=== PATIENT | female | born 1950 | race Caucasian/White ===

== ENCOUNTER → 2017-03-07 | Outpatient (CLI) | payer OTHER ==
[~2017-03-07] MED LIST: AMOX875T PO; B 12 INJECTION IM; CAND1TAB19 PO; CHOL1TAB5 OR; CHOL2000 PO; CHOL400C6 PO; CYNI1000 IM; ERGO1CAP35 PO; FLUO20CA35 PO; FLUO40CA8 PO; HYDR-3419 PO; LEVA45AE INH; LEVA45AE PO; LEVO50TA6 PO; LEVO50TA60 PO; META1TAB22 PO; MOME100A INH; MONT1TAB5 PO; ONDA4TAB46 PO; PLMIN90 PO; RANI150T3 PO; SIME1CAP11 PO; SIME1CHW17 PO; SKELAXIN PO; ZNT150 PO; [UNRECOGNIZED DRUG - CODE] PO; [UNRECOGNIZED DRUG - OTHER] PO
--- NOTE | 2017-03-07 12:47 | MAMMOGRAPHY REPORT ---
ULTRASOUND OF LEFT BREAST: 03/07/2017 CLINICAL HISTORY: History of left mastectomy and silicone implant placement. The patient believes h er implant was placed in 2009. She notes no changes to her implant, she reports that her physician periodically likes to evaluate for possible implant rupture. COMPARISON: Comparison is made to exams dated: 03/04/2015 mammogram, 03/04/2015 ultrasound - [facility], 08/21/2007, 08/21/2007, and 08/09/2007. TECHNIQUE: Real-time targeted ultrasound of the left breast was performed. FINDINGS: Real-time, high resolution targeted ultrasound was performed of the left mastectomy bed to evaluate for implant rupture. The implant appears intact without any evidence of intracapsular or extracapsu lar rupture. IMPRESSION: ACR BI-RADS CATEGORY 2: BENIGN No evidence of left implant rupture on ultrasound. Recommend clinical follow-up. The patient is du e for screening right breast mammograms September 2017. The patient was verbally notified of the res ults. Valeria Thao M.D. ah/:03/07/2017 11:24:24 Attending Technologist: Ebony Kc RT(R)(M), [facility] Flue Cleaner: Valeria Thao MD, [facility] letter sent: Normal 1/2 BI-RADS Code: ACR BI-RADS Category 2: Benign
== END | disposition home or self-care (01) ==
LOC: C.MAMM 10:59
PROVIDERS: ATTEND Plastic Surgery
DX: Z42.1 Encounter for breast reconstruction following mastectomy (principal); N64.4 Mastodynia; C50.919 Malignant neoplasm of unspecified site of unspecified female breast; Z98.82 Breast implant status

== ENCOUNTER → 2017-03-23 | Outpatient (CLI) | payer OTHER ==
[2017-03-23 11:52] LABS: BASO % 0.3 %; BASO ABS # 0.02 K/uL (0-0.2); COMPLETE YES; EOS % 3.6 %; HEMATOCRIT 38.7 % (37-47); LYMPH % 39.7 %; LYMPH ABS # 2.41 K/uL (1.2-3.4); MEAN CELL VOLUME 93.5 fL (80-100); MEAN CORPUSCULAR HEMOGLOBIN 30.7 pg (25-34); MEAN CORPUSCULAR HGB CONC 32.8 g/dl (32-36); MEAN PLATELET VOLUME 11.6 fL (7.4-10.4); MONO % 10.2 %; NEUT % 46.2 %; PLATELET COUNT 220 K/uL (130-400); RED BLOOD COUNT 4.14 M/uL (4.2-5.4); WHITE BLOOD COUNT 6.07 K/uL (4.8-10.8)
[2017-03-23 12:14] LABS: ESTIMATED AVERAGE GLUCOSE 117 mg/dl; HA1C FLAG Normal (Normal)
[2017-03-23 12:38] LABS: ALT/SGPT 23 U/L (12-78); AST/SGOT 15 U/L (15-37); BLOOD UREA NITROGEN 26 mg/dl (7-18); BUN/CREATININE RATIO 26.1 (10-20); CALCIUM 9.1 mg/dl (8.5-10.1); CARBON DIOXIDE 25 mmol/L (21-32); CHLORIDE 108 mmol/L (98-107); GLUCOSE 91 mg/dl (70-99); POTASSIUM 4.3 mmol/L (3.5-5.1); SODIUM 141 mmol/L (136-145)
[2017-03-23 12:49] LABS: ALKALINE PHOSPHATASE 88 U/L (45-117)
--- NOTE | 2017-03-28 14:06 | CODING QUERY MEDICAL NECESSITY ---
CQSUPPORTING DIAGNOSIS NEEDED A supporting diagnosis is required for the test/procedure performed on this patient in order for us to be reimbursed by the patient's insurance. Please provide a supporting diagnosis for the following test/procedure listed below next to the test name along with your signature. *If there is no additional diagnosis for this patient that would support the following test/procedure please document that below next to the test/procedure. Test(s)/Procedure(s) that require a supporting diagnosis: DOS 03/23/17 GLYCATED HEMOGLOBIN TEST Provider Signature: Date: Thank you Brigitte Duff Health Information Management Once completed, please kindly fax back to [phone] For questions please call [phone]
== END | disposition home or self-care (01) ==
LOC: C.LABBFT 08:09
PROVIDERS: ATTEND Internal Medicine
DX: R73.03 Prediabetes (principal); E55.9 Vitamin D deficiency, unspecified; E03.9 Hypothyroidism, unspecified; E53.8 Deficiency of other specified B group vitamins

== ENCOUNTER → 2017-03-26 | Outpatient (CLI) | payer OTHER ==
[2017-03-26 13:39] LABS: URINE APPEARANCE CLEAR (CLEAR); URINE BILIRUBIN NEG (NEG); URINE COLOR YELLOW; URINE NITRITE NEG (NEG); URINE PH 5.5 (4.5-7.5); URINE SPECIFIC GRAVITY 1.009 (1.000-1.030); UROBILINOGEN NEG (NEG); ZZUR CULT IF INDIC CLEAN CATCH NO
[2017-03-26 13:43] LABS: MANUAL MICROSCOPIC REQUIRED? NO; REVIEW REQ? NO
== END | disposition home or self-care (01) ==
LOC: C.LABSPEC 12:18
PROVIDERS: ATTEND Internal Medicine
DX: R73.03 Prediabetes (principal)

== ENCOUNTER 2017-05-28 22:19 | Emergency (ER) | payer OTHER ==
[~2017-05-28] VITALS: Ht 154.9 cm; Wt 101.2 kg
[~2017-05-28 22:19] MED LIST changes: -AMOX875T PO; -CAND1TAB19 PO; -CHOL2000 PO; -CHOL400C6 PO; -CYNI1000 IM; -FLUO40CA8 PO; -LEVA45AE INH; -LEVA45AE PO; -LEVO50TA6 PO; -META1TAB22 PO; -MONT1TAB5 PO; -ONDA4TAB46 PO; -PLMIN90 PO; -RANI150T3 PO; -SIME1CAP11 PO
[2017-05-28 22:25] VITALS: Ht 154.9 cm; Wt 101.2 kg
[2017-05-28] MEDS ORDERED: CAND1TAB19 PO (22:54)
[2017-05-28] MEDS ORDERED: CYNI1000 IM (22:55)
[2017-05-28] MEDS ORDERED: LEVO50TA6 PO (22:55)
[2017-05-28] MEDS ORDERED: FLUO40CA8 PO (22:55)
[2017-05-28] MEDS ORDERED: MONT1TAB5 PO (22:57)
[2017-05-28] MEDS ORDERED: META1TAB22 PO (22:57)
[2017-05-28] MEDS ORDERED: LEVA45AE PO (22:58)
[2017-05-28] MEDS ORDERED: CHOL2000 PO (22:58)
[2017-05-28] MEDS ORDERED: RANI150T3 PO (22:58)
[2017-05-28] MEDS ORDERED: PLMIN90 PO (22:59)
[2017-05-28] MEDS ORDERED: AMPICILLIN/SULBACTAM SOD INJ 3,000 MG in SODIUM CHLORIDE 0.9% 100ML 100 ML IV STA (23:05)
--- NOTE | 2017-05-28 23:07 | EMERGENCY ROOM VISIT NOTE ---
ED Visit Note First contact with patient: 22:46 I have personally seen and evaluated the patient with the physician assistant librarian. I agree with the diagnostic/management decisions and have personally been involved in these decisions and agree with the diagnosis.
[2017-05-28 23:21] LABS: BASO % 0.4 %; BASO ABS # 0.04 K/uL (0-0.2); COMPLETE YES; HEMATOCRIT 36.3 % (37-47); IG% 0.1 %; LYMPH % 23.1 %; LYMPH ABS # 2.21 K/uL (1.2-3.4); MEAN CELL VOLUME 92.8 fL (80-100); MEAN CORPUSCULAR HEMOGLOBIN 30.7 pg (25-34); MEAN CORPUSCULAR HGB CONC 33.1 g/dl (32-36); MONO % 7.3 %; NEUT % 67.1 %; PLATELET COUNT 189 K/uL (130-400); RED BLOOD COUNT 3.91 M/uL (4.2-5.4); WHITE BLOOD COUNT 9.55 K/uL (4.8-10.8)
[2017-05-28 23:42] LABS: BUN/CREATININE RATIO 23.4 (10-20); CALCIUM 8.9 mg/dl (8.5-10.1); CREATININE 0.86 mg/dl (0.60-1.20); POTASSIUM 3.6 mmol/L (3.5-5.1)
[2017-05-28 23:43] LABS: C-REACTIVE PROTEIN 1.63 mg/dl (0-0.29)
[2017-05-29] MEDS ORDERED: AMOX875T PO (00:04)
--- NOTE | 2017-05-29 00:12 | EMERGENCY ROOM VISIT NOTE ---
History First contact with patient: 22:46 Chief Complaint: BITE Stated Complaint: INSECT BITE ON LT FOOT/ANKLE, SWOLLEN, PAINFUL History of Present Illness The patient is a 66 year old female who presents to the Emergency Room with complaints of bilateral ankle swelling, pain, redness and bruising. The patient reports that she was camping over the weekend, and is pretty certain that she was bitten by bugs. She reports that her daughter did pull something black off of the back of her left ankle, and thought that it may have been a tick. The tick had only been attached for a short period of time. The patient reports that in addition to the swelling and pain, she has also had chills and a headache today. Tetanus immunization is up-to-date. The patient rates her discomfort a 7 out of 10. Review of Systems 10 system review was performed and was negative except for pertinent positives and negatives as indicated in history of present illness Past Medical/Surgical History Medical Problems: (1) Asthma (2) Breast cancer (3) Breast implant status (4) Endocarditis (5) HTN (hypertension) (6) Hypoxia Surgical Problems: (1) H/O gastric bypass (2) H/O left mastectomy (3) History of cholecystectomy (4) S/P appendectomy (5) S/P partial hysterectomy Family History FH: HTN (hypertension) FH: cancer FH: diabetes mellitus FH: heart disease Social History Smoking Status: Never Smoker Alcohol Use: none Drug Use: none Marital Status: Housing Status: lives with significant other Occupation Status: employed Current/Historical Medications Scheduled Amoxicillin & Pot Clavulanate (Augmentin 875-125 mg), 1 TAB PO BID Budesonide (Pulmicort Flexhaler), 1 PUFF PO BID Candesartan Cilexetil (Candesartan Cilexetil), 16 MG PO DAILY Cholecalciferol (Vitamin D3), 1 CAP PO DAILY Cyanocobalamin (Cyanocobalamin), 1,000 MCG IM MONTHLY Fluoxetine (Prozac), 80 MG PO DAILY Levothyroxine Sodium (Levothyroxine Sodium), 1 TAB PO DAILY Metaxalone (Skelaxin), 800 MG PO Q8 Montelukast Sodium (Montelukast Sodium), 1 TAB PO DAILY Ranitidine Hcl (Zantac), 150 MG PO BID Scheduled PRN Levalbuterol Tartrate (Levalbuterol Tartrate Hfa), 1-2 PUFFS PO Q4 PRN for SOB/ Wheezing Allergies Coded Allergies: Docetaxel (Verified Allergy, Severe, CHEST PAIN, CAN'T BREATHE, 05/28/17) Acetaminophen (Verified Adverse Reaction, Mild, MAKES HER JUMPY, 05/28/17) Ibuprofen (Verified Adverse Reaction, Unknown, bleeding, 05/28/17) Physical Exam Vital Signs Date Time Temp Pulse Resp B/P (MAP) Pulse Ox O2 Delivery O2 Flow Rate FiO2 05/28/17 22:25 36.5 79 20 181/98 96 Room Air Physical Exam CONSTITUTIONAL: Healthy and well nourished. Alert and oriented X 3 with positive affect. Patient does not appear acutely or toxic. HEENT: Normocephalic, atraumatic. Pupils equal, round and reactive. NECK: Full active range of motion without discomfort. RESPIRATORY: Clear to auscultation bilaterally with no wheezing, crackles, rhonchi or stridor. CARDIOVASCULAR: Regular rate and rhythm with no murmurs, rubs or gallops. MUSCULOSKELETAL: Examination shows bilateral ankle edema and erythema. She has a lesion on the left inner ankle that is more petechial in nature, and warm to palpation. She has 1+ pedal edema bilaterally. No proximal lymphangitic streaking noted. She has no significant worsening pain with flexion of the ankle. Pedal pulses are intact. INTEGUMENTARY: No rash or other significant dermatologic conditions noted. NEUROLOGIC: Bilateral feet are sensory intact. Medical Decision & Procedures Laboratory Results 05/28/17 23:10 Red Blood Count 3.91, Mean Corpuscular Volume 92.8, Mean Corpuscular Hemoglobin 30.7, Mean Corpuscular Hemoglobin Concent 33.1, Mean Platelet Volume 11.0, Neutrophils (%) (Auto) 67.1, Lymphocytes (%) (Auto) 23.1, Monocytes (%) (Auto) 7.3, Eosinophils (%) (Auto) 2.0, Basophils (%) (Auto) 0.4, Neutrophils # (Auto) 6.40, Lymphocytes # (Auto) 2.21, Monocytes # (Auto) 0.70, Eosinophils # (Auto) 0.19, Basophils # (Auto) 0.04 05/28/17 23:10 Test 05/28/17 23:10 White Blood Count 9.55 K/uL (4.8-10.8) Red Blood Count 3.91 M/uL (4.2-5.4) Hemoglobin 12.0 g/dL (12.0-16.0) Hematocrit 36.3 % (37-47) Mean Corpuscular Volume 92.8 fL (80-100) Mean Corpuscular Hemoglobin 30.7 pg (25-34) Mean Corpuscular Hemoglobin Concent 33.1 g/dl (32-36) Platelet Count 189 K/uL (130-400) Mean Platelet Volume 11.0 fL (7.4-10.4) Neutrophils (%) (Auto) 67.1 % Lymphocytes (%) (Auto) 23.1 % Monocytes (%) (Auto) 7.3 % Eosinophils (%) (Auto) 2.0 % Basophils (%) (Auto) 0.4 % Neutrophils # (Auto) 6.40 K/uL (1.4-6.5) Lymphocytes # (Auto) 2.21 K/uL (1.2-3.4) Monocytes # (Auto) 0.70 K/uL (0.11-0.59) Eosinophils # (Auto) 0.19 K/uL (0-0.5) Basophils # (Auto) 0.04 K/uL (0-0.2) RDW Standard Deviation 49.0 fL (36.4-46.3) RDW Coefficient of Variation 14.6 % (11.5-14.5) Immature Granulocyte % (Auto) 0.1 % Immature Granulocyte # (Auto) 0.01 K/uL (0.00-0.02) Erythrocyte Sedimentation Rate 16 mm/hr (0-21) Anion Gap 9.0 mmol/L (3-11) Est Creatinine Clear Calc Drug Dose 68.3 ml/min Estimated GFR () 80.5 Estimated GFR (Non- 69.4 BUN/Creatinine Ratio 23.4 (10-20) Calcium Level 8.9 mg/dl (8.5-10.1) C-Reactive Protein 1.63 mg/dl (0-0.29) The above labs were reviewed. CRP is elevated, otherwise remaining labs were reviewed and grossly normal. Medications Administered Medications (Trade) Dose Ordered Sig/Vinny Route Start Time Stop Time Status Last Admin Dose Admin Ampicillin Sodium/ Sulbactam Sodium 3000 mg/Sodium Chloride 108 ml @ 200 mls/hr NOW STAT IV 05/28/17 23:05 05/28/17 23:37 DC 05/28/17 23:30 200 MLS/HR ED Course Patient history and physical exam were performed. Nurse's notes were reviewed. Vital signs were reviewed, showing an elevated blood pressure 181/98. She is afebrile and not tachycardic. Because of her symptoms and clinical exam findings, I did suggest administering parenteral antibiotics. IV access was established, and labs were drawn. The patient was administered Unasyn 3 g IV infusion. Review of labs shows a mildly elevated CRP with no sedimentation rate elevation. Remaining labs were grossly normal. The patient was provided a prescription for Augmentin. She was instructed to elevate the ankles for swelling and pain. The patient refused any prescription analgesics. She was instructed to follow-up with her family doctor in the next 2 or 3 days for recheck. She was instructed to return to the emergency department for any progressively worsening redness, swelling, pain or fever. The patient was happy with plan of care, voiced understanding of all discharge instructions, and rated her discomfort a 3 out of 10 at the time of discharge. The patient was also seen and examined by Dr. Connor, ED attending physician, who agrees with workup and plan of care. Medical Decision Impression Primary Impression: Bilateral ankle cellulitis Departure Information Prescriptions Amoxicillin & Pot Clavulanate (Augmentin 875-125 mg) 1 Tab Tab 1 TAB PO BID, #20 TAB Prov: Pardeep Spangler PA 05/29/17 Referrals Enoch Aguilar M.D. (PCP) Patient Instructions [facility]
[2017-05-29 00:13] VITALS: BP 181/98; PULSE 79; TEMP 36.5; O2SAT 96
[2017-08-22] MEDS ORDERED: CHOL400C6 PO (14:03)
[2017-08-22] MEDS ORDERED: LEVA45AE INH (14:03)
[2017-08-22] MEDS ORDERED: SIME1CAP11 PO (14:03)
[2017-08-22] MEDS ORDERED: ONDA4TAB46 PO (14:03)
== END 2017-05-29 00:15 | disposition home or self-care (01) ==
LOC: C.EDB 22:21 → C.EDC 05-29 00:15
DX: L03.115 Cellulitis of right lower limb (principal); L03.116 Cellulitis of left lower limb; J45.909 Unspecified asthma, uncomplicated; Z85.3 Personal history of malignant neoplasm of breast; Z98.82 Breast implant status; I10 Essential (primary) hypertension; Z98.84 Bariatric surgery status; Z90.12 Acquired absence of left breast and nipple; Z82.49 Family history of ischemic heart disease and other diseases of the circulatory system; Z80.9 Family history of malignant neoplasm, unspecified; Z83.3 Family history of diabetes mellitus; Z79.899 Other long term (current) drug therapy

== ENCOUNTER → 2017-08-01 | Outpatient (CLI) | payer OTHER ==
[~2017-08-01] MED LIST changes: -B 12 INJECTION IM; +CAND1TAB19 PO; -CHOL1TAB5 OR; +CHOL2000 PO; +CHOL400C6 PO; +CYNI1000 IM; -ERGO1CAP35 PO; -FLUO20CA35 PO; +FLUO40CA8 PO; -HYDR-3419 PO; +LEVA45AE INH; +LEVA45AE PO; +LEVO50TA6 PO; -LEVO50TA60 PO; +META1TAB22 PO; -MOME100A INH; +MONT1TAB5 PO; +ONDA4TAB46 PO; +PLMIN90 PO; +RANI150T3 PO; +SIME1CAP11 PO; -SIME1CHW17 PO; -SKELAXIN PO; -ZNT150 PO; -[UNRECOGNIZED DRUG - CODE] PO; -[UNRECOGNIZED DRUG - OTHER] PO
[2017-08-01 12:35] LABS: BASO % 0.4 %; BASO ABS # 0.03 K/uL (0-0.2); COMPLETE YES; EOS % 1.9 %; HEMATOCRIT 36.9 % (37-47); IG% 0.1 %; LYMPH % 37.7 %; LYMPH ABS # 2.61 K/uL (1.2-3.4); MEAN CORPUSCULAR HEMOGLOBIN 29.9 pg (25-34); MEAN CORPUSCULAR HGB CONC 32.5 g/dl (32-36); MEAN PLATELET VOLUME 11.4 fL (7.4-10.4); MONO % 8.8 %; NEUT % 51.1 %; PLATELET COUNT 208 K/uL (130-400); RED BLOOD COUNT 4.01 M/uL (4.2-5.4); WHITE BLOOD COUNT 6.92 K/uL (4.8-10.8)
[2017-08-01 12:57] LABS: ESTIMATED AVERAGE GLUCOSE 111 mg/dl; HA1C FLAG Normal (Normal)
[2017-08-01 13:13] LABS: ALT/SGPT 16 U/L (12-78); AMYLASE 22 U/L (25-115); BLOOD UREA NITROGEN 18 mg/dl (7-18); BUN/CREATININE RATIO 18.4 (10-20); CALCIUM 8.9 mg/dl (8.5-10.1); CARBON DIOXIDE 26 mmol/L (21-32); CHLORIDE 105 mmol/L (98-107); CREATININE 0.95 mg/dl (0.60-1.20); GLUCOSE 85 mg/dl (70-99); POTASSIUM 4.3 mmol/L (3.5-5.1); SODIUM 137 mmol/L (136-145)
[2017-08-01 13:23] LABS: ALB/GLOB RATIO 1.1 (0.9-2); ALKALINE PHOSPHATASE 94 U/L (45-117); AST/SGOT 15 U/L (15-37)
== END | disposition home or self-care (01) ==
LOC: C.LABBFT 10:39
PROVIDERS: ATTEND Internal Medicine
DX: E03.9 Hypothyroidism, unspecified (principal); R14.0 Abdominal distension (gaseous); E55.9 Vitamin D deficiency, unspecified; R73.03 Prediabetes

== ENCOUNTER → 2017-08-29 | Outpatient (CLI) | payer OTHER ==
[~2017-08-29] MED LIST changes: -CHOL2000 PO; -LEVA45AE PO
--- NOTE | 2017-08-29 10:02 | DIAGNOSTIC IMAGING REPORT ---
RIGHT HAND 3 VIEWS HISTORY: Arthritis. Hand pain. E61.8 Mineral deficiency Right [id number] COMPARISON: None. FINDINGS: There is no fracture or dislocation. Prior resection of the trapezium bone. Mild osteopenia. Severe osteoarthritis at the PIP joints of the third and fourth fingers with mild soft tissue swelling. Subchondral cystic change at the third PIP joint due to the degenerative change. There is mild to moderate osteoarthritis throughout the remaining DIP, PIP, and first MCP joints. There is also mild osteoarthritis at the radiocarpal joint and moderate osteoarthritis at the residual STT joint. IMPRESSION: Osteoarthritis within the right hand as described above most pronounced at the PIP joints of the third and fourth digits. Electronically signed by: Clayton Mora M.D. 08/29/2017 10:01 AM Dictated Date/Time: 08/29/2017 9:58 AM
--- NOTE | 2017-08-29 10:04 | DIAGNOSTIC IMAGING REPORT ---
THORACIC SPINE 3 VIEWS HISTORY: Back pain. E61.8 Mineral deficiency [id number] COMPARISON: None. FINDINGS: There is no fracture. No subluxation. Right subclavian Port-A-Cath terminates at the proximal SVC. Mild superior mediastinal widening which could be positional. Epigastric surgical clips are noted. Minimal dextroscoliosis of the thoracic spine. Paraspinal soft tissues are unremarkable. Mild kyphosis with moderate degenerative disc disease throughout the mid to lower thoracic spine. There multiple endplate osteophytes at these levels. There is mild degenerative disc disease within the upper thoracic spine. IMPRESSION: 1. Mild to moderate degenerative disc disease within the thoracic spine resulting in a mild kyphosis. 2. Question mediastinal widening may be positional. Nonemergent PA and lateral views of the chest can be used for confirmation. Electronically signed by: Clayton Mora M.D. 08/29/2017 10:03 AM Dictated Date/Time: 08/29/2017 10:01 AM
== END ==
LOC: C.RAD 09:24
PROVIDERS: ATTEND Internal Medicine Rheumatology
DX: E61.8 Deficiency of other specified nutrient elements (principal)

== ENCOUNTER → 2017-08-29 | Day surgery (SDC) | payer OTHER ==
[2017-08-22 14:05] VITALS: Ht 156.2 cm; Wt 96.4 kg
[~2017-08-29] VITALS: Ht 156.2 cm; Wt 96.4 kg
[~2017-08-29] MED LIST changes: +KETAMINE HCL INJ 50 MG/ML 10 ML VIAL ONE; +LABETALOL HCL IV 5 MG/ML 20ML IV ONE; +LIDOCAINE HCL 2% 2 ML VIAL (20MG/ML) ONE; +MIDAZOLAM HCL 1 MG/ML 2ML VIAL ONE; +PROPOFOL IV EMULSION 10 MG/ML 20 ML VIAL IV ONE
--- NOTE | 2017-08-29 14:37 | Endo History and Physical ---
History & Physical Date of Service: Aug 29, 2017. Chief Complaint: GERD Referring Physician: Enoch Aguliar History of Present Illness For EGD Past Surgical History Hx Cardiac Surgery: No Hx Internal Defibrillator: No Hx Pacemaker: No Hx Abdominal Surgery: Yes (STOMACH STAPELING, GASTRIC BYPASS, APPY, PARTIAL HYSTER, MARY) Hx of Implantable Prosthesis: No Hx Post-Op Nausea and Vomiting: No Hx Cancer Surgery: Yes (LT BREAST MASTECTOMY WITH IMPLANT RECON; RT BREAST MASTOPEXY FOR SYMMETRY) Hx Thoracic Surgery: No Hx Orthopedic: Yes (RT THUMB JOINT SURGERY) Hx Urinary Tract Surgery: No Family History None Social History Smoking Status: Former Smoker Hx Substance Use: No Hx Alcohol Use: Yes (RARELY) Allergies Coded Allergies: Docetaxel (Verified Allergy, Severe, CHEST PAIN, CAN'T BREATHE, 08/22/17) Adhesives (Verified Allergy, Unknown, SKIN BLISTERS, 08/22/17) Alendronate (Verified Allergy, Unknown, PT DOESN'T REMEMBER REACTION, 08/22) Ibandronic Acid (Verified Allergy, Unknown, PT DOESN'T REMEMBER REACTION, 08/22/17) Losartan (Verified Allergy, Unknown, LETHARGY OR LEG SWELLING, 08/22/17) Silver Sulfadiazine (Verified Allergy, Unknown, "MADE BURN WORSE", 08/22/17 ) Acetaminophen (Verified Adverse Reaction, Mild, MAKES HER JUMPY, 08/22/17) Ibuprofen (Verified Adverse Reaction, Unknown, TO BE AVOIDED PER ONCOLOGIST, 08/22/17) Current Medications Reported Home Medications Medications Dose Route/Sig Max Daily Dose Days Date Category Simethicone 180 Mg Cap 1 Cap PO UD PRN 08/22/17 Reported Levalbuterol Tartrate Hfa (Levalbuterol Tartrate) 45 Mcg/Act Aer 1-2 Puffs INH Q4H PRN 08/22/17 Reported Zofran (Ondansetron HCl) 4 Mg Tab 4 Mg PO Q6H PRN 08/22/17 Reported D 400 (Cholecalciferol) 400 Unit Chw 2 Tabs PO QAM 08/22/17 Reported Pulmicort Flexhaler (Budesonide) 60 Puffs/5400 Mcg Aero 1 Puff PO BID PRN 05/28/17 Reported Zantac (Ranitidine HCl) 150 Mg Tab 150 Mg PO BID 05/28/17 Reported Montelukast Sodium 10 Mg Tab 1 Tab PO QAM 05/28/17 Reported Levothyroxine Sodium 50 Mcg Tab 1 Tab PO QAM 05/28/17 Reported Prozac (Fluoxetine HCl) 40 Mg Cap 2 Cap PO QAM 05/28/17 Reported Cyanocobalamin 1,000 Mcg/Ml Inj 1,000 Mcg IM MONTHLY 05/28/17 Reported Candesartan Cilexetil 16 Mg Tab 16 Mg PO QAM 05/28/17 Reported Vital Signs Weight (Kilograms): 96.36 Height (Feet): 5 Height (Inches): 1.5 Physical Exam General Appearance: WD/WN Respiratory/Chest: Respiratory effort: no dyspnea Cardiovascular: Heart Auscultation: RRR Abdomen: Bowel Sounds: pertinent finding (S/P gastric bypass) Assessment and Plan GERD for EGD
--- NOTE | 2017-08-29 14:59 | Discharge Instructions ---
Endoscopy Patient Instructions Date / Procedure(s) Performed Aug 29, 2017. EGD Allergy Information Coded Allergies: Docetaxel (Verified Allergy, Severe, CHEST PAIN, CAN'T BREATHE, 08/22/17) Adhesives (Verified Allergy, Unknown, SKIN BLISTERS, 08/22/17) Alendronate (Verified Allergy, Unknown, PT DOESN'T REMEMBER REACTION, 08/22) Ibandronic Acid (Verified Allergy, Unknown, PT DOESN'T REMEMBER REACTION, 08/22/17) Losartan (Verified Allergy, Unknown, LETHARGY OR LEG SWELLING, 08/22/17) Silver Sulfadiazine (Verified Allergy, Unknown, "MADE BURN WORSE", 08/22/17 ) Acetaminophen (Verified Adverse Reaction, Mild, MAKES HER JUMPY, 08/22/17) Ibuprofen (Verified Adverse Reaction, Unknown, TO BE AVOIDED PER ONCOLOGIST, 08/22/17) Discharge Date / Findings Aug 29, 2017. Normal post op exam Medication Instructions Restart Stopped Medication(s): resume meds Reported Home Medications Medications Dose Route/Sig Max Daily Dose Days Date Category Simethicone 180 Mg Cap 1 Cap PO UD PRN 08/22/17 Reported Levalbuterol Tartrate Hfa (Levalbuterol Tartrate) 45 Mcg/Act Aer 1-2 Puffs INH Q4H PRN 08/22/17 Reported Zofran (Ondansetron HCl) 4 Mg Tab 4 Mg PO Q6H PRN 08/22/17 Reported D 400 (Cholecalciferol) 400 Unit Chw 2 Tabs PO QAM 08/22/17 Reported Pulmicort Flexhaler (Budesonide) 60 Puffs/5400 Mcg Aero 1 Puff PO BID PRN 05/28/17 Reported Zantac (Ranitidine HCl) 150 Mg Tab 150 Mg PO BID 05/28/17 Reported Montelukast Sodium 10 Mg Tab 1 Tab PO QAM 05/28/17 Reported Levothyroxine Sodium 50 Mcg Tab 1 Tab PO QAM 05/28/17 Reported Prozac (Fluoxetine HCl) 40 Mg Cap 2 Cap PO QAM 05/28/17 Reported Cyanocobalamin 1,000 Mcg/Ml Inj 1,000 Mcg IM MONTHLY 05/28/17 Reported Candesartan Cilexetil 16 Mg Tab 16 Mg PO QAM 05/28/17 Reported Provider Instructions Activity Restrictions - No exercising or heavy lifting for 24 hours. - Do not drink alcohol the day of the procedure. - Do not drive a car or operate machinery until the day after the procedure. - Do not make any important decisions or sign important papers in 24 hours after the procedure. Following Day: - Return to full activity which may include returning to work/school. Diet Start your diet with liquids and light foods (jello, soup, juice, toast). Then eat your usual diet if not nauseated. Treatment For Common After Affects For mild abdominal pain, bloating, or excessive gas: - Rest - Eat lightly - Lie on right side Follow-Up Information Follow-up with Enoch Aguilar as scheduled Anesthesia Information What You Should Know You have had a procedure that required some medicine to reduce anxiety and discomfort. This treatment is called moderate sedation. After receiving the treatment, you may be sleepy, but you will be able to breathe on your own. The effects of the treatment may last for several hours. Follow these instructions along with Activity/Diet recommendations noted above: * Do NOT do anything where dizziness or clumsiness would be dangerous. * Rest quietly at home today, then you can be up and about tomorrow. * Have a responsible person stay with you the rest of today. * You may have had an I.V. today. If so, you may take the dressing off later today. Recommendations Call your doctor if: * Trouble breathing * Continuous vomiting for more than 24 hours * Temperature above 101 degrees * Severe abdominal pain or bloating * Pain not relieved by pain medicine ordered * There is increased drainage or redness from any incision * A large amount of rectal bleeding greater than 2-3 tablespoons. (If you had a polyp/s removed or have hemorrhoids, a small amount of blood - from the rectum is to be expected.) * You have any unanswered questions or concerns. IN THE EVENT OF A SERIOUS EMERGENCY, GO TO THE NEAREST EMERGENCY ROOM Your discharge instructions were prepared by provider Gonzalez Altman. Patient Instructions Signature Page Jazmyn Rosado Patient (or Guardian) Signature/Date: I have read and understand the instructions given to me by my caregivers. Caregiver/RN/Doctor Signature/Date: The above-named patient and/or guardian has received patient instructions on this date. + Original Patient Signature Page (only) stays with chart. Please make copy for patient.
--- NOTE | 2017-08-29 15:04 | GI REPORT ---
Procedure Date: 08/29/2017 2:53 PM Procedure: Upper GI endoscopy Indications: Dyspepsia Medicines: Midazolam 2 mg IV, Propofol total dose 100 mg IV, Ketamine 10 mg IV Complications: No immediate complications. Estimated Blood Loss: Estimated blood loss: none. Procedure: Pre-Anesthesia Assessment: - Prior to the procedure, a History and Physical was performed, and patient medications, allergies and sensitivities were reviewed. The patient's tolerance of previous anesthesia was reviewed. - The risks and benefits of the procedure and the sedation options and risks were discussed with the patient. All questions were answered and informed consent was obtained. After obtaining informed consent, the endoscope was passed under direct vision. Throughout the procedure, the patient's blood pressure, pulse, and oxygen saturations were monitored continuously. The scope was introduced through the mouth, and advanced to the jejunum. The upper GI endoscopy was accomplished without difficulty. The patient tolerated the procedure well. Findings: The examined esophagus was normal. The Z-line was regular and was found 39 cm from the incisors. 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 The gastrojejunal anastomosis was characterized by healthy appearing mucosa. This was traversed. The [id number] limb was characterized by healthy appearing mucosa. The examined duodenum was normal. Impression: - Normal esophagus. - Z-line regular, 39 cm from the incisors. - Soni-en-Y gastrojejunostomy with gastrojejunal anastomosis characterized by healthy appearing mucosa. - Normal examined duodenum. - No specimens collected. Recommendation: - Discharge patient to home (ambulatory). - Continue present medications. - Return to primary care physician PRN. Gonzalez Altman M.D. Gonzalez Altman MD 08/29/2017 3:04:22 PM This report has been signed electronically. Note Initiated On: 08/29/2017 2:53 PM I attest to the content of the Intraoperative Record and orders documented therein, exceptions below
--- NOTE | 2017-08-29 15:29 | Anesthesiology Progress Note ---
Anesthesia Post Op Note Date & Time Aug 29, 2017 at 15:28 Vital Signs Pain Intensity: 0 Vital Signs Past 12 Hours Date Time Temp Pulse Resp B/P (MAP) Pulse Ox O2 Delivery O2 Flow Rate FiO2 08/29/17 15:11 60 18 110/63 (79) 97 Mask 2 08/29/17 14:31 36.7 55 18 153/78 (103) 97 Room Air Notes Mental Status: alert / awake / arousable, participated in evaluation Pt Amnestic to Procedure: Yes Nausea / Vomiting: adequately controlled Pain: adequately controlled Airway Patency, RR, SpO2: stable & adequate BP & HR: stable & adequate Hydration State: stable & adequate Anesthetic Complications: no major complications apparent
[2017-08-29 15:41] VITALS: BP 129/68; PULSE 63; O2SAT 99
== END | disposition home or self-care (01) ==
LOC: C.GI 13:51
PROVIDERS: ATTEND Internal Medicine Gastroenterology
DX: K21.9 Gastro-esophageal reflux disease without esophagitis (principal); I10 Essential (primary) hypertension; J45.909 Unspecified asthma, uncomplicated; Z85.3 Personal history of malignant neoplasm of breast; Z98.84 Bariatric surgery status; Z90.49 Acquired absence of other specified parts of digestive tract; Z90.710 Acquired absence of both cervix and uterus

== ENCOUNTER → 2017-09-11 | Outpatient (CLI) | payer OTHER ==
[~2017-09-11] MED LIST changes: -KETAMINE HCL INJ 50 MG/ML 10 ML VIAL ONE; -LABETALOL HCL IV 5 MG/ML 20ML IV ONE; -LIDOCAINE HCL 2% 2 ML VIAL (20MG/ML) ONE; -MIDAZOLAM HCL 1 MG/ML 2ML VIAL ONE; -PROPOFOL IV EMULSION 10 MG/ML 20 ML VIAL IV ONE
[2017-09-11 13:39] LABS: CALCIUM URINE 5.9 mg/dl
[2017-09-11 14:44] LABS: CALCIUM 9.2 mg/dl (8.5-10.1); CREATININE 1.15 mg/dl (0.60-1.20); URIC ACID 5.5 mg/dl (2.6-7.2)
[2017-09-11 14:45] LABS: RHEUMATOID FACTOR < 10.0 U/mL (0-15)
== END | disposition home or self-care (01) ==
LOC: C.LAB1850 11:42
PROVIDERS: ATTEND Internal Medicine Rheumatology
DX: E61.8 Deficiency of other specified nutrient elements (principal); M79.641 Pain in right hand

== ENCOUNTER → 2017-10-10 | Outpatient (CLI) | payer OTHER ==
--- NOTE | 2017-10-10 15:19 | MAMMOGRAPHY REPORT ---
UNILATERAL RIGHT DIGITAL SCREENING MAMMOGRAM TOMOSYNTHESIS WITH CAD: 10/10/2017 CLINICAL HISTORY: Asymptomatic. Personal history of breast cancer. TECHNIQUE: Right breast tomosynthesis in addition to standard 2D mammography was performed. Current derrell santos was also evaluated with a Computer Aided Detection (CAD) system. COMPARISON: Comparison is made to exams dated: 03/07/2017 ultrasound, 10/06/2016 mammogram, 10/04/2015 mammogram, 03/04/2015 mammogram, 03/04/2015 ultrasound, and 09/30/2014 mammogram - [facility]. BREAST COMPOSITION: The tissue of the right breast is almost entirely fatty. FINDINGS: No suspicious mass, architectural distortion or cluster of microcalcifications is seen. IMPRESSION: ACR BI-RADS CATEGORY 1: NEGATIVE There is no mammographic evidence of malignancy. A 1 year screening mammogram is recommended. The pa tient will receive written notification of the results. Approximately 10% of breast cancers are not detected with mammography. A negative mammographic report should not delay biopsy if a clinically suggestive mass is present. Danitza Santiago M.D. ay/:10/10/2017 10:11:12 Corporate Auditor: Sofya Rodriguez RT(R)(M), [facility] letter sent: Normal 1/2 BI-RADS Code: ACR BI-RADS Category 1: Negative
== END | disposition home or self-care (01) ==
LOC: C.MAMM 08:16
PROVIDERS: ATTEND Internal Medicine
DX: Z12.31 Encounter for screening mammogram for malignant neoplasm of breast (principal)

== ENCOUNTER → 2018-02-14 | Outpatient (CLI) | payer OTHER ==
[~2018-02-14] VITALS: Ht 156.2 cm; Wt 100.0 kg
[2018-02-14 10:31] VITALS: BP 128/81; PULSE 67; Ht 156.2 cm; Wt 100.0 kg
== END | disposition home or self-care (01) ==
LOC: C.NEUR 09:20
PROVIDERS: ATTEND Internal Medicine Pulmonary Disease
DX: G47.33 Obstructive sleep apnea (adult) (pediatric) (principal)

== ENCOUNTER → 2018-02-28 | Outpatient (CLI) | payer OTHER ==
--- NOTE | 2018-03-01 06:32 | PAP/PSG TECHNICIAN REPORT ---
[facility] Order [facility] Polysomnogram Report Study name: None Report date: 03/01/2018 Study date: 02/28/2018 Referring Physician: Dr. Tyler Bower DO Name: ABELARDO ANGELES Interpreting Physician: Tyler Bower D.O. Date of : 1950 Mail Order Biller: BRIAN Jackson. Sex: Female Age: 67 StudyType: PSG PAP Weight: 220.5 lbs Height: 67 years, Height 5' 1.5" BMI: 40.98 Medications: Benadryl, Cyanocobalamin 1000mcg/ml, Montelukast Sodium 10mg, Metaxalone 800mg, Simethicone, Fluoxetine HCl 40mg, Zantac 150mg, Candesartan Cilexetil 16mg, Levothyroxine 50mcg, Ondansetron HCl 4mg, D3 1000unit Patient History Study started on room air with 4cwp cpap in room #6. 67 yr old female here tonight for a new titration study. She had a HST that had an JAVIER of 30.8.Her ESS=13/24. Parameters Monitored NPSG: E1-M2, E2-M1, Fp1-M2, Fp2-M1, F3-M2, F4-M2, F4-M1, C3-M2, C4-M2, C4-M1, O1-M2, O2-M2, O2-M1, T3-M2, T4-M1, P3-M2, P4-M1, CHIN1, CHIN2, HR, EKG, Legs, PFLOW, SNOR, FLOW, CFLOW, Tidal Volume, THOR, ABDO, SpO2, PLTH, CPRESS, ETCO2 Wave, ETCO2, pH Sleep Architecture Sleep Stages Time at Lights Off 10:22:05 PM STAGES Time (min.) TST (%) Time at Lights On 5:25:05 AM Wake 78.0 -- Total Recording Time (TRT) 423.00 min. N1 14.0 4 Total Sleep Period (TSP) 363.5 min. N2 143.0 41 Total Sleep Time (TST) 345.0min. N3 105.5 31 Awake Time 78.0 min. REM 82.5 24 Wake after Sleep Onset 18.5 min. Sleep Efficiency (SE) 82 % Sleep Onset Latency (SHENA) 59.5 min. Number of Stage 1 Shifts None Awakenings 20 Stage Changes 87 Number of REM periods 11 REM 82.5 24 REM Latency 113.5 min. NREM 262.5 76 Body Position Analysis Supine Right Left Side Prone Vertical Total Sleep Time (min.) 6.4 169.0 176.0 345.00 0.0 0.0 Total Sleep Time (%) 0% 49% 51% 100 0% N/A% Total Sleep Time REM (min.) 0.0 11.5 71.0 None 0.0 0.0 Total Sleep Time NREM (min.) 0.0 157.5 105.0 None 0.0 0.0 Intermittent Wake (min.) 6.4 46.8 24.8 None 0.0 0.0 Total Sleep Period (%) 0% None None None None None Arousals Myoclonus (PLM) * Events Count Index Events Count Index Spontaneous 11 2 Events Awake (PLMW) 160 123.1 Respiratory 3 0.7 Events Asleep w/ Arousal (PLMA) 45 7.8 PLM 43 8 Events Asleep w/o Arousal (PLMS) 365 63.5 Snoring 1 0 Total Asleep 410 71.3 Total 58 10 Total 570 81 Respiratory Analysis * CA OA MA CH H RERA Total Count 0 1 0 0 17 0 18 Index 0.0 0.2 0.0 0 3.0 0 3.1 Mean Duration 0.0 22.2 0.0 0.00 21.0 0.0 21.1 Longest Duration 0.0 22.2 0.0 0.00 0.0 0.0 26.5 Respiratory Event Summary Total Supine ~Supine Right Left Prone REM NREM Apneas Count 1 N/A 1 0 1 N/A 0 1 Index 0.2 N/A 0 0.0 0.3 N/A 0 0 Hypopneas (4% Desat) Count 17 N/A 17 2 15 N/A 0 17 Index 3.0 N/A 3 0.7 5.1 N/A 0.0 3.9 Apneas & All Hypopneas Count 18 N/A 18 2 16 N/A 0 18 Index 3.1 N/A 3 1 5 N/A 0.0 4.1 Respiratory Events (Physically Impaired Teacher+All Hyp+RERA) Count 18 N/A 18 2 16 N/A 0 18 Index 3.1 N/A 3 0.7 5.5 N/A 0.0 4.1 Respiratory Related Arousal Count 3 N/A 4 1 3 N/A 0 4 Index 0.7 N/A 1 0 1 N/A 0 1 Snoring Analysis Supine Right Left Prone REM NREM Total Snore duration 2.3 min Snores count N/A 28 25 N/A 7 46 53 Snore mean duration 2.6 Sec Snores index N/A 10 9 N/A 5.1 10.5 9.2 TST with snoring (%) 0.7% Desaturation Event Summary: Minimum %SpO2 Event Count Mean/Min/Max Duration(sec.) Desaturation Index % Time In Bed > 90 30 28.3 / 10.0 / 59.0 6.2 68.4 86 - 90 3 15.9 / 15.8 / 16.0 1.3 31.6 81 - 85 0 N/A 0.0 0.0 76 - 80 0 N/A 0.0 0.0 71 - 75 0 N/A 0.0 0.0 66 - 70 0 N/A 0.0 0.0 61 - 65 0 N/A 0.0 0.0 56 - 60 0 N/A 0.0 0.0 51 - 55 0 N/A 0.0 0.0 < 50 0 N/A 0.0 0.0 Total REM NREM Awake <50% 0.0 min. 0.0 min. 0.0 min. 0.0 min. 51 - 60% 0.0 min. 0.0 min. 0.0 min. 0.0 min. 61 - 70% 0.0 min. 0.0 min. 0.0 min. 0.0 min. 71 - 80% 0.0 min. 0.0 min. 0.0 min. 0.0 min. 81 - 90% 133.6 min. 8.9 min. 117.9 min. 6.8 min. 91 - 100% 289.0 min. 73.6 min. 144.4 min. 70.9 min. Average 91 92 91 92 Minimum SpO2 87 89 87 88 Desaturation Event Index 4.3 1.5 5.0 5.4 # Desat. Events below 89% 6 N/A 5 1 Time(%) with Saturation below 89% 1.5 0.0 1.5 0.0 Time(min.) with Saturation below 89% 6.3 0.0 6.3 0.0 Time (mins) REM (mins) NREM (mins) % of TST SpO2 Below 90% 13 1 N12 10.8 SpO2 Below 88% 1 0 0 0 Heart Rate Analysis Min (bpm) Max (bpm) Average (bpm) Awake 56 82 64 NREM 54 82 63 REM 56 73 61 Overall 54 82 62 Supplemental O2 Values Minimum O2 level: None Value Start Time End Time Mail Order Biller Comments Mrs. Angeles slept in the right, left and supine positions. No cardiac arrhythmia noted. PLM's were noted. No bruxism noted. CPAP was initiated at +4 CMH2O and up-titrated to a level of +6 CMH2O. A standard Mirage FX nasal mask by [employer] was used during titration. She did not use the restroom during the night. She stated that she slept better than when at home. The final report will be interpreted and signed by a sleep physician. The completed physician report will then be placed in the patient medical record. Therapy Event: Therapy (cm H20) 4 5 6 Total Time at Pressure (min.) 255.8 27.8 139.4 TST at Pressure (min.) 188.3 27.3 129.4 # Periods 1 1 1 Sleep Onset (min.) 59.5 0.0 0.0 REM Onset (min.) 173.0 N/A 3.9 Sleep Efficiency % 73 98 92 Wakefulness (%) 26.4 1.8 7.2 Wakefulness (min.) 67.5 0.5 10.0 NREM 1 (%) 2.3 3.6 5.0 NREM 1 (min.) 6.0 1.0 7.0 NREM 2 (%) 32.0 94.6 25.0 NREM 2 (min.) 81.8 26.3 34.9 NREM 3 (%) 34.8 0.0 11.8 NREM 3 (min.) 89.0 0.0 16.5 REM (%) 4.5 0.0 50.9 REM (min.) 11.5 0.0 71.0 # Arousals 33 11 14 Arousal Index 10.5 24.2 6.5 # Snore 33 8 12 Snore Index 10.5 17.6 5.6 AHI 2.9 19.8 0.0 AHI Supine N/A N/A N/A AHI Non-Supine 2.9 19.8 0.0 NREM AHI 3.1 19.8 0.0 REM AHI 0.0 N/A 0.0 RDI 2.9 19.8 0.0 # Obstructive 1 0 0 # Central Ap 0 0 0 # Mixed 0 0 0 # Hypopneas 8 9 0 RERAS 0 0 0 Total Respiratory Events 9 9 0 Time Below SpO2 89.00% (min.) 6.0 0.0 0.3 Mean NREM SpO2 (%) 91 92 91 Mean REM SpO2 (%) 91 N/A 92 Mean Sleep SpO2 (%) 91 92 91 Min NREM SpO2 (%) 87 89 88 Min REM SpO2 (%) 90 N/A 89 Position Supine (min.) 0.0 0.0 0.0 Position Non-supine (min.) 188.3 27.3 129.4 LM Index Sleep 79.7 147.4 43.1 LM Index NREM 82.5 147.4 52.4 LM Index REM 36.5 N/A 35.5 Mean Heart Rate (bpm) 65 58 60 Min Heart Rate (bpm) 56 54 54
--- NOTE | 2018-03-05 23:58 | POLYSOMNOGRAPH REPORT ---
CLINICAL DATA: The patient is a 67-year-old female with a history of snoring, observed apneas, just disturbed nocturnal sleep, and excessive daytime somnolence. She has an Knightsen sleepiness scale score of 13 out of a possible 24. Her BMI is elevated at 40.98. This was an in-lab CPAP titration. She had a home study done on 10/14/2017 that showed moderate sleep apnea with an apnea-hypopnea index of 30.8 events per hour. SLEEP ARCHITECTURE: The total sleep period was 363.5 minutes. The total sleep time was 345 minutes. The sleep efficiency was mildly reduced to 82%. The sleep latency was prolonged to 59.5 minutes. Wake after sleep onset was 18.5 minutes. The REM latency was top normal at 113.5 minutes. Sleep consisted of stage N1 4%, stage N2 41%, stage N3 31%, stage REM 24%. AROUSAL DATA: The patient had a total of 58 arousals including 11 spontaneous arousals, 3 respiratory arousals, 43 PLM arousals, and 1 snoring arousal. The arousal index was 10. PLM DATA: The patient had 410 periodic limb movements of sleep for an index elevated at 71.3. There were 45 arousals, associated with limb movements for a PLM arousal index of 7.8. EKG: The minimum heart rate was 54 beats per minute. The maximum heart rate was 82 beats per minute. The average heart rate was 62 beats per minute. No cardiac arrhythmia noted. RESPIRATORY DATA: The patient's respiratory events were treated with nasal CPAP, which was titrated to a final pressure of 6 cm. She had a total of 18 respiratory events including 1 obstructive apnea and 17 hypopneas. Hypopneas were scored according to the 4% desaturation rule. The longest apnea was 22.2 seconds. The mean duration of the hypopneas was 21 seconds. The apnea-hypopnea index was 3.1 events per hour. At the final pressure of 6 cm, the apnea-hypopnea index was 0. OXIMETRY DATA: The average saturation was 91%. The minimum saturation was 87%. There was a total of 6.3 minutes with saturations less than 89%. STRATEGY ASSOCIATE COMMENTS: The patient slept in the right, left, and supine positions. No cardiac arrhythmia noted. PLMs were noted. No bruxism noted. CPAP was initiated at 4 cm and up titrated to a level of 6 cm. A standard Mirage FX nasal mask by [employer] was used during titration. She did not use the restroom during the night. She stated that she slept better than when at home. IMPRESSION: Moderate obstructive sleep apnea -- resolved with nasal continuous positive airway pressure at 6 cm. COMMENTS: The patient did extremely well. She had difficulty initiating sleep. This was in part related to restless legs. She was found to have elevated periodic limb movements. She did very well with CPAP. Her sleep was well consolidated. There were no significant desaturations. Following the study, she stated that she slept very well and felt great. RECOMMENDATIONS: 1. It is advised that the patient be started on nasal CPAP at 6 cm. 2. The patient will use the Mirage FX nasal mask at home that she utilized during her sleep study. 3. Weight loss is advised in light of the elevation of body mass index of 40.98. 4. The patient should have followup between day 31 and day 90 after starting nasal CPAP therapy.
== END | disposition home or self-care (01) ==
LOC: C.NEUR 21:00
PROVIDERS: ATTEND Internal Medicine Pulmonary Disease
DX: G47.30 Sleep apnea, unspecified (principal)

== ENCOUNTER → 2018-04-05 | Outpatient (CLI) | payer OTHER ==
--- NOTE | 2018-04-05 11:49 | DIAGNOSTIC IMAGING REPORT ---
CT LUNG SCREENING, LOW DOSE WITH COMPUTER-AIDED DETECTION (CAD) CLINICAL HISTORY: 67 years-old Female presenting with LOW DOSE. CT DOSE (mGy.cm): The estimated cumulative dose is 81.89 mGy.cm. TECHNIQUE: Multidetector CT imaging of the chest was performed without the use of intravenous contrast. IV contrast: None. A dose lowering technique was used consistent with the principles of ALARA (as low as reasonably achievable). Additional postprocessing was performed on a separate [employer] workstation by the radiologist for computer-aided detection and 3-D volumetric segmentation of pulmonary nodules. COMPARISON: None. FINDINGS: Head Sugar Reprocess Operator topogram: Right subclavian Mediport. On soft tissue windows, right subclavian Mediport terminates in the upper SVC. Left subpectoral breast implant noted with postsurgical changes of left mastectomy suspected.. No axillary, supraclavicular, or mediastinal lymphadenopathy. Evaluation of the raza limited without intravenous contrast. Atherosclerosis of the aorta. Top normal cardiac size. Mild coronary artery artery, aortic valve, and mitral annular calcification. No pericardial or pleural effusion. Postsurgical changes of retrocolic Soni-en-Y gastric bypass. Cholecystectomy. Normal liver density. On lung windows, minimal dependent changes likely atelectasis. Solid polygonal 5 mm fissural nodule in the left lower lobe (series 4 image 132). No other focal nodule or infiltrate. Trace emphysematous changes. Mild bronchial wall thickening. Airways patent. On bone windows, degenerative changes of the spine. CAD FINDINGS: Nodule 1 Category: 2 Nodule 1 Status: Baseline Nodule 1 Description: Solid Nodule 1 Lesion ID: 1 Nodule 1 Slice Number: 43 Nodule 1 Volume (mm3): 33 Nodule 1 Major [place] mm: 5.0 Nodule 1 Minor [place] mm: 2.4 Overall Lung RADS Category: 2 Lung RADS Management Recommendation: Continue annual lung cancer screening. Lung RADS Follow Up Date: 2019-04-05 Lung RADS Nodule ID: 1 IMPRESSION: 1. 5 mm solid fissural nodule in the left lower lobe, which is indeterminate but has a benign morphology. No additional nodule. Continue annual lung cancer screening. 2. Trace emphysema and bronchial wall thickening. 3. Mild coronary artery calcification. Electronically signed by: Diogenes Malcolm M.D. 04/05/2018 11:47 AM Dictated Date/Time: 04/05/2018 11:31 AM
== END | disposition home or self-care (01) ==
LOC: C.CTS 11:17
PROVIDERS: ATTEND Physician Assistant
DX: Z87.891 Personal history of nicotine dependence (principal)

== ENCOUNTER → 2018-06-25 | Outpatient (CLI) | payer OTHER ==
[2018-06-25 12:32] LABS: BASO % 0.6 %; BASO ABS # 0.04 K/uL (0-0.2); EOS % 2.3 %; EOS ABS # 0.14 K/uL (0-0.5); HEMATOCRIT 40.8 % (37-47); HEMOGLOBIN 13.2 g/dL (12.0-16.0); IG# 0.01 K/uL (0.00-0.02); LYMPH ABS # 2.22 K/uL (1.2-3.4); MEAN CELL VOLUME 92.3 fL (80-100); MEAN CORPUSCULAR HEMOGLOBIN 29.9 pg (25-34); MEAN CORPUSCULAR HGB CONC 32.4 g/dl (32-36); MEAN PLATELET VOLUME 11.9 fL (7.4-10.4); MONO % 9.6 %; MONO ABS # 0.59 K/uL (0.11-0.59); NEUT % 51.3 %; NEUT ABS # 3.16 K/uL (1.4-6.5); PLATELET COUNT 219 K/uL (130-400); RED CELL DISTRIBUTION WIDTH SD 54.3 fL (36.4-46.3); WHITE BLOOD COUNT 6.16 K/uL (4.8-10.8)
[2018-06-25 13:03] LABS: ALBUMIN 3.7 gm/dl (3.4-5.0); ALKALINE PHOSPHATASE 96 U/L (45-117); ALT/SGPT 22 U/L (12-78); AST/SGOT 18 U/L (15-37); BLOOD UREA NITROGEN 28 mg/dl (7-18); CALCIUM 8.8 mg/dl (8.5-10.1); CARBON DIOXIDE 25 mmol/L (21-32); CREATININE 1.19 mg/dl (0.60-1.20); GLUCOSE 94 mg/dl (70-99); POTASSIUM 4.3 mmol/L (3.5-5.1); SODIUM 139 mmol/L (136-145); TOTAL PROTEIN 7.6 gm/dl (6.4-8.2)
[2018-06-25 13:22] LABS: HEMOGLOBIN A1C 5.8 % (4.5-5.6)
== END | disposition home or self-care (01) ==
LOC: C.LABBFT 10:51
PROVIDERS: ATTEND Internal Medicine
DX: E03.9 Hypothyroidism, unspecified (principal); E55.9 Vitamin D deficiency, unspecified; R73.03 Prediabetes

== ENCOUNTER → 2018-06-27 | Outpatient (CLI) | payer OTHER | END | disposition home or self-care (01) | LOC: C.LABBFT 13:02 | PROVIDERS: ATTEND Internal Medicine | DX: R73.03 Prediabetes (principal) ==

== ENCOUNTER 2020-12-08 06:30 | Observation (INO) ==
--- NOTE | 2020-11-24 14:22 | Communication Note ---
Date of Service: November 24, 2020 Per patient's surgeon, delaying this procedure could put patient at risk for further cancer spread therefore this is deemed an essential procedure. Ok for proceed.
--- NOTE | 2020-12-02 13:43 | Anesthesiology Consultation ---
Date of Service December 02, 2020 Assessment & Plan (1) Encounter for pre-operative examination: - Per assessment on 11/24: Travel screen negative. No known COVID-19 positive contacts or current COVID-19 related symptoms. Surgeon arranged preop COVID ag ting (done 12/02; [place])- results pending. - Medical necessity: Per surgeon's note (Dr. Mayo; 11/15)- "Despite the Covid pandemic I believe it is imperative that we proceed with Jazmyn breast surgery as soon as possible. Delaying her surgery could certainly increase her risk for spread of her cancer and even unnecessary morbidity/mortality if surgery is delayed. If we proceed with her surgery there would be no reason not to also continue our plan regarding her reconstructive treatments by Dr. Casillas since they will be performed at the same time." Case reviewed by Dr. Mccord (11/24/20)- "Per patient's surgeon, delaying this procedure could put patient at risk for further cancer spread therefore this is deemed an essential procedure. Ok for proceed." Chart Review Chart Review: Acceptable Risk for Surgery and Patient NOT seen in Pre Admission Testing History Surgery Operation Date: 12/08/20 07:00 Proposed Procedures p Right Breast Mastectomy with Right [place] Lymph Node Biopsy, - Frantz Mayo, DO dove Possible Mediport Removal - Frantz Mayo, DO dove First Stage Immediate Right Breast Reconstruction with Right Tissue Senior Firewall Engineer and Right Acellular Dermal Matrix - Sri Casillas MD Height/Weight Height: 5 ft 1 in Weight: 99.79 kg Allergies Allergy/AdvReac Type Severity Reaction Status Date / Time docetaxel Allergy Severe chest Verified 12/02/20 13:27 pain, dyspnea adhesive Allergy Intermediate skin Verified 12/02/20 13:27 blisters atorvastatin Allergy Intermediate foot/leg Verified 11/29/20 14:30 swelling, nausea fluoxetine Allergy Intermediate gastrointestinal Verified 12/02/20 13:27 upset losartan Allergy Intermediate unsure Verified 12/02/20 13:27 (lethargy or leg swelling) silver sulfadiazine Allergy Intermediate worsening Verified 12/02/20 13:27 burning alendronate sodium Allergy Unknown unknown Verified 12/02/20 13:27 reaction albuterol AdvReac Intermediate nightmare Verified 12/02/20 13:27 cetirizine [From Zyrtec] AdvReac Mild drowsiness Verified 12/02/20 13:27 ibandronate sodium AdvReac Unknown unknown Verified 12/02/20 13:27 [From Boniva] reaction ibuprofen AdvReac Unknown advised to Verified 12/02/20 13:27 avoid (caused slight kidney damage) fluticasone [From Flonase] AdvReac nosebleed Verified 12/02/20 13:27 Ibandronic Acid Allergy Unknown unknown Uncoded 12/02/20 13:27 reaction Medications Home Medications Medication Instructions Recorded Confirmed Last Taken metaxalone 800 mg tablet 800 mg PO Q8 PRN #100 tab 05/05/19 11/29/20 Unknown simethicone 80 mg chewable tablet 80 mg PO DAILY PRN #30 tab 05/05/19 11/29/20 Unknown cholecalciferol (vitamin D3) 125 5,000 units PO QAM 06/03/19 11/29/20 Unknown mcg (5,000 unit) capsule diphenhydramine HCl 25 mg capsule 25 mg PO DIRECTED PRN cap 06/03/19 11/29/20 Unknown acetaminophen 500 mg capsule 500 mg PO Q6H PRN 08/29/19 11/29/20 Unknown cyanocobalamin (vitamin B-12) 1,000 mcg SQ MONTHLY ml 09/20/19 11/29/20 Unknown 1,000 mcg/mL injection solution venlafaxine 75 mg capsule,extended 150 mg PO QAM cap 05/18/20 11/29/20 Unknown release 24 hr candesartan 16 mg tablet 16 mg PO QAM #90 tab 07/14/20 11/29/20 Unknown ondansetron HCl 4 mg tablet 4 mg PO Q6 PRN #100 tab 07/22/20 11/29/20 Unknown melatonin 3 mg capsule 3 mg PO HS PRN 11/15/20 11/29/20 Unknown levothyroxine 75 mcg PO QAM 11/24/20 11/29/20 Unknown Past Medical History Medical History Acquired lymphedema LUE Allergic rhinitis Anxiety and depression Aortic aneurysm under surveillance, unchanged dilatation of the aortic root and ascending thoracic aorta with maximum diameter remains 4 cm/unchanged per 01/2020 CTA Asthma stable Breast cancer dx 2006 (left) s/p chemo Degenerative disc disease Emphysema of lung Endocarditis hx 15+ years ago GERD (gastroesophageal reflux disease) Herniated disc thoracic HTN (hypertension) Hx of iron deficiency Hx of migraines Hyperlipidemia Hypothyroid Kidney stones no surgical intervention needed Morbid obesity Osteoporosis Post traumatic stress disorder Pre-diabetes diet controlled Restless leg syndrome Sleep apnea did not tolerate CPAP (caused cough) Past Family History Family History Mother Myocardial infarction Breast cancer Diabetes Aunt Breast cancer Unknown Skin cancer Father Myocardial infarction Daughter Diabetes Other No significant family history Denies family history of Ovarian cancer Prostate cancer Colorectal cancer Past Surgical History Surgical History H/O abdominal surgery naval removal (d/t infection) H/O left mastectomy History of appendectomy History of breast reconstruction Left (03/2010), implant exchange (01/2011), right mastopexy History of cholecystectomy History of colonoscopy History of esophagogastroduodenoscopy (EGD) History of mastectomy left (2006) History of surgery on arm Brachioplasty with liposuction History of tooth extraction History of transesophageal echocardiography (JOSE) History of tubal ligation History of vascular access device right upper chest (flushed q 2 months) Hx of hand surgery right thumb tendon repair S/P appendectomy S/P gastric bypass 1991, 1993 S/P partial hysterectomy Social History Smoking Status: Former smoker tobacco type: cigarettes Do You Dip or Chew Tobacco: No Smoking End Date: QUIT 2009 Hx Alcohol Use: Yes Alcohol type: wine alcohol intake frequency: holidays/special occasions only Alcohol Intake Frequency Comment: RARELY Hx Substance Use: No substance use type: does not use Testing Laboratory Results 12/02/20 WBC 5.85 H/H 13.6/42.7 PLATELETS 213 SODIUM 142 POTASSIUM 3.7 CHLORIDE 111 CO2 26 BUN 19 CREATININE 0.92 GLUCOSE 89 PT 11.4 PTT 31.9 INR 1.1 01/08/20 HGBA1C 5.8% Electrocardiogram Date: 12/02/20 NSR at 63bpm. unconfirmed report. Echocardiogram Date: 07/23/20 EF 60 to 65%. Grade 1 diastolic dysfunction. Mild concentric LVH. No regional wall motion abnormalities. Moderate aortic regurgitation. Mild to moderate tricuspid regurgitation. Other Testing Chest CTA: 05/19/20: Unchanged dilatation of the aortic root and ascending thoracic aorta. Maximum diameter remains 4 cm and is unchanged. Study is otherwise unremarkable and unchanged. Lungs are considered clear. Prior cholecystectomy. Prior gastroplasty.
[~2020-12-08 06:30] MED LIST changes: -CAND1TAB19 PO; -CHOL400C6 PO; -CYNI1000 IM; -FLUO40CA8 PO; -LEVA45AE INH; -LEVO50TA6 PO; +LR 15ML/HR IV SCH; -META1TAB22 PO; -MONT1TAB5 PO; -ONDA4TAB46 PO; -PLMIN90 PO; -RANI150T3 PO; -SIME1CAP11 PO; +ceFAZolin 2000MG 2,000 MG/15 ML SYR IV SCH
[2020-12-08] MEDS ORDERED: DEXAMETHASONE SOD INJ 4 MG/ML VIAL ONE (08:02)
[2020-12-08] MEDS ORDERED: LIDOCAINE HCL 2% 2 ML VIAL/AMP(20MG/ML) INFIL ONE (08:02)
[2020-12-08] MEDS ORDERED: PROPOFOL IV EMULSION 10 MG/ML 20 ML VIAL IV ONE (08:02)
[2020-12-08] MEDS ORDERED: GLYCOPYRROLATE 0.2 MG/ML VIAL ONE (08:02)
[2020-12-08] MEDS ORDERED: NEOSTIGMINE METHYLSULFATE 5 MG/5 ML SYR ONE (08:02)
[2020-12-08] MEDS ORDERED: ONDANSETRON INJ 2 MG/ML 2 ML VIAL ONE (08:02)
[2020-12-08] MEDS ORDERED: fentaNYL citrate 100 MCG/2 ML VIAL ONE ×2 (08:02→10:03)
[2020-12-08] MEDS ORDERED: MIDAZOLAM HCL 1 MG/ML 2ML VIAL ONE (08:02)
[2020-12-08] MEDS ORDERED: ACETAMINOPHEN 1000 MG/100 ML IV IV ONE (08:13)
--- NOTE | 2020-12-08 08:44 | Nuclear Medicine Report ---
LYMPHOSCINTIGRAPHY CLINICAL HISTORY: Right breast cancer. PROCEDURE: Using standard sterile technique, 4 intradermal and one deep injection of 0.5 mCi of Lymph oseek was placed in the right breast. The patient tolerated the procedure well. There were no immedia te complications. The patient was subsequently transported to the surgical suite. No imaging was obta ined at the referring physician's request. IMPRESSION: Injection of 0.5 mCi of Lymphoseek in the right breast. ACT 112: Negative or not required by law. Electronically signed by: Clayton Mora M.D. 12/08/2020 8:43 AM
--- NOTE | 2020-12-08 08:57 | History & Physical Bridge Note ---
Date of Service December 08, 2020 History & Physical Bridge Note I have examined the patient, reviewed the History & Physical and in the interval since the performance of the History & Physical I have noted the following changes of clinical significance: no changes noted
[2020-12-08] MEDS ORDERED: GENTAMICIN SULFATE 40 MG/ML 2 ML VIAL ONE ×2 (09:01→11:15)
[2020-12-08] MEDS ORDERED: BUPIVACAINE 0.25% 30 ML VIAL ONE (09:02)
[2020-12-08] MEDS ORDERED: BACITRACIN INJ 50,000 UNIT VIAL ONE ×2 (09:02→11:16)
[2020-12-08] MEDS ORDERED: LIDOCAINE HCL 1% 20 ML VIAL ONE (09:02)
[2020-12-08] MEDS ORDERED: ePHEDrine sulfate 50 MG/ML AMP IV PRN (09:12)
[2020-12-08] MEDS ORDERED: ONDANSETRON INJ 2 MG/ML 2 ML VIAL IV PRN ×2 (09:12→14:46)
[2020-12-08] MEDS ORDERED: PROMETHAZINE HCL 12.5 MG in SODIUM CHLORIDE 0.9% 50 ML IV PRN ×2 (09:12→14:46)
[2020-12-08] MEDS ORDERED: ATROPINE SULFATE 0.1 MG/ML 10ML SYR IV PRN (09:12)
[2020-12-08] MEDS ORDERED: ISOSULFAN BLUE 10 MG/ML VIAL 5 ML ONE (09:52)
[2020-12-08] MEDS ORDERED: ePHEDrine sulfate 50 MG/ML SYR ONE (10:51)
[2020-12-08] MEDS ORDERED: PHENYLEPHRINE 100MCG/ML 5ML SYR ONE ×2 (10:51→13:52)
--- NOTE | 2020-12-08 11:12 | Operative Report ---
PG Post Operative Report Pre & Post Diagnosis Operation Date: 12/08/20 09:30 Pre-Op Diagnosis: Invasive Ductal Carcinoma of Right Breast Post-Op Diagnosis: Invasive Ductal Carcinoma of Right Breast I identified the patient and participated in the time-out.: Yes Procedure Operation Date: 12/08/20 09:30 Actual Procedures p Right Breast Mastectomy with Right [place] Lymph Node Biopsy,(Right) - DO derrell Alexis Mediport Removal - DO derrell Alexis First Stage Immediate Right Breast Reconstruction with Right Tissue Secy and Right Acellular Dermal Matrix(Right) - Sri Casillas MD Surgeon Frantz Mayo DO Care Coordinator marguerite Holbrook Estimated Blood Loss 50 Findings Consistent with Post-Op Diagnosis Specimens right breast; right axillary sentinel lymph node (s) Description of Procedure Prior to coming to the operating room the patient had been to radiology where she had been injected into the right breast with radionucleotide. The patient was then brought to the operating room and placed in supine position. After successful placement of a laryngeal mask airway the entire upper chest lower abdomen right axilla and right arm were sterilely prepped and draped in usual fashion. I was unable to identify a "hot spot" with the neoprobe device prior to making incision. Because of this I injected approximately 4 cc's of isosulfan blue dye in to the central portion of the breast and massaged it for several minutes. Following this I made an elliptical incision previously marked by Dr. Casillas. I began on the inferior portion of the breast and went from medial to lateral. The superior portion of the incision was just above the nipple areolar complex. I began by making a flap superiorly in this region. I continue to use traction countertraction and small amounts of cautery to create a skin flap the entire way up to the clavicle on the right side. Similarly I made a flap inferiorly laterally and medially. Once I had this fully mobilized we then began on the medial portion of the breast and carried the incision down to the pectoralis fascia. We left the fascia intact. We continued using traction and cautery to remove the breast posteriorly from the pectoralis fascia. Bleeding points were controlled using cautery as we went. Eventually I was able to continue laterally until we had the entire breast including the axillary tail excised. It was marked such that one long stitch was lateral 2 short stitches were superior and 2 long stitches were posterior. We then t horoughly irrigated the wound and made sure we had adequate hemostasis. Initially I attempted to remove the right subclavian Mediport through this superior flap. I was able to take down the capsule of the port using cautery and excise Prolene sutures using suture scissors. However the catheter was adhesed into place. I did take down these adhesions using blunt dissection small amounts of scissor lysis up to the clavicle itself. I was still unable to remove the catheter with traction alone. At this point we called Dr. Taylor who stated he would come in to evaluate the situation. At this time our attention then turned to the sentinel lymph node biopsy. We still had no hotspots identified with the neoprobe. However we were able to identify some blue lymphatics from the previously placed blue dye. We followed these laterally to what appeared to be a small clump of lymph nodes. There was at least one blue node. We were able to use traction blunt dissection and again small amounts of cautery to identify at least one sentinel lymph node. There may have been several. We remove the entire small clump of nodes again using cautery. The blue lymph node was identified and did have a small amount of radionucleotide activity outside of the body. There was minimal background noise in the axilla after removing it. We also did not see any other blue lymphatics or nodes. There was adequate hemostasis. We thoroughly irrigated the wound and packed it with moist sponges. At this point I scrubbed out of the case. Please see Dr. Casillas's dictation for her portion of the procedure as well as Dr. Rice's. I attest to the content of the Intraoperative Record and any orders documented therein. Any exceptions are noted below.
[2020-12-08] MEDS ORDERED: ROCURONIUM BROMIDE 10 MG/ML 5 ML VIAL IV ONE ×2 (11:53→12:57)
--- NOTE | 2020-12-08 12:15 | Operative Report ---
Post Operative Report Pre & Post Diagnosis Operation Date: 12/08/20 09:30 Pre-Op Diagnosis: Invasive Ductal Carcinoma of Right Breast Post-Op Diagnosis: Invasive Ductal Carcinoma of Right Breast I identified the patient and participated in the time-out.: Yes Procedure Operation Date: 12/08/20 09:30 Actual Procedures p Right Breast Mastectomy with Right [place] Lymph Node Biopsy,(Right) - DO derrell Alexis Infusaport Removal - DO derrell Alexis First Stage Immediate Right Breast Reconstruction with Right Tissue Roll Bucker and Right Acellular Dermal Matrix(Right) - Sri Casillas MD Surgeon Malcolm Rice MD Bus Driver Supervisor none Estimated Blood Loss 0 Findings Consistent with Post-Op Diagnosis Specimens none Anesthesia Type General Complications none Disposition Accompanied Patient To Recovery: No Disposition: Recovery Room Indications This patient is a 70-year-old female who had a [id number] placed years ago prior to this. 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 The port could not be removed. Intraoperative consultation was obtained for removal of the port catheter. Description of Procedure The patient was in the supine position and intubated. They had been identified prior to this. The breast incision was already made in the breast was removed. The port was freed up. The catheter could be seen going beneath the collarbone with a fibrin sheath around it. Attempts at removal were unsuccessful prior to this. We freed up slightly around the catheter base underneath the clavicle. The fibrin sheath was then grasped. Continuous moderate pulling was done to the catheter. With the continuous pulling the catheter slid out from the fibrin sheath. It did not appear that any catheter remained. Chest x-ray will be done postop to confirm this. Adequate hemostasis was noted. The rest of the planned surgical procedure was then undertaken. I attest to the content of the Intraoperative Record and any orders documented therein. Any exceptions are noted below.
--- NOTE | 2020-12-08 14:29 | Post Operative Brief Note ---
PG Immediate Post Op with CF Date of Surgery December 08, 2020 Pre & Post Diagnosis Operation Date: 12/08/20 09:30 Pre-Op Diagnosis: Invasive Ductal Carcinoma of Right Breast Post-Op Diagnosis: Invasive Ductal Carcinoma of Right Breast I identified the patient and participated in the time-out.: Yes Procedure Operation Date: 12/08/20 09:30 Actual Procedures p Right Breast Mastectomy with Right [place] Lymph Node Biopsy,(Right) - DO derrell Alexis Mediport Removal - DO derrell Alexis First Stage Immediate Right Breast Reconstruction with Right Tissue Professor Of Economics and Right Acellular Dermal Matrix(Right) - Sri Casillas MD Surgeon Sri Casillas MD Program Aide Kimberlyn Stephen PA-C Estimated Blood Loss 70 Findings Consistent with Post-Op Diagnosis Specimens Specimen Description: a. Right breast mastectomy, one long stitch lateral, two stitch short superior-out of body 1042 b. right sentinel lymph node to lab 1102 Drains Long Catheter (16 irish placed at start of procedure, anesthesia to monitor urine output during surgery) and Zhou-Hartley Drain (x2 15 irish reliavac drains) Anesthesia Type General Complications none Disposition Disposition: Recovery Room
--- NOTE | 2020-12-08 14:45 | Operative Report ---
PG Post Operative Report Pre & Post Diagnosis Operation Date: 12/08/20 09:30 Pre-Op Diagnosis: Invasive Ductal Carcinoma of Right Breast Post-Op Diagnosis: Invasive Ductal Carcinoma of Right Breast I identified the patient and participated in the time-out.: Yes Procedure Operation Date: 12/08/20 09:30 Actual Procedures p Right Breast Mastectomy with Right [place] Lymph Node Biopsy,(Right) - DO derrell Alexis Mediport Removal - DO derrell Alexis First Stage Immediate Right Breast Reconstruction with Right Tissue Auto Job Estimator and Right Acellular Dermal Matrix(Right) - Sri Casillas MD Surgeon Sri Casillas MD Pharmacy Informatics Specialist Kimberlyn Stephen PA-C Estimated Blood Loss 70 Findings Consistent with Post-Op Diagnosis Specimens none Drains PATITO x2. Lateral drain is axillary, medial drain is in breast Anesthesia Type General Complications none Disposition Accompanied Patient To Recovery: No Disposition: Recovery Room Indications 70 year old female, s/p left breast CA with reconstruction and right mastopexy, diagnosed with new right breast CA requiring mastectomy and desiring reconstruction. Description of Procedure After Dr. Mayo and Dr. Rice completed their portion of the procedure, a new time out was performed, site was prepped again with betadine and new drapes were placed. Hemostasis was achieved with electrocautery. Pectoralis major muscle was then identified and elevated. Inferior attachments of pectoralis major muscle were divided along the ribs medially to the sternum. None of the sternal attachments were dissected. The retropectoral plane was then developed using electrocautery. Hemostasis was achieved using cautery. Once adequate dissection had been performed, I then chose a piece of medium contour thick AlloDerm which was then used to create a sling for the lower pole. This was first sutured to the inframammary fold using 2-0 Vicryl U stitches. Pocket was then measured and base diameter was 15 cm. Therefore, I selected a [place] style 133S MVT tissue type inspector with base diameter of 15 cm, fill volume 600 cc. The type inspector was prepared and air was aspirated out. The type inspector was soaked in antibiotic irrigation and antibiotic irrigation was used to irrigate the pocket. All instruments were wiped down and gloves were changed. Auto Job Estimator was placed along the inframammary fold as medially as possible. Suture tabs were sutured down to underlying periosteum using a 2-0 Vicryl suture. The remainder of the type inspector was then enclosed using 2-0 Vicryl running suture to reapproximate the AlloDerm which had been trimmed to size and this was approximated to the pectoralis major muscle. Laterally, this was closed down using 2-0 Vicryl interrupted sutures as well. 2 15-Swedish Luisito drain were placed in the wound and brought out through separate stab incisions, lateral drain in axilla, medial in breast. Prior to reapproximating the wound the fill port was identified using the magna-finder and accessed using a Fourte needle. A total of 200 mL were placed prior to closure. Wound was reapproximated using 2-0 Vicryl deep dermal suture, 3-0 PDS superficial dermal suture and 3-0 Monocryl running subcuticular suture. Drain was sutured in place using 3-0 silk. Dermabond was applied. The drain site was dressed using Acticoat dry dressing and Tegaderm. Dry dressings were placed over the incision followed by an hui bandage. Procedure was tolerated well. Kimberlyn Stephen PA-C was present and scrubbed throughout the entire procedure and was instrumental in providing exposure during elevation of pectoralis muscle and suturing of the AlloDerm as well as filling type inspector and assisting in wound closure. I attest to the content of the Intraoperative Record and any orders documented therein. Any exceptions are noted below.
[2020-12-08] MEDS ORDERED: LORazepam 0.5 MG TAB PO PRN (14:46)
[2020-12-08] MEDS ORDERED: diphenhydrAMINE 50 MG/ML VIAL IV PRN (14:46)
[2020-12-08] MEDS ORDERED: MoRPHine SULFATE 2 MG/ML CARP IV PRN (14:46)
[2020-12-08] MEDS ORDERED: MoRPHine SULFATE 4 MG/ML 1 ML CARP\\VIAL IV PRN (14:46)
[2020-12-08] MEDS ORDERED: oxyCODONE/ACETAMINOPHEN 5mg/325mg TAB PO PRN ×2 (14:46)
[2020-12-08] MEDS ORDERED: diphenhydrAMINE Capsule 25 MG CAP PO PRN (14:46)
[2020-12-08] MEDS ORDERED: ONDANSETRON INJ 2 MG/ML 2 ML VIAL IV ONE (14:50)
[2020-12-08] MEDS ORDERED: MELATONIN 3 MG TAB PO PRN (15:00)
[2020-12-08] MEDS ORDERED: METAXALONE 800 MG TABLET PO PRN (15:00)
[2020-12-08] MEDS ORDERED: SIMETHICONE 80 MG CHEW PO PRN (15:00)
[2020-12-08] MEDS: fentaNYL citrate 100 MCG/2 ML VIAL IV PRN ×2 (15:04→15:10)
--- NOTE | 2020-12-08 15:43 | Anesthesiology Progress Note ---
Date of Service December 08, 2020 Anesthesia Post Procedure Vital Signs Vital Signs: Temp Pulse Pulse Resp BP BP Pulse Ox 12/08/20 15:30 36.5 C 72 14 122/61 96 12/08/20 15:20 80 16 118/56 L 99 12/08/20 15:10 75 14 126/53 L 98 12/08/20 15:00 78 23 126/53 L 99 12/08/20 14:51 36.3 C L 80 18 107/54 L 96 12/08/20 07:22 36.9 C 73 18 133/83 94 Pain Intensity Bilateral Breast: Pain Intensity: 2 Transfer of Care Handoff Completed per policy Notes Mental Status: alert / awake / arousable Patient Amnestic to Procedure: Yes Nausea / Vomiting: adequately controlled Pain: adequately controlled Airway Patency, RR, SpO2: stable & adequate BP & HR: stable & adequate Hydration State: stable & adequate Anesthetic Complications: no major complications apparent and Pt Satisfied with anesthetic care
--- NOTE | 2020-12-08 16:12 | XRay Report ---
XR chest 1V portable CLINICAL HISTORY: Postop A-Port removal. COMPARISON STUDY: 09/15/2019 FINDINGS: The heart remains enlarged. There are linear opacities at both lung bases consistent with a telectatic change. The right-sided A-Port catheter has been removed. No pneumothorax is visualized. T here is a catheter projected over the soft tissues of the right chest wall and projected over the rig ht lower lung zone.[ IMPRESSION: 1. Basilar atelectasis 2. No evidence of pneumothorax status post right-sided A-Port catheter removal ACT 112: Negative or not required by law. Electronically signed by: Sal Trejo M.D. 12/08/2020 4:10 PM
[2020-12-08] MEDS: ceFAZolin 2000MG 2,000 MG/15 ML SYR IV SCH (16:56)
[2020-12-08] MEDS: D5W AND 1/2NSS + 20MEQ KCL 20 MEQ/1,000 ML BAG IV SCH (16:56)
--- NOTE | 2020-12-08 17:18 | Surgery Progress Note ---
Date of Service December 08, 2020 Assessment & Plan (1) Invasive ductal carcinoma of right breast: Vital signs stable. Patient admitted for observation to Med/Surg. X-ray taken in PACU following port removal- no evidence of pneumothorax. Long catheter in place and will remain until tomorrow morning. PATITO drains in place. Plan is to discharge patient to home tomorrow. Admission and Anticipated Discharge Date Admission Date: December 08, 2020 Angela Eldridge was seen at bedside in PACU along with Stacy Herring PA-C. She is 2 hours s/p Right Breast Mastectomy with Right [place] Lymph Node Biopsy with Dr. Mayo, Mediport Removal with Dr. Rice and First Stage Immediate Right Breast Reconstruction with Right Tissue Manager Digital and Right Acellular Dermal Matrix with Dr. Casillas. She states that she is feeling well with some discomfort in her shoulders. She denies any nausea. Physical Exam Physical Exam: On physical exam- CARMEN wrap and surgical dressings pulled back to reveal intact and dry right breast incision. No ecchymosis. No signs of bleeding. [address] with approximately 5-10cc/drain of serosang drainage. Results & Data ([facility]) Vital Signs (Past 12 Hours) Vital Signs Temp Pulse Pulse Resp BP BP Pulse Ox 12/08/20 16:50 36.5 C 87 16 128/66 98 12/08/20 16:00 36.5 C 88 15 127/64 96 12/08/20 15:50 36.5 C 77 19 125/59 L 95 12/08/20 15:40 36.5 C 79 19 116/62 98 12/08/20 15:30 36.5 C 72 14 122/61 96 12/08/20 15:20 80 16 118/56 L 99 12/08/20 15:10 75 14 126/53 L 98 12/08/20 15:00 78 23 126/53 L 99 12/08/20 14:51 36.3 C L 80 18 107/54 L 96 12/08/20 07:22 36.9 C 73 18 133/83 94 PG Care Time/CCT Total # of Minutes Spent Total Time Spent with Patient: Total time spent is greater than 50% in coordination of care (as documented) at patient's floor/unit and/or counseling patient: Coding Level of Care Code None Diagnoses Invasive ductal carcinoma of right breast C50.91
[2020-12-09] MEDS ORDERED: CANDESARTAN: ORDER AWAITING ACTION SCH
[2020-12-09] MEDS: ceFAZolin 2000MG 2,000 MG/15 ML SYR IV SCH (01:52)
[2020-12-09] MEDS: D5W AND 1/2NSS + 20MEQ KCL 20 MEQ/1,000 ML BAG IV SCH (06:01)
[2020-12-09] MEDS ORDERED: LEVOTHYROXINE SODIUM 75 MCG TABLET PO SCH (06:30)
--- NOTE | 2020-12-09 08:53 | Surgery Progress Note ---
Date of Service December 09, 2020 Assessment & Plan (1) Invasive ductal carcinoma of right breast: Jazmyn is doing as expected this morning. She has pain and discomfort in her right axilla, which is expected from SLN removal. Right incision is clean, dry, intact, and well-approximated. No signs of hematoma or seroma formation. She is overall feeling well. She is ok for discharge to home today. Discharge instructions reviewed with patient. She is aware that she will be starting post-op antibiotic today. She is aware that she is not allowed to shower and will be wearing her CARMEN wrap at all times. She will be returning to our office tomorrow for her 2 day post-op follow-up appointment. She was encouraged to call with any questions or concerns. Admission and Anticipated Discharge Date Admission Date: December 08, 2020 Subjective Jazmyn is resting in bed today. She is s/p Right Breast Mastectomy with Right [place] Lymph Node Biopsy with Dr. Mayo, Mediport Removal with Dr. Rice and First Stage Immediate Right Breast Reconstruction with Right Tissue Core Shaper and Right Acellular Dermal Matrix with Dr. Casillas. She reports that she did not get much sleep last night, which she expected. She reports that she does have some discomfort and that it is mostly in her right axilla. She is tolerating a regular diet without issue. She is eager for discharge. Physical Exam Physical Exam: On physical exam- CARMEN wrap removed today to view right mastectomy incision. Surgical dressings easily peeled back to view incision. Incision is clean, dry, intact, and well-approximated. Surgical glue and tape in place. No signs of bleeding- no evidence of hematoma. No evidence of seroma formation. PATITO drains x [address] with serosang drainage. PATITO #1 with 50 cc overnight and PATITO #2 with 25 cc overnight. CARMEN wrap was reapplied. Jazmyn is aware that she is not to shower and that she is to keep CARMEN wrap on at all times. Results & Data ([facility]) Vital Signs (Past 12 Hours) Vital Signs Temp Pulse Pulse Resp BP Pulse Ox 12/09/20 08:25 97 12/09/20 07:41 37.7 C H 85 16 162/66 H 95 12/09/20 04:00 36.9 C 77 17 119/65 98 12/08/20 23:24 36.9 C 84 16 106/51 L 97 PG Care Time/CCT Total # of Minutes Spent Total Time Spent with Patient: Total time spent is greater than 50% in coordination of care (as documented) at patient's floor/unit and/or counseling patient: Coding Level of Care Code None Diagnoses Invasive ductal carcinoma of right breast C50.911
[2020-12-09] MEDS ORDERED: VENLAFAXINE HCL XR 150 MG CAPXR PO SCH (09:00)
[2020-12-09] MEDS ORDERED: MULTIVITAMIN TAB PO SCH (09:00)
--- NOTE | 2020-12-09 09:19 | Surgery Progress Note ---
Date of Service December 09, 2020 Assessment & Plan (1) Invasive ductal carcinoma of right breast: POD#1 Right breast mastectomy, R sentinel lymph node biopsy, mediport removal, and R breast reconstruction with tissue expanders Patient is overall doing well, has some expected incisional soreness that is manageable with pain medication PATITO drain x2 to remain in place Incisions evaluated by plastic surgery this AM and appeared c/d/i without signs of infection Okay for discharge from our standpoint, Dr. Mayo to see in clinic within 1-2 weeks Admission and Anticipated Discharge Date Admission Date: December 08, 2020 Subjective Patient states she is doing well. Has some soreness particularly under her R underarm area, but is being managed with pain medication. Tolerating a diet well. Offers no other complaints. Physical Exam Physical Exam: awake/alert Respiratory: normal respiratory effort Chest (Breasts): Additional Comments: surgical dressings c/d/i, PATITO#1 (66cc), PATITO#2 (101cc) documented both serosanguineous Results & Data ([facility]) Vital Signs (Past 12 Hours) Vital Signs Temp Pulse Pulse Resp BP Pulse Ox 12/09/20 08:25 97 12/09/20 07:41 37.7 C H 85 16 162/66 H 95 12/09/20 04:00 36.9 C 77 17 119/65 98 12/08/20 23:24 36.9 C 84 16 106/51 L 97 PG Care Time/CCT Total # of Minutes Spent Total Time Spent with Patient: Total time spent is greater than 50% in coordination of care (as documented) at patient's floor/unit and/or counseling patient: Coding Level of Care Code None Diagnoses Invasive ductal carcinoma of right breast C50.911
--- NOTE | 2020-12-09 14:32 | Discharge Summary ---
Date of Service December 09, 2020 Admission HPI Per Admitting Provider Please see admission H & P. Admission Exam Per Admitting Provider Please see admission H & P. Principal Diagnosis Invasive Ductal Carcinoma of Right Breast Discharge Data Allergies Allergy/AdvReac Type Severity Reaction Status Date / Time docetaxel Allergy Severe chest Verified 12/08/20 07:11 pain, dyspnea adhesive Allergy Intermediate skin Verified 12/08/20 07:11 blisters atorvastatin Allergy Intermediate foot/leg Verified 12/08/20 07:11 swelling, nausea fluoxetine Allergy Intermediate gastrointestinal Verified 12/08/20 07:11 upset losartan Allergy Intermediate unsure Verified 12/08/20 07:11 (lethargy or leg swelling) silver sulfadiazine Allergy Intermediate worsening Verified 12/08/20 07:11 burning alendronate sodium Allergy Unknown unknown Verified 12/08/20 07:11 reaction albuterol AdvReac Intermediate nightmare Verified 12/08/20 07:11 cetirizine [From Zyrtec] AdvReac Mild drowsiness Verified 12/08/20 07:11 ibandronate sodium AdvReac Unknown unknown Verified 12/08/20 07:11 [From Boniva] reaction ibuprofen AdvReac Unknown advised to Verified 12/08/20 07:11 avoid (caused slight kidney damage) fluticasone [From Flonase] AdvReac nosebleed Verified 12/08/20 07:11 Ibandronic Acid Allergy Unknown unknown Uncoded 12/08/20 07:11 reaction Procedures Performed Operation Date: 12/08/20 09:30 Actual Procedures p Right Breast Mastectomy with Right [place] Lymph Node Biopsy,(Right) - DO derrell Alexis Mediport Removal - DO derrell Alexis First Stage Immediate Right Breast Reconstruction with Right Tissue Manager Land and Right Acellular Dermal Matrix(Right) - Sri Casillas MD Ordered Studies 12/08/20 05:00 US - OR guided needle placemen Routine Hospital Course (1) Invasive ductal carcinoma of right breast: Jazmyn is a 70-year-old female with Invasive Ductal Carcinoma of right breast. She was taken to the OR and underwent Right Breast Mastectomy with Right [place] Lymph Node Biopsy with Dr. Mayo, Mediport Removal with Dr. Rice and First Stage Immediate Right Breast Reconstruction with Right Tissue Manager Land and Right Acellular Dermal Matrix with Dr. Casillas. Long catheter was placed intraoperatively. 2 PATITO drains were placed on right side. There were no intraoperative complications. She was taken to recovery and then transferred to Med/Surg for observation. On POD #1, she was feeling some discomfort in her right axilla, but overall was doing well. Long catheter was removed at 0600 on POD #1. She was tolerating a regular diet and was able to void without issue. On exam, her vitals were stable. CARMEN wrap was removed to examine right mastectomy incision. Surgical dressings easily peeled back to view incision. Incision is clean, dry, intact, and well-approximated. Surgical glue and tape in place. No signs of bleeding- no evidence of hematoma. No evidence of seroma formation. PATITO drains x [address] with serosang drainage. PATITO #1 with 50 cc overnight and PATITO #2 with 25 cc overnight. CARMEN wrap was reapplied. We reviewed drain care instructions. She is aware that she is to keep CARMEN wrap in place and keep surgical dressings dry. She is unable to shower. Prescription for both post-op pain medication and post-op antibiotic was sent to patient's pharmacy. She was discharged to home with instructions to follow-up in our office in 1 day. She was encouraged to call with any questions or concerns. Total Time Total Time Spent Total Time Spent (In Minutes): 10 Discharge Plan Discharge Items Patient Disposition: Home - Self-Care Reason For Visit: Invasive Ductal Carcinoma of Right Breast Discharge Diagnosis: Invasive Ductal Carcinoma of Right Breast Activity: As commented below Non-emergency contact: Surgeon Call non-emergency contact if: you have any medication questions, your pain is not controlled, your temperature is above 101.5, your wound has increased redness and your wound has increased drainage Follow-up/Referrals: Lemuel Aguilar MD [Primary Care Provider] - Frantz Mayo DO [Surgeon] - 12/21/20 11:00 am (please call to schedule follow up in clinic within 1-2 weeks) Diet: Regular Addtl Attending Provider Instructions: ACTIVITY RECOMMENDATIONS: __Normal activities _X_No bending, lifting or straining __No driving _X_Driving allowed when you are off pain medications _X_Walking permitted __You should have help at home for ___ days DRESSINGS: __No dressings required _X_Keep CARMEN wrap and surgical dressings dry/in place until first office visit __Remove dressings ___ and leave dressings off __Apply ice ___ days __Remove dressings and reapply garment __Apply antibiotic ointment (Bacitracin, Neosporin, etc) to wounds 3-4 times/day for 10 days BATHING: _X_Keep dressings dry _X_Sponge bathing permitted, but please keep surgical dressings dry. __Showering permitted _X_No swimming, hot tubs or soaking in a tub MEDICATIONS: Resume previous medications unless instructed otherwise by your surgeon. _X_Do not use aspirin, Motrin, Advil or Ibuprofen as these may promote bleeding. Please use Tylenol. Please do NOT exceed 3,000 mg of Acetaminophen in a 24 hr period. _X_Prescription(s) provided: Prescription for post-op pain medication and post- op antibiotic (to begin today, December 09, 2020) sent to [facility] [place]. OTHER INSTRUCTIONS: _X_Record drain output 2-3 times per day SPECIAL CARE INSTRUCTIONS: * It is normal to have a mild fever after surgery. If your temperature is higher than 101.5 degrees F, please call the office at [phone]. * Constipation is a typical side effect of pain medication. An dmuk-[id number]-xzbjral stool softener will help relieve this. * Leaking around surgical drains may occur and should not cause concern. Sometimes these drains become clogged. If this happens, remove the bulb and milk the clot out of the tube, then replace the bulb. * Drainage from wounds after liposuction is normal and should be expected. Ga rments will become soiled. You should protect furniture and bedding. This drainage should mostly subside within 2-3 days. Leave garments in place unless instructed to remove them. * If you have unusual drainage from a wound or are concerned you have an infection or have any questions or concerns, please call the office at [phone]. FOLLOW UP VISIT: If not already scheduled, please call the office, , when you return home after surgery to schedule an appointment to be seen in _1__ day. Pending Studies at Discharge: Yes Studies:: Pathology report. Stand-Alone Forms: My [facility], Opioid Pain Management, Smoking Cessation Medications and DC Order Prescriptions: New cephalexin [Keflex] 500 mg capsule 500 mg PO TID 30 Days Qty: 90 RF: 0 oxycodone-acetaminophen [Percocet] 5-325 mg tablet 1 tab PO Q4H PRN (Reason: pain) 3 Days Qty: 18 RF: 0 Continued acetaminophen 500 mg capsule 500 mg PO Q6H PRN (Reason: Pain) RF: 0 cyanocobalamin (vitamin B-12) 1,000 mcg/mL solution 1,000 mcg SQ MONTHLY RF: 0 ondansetron HCl 4 mg tablet 4 mg PO Q6 PRN (Reason: Nausea) Qty: 100 RF: 1 venlafaxine [Effexor XR] 75 mg capsule,extended release 24hr 150 mg PO QAM RF: 0 melatonin 3 mg capsule 3 mg PO HS PRN (Reason: Sleep) RF: 0 diphenhydramine HCl [Benadryl] 25 mg capsule 25 mg PO DIRECTED PRN (Reason: Allergy Symptoms) RF: 0 cholecalciferol (vitamin D3) 5,000 unit capsule 5,000 units PO QAM RF: 0 levothyroxine 75 mcg tablet 75 mcg PO QAM RF: 0 candesartan [Atacand] 16 mg tablet 16 mg PO QAM RF: 0 simethicone [Gas Relief (simethicone)] 80 mg tablet,chewable 80 mg PO DAILY PRN (Reason: abdominal distention) RF: 0 metaxalone [Metaxall] 800 mg tablet 800 mg PO Q8 PRN (Reason: Muscle Spasm) RF: 0 Discharge Orders: Discharge Order (Routine); Ordered 12/09/20 Ordered By: Kimberlyn Samuel/Other Patient Handouts: Discharge Instructions Caring for ... Admission Data Admit Date/Time: 12/08/20 16:28 Attending Provider: Frantz Mayo Admit Provider: Sri Casillas Primary Care Provider: Lemuel Aguilar Other Interventions: Discharge Summary Assessment (RN) Last Done: 12/09/20 11:10 Coding Level of Care Code 83716 OBS Care - Discharge Diagnoses Invasive ductal carcinoma of right breast C50.911
== END 2020-12-09 12:10 | disposition home or self-care (01) ==
LOC: 3W 06:30 → ASU 06:30

== ENCOUNTER 2022-07-09 08:12 | Observation (INO) ==
[2022-07-09] MEDS ORDERED: ONDANSETRON INJ 2 MG/ML 2 ML VIAL IV STA (08:44)
--- NOTE | 2022-07-09 08:50 | Emergency Department Note ---
Impression & Plan Right-sided chest pain, Leukocytosis, Elevated erythrocyte sedimentation rate, CRP elevated ED Provider Note INFORMANT: Patient ED PROVIDER(S): Farhan Lacy MD CHIEF COMPLAINT: Chest pain PLAN: Disposition: Admitted Condition: Good Outpatient prescription management: none Referral: MEDICAL DECISION MAKING: Patient presented because of acute right-sided chest pain. ECG did not reveal any obvious ischemia. The patient was exquisitely tender in the right chest wall. There is no external signs of any abnormality. She was treated with Zofran and Dilaudid. CT imaging was ordered. Blood work obtained. Patient had unremarkable chemistry panel and LFTs. Her CBC showed a mild leukocytosis. Patient's troponin was negative. ECG did not show any ischemia. CT imaging did not reveal any acute findings. Patient required several doses of IV Dilaudid for symptom control. On reassessment she was still very uncomfortable. Repeat troponin during observation was negative. Patient was reassessed. She still very uncomfortable when she tries to move the right shoulder area and right chest wall. I do not find any evidence of cellulitis or zoster on reexamination. Patient does not feel comfortable going home and she is by herself. I did discuss possible conservative options but she does not feel well enough. Patient does have an elevated CRP and ESR. She will need further management in the hospital. [facility] Patient was evaluated in the ER for further management. Triage Nursing notes reviewed and agree them. Vital Signs: reviewed and remarkable for no significant abnormalities Differential diagnosis: Cardiac ischemia, aortic dissection, pulmonary embolism, pneumothorax, pneumonia, pericarditis, myocarditis, esophageal rupture, GERD, cholecystitis, pancreatitis, musculoskeletal, as well as other pathologies. Diagnostics interpreted by me: ECG: Twelve-lead ECG reveals a sinus rhythm with PACs at [address] elevation or depression. No PVCs. Normal axis. Cardiac Monitoring: Cardiac monitoring ordered by me: The patient was placed on continuous cardiac monitoring and observed. It revealed a normal sinus rhythm at 70 beats per minute without ectopy or evidence of dysrhythmia. Imaging studies: CT angiography of the chest is negative for acute pathology. HPI: The patient is a 71year old female who presents to the Emergency Room with complaints of right-sided chest pain. This started last night and is persisting. Patient states is worse with movement or deep breathing. The patient also notes the following associated symptoms, some pain that radiates towards the right back. The patient has found no relieving factors. Current pain is rated as 10 /10. patient as she recently had bladder surgery and was under general anesthesia 3 days ago. Pt denies LOC, headache, fevers, chills, diaphoresis, visual changes, neck pain, breathing difficulties, nausea, vomiting, abdominal pain, back pain, melena, hematochezia, urinary symptoms, numbness, weakness, lymphadenopathy, rash, or other complaints. ROS: See above HPI for pertinent positives & negatives. A total of 10 systems reviewed and were otherwise negative. PAST MEDICAL HISTORY:See Below , aortic insufficiency, endocarditis PAST SURGICAL HISTORY:See Below, FAMILY HISTORY:See Below SOCIAL HISTORY:See Below, quit smoking HOME MEDICATIONS:See Below ALLERGIES:See Below VITALS:See Below PHYSICAL EXAMINATION: GENERAL: Awake, alert, uncomfortable-appearing, in no distress HENT: Normocephalic, atraumatic. Oropharynx unremarkable. EYES: Normal conjunctiva. Sclera non-icteric. NECK: Inspection normal. Non-tender. Supple. No nuchal rigidity. FROM. No masses. RESPIRATORY: Clear to auscultation. No wheezes. No rales. Normal respiratory effort. CARDIAC: Normal rate. Normal rhythm. No murmurs. No rubs. Extremities warm and well perfused. Pulses equal. No JVD. GI: Soft, non-distended. No tenderness to palpation. No rebound or guarding. No masses. RECTAL: Deferred. MUSCULOSKELETAL: Atraumatic. Chest examination reveals significant right upper chest wall tenderness to palpation without signs of trauma or crepitus. The back is symmetrical on inspection without obvious abnormality. There is no CVA tenderness to palpation. No joint edema. LOWER EXTREMITIES: Calves are equal size bilaterally and non-tender. No edema. No discoloration. NEURO: Normal sensorium. No sensory or motor deficits noted. SKIN: No rash or jaundice noted. No zoster. OBSERVATION NOTE: Indication: Right-sided chest pain Patient, with right-sided chest pain and cancer of the breast family History, was first seen at 0 830 hrs and the observation time began at 1030 hrs and was necessary in order to determine etiology of chest pain and avoid unnecessary admission . Upon re-evaluation, 5 hours of observation revealed that the patient should be admitted. Disposition date and time 07/09/2022 at 1530 hrs. Farhan Lacy MD Past Med/Surg History Medical History (Updated 07/09/22 @ 16:43 by Farhan Lacy MD) Acquired lymphedema LUE Anxiety and depression Aortic aneurysm 4 cm on chest CTA 05/19/20 Asthma stable> no inhalers Breast cancer dx 2006 (left) and 2020 (right) s/p chemo and bilat mastectomies Degenerative disc disease Emphysema of lung Endocarditis hx 15+ years ago (in setting of pyelonephritis and sepsis) Facial basal cell cancer lip s/p Mohs GERD (gastroesophageal reflux disease) controlled, stable per pt Herniated disc thoracic History of COVID-19 08/2021; cough, fatigue, poor appetite; denies hospitalization; resolved. HTN (hypertension) controlled, stable per pt Hx of iron deficiency last iron infusion 2018 Hx of migraines Hyperlipidemia Hypothyroid Kidney stones no surgical intervention needed Limb alert care status left upper extremity LVH (left ventricular hypertrophy) moderate concentric on 05/18/21 echo Morbid obesity Osteoporosis Post traumatic stress disorder Pre-diabetes diet controlled Restless leg syndrome Rupture of implant of left breast Sleep apnea did not tolerate CPAP (caused cough) Surgical History H/O abdominal surgery naval removal (d/t infection) H/O left mastectomy H/O right mastectomy (12/08/19) Right Breast Mastectomy with Right [place] Lymph Node Biopsy,(Right) - Frantz Mayo DO 12/08/2019 s Mediport Removal - Frantz Mayo, DO s First Stage Immediate Right Breast Reconstruction with Right Tissue Patient Resource Coordinator and Right Acellular Dermal Matrix(Right) - Sri Casillas MD: Grade 1 view, MAC 3, ETT 7.5. Removal 05/24/21: Grade 1 view, Stephen 2, ETT 7 atraumatic x 1. History of appendectomy History of breast reconstruction Left (03/2010), implant exchange (01/2011), right mastopexy History of cholecystectomy History of colonoscopy History of esophagogastroduodenoscopy (EGD) History of surgery on arm bialt, Brachioplasty with liposuction History of tooth extraction History of transesophageal echocardiography (JOSE) History of tubal ligation History of vascular access device since removed Hx of hand surgery right thumb tendon repair S/P gastric bypass 1991, 1993 S/P partial hysterectomy S/P sclerotherapy of varicose veins Family History Mother Myocardial infarction Breast cancer Diabetes Aunt Breast cancer Unknown Skin cancer Father Myocardial infarction Daughter , age 31. T1DM Diabetes Daughter , brain tumor, then pain med addiction age 36 No problems noted. Other No significant family history Denies family history of Ovarian cancer Prostate cancer Colorectal cancer Social History (Updated 03/15/22 @ 15:13 by Kassandra Burden LPN) Smoking Status: Former smoker Tobacco Type: Cigarettes Second Hand Exposure: Yes; Hx Alcohol Use: Yes Alcohol type: wine Hx Substance Use: No Preferred Language: Finnish Communication Ability: Effective Visual Impairment: No Limitations Hearing Ability: Normal Endoscopy Support Specialist Required: No Beliefs That Will Affect Care: None marital status: / Current Living Situation: Alone current occupational status: employed 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 [employer] Feels Safe at Home: Yes Childhood Exposure to Second-Hand Smoke: Yes caffeine: Yes Dental Care, Regularly: No Physical Activity Frequency: Does not Exercise Seatbelt Use: always Sunscreen Use: Yes Assistive Devices: Denture - Upper, Denture - Lower and Glasses Allergies Allergies Allergy/AdvReac Type Severity Reaction Status Date / Time docetaxel Allergy Severe chest Verified 07/06/22 09:36 pain, dyspnea adhesive Allergy Intermediate skin Verified 07/06/22 09:36 blisters atorvastatin Allergy Intermediate foot/leg Verified 07/06/22 09:36 swelling, nausea fluoxetine Allergy Intermediate gastrointestinal Verified 07/06/22 09:36 upset losartan Allergy Intermediate unsure Verified 07/06/22 09:36 (lethargy or leg swelling) silver sulfadiazine Allergy Intermediate worsening Verified 07/06/22 09:36 burning alendronate sodium Allergy Unknown unknown Verified 07/06/22 09:36 reaction albuterol AdvReac Intermediate nightmare Verified 07/06/22 09:36 cetirizine [From Zyrtec] AdvReac Mild drowsiness Verified 07/06/22 09:36 ibandronate sodium AdvReac Unknown unknown Verified 07/06/22 09:36 [From Boniva] reaction ibuprofen AdvReac Unknown advised to Verified 07/06/22 09:36 avoid (caused slight kidney damage) fluticasone [From Flonase] AdvReac nosebleed Verified 07/06/22 09:36 Home Meds Home Medications Medication Instructions Recorded Confirmed diphenhydramine HCl 25 mg capsule 25 mg PO DIRECTED PRN Allergy 06/03/19 07/06/22 (Benadryl) Symptoms acetaminophen 500 mg capsule 500 mg PO Q6H PRN Pain 08/29/19 07/06/22 cholecalciferol (vitamin D3) 125 125 mcg PO QAM 05/18/21 07/06/22 mcg (5,000 unit) tablet (Vitamin D3) venlafaxine 150 mg 150 mg PO QAM 08/08/21 07/06/22 capsule,extended release 24 hr (Effexor XR) cyanocobalamin (vitamin B-12) 1,000 mcg IM MONTHLY 02/07/22 07/06/22 1,000 mcg/mL injection kit simethicone 180 mg capsule 180 mg PO BID PRN gas relief 06/26/22 07/06/22 Previous Rx's Medication Instructions Recorded lorazepam 0.5 mg tablet 0.5 mg PO BID PRN anxiety #30 tabs 03/21/21 levothyroxine 75 mcg tablet 75 mcg PO QAM #90 tabs 06/15/21 ondansetron HCl 4 mg tablet 4 mg PO Q6 PRN Nausea #100 tabs 08/03/21 candesartan 16 mg tablet (Atacand) 16 mg PO QAM 90 days #90 tabs 08/08/21 Prosthetic Mastectomy Bra #2 ea 01/25/22 Results & Data (ED) Vital Signs Vital Signs - 24 hr 07/09/22 08:21 07/09/22 08:24 07/09/22 08:33 Temperature 36.7 C Temperature Source Oral Pulse Rate 76 68 Pulse Rate [Left] Pulse Rhythm [Left] Pulse Strength [Left] Respiratory Rate 20 Respiratory Effort / Characteristics Non-Labored Respiratory Depth Normal Respiratory Pattern Blood Pressure 145/80 H Blood Pressure [Right Arm] Blood Pressure Mean 101 Blood Pressure Mean [Right Arm] Blood Pressure Position [Right Arm] Pulse Oximetry 98 98 98 Oxygen Delivery Method Room Air Room Air Room Air Oxygen Flow Rate Sepsis Recent Fever Within 48 Hours No Sepsis New/Unexplained Change in Mental Status N/A Sepsis Action Taken by Nursing No Action Required 07/09/22 10:42 07/09/22 11:06 07/09/22 11:07 Temperature Temperature Source Pulse Rate 67 Pulse Rate [Left] 76 65 Pulse Rhythm [Left] Regular Regular Pulse Strength [Left] Normal Normal Respiratory Rate 18 20 16 Respiratory Effort / Characteristics Non-Labored Spontaneous Non-Labored Spontaneous Respiratory Depth Normal Normal Respiratory Pattern Regular Regular Blood Pressure Blood Pressure [Right Arm] 114/74 105/63 Blood Pressure Mean Blood Pressure Mean [Right Arm] 87 77 Blood Pressure Position [Right Arm] Lying Pulse Oximetry 94 100 100 Oxygen Delivery Method Nasal Cannula Room Air Nasal Cannula Oxygen Flow Rate 2 3 Sepsis Recent Fever Within 48 Hours Sepsis New/Unexplained Change in Mental Status Sepsis Action Taken by Nursing 07/09/22 13:00 07/09/22 15:00 07/09/22 17:00 Temperature Temperature Source Pulse Rate Pulse Rate [Left] 68 63 64 Pulse Rhythm [Left] Pulse Strength [Left] Respiratory Rate 16 20 20 Respiratory Effort / Characteristics Non-Labored Spontaneous Non-Labored Spontaneous Respiratory Depth Normal Normal Respiratory Pattern Regular Regular Blood Pressure Blood Pressure [Right Arm] 109/70 100/65 110/75 Blood Pressure Mean Blood Pressure Mean [Right Arm] 83 76 86 Blood Pressure Position [Right Arm] Sitting Sitting Pulse Oximetry 95 97 95 Oxygen Delivery Method Room Air Room Air Oxygen Flow Rate Sepsis Recent Fever Within 48 Hours Sepsis New/Unexplained Change in Mental Status Sepsis Action Taken by Nursing Laboratory Data Result diagrams: 07/09/22 08:30 07/09/22 08:30 Lab Results 07/09/22 07/09/22 07/09/22 Range/Units 08:30 08:30 08:30 WBC 11.15 H (4.8-10.8) K/ul RBC 4.45 (3.93-5.22) M/uL Hgb 13.3 (12.0-16.0) g/dl Hct 41.5 (34.1-44.9) % MCV 93.3 (80.0-100.0) fL MCH 29.9 (25.0-34.0) pg MCHC 32.0 (32.0-36.0) g/dL RDW Std Deviation 44.7 (36.4-46.3) fL RDW Coeff of Jerry 13.1 (11.5-14.5) % Plt Count 250 (130-400) K/uL MPV 10.5 (9.4-12.3) fL Immature Gran % (Auto) 0.4 % Neut % (Auto) 62.8 % Lymph % (Auto) 24.2 % Brooke % (Auto) 7.1 % Eos % (Auto) 5.0 % Baso % (Auto) 0.5 % Neut # (Auto) 7.00 H (1.4-6.5) K/uL Lymph # (Auto) 2.70 (1.2-3.4) K/uL Brooke # (Auto) 0.79 (0.24-0.82) K/uL Eos # (Auto) 0.56 H (0-0.50) K/uL Baso # (Auto) 0.06 (0-0.2) K/uL Immature Gran # (Auto) 0.04 H (0.00-0.02) K/uL ESR (0-30) mm/hr PT 11.2 (9.0-12.0) Seconds INR 1.1 (0.9-1.1) APTT 27.9 (21.0-31.0) Seconds PTT Ratio 1.0 Sodium 140 (136-145) mmol/L Potassium 3.9 (3.5-5.1) mmol/L Chloride 104 (98-107) mmol/L Carbon Dioxide 28 (21-32) mmol/L Anion Gap 8 (3-11) BUN 21 (6-23) mg/dl Creatinine 0.92 (0.6-1.2) mg/dl Est Cr Clr Drug Dosing 56.1 ml/min Est GFR ( Amer) 71.6 ml/min Est GFR (Non-Af Amer) 61.8 ml/min BUN/Creatinine Ratio 22.8 H (10-20) Glucose 105 H (70-99(Fasting)) mg/dl Calcium 9.1 (8.5-10.1) mg/dl Total Bilirubin 0.4 (0.2-1.0) mg/dl AST 15 (13-39) U/L ALT 11 (7-52) U/L Alkaline Phosphatase 83 (34-104) U/L Troponin I High Sens 6.9 (0-14) pg/ml C-Reactive Protein (0-0.5) mg/dl Total Protein 7.3 (6.0-8.3) gm/dl Albumin 3.9 (3.4-5.0) gm/dl Globulin 3.4 (2.5-4.0) gm/dl Albumin/Globulin Ratio 1.1 (0.9-2) Procalcitonin (0-0.5) ng/ml SARS-CoV-2, RNA, NAAT (NEGATIVE) 07/09/22 07/09/22 07/09/22 Range/Units 08:30 08:30 13:09 WBC (4.8-10.8) K/ul RBC (3.93-5.22) M/uL Hgb (12.0-16.0) g/dl Hct (34.1-44.9) % MCV (80.0-100.0) fL MCH (25.0-34.0) pg MCHC (32.0-36.0) g/dL RDW Std Deviation (36.4-46.3) fL RDW Coeff of Jerry (11.5-14.5) % Plt Count (130-400) K/uL MPV (9.4-12.3) fL Immature Gran % (Auto) % Neut % (Auto) % Lymph % (Auto) % Brooke % (Auto) % Eos % (Auto) % Baso % (Auto) % Neut # (Auto) (1.4-6.5) K/uL Lymph # (Auto) (1.2-3.4) K/uL Brooke # (Auto) (0.24-0.82) K/uL Eos # (Auto) (0-0.50) K/uL Baso # (Auto) (0-0.2) K/uL Immature Gran # (Auto) (0.00-0.02) K/uL ESR 57 H (0-30) mm/hr PT (9.0-12.0) Seconds INR (0.9-1.1) APTT (21.0-31.0) Seconds PTT Ratio Sodium (136-145) mmol/L Potassium (3.5-5.1) mmol/L Chloride (98-107) mmol/L Carbon Dioxide (21-32) mmol/L Anion Gap (3-11) BUN (6-23) mg/dl Creatinine (0.6-1.2) mg/dl Est Cr Clr Drug Dosing ml/min Est GFR ( Amer) ml/min Est GFR (Non-Af Amer) ml/min BUN/Creatinine Ratio (10-20) Glucose (70-99(Fasting)) mg/dl Calcium (8.5-10.1) mg/dl Total Bilirubin (0.2-1.0) mg/dl AST (13-39) U/L ALT (7-52) U/L Alkaline Phosphatase (34-104) U/L Troponin I High Sens 5.6 (0-14) pg/ml C-Reactive Protein (0-0.5) mg/dl Total Protein (6.0-8.3) gm/dl Albumin (3.4-5.0) gm/dl Globulin (2.5-4.0) gm/dl Albumin/Globulin Ratio (0.9-2) Procalcitonin < 0.05 (0-0.5) ng/ml SARS-CoV-2, RNA, NAAT (NEGATIVE) 07/09/22 07/09/22 Range/Units 13:09 15:30 WBC (4.8-10.8) K/ul RBC (3.93-5.22) M/uL Hgb (12.0-16.0) g/dl Hct (34.1-44.9) % MCV (80.0-100.0) fL MCH (25.0-34.0) pg MCHC (32.0-36.0) g/dL RDW Std Deviation (36.4-46.3) fL RDW Coeff of Jerry (11.5-14.5) % Plt Count (130-400) K/uL MPV (9.4-12.3) fL Immature Gran % (Auto) % Neut % (Auto) % Lymph % (Auto) % Brooke % (Auto) % Eos % (Auto) % Baso % (Auto) % Neut # (Auto) (1.4-6.5) K/uL Lymph # (Auto) (1.2-3.4) K/uL Brooke # (Auto) (0.24-0.82) K/uL Eos # (Auto) (0-0.50) K/uL Baso # (Auto) (0-0.2) K/uL Immature Gran # (Auto) (0.00-0.02) K/uL ESR (0-30) mm/hr PT (9.0-12.0) Seconds INR (0.9-1.1) APTT (21.0-31.0) Seconds PTT Ratio Sodium (136-145) mmol/L Potassium (3.5-5.1) mmol/L Chloride (98-107) mmol/L Carbon Dioxide (21-32) mmol/L Anion Gap (3-11) BUN (6-23) mg/dl Creatinine (0.6-1.2) mg/dl Est Cr Clr Drug Dosing ml/min Est GFR ( Amer) ml/min Est GFR (Non-Af Amer) ml/min BUN/Creatinine Ratio (10-20) Glucose (70-99(Fasting)) mg/dl Calcium (8.5-10.1) mg/dl Total Bilirubin (0.2-1.0) mg/dl AST (13-39) U/L ALT (7-52) U/L Alkaline Phosphatase (34-104) U/L Troponin I High Sens (0-14) pg/ml C-Reactive Protein 2.26 H (0-0.5) mg/dl Total Protein (6.0-8.3) gm/dl Albumin (3.4-5.0) gm/dl Globulin (2.5-4.0) gm/dl Albumin/Globulin Ratio (0.9-2) Procalcitonin (0-0.5) ng/ml SARS-CoV-2, RNA, NAAT NEGATIVE (NEGATIVE) Administered Medications Hydromorphone HCl (Hydromorphone Inj 0.5 Mg/0.5 Ml Syr) 0.5 mg IV Q15M PRN PRN Reason: Pain Stop: 07/23/22 08:43 Last Admin: 07/09/22 13:45 Dose: 0.5 mg Documented By: Admin: 07/09/22 10:41 Dose: 0.5 mg Documented By: Admin: 07/09/22 08:57 Dose: 0.5 mg Documented By: DEBRA Discontinued Medications Ioversol (Optiray 300 500ml) 118 ml IV ONCE ONE Stop: 07/09/22 10:53 Last Admin: 07/09/22 10:58 Dose: 118 ml Documented By: HECTOR Ondansetron HCl (Ondansetron Inj 2 Mg/Ml 2 Ml Vial) 4 mg IV NOW STA Stop: 07/09/22 08:45 Last Admin: 07/09/22 08:57 Dose: 4 mg Documented By: DEBRA Imaging Data Radiologist's Impression: Chest CTA 07/09/22 08:37 CT angio chest PE protocol CLINICAL HISTORY: right chest pain, post surgery COMPARISON STUDY: Portable chest from 09/12/2021 CT DOSE: 671.74 mGy.cm TECHNIQUE: CT Angio of the chest was performed.followed by image post processing with coronal, and sagittal MIP reformats. Contrast Volume: Optiray 320, 118 ml FINDINGS: Vasculature: There is homogeneous perfusion of the pulmonary vasculature bilaterally. No intraluminal filling defects or evidence for pulmonary embolus is seen. Airway: The airway is clear. No endobronchial lesion is identified. Lungs: There is minimal dependent atelectasis at both lung bases. The lungs are clear of acute alveolar opacities, air bronchograms or pulmonary nodules. Pleura: There is no evidence for pleural effusion. There is no evidence for pneumothorax. Mediastinum: There is no evidence for pathologic adenopathy. The heart size is mildly enlarged. There is mild coronary artery calcification and mitral annular calcification. The thoracic aorta is within normal limits. There is no evidence for pericardial effusion. Upper abdomen: The adrenal glands are normal bilaterally. The patient is status post previous gastric bypass surgery. Osseous structures: There is no acute osseous pathology. Impression: 1. No CTA evidence for pulmonary embolus. 2. Minimal dependent atelectasis with otherwise no acute chest disease. ACT 112: Negative or not required by law. Electronically signed by: Jean-Paul Manning M.D. 07/09/2022 11:12 AM Discharge Plan Visit Data Chief Complaint: Chest Pain Stated Complaint: RT SIDED CHEST PAIN, BACK PAIN, POST SURGERY ED Provider: Farhan Lacy Discharge Problem: Right-sided chest pain, Leukocytosis, Elevated erythrocyte sedimentation rate, CRP elevated Forms Stand Alone Forms: My [employer] Prescriptions Prescriptions: No Action acetaminophen 500 mg capsule 500 mg PO Q6H PRN (Reason: Pain) lorazepam 0.5 mg tablet 0.5 mg PO BID PRN (Reason: anxiety) Qty: 30 0RF levothyroxine 75 mcg tablet 75 mcg PO QAM Qty: 90 3RF ondansetron HCl 4 mg tablet 4 mg PO Q6 PRN (Reason: Nausea) Qty: 100 1RF candesartan [Atacand] 16 mg tablet 16 mg PO QAM 90 Days Qty: 90 3RF (DME) Prosthetic Mastectomy Bra Misc See Rx Instructions .Route Qty: 2 0RF Rx Instructions: As directed venlafaxine [Effexor XR] 150 mg capsule,extended release 24hr 150 mg PO QAM diphenhydramine HCl [Benadryl] 25 mg capsule 25 mg PO DIRECTED PRN (Reason: Allergy Symptoms) cyanocobalamin (vitamin B-12) 1,000 mcg/mL Kit 1,000 mcg IM MONTHLY simethicone 180 mg Capsule 180 mg PO BID PRN (Reason: gas relief) cholecalciferol (vitamin D3) [Vitamin D3] 125 mcg (5,000 unit) Tablet 125 mcg PO QAM Referrals Referrals: Enoch Aguilar MD [Primary Care Provider] -
[2022-07-09 08:56] LABS: Basophils # (auto) 0.06 K/uL (0-0.2); Basophils % (auto) 0.5 %; Eosinophils # (auto) 0.56 K/uL (0-0.50); Hematocrit (blood only) 41.5 % (34.1-44.9); Hemoglobin 13.3 g/dl (12.0-16.0); Immature Granulocytes # (auto) 0.04 K/uL (0.00-0.02); Immature Granulocytes % (auto) 0.4 %; Lymphocytes % (auto) 24.2 %; Mean Corpuscular Hemoglobin 29.9 pg (25.0-34.0); Mean Corpuscular Volume 93.3 fL (80.0-100.0); Mean Platelet Volume 10.5 fL (9.4-12.3); Monocytes # (auto) 0.79 K/uL (0.24-0.82); Monocytes % (auto) 7.1 %; Neutrophils % (auto) 62.8 %; Platelet Count 250 K/uL (130-400); RDW Coefficient of Variation 13.1 % (11.5-14.5); RDW Standard Deviation 44.7 fL (36.4-46.3); Red Blood Count 4.45 M/uL (3.93-5.22); White Blood Count 11.15 K/ul (4.8-10.8)
[2022-07-09] MEDS: HYDROmorphone INJ 0.5 MG/0.5 ML SYR IV PRN ×3 (08:57→13:45)
[2022-07-09 09:11] LABS: INR 1.1 (0.9-1.1); Partial Thromboplastin Time 27.9 Seconds (21.0-31.0); Prothrombin Time 11.2 Seconds (9.0-12.0)
[2022-07-09 09:19] LABS: Albumin Globulin Ratio 1.1 (0.9-2); Albumin Level 3.9 gm/dl (3.4-5.0); BUN Creatinine Ratio 22.8 (10-20); Bilirubin,Total 0.4 mg/dl (0.2-1.0); Calcium 9.1 mg/dl (8.5-10.1); Creatinine Clr Calc Pharmacy 56.1 ml/min; Est GFR (African American) 71.6 ml/min; Est GFR (Non-African American) 61.8 ml/min; Globulin 3.4 gm/dl (2.5-4.0); Potassium 3.9 mmol/L (3.5-5.1); Total Protein 7.3 gm/dl (6.0-8.3)
[2022-07-09 09:23] LABS: Troponin I High Sensitivity 6.9 pg/ml (0-14)
[2022-07-09] MEDS ORDERED: OPTIRAY 300 500mL IV ONE (10:52)
--- NOTE | 2022-07-09 11:15 | CT Scan Report ---
CT angio chest PE protocol CLINICAL HISTORY: right chest pain, post surgery COMPARISON STUDY: Portable chest from 09/12/2021 CT DOSE: 671.74 mGy.cm TECHNIQUE: CT Angio of the chest was performed.followed by image post processing with coronal, and s agittal MIP reformats. Contrast Volume: Optiray 320, 118 ml FINDINGS: Vasculature: There is homogeneous perfusion of the pulmonary vasculature bilaterally. No intraluminal filling defects or evidence for pulmonary embolus is seen. Airway: The airway is clear. No endobronchial lesion is identified. Lungs: There is minimal dependent atelectasis at both lung bases. The lungs are clear of acute alveol ar opacities, air bronchograms or pulmonary nodules. Pleura: There is no evidence for pleural effusion. There is no evidence for pneumothorax. Mediastinum: There is no evidence for pathologic adenopathy. The heart size is mildly enlarged. There is mild coronary artery calcification and mitral annular calcification. The thoracic aorta is within normal limits. There is no evidence for pericardial effusion. Upper abdomen: The adrenal glands are normal bilaterally. The patient is status post previous gastric bypass surgery. Osseous structures: There is no acute osseous pathology. Impression: 1. No CTA evidence for pulmonary embolus. 2. Minimal dependent atelectasis with otherwise no acute chest disease. ACT 112: Negative or not required by law. Electronically signed by: Jean-Paul Manning M.D. 07/09/2022 11:12 AM
--- NOTE | 2022-07-09 13:43 | Electrocardiogram Report ---
Test Reason : Blood Pressure : / mmHG Vent. Rate : 077 BPM Atrial Rate : 077 BPM P-R Int : 150 ms QRS Dur : 082 ms QT Int : 406 ms P-R-T Axes : 022 001 031 degrees QTc Int : 459 ms Poor data quality, interpretation may be adversely affected Sinus rhythm with Premature atrial complexes Otherwise normal ECG When compared with ECG of 12-SEP-2021 11:56, Premature atrial complexes are now Present Confirmed by Arpan Kauffman ([id number]) on 07/09/2022 1:43:02 PM Referred By: REFERRED SELF Confirmed By:Arpan Kauffman
--- NOTE | 2022-07-09 16:36 | History & Physical Report ---
Date of Service July 09, 2022 Assessment & Plan (1) Neck pain on right side: Plan: The patient presents with severe pain over the right upper back, right shoulder/arm, right neck and base of right neck, as well as the right upper chest - although the latter symptom was resolved by the time of presentation. These symptoms started about 24 hours ago. She had no preceding injury, heavy lifting, fall, etc. She did undergo general anesthesia for her cystoscopy/TURBT on 07/06/22. All of her symptoms are worsened by movement/activity, rotating the head/neck, moving the right arm, etc -- all suggestive of a musculoskeletal etiology. CTA chest was negative for PE or other acute findings. Troponins are negative. Has h/o mild ascending aortic aneurysm (4cm on previous imaging) but her presentation in not c/w dissection. Does she have an acute herniated cervical disc causing her right-sided symptoms? Vascular abnormality (ie dissection) of the vertebral artery on right? other etiology? Plan - * MRI cervical spine urgently * MRA neck urgently (CTA head/neck cannot be obtained tonight due to the contrast given for her CTA chest) * right shoulder x-rays - r/o bony abnormality contributing to her symptoms * check 1 more HS troponin but suspect it will be normal * IV dilaudid prn * tylenol 1gm TID * lidocaine patches * voltaren gel qid * consider muscle relaxer, consider heat If work-up above is negative/does not shed light on the etiology of her symptoms - consider additional infectious work-up in light of elevated sed rate, leukocytosis, etc. She goes camping and consider lyme test, anaplasmosis, etc - but her presenting symptoms would be atypical for an infectious cause. (2) Right-sided chest pain: Plan: CTA chest negative for PE. NOT reproducible on my exam. Troponins negative. See #1 above. Could be referred pain from the neck, shoulder, etc. (3) Right arm pain: Plan: see #1 above. (4) Leukocytosis: Plan: may be reactive to #1/#2/#3 - but can't rule out infectious etiology (UTI, etc) check blood cultures in light of prior endocarditis in 2003 check u/a and urine culture consider tick borne labs as well (patient camps, etc) (5) Bladder tumor: Plan: s/p TURBT by [facility] 07/06/22 in light of fatigue, leukocytosis, etc will check u/a and urine culture send blood cultures if u/a is suggestive of UTI will treat for "complicated" / catheter-associated UTI with IV ertapenem 1gm daily while awaiting culture (6) Thoracic ascending aortic aneurysm: Plan: 4cm based on prior imaging presenting symptoms not c/w dissection, however, and upper right chest pain is already resolved CTA chest was geared towards ruling out PE; no mention of the aortic root if her pain returns and no other etiology is found for her presentation consider CTA dissection protocol (7) Hypothyroid: Plan: TSH 05/2022 wnl. Cont synthroid. (8) GERD (gastroesophageal reflux disease): Plan: is not on meds at home (9) Former tobacco use: Plan: noted has baseline COPD (10) COPD with emphysema: Plan: no exacerbation at this time (11) HTN (hypertension): Plan: BPs are normal or low-normal at this time will hold ARB and trend he BP NS hydration overnight then repeat BMP am (12) Pre-diabetes: Plan: hemoglobin a1c 6% in May place on DM diet loose novolog SSI BSGs ac/hs (13) History of breast cancer: Plan: noted s/p b/l mastectomies in the past no evidence of metastatic disease on CTA chest (14) History of endocarditis: Plan: 2004 - AV endocarditis in setting of pyelonephritis/UTI/sepsis treated medically with prolonged IV antibiotic therapy never needed valve surgery will obtain blood cultures in light of leukocytosis and elevated ESR I do not hear an obvious murmur on exam Plan DVT proph - hold off on chemical DVT proph until neck imaging has returned; if chemical means are employed use cautiously in light of recent TURBT pt's daughter extensively updated by phone this evening place on observation status History of Present Illness Chief Complaint: right neck, right shoulder, right upper chest wall pain Primary Care Provider: Enoch Aguilar MD Very pleasant 71yo female with recent h/o hematuria and concern for bladder ca ncer, s/p cystoscopy performed under general anesthesia on 07/06/[address] Umaña with subsequent TURBT, along with prior gastric bypass surgery, preDM, HTN, endocarditis treated medically, hypothyroidism, and ascending aortic aneurysm (4cm on last study) -- presents with severe right-sided neck pain, right upper back pain, right arm/shoulder pain, and right upper chest wall pain. The patient states that following her procedure on 07/06 she initially felt well. She was discharged to home with cano in place and had some mild bladder pain but otherwise was feeling ok. Yesterday she took a car ride from [place] to [place] (her family camps in [place]) and while in the car she noted that any time she tried to turn her head/neck it was uncomfortable to do so. It was particularly bothersome to look to the left side. When she got to [place] she took a 5+ hour nap (she was exhausted from the surgery). Upon awakening she didn't feel well and her upper body symptoms were worse. She noticed now that minimal movements of the neck region or the right arm/shoulder/upper back would cause severe pain. She managed to drive back to her home in [place] yesterday evening and the trip was uncomfortable once again. Last night it was difficult to sleep. Rolling over in bed, moving too quickly, etc all made her symptoms worse. She reports having had some mild diarrhea overnight. She did not have any central or left-sided chest pain or dyspnea overnight or today. She did note some mild right upper chest wall pain near the right shoulder today. Denied any paresthesias of either arm. Denied any motor weakness of either arm. Denied frontal headache. No fevers or chills. Appetite has been ok since her surgery on 07/06. She finally came to the ER today because the pain was excruciating over the above mentioned regions and any simple movements made the pain worse. Denied any rash over the upper body, chest or neck. She did gain relief of her pain in the ER with IV dilaudid. Allergies Allergy/AdvReac Type Severity Reaction Status Date / Time docetaxel Allergy Severe chest Verified 07/06/22 09:36 pain, dyspnea adhesive Allergy Intermediate skin Verified 07/06/22 09:36 blisters atorvastatin Allergy Intermediate foot/leg Verified 07/06/22 09:36 swelling, nausea fluoxetine Allergy Intermediate gastrointestinal Verified 07/06/22 09:36 upset losartan Allergy Intermediate unsure Verified 07/06/22 09:36 (lethargy or leg swelling) silver sulfadiazine Allergy Intermediate worsening Verified 07/06/22 09:36 burning alendronate sodium Allergy Unknown unknown Verified 07/06/22 09:36 reaction albuterol AdvReac Intermediate nightmare Verified 07/06/22 09:36 cetirizine [From Zyrtec] AdvReac Mild drowsiness Verified 07/06/22 09:36 ibandronate sodium AdvReac Unknown unknown Verified 07/06/22 09:36 [From Boniva] reaction ibuprofen AdvReac Unknown advised to Verified 07/06/22 09:36 avoid (caused slight kidney damage) fluticasone [From Flonase] AdvReac nosebleed Verified 07/06/22 09:36 Home Medications Medication Instructions Recorded Confirmed Type diphenhydramine HCl 25 mg capsule 25 mg PO DIRECTED PRN Allergy 06/03/19 07/06/22 History (Benadryl) Symptoms acetaminophen 500 mg capsule 500 mg PO Q6H PRN Pain 08/29/19 07/06/22 History lorazepam 0.5 mg tablet 0.5 mg PO BID PRN anxiety #30 tabs 03/21/21 07/06/22 Rx cholecalciferol (vitamin D3) 125 125 mcg PO QAM 05/18/21 07/06/22 History mcg (5,000 unit) tablet (Vitamin D3) levothyroxine 75 mcg tablet 75 mcg PO QAM #90 tabs 06/15/21 07/06/22 Rx ondansetron HCl 4 mg tablet 4 mg PO Q6 PRN Nausea #100 tabs 08/03/21 07/06/22 Rx candesartan 16 mg tablet (Atacand) 16 mg PO QAM 90 days #90 tabs 08/08/21 07/06/22 Rx venlafaxine 150 mg 150 mg PO QAM 08/08/21 07/06/22 History capsule,extended release 24 hr (Effexor XR) Prosthetic Mastectomy Bra #2 ea 01/25/22 06/21/22 Rx cyanocobalamin (vitamin B-12) 1,000 mcg IM MONTHLY 02/07/22 07/06/22 History 1,000 mcg/mL injection kit simethicone 180 mg capsule 180 mg PO BID PRN gas relief 06/26/22 07/06/22 History Past Med/Surg History Medical History Acquired lymphedema LUE Anxiety and depression Aortic aneurysm 4 cm on chest CTA 05/19/20 Asthma stable> no inhalers Breast cancer dx 2006 (left) and 2020 (right) s/p chemo and bilat mastectomies Degenerative disc disease Emphysema of lung Endocarditis hx 15+ years ago (in setting of pyelonephritis and sepsis) Facial basal cell cancer lip s/p Mohs GERD (gastroesophageal reflux disease) controlled, stable per pt Herniated disc thoracic History of COVID-19 08/2021; cough, fatigue, poor appetite; denies hospitalization; resolved. HTN (hypertension) controlled, stable per pt Hx of iron deficiency last iron infusion 2018 Hx of migraines Hyperlipidemia Hypothyroid Kidney stones no surgical intervention needed Limb alert care status left upper extremity LVH (left ventricular hypertrophy) moderate concentric on 05/18/21 echo Morbid obesity Osteoporosis Post traumatic stress disorder Pre-diabetes diet controlled Restless leg syndrome Rupture of implant of left breast Sleep apnea did not tolerate CPAP (caused cough) Surgical History H/O abdominal surgery naval removal (d/t infection) H/O left mastectomy H/O right mastectomy (12/08/19) Right Breast Mastectomy with Right [place] Lymph Node Biopsy,(Right) - Frantz Mayo DO 12/08/2019 s Mediport Removal - Frantz Mayo, DO s First Stage Immediate Right Breast Reconstruction with Right Tissue Deputy Head and Right Acellular Dermal Matrix(Right) - Sri Casillas MD: Grade 1 view, MAC 3, ETT 7.5. Removal 05/24/21: Grade 1 view, Stephen 2, ETT 7 atraumatic x 1. History of appendectomy History of breast reconstruction Left (03/2010), implant exchange (01/2011), right mastopexy History of cholecystectomy History of colonoscopy History of esophagogastroduodenoscopy (EGD) History of surgery on arm bialt, Brachioplasty with liposuction History of tooth extraction History of transesophageal echocardiography (JOSE) History of tubal ligation History of vascular access device since removed Hx of hand surgery right thumb tendon repair S/P gastric bypass 1991, 1993 S/P partial hysterectomy S/P sclerotherapy of varicose veins Family History Mother Myocardial infarction Breast cancer Diabetes ESRD (end stage renal disease) on dialysis Aunt Breast cancer Unknown Skin cancer Father Myocardial infarction Coronary heart disease Daughter , age 31. T1DM Diabetes Daughter , brain tumor, then pain med addiction age 36 No problems noted. Other No significant family history Denies family history of Ovarian cancer Prostate cancer Colorectal cancer Social History (Updated 07/09/22 @ 23:50 by Landon Sahni) Smoking Status: Former smoker Tobacco Type: Cigarettes Cigarettes Per Day: up to 2-3ppd at times; started in her teenage years; Smoking End Date: 2009; Second Hand Exposure: No; Do You Dip or Chew Tobacco: No; Tobacco Cessation Education Requested by Patient: No Hx Alcohol Use: Yes Alcohol type: wine Alcohol Intake Frequency: Monthly or Less Hx Substance Use: No Preferred Language: Malagasy Communication Ability: Effective Visual Impairment: No Limitations Hearing Ability: Normal Brief Writer Required: No Beliefs That Will Affect Care: None marital status: / Current Living Situation: Alone current occupational status: employed current occupation: [employer] How many Children do You have: 4 How many Children do You have Comment: 2 children ; 1 living daughter, 1 living son Other Information That Helps Us Care for You: No Feels Safe at Home: Yes Safety Concerns: Feels Safe At This Time Childhood Exposure to Second-Hand Smoke: Yes caffeine: Yes Dental Care, Regularly: No Physical Activity Frequency: Does not Exercise Seatbelt Use: always Sunscreen Use: Yes Assistive Devices: Denture - Upper, Denture - Lower and Oxygen - at Night Review of Systems Review of Systems: gen - no fevers or chills; appetite has been normal since her surgery on 07/06/22; fatigue x 24 hours eyes - no change in vision HENT - vertigo with sudden head movements; has had in the past, and then had an episode or two in the last 24 hours; no sore throat; no nasal symptoms neck - pain right posterior neck, restricted rotation chest - right upper chest wall pain near the right shoulder; denies injury or trauma pulm - no cough, no dyspnea, no true pleuritic pain (fleeting pleuritic pain right upper chest earlier yesterday but now gone) GI - mild diarrhea overnight, none today; no vomiting; no abd pain; no BRBPR - cano in place, no hematuria; mild bladder pain upon return home on 8/11 -- pain now resolved musculo - pain with movement of right arm, right shoulder, neck endo - h/o pre-DM only skin - no obvious rash psych - good spirits generally lymph - no masses or lymph nodes neuro - no frontal headache; no focal weakness; brief episodes of vertigo (seconds) with sudden head movements Physical Exam Physical Exam: gen - with lying still she is comfortable; with trying to move she has severe pain in the right scapular region, right arm/shoulder region, right neck eyes - PERRL, EOMI, no nystagmus HENT - MMM, no lesions; nose clear; TMs clear b/l neck - severely restricted passive ROM (rotation, flexion, extension) - each movement causes pain; no masses; no bruits; no JVD heart - RRR, s1 s2, no murmur lungs - CTA b/l, faint scattered rales bases chest - no reproducible chest wall pain to palpation in any locaiton abd - soft NT ND BS+; no HSM - cano in place, clear yellow urine ext - no edema, pulses 2+ b/l neuro - strength handgrip 5/5 b/l; biceps/triceps seem about 5/5 b/l; shoulder shrug 5/5 b/l; DTRs 2+ b/l upper and lower ext; speech fluent & clear; no facial droop musculo - with passive ROM of shoulder (adduction, external rotation, etc) she has severe pain (she largely points to the back of the right shoulder and right scapular region) skin - no rash over the neck, right upper back, right arm, or right chest psych - a/o x 3 lymph - no cervical lymph nodes b/l Results & Data Results & Data ([facility]) Vital Signs (Past 12 Hours) Vital Signs Temp Pulse Pulse Resp BP BP Pulse Ox 07/09/22 15:00 63 20 100/65 97 07/09/22 13:00 68 16 109/70 95 07/09/22 11:07 65 16 105/63 100 07/09/22 11:06 67 20 100 07/09/22 10:42 76 18 114/74 94 07/09/22 08:33 98 07/09/22 08:24 68 98 07/09/22 08:21 36.7 C 76 20 145/80 H 98 O2 Del Method O2 Flow Rate 07/09/22 15:00 Room Air 07/09/22 13:00 07/09/22 11:07 Nasal Cannula 3 07/09/22 11:06 Room Air 07/09/22 10:42 Nasal Cannula 2 07/09/22 08:33 Room Air 07/09/22 08:24 Room Air 07/09/22 08:21 Room Air Laboratory Results Laboratory Results - last 24 hr 07/09/22 07/09/22 07/09/22 08:30 08:30 08:30 WBC 11.15 H RBC 4.45 Hgb 13.3 Hct 41.5 MCV 93.3 MCH 29.9 MCHC 32.0 RDW Std Deviation 44.7 RDW Coeff of Jerry 13.1 Plt Count 250 MPV 10.5 Immature Gran % (Auto) 0.4 Neut % (Auto) 62.8 Lymph % (Auto) 24.2 [place] % (Auto) 7.1 Eos % (Auto) 5.0 Baso % (Auto) 0.5 Neut # (Auto) 7.00 H Lymph # (Auto) 2.70 [place] # (Auto) 0.79 Eos # (Auto) 0.56 H Baso # (Auto) 0.06 Immature Gran # (Auto) 0.04 H ESR PT 11.2 INR 1.1 APTT 27.9 PTT Ratio 1.0 Sodium 140 Potassium 3.9 Chloride 104 Carbon Dioxide 28 Anion Gap 8 BUN 21 Creatinine 0.92 Est Cr Clr Drug Dosing 56.1 Est GFR ( Amer) 71.6 Est GFR (Non-Af Amer) 61.8 BUN/Creatinine Ratio 22.8 H Glucose 105 H Calcium 9.1 Total Bilirubin 0.4 AST 15 ALT 11 Alkaline Phosphatase 83 Troponin I High Sens 6.9 C-Reactive Protein Total Protein 7.3 Albumin 3.9 Globulin 3.4 Albumin/Globulin Ratio 1.1 Procalcitonin SARS-CoV-2, RNA, NAAT 07/09/22 07/09/22 07/09/22 08:30 08:30 13:09 WBC RBC Hgb Hct MCV MCH MCHC RDW Std Deviation RDW Coeff of Jerry Plt Count MPV Immature Gran % (Auto) Neut % (Auto) Lymph % (Auto) [place] % (Auto) Eos % (Auto) Baso % (Auto) Neut # (Auto) Lymph # (Auto) [place] # (Auto) Eos # (Auto) Baso # (Auto) Immature Gran # (Auto) ESR 57 H PT INR APTT PTT Ratio Sodium Potassium Chloride Carbon Dioxide Anion Gap BUN Creatinine Est Cr Clr Drug Dosing Est GFR ( Amer) Est GFR (Non-Af Amer) BUN/Creatinine Ratio Glucose Calcium Total Bilirubin AST ALT Alkaline Phosphatase Troponin I High Sens 5.6 C-Reactive Protein Total Protein Albumin Globulin Albumin/Globulin Ratio Procalcitonin < 0.05 SARS-CoV-2, RNA, NAAT 07/09/22 07/09/22 13:09 15:30 WBC RBC Hgb Hct MCV MCH MCHC RDW Std Deviation RDW Coeff of Jerry Plt Count MPV Immature Gran % (Auto) Neut % (Auto) Lymph % (Auto) [place] % (Auto) Eos % (Auto) Baso % (Auto) Neut # (Auto) Lymph # (Auto) [place] # (Auto) Eos # (Auto) Baso # (Auto) Immature Gran # (Auto) ESR PT INR APTT PTT Ratio Sodium Potassium Chloride Carbon Dioxide Anion Gap BUN Creatinine Est Cr Clr Drug Dosing Est GFR ( Amer) Est GFR (Non-Af Amer) BUN/Creatinine Ratio Glucose Calcium Total Bilirubin AST ALT Alkaline Phosphatase Troponin I High Sens C-Reactive Protein 2.26 H Total Protein Albumin Globulin Albumin/Globulin Ratio Procalcitonin SARS-CoV-2, RNA, NAAT NEGATIVE Diagnostic Findings Chest CTA 07/09/22 08:37 CT angio chest PE protocol CLINICAL HISTORY: right chest pain, post surgery COMPARISON STUDY: Portable chest from 09/12/2021 CT DOSE: 671.74 mGy.cm TECHNIQUE: CT Angio of the chest was performed.followed by image post processing with coronal, and sagittal MIP reformats. Contrast Volume: Optiray 320, 118 ml FINDINGS: Vasculature: There is homogeneous perfusion of the pulmonary vasculature bilaterally. No intraluminal filling defects or evidence for pulmonary embolus is seen. Airway: The airway is clear. No endobronchial lesion is identified. Lungs: There is minimal dependent atelectasis at both lung bases. The lungs are clear of acute alveolar opacities, air bronchograms or pulmonary nodules. Pleura: There is no evidence for pleural effusion. There is no evidence for pneumothorax. Mediastinum: There is no evidence for pathologic adenopathy. The heart size is mildly enlarged. There is mild coronary artery calcification and mitral annular calcification. The thoracic aorta is within normal limits. There is no evidence for pericardial effusion. Upper abdomen: The adrenal glands are normal bilaterally. The patient is status post previous gastric bypass surgery. Osseous structures: There is no acute osseous pathology. Impression: 1. No CTA evidence for pulmonary embolus. 2. Minimal dependent atelectasis with otherwise no acute chest disease. ACT 112: Negative or not required by law. Electronically signed by: Jean-Paul Manning M.D. 07/09/2022 11:12 AM Shoulder X-Ray 07/09/22 17:27 XR shoulder RT min 2V routine CLINICAL HISTORY: right neck, right shoulder pain. COMPARISON STUDY: No previous studies for comparison. TECHNIQUE: 3 right shoulder views FINDINGS: Bones: There is no evidence for an acute fracture or dislocation. There is no lytic or blastic lesion. Joints: Degenerative changes are present involving the glenohumeral joint and the acromioclavicular joint. The bones are in anatomic alignment. Soft tissues: There is no focal soft tissue abnormality. There is no radiopaque foreign body. IMPRESSION: 1. No acute osseous pathology. 2. Osteoarthritis ACT 112: Negative or not required by law. Electronically signed by: Jean-Paul Manning M.D. 07/09/2022 5:56 PM EKG - my reading - NSR, PACs, no ST changes Code Status & VTE Plan Code Status full code PG Care Time/CCT Total # of Minutes Spent Total Time Spent with Patient: Total time spent is greater than 50% in coordination of care (as documented) at patient's floor/unit and/or counseling patient: Coding Level of Care Code INT OBSERVATION CARE 70M LVL 3 Diagnoses Neck pain on right side M54.2 Right-sided chest pain R07.9 Right arm pain M79.601 Leukocytosis D72.829 Bladder tumor D49.4 Thoracic ascending aortic aneurysm I71.2 Hypothyroid E03.9 Hypothyroidism type: unspecified GERD (gastroesophageal reflux disease) K21.9 Esophagitis presence: esophagitis presence not specified Former tobacco use Z87.891 COPD with emphysema J43.9 HTN (hypertension) I10 Hypertension type: essential hypertension Pre-diabetes R73.03 History of breast cancer Z85.3 History of endocarditis Z86.79 (1) Hypothyroid Hypothyroidism type: unspecified Qualified Code(s): E03.9 - Hypothyroidism, unspecified (2) GERD (gastroesophageal reflux disease) Esophagitis presence: esophagitis presence not specified Qualified Code(s): K21.9 - Gastro-esophageal reflux disease without esophagitis (3) HTN (hypertension) Hypertension type: essential hypertension Qualified Code(s): I10 - Essential (primary) hypertension
--- NOTE | 2022-07-09 17:58 | XRay Report ---
XR shoulder RT min 2V routine CLINICAL HISTORY: right neck, right shoulder pain. COMPARISON STUDY: No previous studies for comparison. TECHNIQUE: 3 right shoulder views FINDINGS: Bones: There is no evidence for an acute fracture or dislocation. There is no lytic or blastic lesion . Joints: Degenerative changes are present involving the glenohumeral joint and the acromioclavicular j oint. The bones are in anatomic alignment. Soft tissues: There is no focal soft tissue abnormality. There is no radiopaque foreign body. IMPRESSION: 1. No acute osseous pathology. 2. Osteoarthritis ACT 112: Negative or not required by law. Electronically signed by: Jean-Paul Manning M.D. 07/09/2022 5:56 PM
[2022-07-09] MEDS ORDERED: SODIUM CHLORIDE 0.9% 1000ML 1,000 ML IV SCH (20:26)
[2022-07-09] MEDS ORDERED: LORazepam 0.5 MG TAB PO PRN (20:26)
[2022-07-09] MEDS ORDERED: ONDANSETRON INJ 2 MG/ML 2 ML VIAL IV PRN (20:26)
[2022-07-09] MEDS ORDERED: HYDROmorphone INJ 0.5 MG/0.5 ML SYR IV PRN (20:26)
[2022-07-09] MEDS: ACETAMINOPHEN 500 MG TAB PO SCH (21:01)
[2022-07-09] MEDS: DICLOFENAC SOD 1% GEL 100 GM TUBE EXT SCH (21:02)
[2022-07-09] MEDS: LIDOCAINE 5% 1 PATCH TD SCH (21:02)
[2022-07-10] MEDS ORDERED: GLUCAGON FOR INJ 1 MG VIAL IM PRN (00:15)
[2022-07-10] MEDS ORDERED: DEXTROSE 50% 50 ML SYRINGE IV PRN (00:15)
[2022-07-10] MEDS ORDERED: CARBOHYDRATES FOR HYPOGLYCEMIA PO PRN (00:15)
[2022-07-10] MEDS ORDERED: GLUCOSE 10 TAB/TUBE PO PRN (00:15)
[2022-07-10] MEDS ORDERED: GLUCOSE 40% GEL 15 GM TUBE PO PRN (00:15)
[2022-07-10 00:54] LABS: Appearance Urine Cloudy (Clear); Bacteria Urine Automated 4+ (Negative); Bilirubin Urine Negative (Negative); Blood Urine 3+ (Negative); Color Urine Yellow; Glucose Urine UA Negative (Negative); Ketones Urine Negative (Negative); Leukocyte Esterase Urine 2+ (Negative); Nitrite Urine Negative (Negative); Protein Urine 2+ (Negative); RBC Urine Automated >30 /hpf (0-4); Specific Gravity Urine 1.016 (1.000-1.030); Urobilinogen Urine Negative (Negative); WBC Urine Automated >30 /hpf (0-5); pH Urine 5.5 (4.5-7.5)
[2022-07-10] MEDS ORDERED: ERTAPENEM SODIUM 10 ML IV STA (06:05)
[2022-07-10] MEDS: LEVOTHYROXINE SODIUM 75 MCG TABLET PO SCH (06:13)
[2022-07-10 06:23] LABS: Basophils # (auto) 0.05 K/uL (0-0.2); Basophils % (auto) 0.6 %; Eosinophils # (auto) 0.54 K/uL (0-0.50); Hematocrit (blood only) 39.3 % (34.1-44.9); Hemoglobin 12.5 g/dl (12.0-16.0); Immature Granulocytes # (auto) 0.03 K/uL (0.00-0.02); Immature Granulocytes % (auto) 0.4 %; Lymphocytes % (auto) 36.3 %; Mean Corpuscular Hemoglobin 30.2 pg (25.0-34.0); Mean Corpuscular Hgb Conc 31.8 g/dL (32.0-36.0); Mean Corpuscular Volume 94.9 fL (80.0-100.0); Mean Platelet Volume 10.6 fL (9.4-12.3); Monocytes # (auto) 0.89 K/uL (0.24-0.82); Monocytes % (auto) 11.5 %; Neutrophils # (auto) 3.41 K/uL (1.4-6.5); Neutrophils % (auto) 44.2 %; Platelet Count 204 K/uL (130-400); RDW Coefficient of Variation 13.2 % (11.5-14.5); RDW Standard Deviation 45.8 fL (36.4-46.3); Red Blood Count 4.14 M/uL (3.93-5.22); White Blood Count 7.72 K/ul (4.8-10.8)
[2022-07-10 07:02] LABS: BUN Creatinine Ratio 21.9 (10-20); Calcium 8.7 mg/dl (8.5-10.1); Creatinine Clr Calc Pharmacy 70.6 ml/min; Est GFR (African American) 94.7 ml/min; Est GFR (Non-African American) 81.7 ml/min; Potassium 3.9 mmol/L (3.5-5.1)
--- NOTE | 2022-07-10 08:48 | Magnetic Resonance Report ---
MR angio neck wo con HISTORY: 71 years-old Female R sided neck pain; eval dissection etc acute chest and right-sided neck pain in a patient with history of breast cancer COMPARISON: MRI cervical spine of same day TECHNIQUE: MRA of the neck was obtained without the use of IV contrast utilizing 3-D [id number] s equencing with MIP reformats. All measurements were obtained according to NASCET criteria. FINDINGS: Director Of Institutional Research localizer images demonstrate cardiomegaly. The study is motion degraded. The common and interna l carotid arteries appear patent. The left vertebral artery appears dominant. The visualized vertebra l arteries appear patent. No aneurysm, dissection, high-grade stenosis or arterial occlusion identifi ed. IMPRESSION: Motion degraded exam with unremarkable MRA of the neck. ACT 112: Negative or not required by law. The above report was generated using voice recognition software. It may contain grammatical, syntax o r spelling errors. Electronically signed by: Ben Chisholm M.D. 07/10/2022 8:47 AM
--- NOTE | 2022-07-10 09:23 | Magnetic Resonance Report ---
MRI OF THE CERVICAL SPINE WITHOUT IV CONTRAST CLINICAL HISTORY: Right-sided neck and shoulder pain. COMPARISON STUDY: No priors. TECHNIQUE: MRI of the cervical spine is performed utilizing various T1 and T2-weighted sequences in t he axial and sagittal planes. IV contrast was not administered for this examination. Examination is d egraded by motion artifact. FINDINGS: Cervical spine: Vertebral body height and alignment are maintained throughout the cervical spine. The atlantodental articulation is maintained. The spinous processes appear intact. Tiny anterior osteoph ytes are seen throughout. No destructive bony lesion is seen. Chronic degenerative endplate change is noted at C5-C6. Intervertebral discs: Degenerative disc desiccation and mild loss of height is seen throughout the ce rvical spine. Spinal cord: The cervical cord is normal in morphology and signal intensity. C2-C3: Uncovertebral and facet arthropathy contribute to moderate left neural foraminal stenosis. The central canal and right neural foramina are clear. C3-C4: A posterior disc osteophyte complex abuts the ventral cord. Predominantly facet arthropathy co ntributes to mild to moderate left neural foraminal stenosis. There is only minimal neural foraminal narrowing on the right. C4-C5: A posterior disc osteophyte complex abuts the ventral cord. There is left lateral disc bulge. In conjunction with facet arthropathy there is severe left neural foraminal stenosis. This may imping e on the exiting left C5 nerve root. Facet arthropathy contribute to [id number] right neural fo raminal stenosis. C5-C6: A posterior disc osteophyte complex abuts the ventral cord. There is lateral disc bulge on the right. In conjunction with uncovertebral and facet arthropathy there is severe bilateral neural fora jacqueline stenosis. This may impinge on the exiting bilateral C6 nerve roots. C6-C7: A posterior disc osteophyte complex effaces the ventral subarachnoid space. Large lateral disc bulges are seen bilaterally. In conjunction with facet arthropathy there is severe bilateral neural foraminal stenosis. This may impinge on the exiting bilateral C7 nerve roots. C7-T1: Unremarkable. Soft tissues: The prevertebral and paraspinous soft tissues are normal as visualized. Brain parenchyma: The imaged brain parenchyma at the skull base is within normal limits. IMPRESSION: 1. Multilevel cervical spondylosis as above. See discussion for detailed level by level analysis. 2. The cervical cord is normal in morphology and signal intensity. 3. No destructive bony process is seen. Dictated: 07/10/2022 8:25 AM Transcribed: 07/10/2022 8:39 AM Fabiana [id number] EDSON_Jennifer Electronically signed by: Cliff Kapoor M.D. 07/10/2022 9:21 AM
[2022-07-10] MEDS: VENLAFAXINE HCL XR 150 MG CAPXR PO SCH (09:26)
[2022-07-10] MEDS: ACETAMINOPHEN 500 MG TAB PO SCH ×3 (09:27→20:27)
[2022-07-10] MEDS: CHOLECALCIFEROL 5,000 UNITS 125 MCG TAB PO SCH (09:27)
[2022-07-10] MEDS: INSULIN ASPART PER UNIT SC SCH ×4 (09:34→21:22)
[2022-07-10] MEDS: DICLOFENAC SOD 1% GEL 100 GM TUBE EXT SCH ×4 (09:35→20:28)
[2022-07-10] MEDS ORDERED: METHOCARBAMOL 500 MG TABLET PO PRN (10:44)
[2022-07-10] MEDS ORDERED: HYDROmorphone INJ 0.5 MG/0.5 ML SYR IV PRN (10:45)
[2022-07-10] MEDS: CANDESARTAN CILEXETIL PO SCH (13:39)
--- NOTE | 2022-07-10 18:37 | Hospitalist Progress Note ---
Date of Service July 10, 2022 Assessment & Plan (1) Neck pain on right side: Plan: The patient presents with severe pain over the right upper back, right shoulder/arm, right neck and base of right neck, as well as the right upper chest These symptoms started about 24 hours prior to admission. She had no preceding injury, heavy lifting, fall, etc. She did undergo general anesthesia for her cystoscopy/TURBT on 07/06/22. All of her symptoms are worsened by movement/activity, rotating the head/neck, moving the right arm, etc -- all suggestive of a musculoskeletal etiology. CTA chest was negative for PE or other acute findings. Troponins are negative. Has h/o mild ascending aortic aneurysm (4cm on previous imaging) but her presentation in not c/w dissection. MRI cervical spine showed multilevel cervical spondylosis but no cervical cord lesions-unlikely causing her issues Vascular abnormality (ie dissection) of the vertebral artery on right ruled out with normal MRA ESR and CRP are somewhat elevated, but not at levels consistent with osteomyelitis Much improved today and remains exquisitely tender to palpation over the right rhomboids and trapezius, suggestive of muscle spasm -Add on heating pad -Added methocarbamol as a muscle relaxer but she reports being advised not to take muscle relaxers for unknown reason -Continue Tylenol as needed for mild to moderate pain, diclofenac gel 4 times a day, IV Dilaudid as needed, lidocaine patch (2) Right-sided chest pain: Plan: CTA chest negative for PE. ECG without ischemia Troponins negative. 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 Umaña, that she was in the hospital-no formal consultation needed -Dr. Umaña plans on coming to see the patient on the morning of 07/11 to discuss her pathology results and next steps for her bladder cancer -Patient is aware that she does have bladder cancer, but I advised her that Dr. Umaña would be discussing everything in more detail (6) Thoracic ascending aortic aneurysm: Plan: 4cm based on prior imaging presenting symptoms not c/w dissection, however, and upper right chest pain is already resolved CTA chest was geared towards ruling out PE; no mention of the aortic root if her pain returns and no other etiology is found for her presentation consider CTA dissection protocol (7) Hypothyroid: Plan: TSH 05/2022 wnl. Cont synthroid. (8) GERD (gastroesophageal reflux disease): Plan: is not on meds at home (9) Former tobacco use: Plan: noted has baseline COPD (10) COPD with emphysema: Plan: no exacerbation at this time (11) HTN (hypertension): Plan: BPs on admission were low normal and her [place]and was held IV fluids were provided Blood pressures are normal today-okay to restart [place] (12) Pre-diabetes: Plan: hemoglobin a1c 6% in May Patient upset about having Accu-Cheks Cancel Accu-Cheks (13) History of breast cancer: Plan: noted s/p b/l mastectomies in the past no evidence of metastatic disease on CTA chest (14) History of endocarditis: Plan: 2003 - AV endocarditis in setting of pyelonephritis/UTI/sepsis treated medically with prolonged IV antibiotic therapy never needed valve surgery obtained blood cultures in light of leukocytosis and elevated UTC-qqczulb-sw growth to date I do not hear an obvious murmur on exam (15) Catheter-associated urinary tract infection: Plan: With catheter in place status post TURBT Urinalysis appears infected Await culture results Continue IV ertapenem started empirically on admission Plan DVT proph - hold off on chemical DVT proph in light of recent TURBT, SCDs only Disposition-continued stay, awaiting urine culture results and continued improvement of neck pain PT/OT consults placed Admission and Anticipated Discharge Date Admission Date: July 09, 2022 Subjective Patient feeling much improved, still has some pain in the right medial scapula area. She did earlier have some pain radiating all the way down to her right lower back which is now completely resolved. She still has some pain when she tries to raise her right arm above her head, but overall feeling better. She reports being told not to take muscle relaxers in the past but does not remember the reason why. Otherwise is very anxious to speak with Dr. Umaña from urology about her bladder pathology results and the plan for her bladder cancer. Review of Systems Review of Systems: All systems reviewed & are unremarkable except as noted in HPI & below Physical Exam Constitutional: WD/WN, vitals as above Eyes: + anicteric sclerae Neck: trachea midline, no thyromegaly Positive exquisite TTP over right trapezius and rhomboids on the right, no masses, no hematomas or ecchymosis noted, no erythema 5/5 strength throughout upper extremities bilaterally, sensation intact to light touch throughout upper extremities, DTRs 2+ and symmetric in upper extremities Respiratory: normal respiratory effort, lungs clear to auscultation Cardiovascular: RRR, no murmur, no edema Chest (Breasts): Chest: normal inspection of chest Gastrointestinal (Abdomen): normal bowel sounds, soft, nontender, no hepatosplenomegaly Musculoskeletal: Extremities: extremities normal to inspection; no cyanosis and no clubbing Skin: no rashes, warm and dry Neurologic: moves all extremities and awake; no focal motor deficits Psychiatric: A+Ox3, euthymic affect Genitourinary: + abnormal external appearance (Long catheter in place draining clear yellow urine) Lymphatic: no lymphedema Results & Data Results & [facility] ([facility]) Vital Signs (Past 12 Hours) Vital Signs Temp Pulse Pulse Resp BP BP Pulse Ox 07/10/22 16:09 70 07/10/22 15:57 07/10/22 15:36 36.4 C L 71 18 131/82 98 07/10/22 14:59 72 19 139/102 H 98 07/10/22 13:14 66 18 95 07/10/22 10:07 07/10/22 09:31 66 16 143/71 H 96 O2 Del Method 07/10/22 16:09 07/10/22 15:57 Room Air 07/10/22 15:36 Room Air 07/10/22 14:59 Room Air 07/10/22 13:14 Room Air 07/10/22 10:07 Room Air 07/10/22 09:31 Laboratory Results 07/10/22 07/10/22 07/10/22 Range/Units 08:45 06:03 06:03 WBC 7.72 (4.8-10.8) K/ul RBC 4.14 (3.93-5.22) M/uL Hgb 12.5 (12.0-16.0) g/dl Hct 39.3 (34.1-44.9) % MCV 94.9 (80.0-100.0) fL MCH 30.2 (25.0-34.0) pg MCHC 31.8 L (32.0-36.0) g/dL RDW Std Deviation 45.8 (36.4-46.3) fL RDW Coeff of Jerry 13.2 (11.5-14.5) % Plt Count 204 (130-400) K/uL MPV 10.6 (9.4-12.3) fL Immature Gran % (Auto) 0.4 % Neut % (Auto) 44.2 % Lymph % (Auto) 36.3 % [place] % (Auto) 11.5 % Eos % (Auto) 7.0 % Baso % (Auto) 0.6 % Neut # (Auto) 3.41 (1.4-6.5) K/uL Lymph # (Auto) 2.80 (1.2-3.4) K/uL [place] # (Auto) 0.89 H (0.24-0.82) K/uL Eos # (Auto) 0.54 H (0-0.50) K/uL Baso # (Auto) 0.05 (0-0.2) K/uL Immature Gran # (Auto) 0.03 H (0.00-0.02) K/uL Sodium 140 (136-145) mmol/L Potassium 3.9 (3.5-5.1) mmol/L Chloride 107 (98-107) mmol/L Carbon Dioxide 26 (21-32) mmol/L Anion Gap 7 (3-11) BUN 16 (6-23) mg/dl Creatinine 0.73 (0.6-1.2) mg/dl Est Cr Clr Drug Dosing 70.6 ml/min Est GFR ( Amer) 94.7 ml/min Est GFR (Non-Af Amer) 81.7 ml/min BUN/Creatinine Ratio 21.9 H (10-20) Glucose 89 (70-99(Fasting)) mg/dl POC Glucose 86 (70-99) mg/dl Calcium 8.7 (8.5-10.1) mg/dl Troponin I High Sens (0-14) pg/ml Urine Color Urine Appearance (Clear) Urine pH (4.5-7.5) Ur Specific [place] (1.000-1.030) Urine Protein (Negative) Urine Glucose (UA) (Negative) Urine Ketones (Negative) Urine Blood (Negative) Urine Nitrite (Negative) Urine Bilirubin (Negative) Urine Urobilinogen (Negative) Ur Leukocyte Esterase (Negative) Urine WBC (Auto) (0-5) /hpf Urine RBC (Auto) (0-4) /hpf U Hyaline Cast (Auto) (0-5) /lpf U Epithel Cells (Auto) (0-5) /lpf Urine Bacteria (Auto) (Negative) 07/10/22 07/10/22 Range/Units 00:40 00:20 WBC (4.8-10.8) K/ul RBC (3.93-5.22) M/uL Hgb (12.0-16.0) g/dl Hct (34.1-44.9) % MCV (80.0-100.0) fL MCH (25.0-34.0) pg MCHC (32.0-36.0) g/dL RDW Std Deviation (36.4-46.3) fL RDW Coeff of Jerry (11.5-14.5) % Plt Count (130-400) K/uL MPV (9.4-12.3) fL Immature Gran % (Auto) % Neut % (Auto) % Lymph % (Auto) % [place] % (Auto) % Eos % (Auto) % Baso % (Auto) % Neut # (Auto) (1.4-6.5) K/uL Lymph # (Auto) (1.2-3.4) K/uL [place] # (Auto) (0.24-0.82) K/uL Eos # (Auto) (0-0.50) K/uL Baso # (Auto) (0-0.2) K/uL Immature Gran # (Auto) (0.00-0.02) K/uL Sodium (136-145) mmol/L Potassium (3.5-5.1) mmol/L Chloride (98-107) mmol/L Carbon Dioxide (21-32) mmol/L Anion Gap (3-11) BUN (6-23) mg/dl Creatinine (0.6-1.2) mg/dl Est Cr Clr Drug Dosing ml/min Est GFR ( Amer) ml/min Est GFR (Non-Af Amer) ml/min BUN/Creatinine Ratio (10-20) Glucose (70-99(Fasting)) mg/dl POC Glucose (70-99) mg/dl Calcium (8.5-10.1) mg/dl Troponin I High Sens 5.7 (0-14) pg/ml Urine Color Yellow Urine Appearance Cloudy A (Clear) Urine pH 5.5 (4.5-7.5) Ur Specific [place] 1.016 (1.000-1.030) Urine Protein 2+ H (Negative) Urine Glucose (UA) Negative (Negative) Urine Ketones Negative (Negative) Urine Blood 3+ H (Negative) Urine Nitrite Negative (Negative) Urine Bilirubin Negative (Negative) Urine Urobilinogen Negative (Negative) Ur Leukocyte Esterase 2+ H (Negative) Urine WBC (Auto) >30 H (0-5) /hpf Urine RBC (Auto) >30 H (0-4) /hpf U Hyaline Cast (Auto) 5-10 H (0-5) /lpf U Epithel Cells (Auto) 10-20 H (0-5) /lpf Urine Bacteria (Auto) 4+ H (Negative) PG Care Time/CCT Total # of Minutes Spent Total Time Spent with Patient: Total time spent is greater than 50% in coordination of care (as documented) at patient's floor/unit and/or counseling patient: Coding Level of Care Code 81495 Subseq Obs Care Lvl 3 Diagnoses Neck pain on right side M54.2 Right-sided chest pain R07.9 Right arm pain M79.601 Leukocytosis D72.829 Bladder tumor D49.4 Thoracic ascending aortic aneurysm I71.2 Hypothyroid E03.9 Hypothyroidism type: unspecified GERD (gastroesophageal reflux disease) K21.9 Esophagitis presence: esophagitis presence not specified Former tobacco use Z87.891 COPD with emphysema J43.9 HTN (hypertension) I10 Hypertension type: essential hypertension Pre-diabetes R73.03 History of breast cancer Z85.3 History of endocarditis Z86.79 Catheter-associated urinary tract infection T83.511A; N39.0 (1) Hypothyroid Hypothyroidism type: unspecified Qualified Code(s): E03.9 - Hypothyroidism, unspecified (2) GERD (gastroesophageal reflux disease) Esophagitis presence: esophagitis presence not specified Qualified Code(s): K21.9 - Gastro-esophageal reflux disease without esophagitis (3) HTN (hypertension) Hypertension type: essential hypertension Qualified Code(s): I10 - Essential (primary) hypertension
[2022-07-10] MEDS: LIDOCAINE 5% 1 PATCH TD SCH (20:29)
[2022-07-11] MEDS: LEVOTHYROXINE SODIUM 75 MCG TABLET PO SCH (05:37)
[2022-07-11] MEDS ORDERED: ERTAPENEM SODIUM 1,000 MG in SYRINGE 0 ML IV SCH (06:00)
[2022-07-11] MEDS: ACETAMINOPHEN 500 MG TAB PO SCH ×3 (08:13→20:30)
[2022-07-11] MEDS: VENLAFAXINE HCL XR 150 MG CAPXR PO SCH (08:13)
[2022-07-11] MEDS: CHOLECALCIFEROL 5,000 UNITS 125 MCG TAB PO SCH (08:13)
[2022-07-11] MEDS: DICLOFENAC SOD 1% GEL 100 GM TUBE EXT SCH ×4 (08:15→20:31)
[2022-07-11] MEDS: CANDESARTAN CILEXETIL PO SCH (08:16)
--- NOTE | 2022-07-11 08:28 | Urology Progress Note ---
Date of Service July 11, 2022 Assessment & Plan (1) Bladder tumor: Plan: We reviewed her pathology, specifically that she has high-grade muscle invasive bladder cancer. The definitive treatment for this would be cystectomy with urinary diversion. We discussed that prior to surgical treatment, she may be a candidate for neoadjuvant chemotherapy and I recommended that she see medical oncology. She is already established for her history of breast cancer and has a an appointment pending in September, however I will see if we can expedite this. We discussed that outcomes from radical cystectomy have been shown to be better to high-volume center, therefore I would recommend that we refer her to a tertiary center such as [place] for discussion of surgery. She expressed understanding is was amenable to all of these plans. (2) Catheter-associated urinary tract infection: Plan: Urine culture with gram-negative rods, speciation and sensitivities pending. Urine is clear and I think she is appropriate for a voiding trial today. Would recommend treatment for another week based on culture and sensitivity data. Admission and Anticipated Discharge Date Admission Date: July 09, 2022 Subjective 71-year-old female, followed by urology for hematuria and suspicious bladder mass. She underwent transurethral resection of her bladder tumor on 07/06/2022. She has been feeling fairly well from the bladder perspective. The catheter is somewhat bothersome but the urine has cleared and never been obstructed. She is currently being treated for UTI as well as some neck pain. Pathology from transurethral resection demonstrated high-grade muscle invasive urothelial carcinoma. I reviewed these pathology results with Jazmyn this morning. For further staging, she has had a CT of the chest (pulmonary embolism protocol) which did not identify any suspicious lymph nodes. CT scan of the abdomen and pelvis did not identify any lymphadenopathy or obvious metastatic deposits. Labs reviewed: Creatinine 0.73, EGFR 81.7. Alkaline phosphatase from 07/09, within normal limits (83) Physical Exam Physical Exam: Well-appearing, NAD Genitourinary: Long catheter draining clear yellow urine Results & Data ([facility]) Vital Signs (Past 12 Hours) Vital Signs Temp Pulse Pulse Resp BP Pulse Ox O2 Del Method 07/11/22 07:11 61 07/11/22 06:46 36.6 C 60 18 126/77 95 Room Air 07/11/22 04:00 36.7 C 60 18 144/79 H 94 Room Air 07/11/22 00:08 68 07/10/22 23:00 36.8 C 65 18 105/69 94 Room Air PG Care Time/CCT Total # of Minutes Spent Total Time Spent with Patient: Total time spent is greater than 50% in coordination of care (as documented) at patient's floor/unit and/or counseling patient: Coding Level of Care Code None Diagnoses Bladder tumor D49.4 Catheter-associated urinary tract infection T83.511A; N39.0
[2022-07-11] MEDS: LIDOCAINE 5% 1 PATCH TD SCH (20:13)
--- NOTE | 2022-07-11 20:21 | Hospitalist Progress Note ---
Date of Service July 11, 2022 Assessment & Plan (1) Catheter-associated urinary tract infection: Plan: speciation with sensitivities not back yet but growing GNR cont ertapenem and await final culture follow blood cx's (2) Neck pain on right side: Plan: The patient presented with severe pain over the right upper back, right shoulder/arm, right neck and base of right neck, as well as the right upper chest discomfort. MRA neck neg for dissection, etc. MRI c-spine without fracture or large disc herniation or neural compromise - mild DJD seen. Right shoulder x-rays negative for acute pathology. Pains likely myalgia type pain - have largely improved without significant intervention. May have been exacerbated by recent intubation/mech ventilation for her TURBT procedure?? either way she is improved. (3) Right-sided chest pain: Plan: CTA chest negative for PE. Troponins negative. Likely musculoskeletal. (4) Right arm pain: Plan: see #1 above. resolved. (5) Leukocytosis: Plan: 2nd to catheter-associated UTI. Improved. (6) Bladder tumor: Plan: s/p TURBT by [facility] 07/06/[address] Umaña' consult; he is referring her to tertiary care for further management. cano out; voiding fine. (7) Thoracic ascending aortic aneurysm: Plan: 4cm based on prior imaging presenting symptoms not c/w dissection, however, and upper right chest pain resolved quickly CTA chest was geared towards ruling out PE; no mention of the aortic root if her pain returns and no other etiology is found for her presentation consider CTA dissection protocol (8) Hypothyroid: Plan: TSH 05/2022 wnl. Cont synthroid. (9) GERD (gastroesophageal reflux disease): Plan: is not on meds at home (10) Former tobacco use: Plan: noted has baseline COPD (11) COPD with emphysema: Plan: no exacerbation at this time (12) HTN (hypertension): Plan: ARB resumed (13) Pre-diabetes: Plan: hemoglobin a1c 6% in May controlled (14) History of breast cancer: Plan: noted s/p b/l mastectomies in the past no evidence of metastatic disease on CTA chest (15) History of endocarditis: Plan: 2004 - AV endocarditis in setting of pyelonephritis/UTI/sepsis treated medically with prolonged IV antibiotic therapy never needed valve surgery blood cx's here neg Plan change observation to full admission status should be able to d/c home tomorrow once final urine cx is back message left for daughter on her voice mail today Admission and Anticipated Discharge Date Admission Date: July 11, 2022 Subjective patient feeling much better today no complaints cano removed - voiding fine - no LUTS, no hematuria upper back and shoulder pain improved; minimal pain eating well did speak with Dr Umaña from urology - she is aware of bladder cancer dx Review of Systems Review of Systems: gen - no fevers or chills cv - scant right upper chest wall pain pulm - no cough or dyspnea GI - no abd pain Physical Exam Physical Exam: gen - obese, NAD, pleasant mouth - MMM neck - no JVD, rotation of neck does not cause pain today; ROM full heart - RRR, s1 s2, no murmur lungs - CTA b/l abd - soft NT ND BS+ back - no tenderness to palpation upper back, right scapular area musculo - right shoulder ROM improved and w/o tenderness ext - no edema, pulses 2+ b/l Results & Data Results & Data ([facility]) Vital Signs (Past 12 Hours) Vital Signs Temp Pulse Pulse Resp BP Pulse Ox O2 Del Method 07/11/22 19:14 36.7 C 67 18 108/62 95 Room Air 07/11/22 14:47 75 07/11/22 11:00 36.8 C 69 18 155/90 H 100 Room Air Laboratory Results urine cx - GNR, >100,000 blood cx's negative PG Care Time/CCT Total # of Minutes Spent Total Time Spent with Patient: Total time spent is greater than 50% in coordination of care (as documented) at patient's floor/unit and/or counseling patient: Coding Level of Care Code 28306 Subseq Hosp Care Lvl 2 Diagnoses Catheter-associated urinary tract infection T83.511A; N39.0 Neck pain on right side M54.2 Right-sided chest pain R07.9 Right arm pain M79.601 Leukocytosis D72.829 Bladder tumor D49.4 Thoracic ascending aortic aneurysm I71.2 Hypothyroid E03.9 Hypothyroidism type: unspecified GERD (gastroesophageal reflux disease) K21.9 Esophagitis presence: esophagitis presence not specified Former tobacco use Z87.891 COPD with emphysema J43.9 HTN (hypertension) I10 Hypertension type: essential hypertension Pre-diabetes R73.03 History of breast cancer Z85.3 History of endocarditis Z86.79 (1) Hypothyroid Hypothyroidism type: unspecified Qualified Code(s): E03.9 - Hypothyroidism, unspecified (2) GERD (gastroesophageal reflux disease) Esophagitis presence: esophagitis presence not specified Qualified Code(s): K21.9 - Gastro-esophageal reflux disease without esophagitis (3) HTN (hypertension) Hypertension type: essential hypertension Qualified Code(s): I10 - Essential (primary) hypertension
[2022-07-12] MEDS: LEVOTHYROXINE SODIUM 75 MCG TABLET PO SCH (06:18)
[2022-07-12] MEDS: CANDESARTAN CILEXETIL PO SCH (08:38)
[2022-07-12] MEDS: ACETAMINOPHEN 500 MG TAB PO SCH (08:38)
[2022-07-12] MEDS: CHOLECALCIFEROL 5,000 UNITS 125 MCG TAB PO SCH (08:39)
[2022-07-12] MEDS: DICLOFENAC SOD 1% GEL 100 GM TUBE EXT SCH (08:39)
[2022-07-12] MEDS: VENLAFAXINE HCL XR 150 MG CAPXR PO SCH (08:40)
[2022-07-12] MEDS ORDERED: cephALEXin 500 MG CAP PO SCH (09:00)
--- NOTE | 2022-07-12 11:24 | Discharge Summary ---
Date of Service date of admission - July 09, 2022 date of discharge - July 12, 2022 Admission HPI Per Admitting Provider Very pleasant 71yo female with recent h/o hematuria and concern for bladder cancer, s/p cystoscopy performed under general anesthesia on 07/06/[address] Umaña with subsequent TURBT, along with prior gastric bypass surgery, preDM, HTN, endocarditis treated medically, hypothyroidism, and ascending aortic aneurysm (4cm on last study) -- presents with severe right-sided neck pain, right upper back pain, right arm/shoulder pain, and right upper chest wall pain. The patient states that following her procedure on 07/06 she initially felt well. She was discharged to home with cano in place and had some mild bladder pain but otherwise was feeling ok. Yesterday she took a car ride from [place] to [place] (her family camps in [place]) and while in the car she noted that any time she tried to turn her head/neck it was uncomfortable to do so. It was particularly bothersome to look to the left side. When she got to [place] she took a 5+ hour nap (she was ex hausted from the surgery). Upon awakening she didn't feel well and her upper body symptoms were worse. She noticed now that minimal movements of the neck region or the right arm/shoulder/upper back would cause severe pain. She managed to drive back to her home in [place] yesterday evening and the trip was uncomfortable once again. Last night it was difficult to sleep. Rolling over in bed, moving too quickly, etc all made her symptoms worse. She reports having had some mild diarrhea overnight. She did not have any central or left-sided chest pain or dyspnea overnight or today. She did note some mild right upper chest wall pain near the right shoulder today. Denied any paresthesias of either arm. Denied any motor weakness of either arm. Denied frontal headache. No fevers or chills. Appetite has been ok since her surgery on 07/06. She finally came to the ER today because the pain was excruciating over the above mentioned regions and any simple movements made the pain worse. Denied any rash over the upper body, chest or neck. She did gain relief of her pain in the ER with IV dilaudid. Principal Diagnosis 1. catheter-associated UTI 2nd to Klebsiella 2. severe right shoulder/upper chest/lower neck pain - resolved; muscular in etiology 3. newly diagnosed bladder cancer Discharge Exam gen - obese, NAD mouth - MMM neck - no JVD, rotation of neck does not cause pain today; ROM full heart - RRR, s1 s2, no murmur lungs - CTA b/l abd - soft NT ND BS+ back - no tenderness to palpation upper back, right scapular area musculo - right shoulder ROM improved and w/o tenderness ext - no edema, pulses 2+ b/l Discharge Data Allergies Allergy/AdvReac Type Severity Reaction Status Date / Time docetaxel Allergy Severe chest Verified 07/06/22 09:36 pain, dyspnea adhesive Allergy Intermediate skin Verified 07/06/22 09:36 blisters atorvastatin Allergy Intermediate foot/leg Verified 07/06/22 09:36 swelling, nausea fluoxetine Allergy Intermediate gastrointestinal Verified 07/06/22 09:36 upset losartan Allergy Intermediate unsure Verified 07/06/22 09:36 (lethargy or leg swelling) silver sulfadiazine Allergy Intermediate worsening Verified 07/06/22 09:36 burning alendronate sodium Allergy Unknown unknown Verified 07/06/22 09:36 reaction albuterol AdvReac Intermediate nightmare Verified 07/06/22 09:36 cetirizine [From Zyrtec] AdvReac Mild drowsiness Verified 07/06/22 09:36 ibandronate sodium AdvReac Unknown unknown Verified 07/06/22 09:36 [From Boniva] reaction ibuprofen AdvReac Unknown advised to Verified 07/06/22 09:36 avoid (caused slight kidney damage) fluticasone [From Flonase] AdvReac nosebleed Verified 07/06/22 09:36 Consultations PT, OT Urology - Ignacio Umaña MD Ordered Studies Chest CTA 07/09/22 08:37 CT angio chest PE protocol CLINICAL HISTORY: right chest pain, post surgery COMPARISON STUDY: Portable chest from 09/12/2021 CT DOSE: 671.74 mGy.cm TECHNIQUE: CT Angio of the chest was performed.followed by image post processing with coronal, and sagittal MIP reformats. Contrast Volume: Optiray 320, 118 ml FINDINGS: Vasculature: There is homogeneous perfusion of the pulmonary vasculature bilate rally. No intraluminal filling defects or evidence for pulmonary embolus is seen. Airway: The airway is clear. No endobronchial lesion is identified. Lungs: There is minimal dependent atelectasis at both lung bases. The lungs are clear of acute alveolar opacities, air bronchograms or pulmonary nodules. Pleura: There is no evidence for pleural effusion. There is no evidence for pneumothorax. Mediastinum: There is no evidence for pathologic adenopathy. The heart size is mildly enlarged. There is mild coronary artery calcification and mitral annular calcification. The thoracic aorta is within normal limits. There is no evidence for pericardial effusion. Upper abdomen: The adrenal glands are normal bilaterally. The patient is status post previous gastric bypass surgery. Osseous structures: There is no acute osseous pathology. Impression: 1. No CTA evidence for pulmonary embolus. 2. Minimal dependent atelectasis with otherwise no acute chest disease. ACT 112: Negative or not required by law. Electronically signed by: Jean-Paul Manning M.D. 07/09/2022 11:12 AM Shoulder X-Ray 07/09/22 17:27 XR shoulder RT min 2V routine CLINICAL HISTORY: right neck, right shoulder pain. COMPARISON STUDY: No previous studies for comparison. TECHNIQUE: 3 right shoulder views FINDINGS: Bones: There is no evidence for an acute fracture or dislocation. There is no lytic or blastic lesion. Joints: Degenerative changes are present involving the glenohumeral joint and the acromioclavicular joint. The bones are in anatomic alignment. Soft tissues: There is no focal soft tissue abnormality. There is no radiopaque foreign body. IMPRESSION: 1. No acute osseous pathology. 2. Osteoarthritis ACT 112: Negative or not required by law. Electronically signed by: Jean-Paul Manning M.D. 07/09/2022 5:56 PM Cervical Spine MRI 07/10/22 00:33 MRI OF THE CERVICAL SPINE WITHOUT IV CONTRAST CLINICAL HISTORY: Right-sided neck and shoulder pain. COMPARISON STUDY: No priors. TECHNIQUE: MRI of the cervical spine is performed utilizing various T1 and T2- weighted sequences in the axial and sagittal planes. IV contrast was not administered for this examination. Examination is degraded by motion artifact. FINDINGS: Cervical spine: Vertebral body height and alignment are maintained throughout the cervical spine. The atlantodental articulation is maintained. The spinous processes appear intact. Tiny anterior osteophytes are seen throughout. No destructive bony lesion is seen. Chronic degenerative endplate change is noted at C5-C6. Intervertebral discs: Degenerative disc desiccation and mild loss of height is seen throughout the cervical spine. Spinal cord: The cervical cord is normal in morphology and signal intensity. C2-C3: Uncovertebral and facet arthropathy contribute to moderate left neural foraminal stenosis. The central canal and right neural foramina are clear. C3-C4: A posterior disc osteophyte complex abuts the ventral cord. Predominantly facet arthropathy contributes to mild to moderate left neural foraminal stenosis. There is only minimal neural foraminal narrowing on the right. C4-C5: A posterior disc osteophyte complex abuts the ventral cord. There is left lateral disc bulge. In conjunction with facet arthropathy there is severe left neural foraminal stenosis. This may impinge on the exiting left C5 nerve root. Facet arthropathy contribute to ymnr-ng-tjnwtaes right neural foraminal stenosis. C5-C6: A posterior disc osteophyte complex abuts the ventral cord. There is lateral disc bulge on the right. In conjunction with uncovertebral and facet arthropathy there is severe bilateral neural foraminal stenosis. This may impinge on the exiting bilateral C6 nerve roots. C6-C7: A posterior disc osteophyte complex effaces the ventral subarachnoid space. Large lateral disc bulges are seen bilaterally. In conjunction with facet arthropathy there is severe bilateral neural foraminal stenosis. This may impinge on the exiting bilateral C7 nerve roots. C7-T1: Unremarkable. Soft tissues: The prevertebral and paraspinous soft tissues are normal as vis ualized. Brain parenchyma: The imaged brain parenchyma at the skull base is within normal limits. IMPRESSION: 1. Multilevel cervical spondylosis as above. See discussion for detailed level by level analysis. 2. The cervical cord is normal in morphology and signal intensity. 3. No destructive bony process is seen. Dictated: 07/10/2022 8:25 AM Transcribed: 07/10/2022 8:39 AM Fabiana [id number] EDSON_[email or web address] Electronically signed by: Cliff Kapoor M.D. 07/10/2022 9:21 AM Neck MRA 07/10/22 00:43 MR angio neck wo con HISTORY: 71 years-old Female R sided neck pain; eval dissection etc acute chest and right-sided neck pain in a patient with history of breast cancer COMPARISON: MRI cervical spine of same day TECHNIQUE: MRA of the neck was obtained without the use of IV contrast utilizing 3-D suhu-vw-oxoxfh sequencing with MIP reformats. All measurements were obtained according to NASCET criteria. FINDINGS: [employer] Professional localizer images demonstrate cardiomegaly. The study is motion degraded. The common and internal carotid arteries appear patent. The left vertebral artery appears dominant. The visualized vertebral arteries appear patent. No aneurysm, dissection, high-grade stenosis or arterial occlusion identified. IMPRESSION: Motion degraded exam with unremarkable MRA of the neck. ACT 112: Negative or not required by law. The above report was generated using voice recognition software. It may contain grammatical, syntax or spelling errors. Electronically signed by: Ben Chisholm M.D. 07/10/2022 8:47 AM Hospital Course (1) Catheter-associated urinary tract infection: 2nd klebsiella pneumoniae. Initially received IV ertapenem, then changed to PO keflex 500mg BID x 5 additional days at discharge. Blood cultures remained negative while hospitalized. Cano catheter (placed during recent cystoscopy for bladder cancer biopsy) was removed and she was voiding w/o difficulty thereafter. She will f/u with [facility] - Dr Umaña - for her bladder cancer. (2) Neck pain on right side: The patient presented with severe pain over the right upper back, right shoulder/arm, right neck and base of right neck, as well as the right upper chest discomfort. MRA neck neg for dissection, etc. MRI c-spine without fracture or large disc herniation or neural compromise - mild DJD seen only. Right shoulder x-rays negative for acute pathology. CTA chest was negative for PE or other pathology. Pains likely myalgia type pain - they largely improved without significant intervention. May have been exacerbated by recent intubation/mech ventilation for her TURBT procedure?? Either way pain improved/resolved while here. (3) Right-sided chest pain: CTA chest negative for PE. Troponins negative. Likely musculoskeletal. (4) Right arm pain: see #1 above. resolved. (5) Leukocytosis: 2nd to catheter-associated UTI. WBC count normalized with Rx of UTI. (6) Bladder tumor: s/p TURBT by [facility] 07/06/22. 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 Dr Ignacio Umaña from [facility] saw patient while here and discussed the diagnosis in depth with her. She will need referral to a tertiary care center for management. Cano was removed while hospitalized and she was voiding without difficulty thereafter. UTI was treated. She will need close f/u with [facility] post-discharge. (7) Thoracic ascending aortic aneurysm: 4cm based on prior imaging presenting symptoms not c/w dissection, however, and upper right chest pain resolved quickly CTA chest was geared towards ruling out PE (CTA indeed negative for such); no mention of the aortic root (8) Hypothyroid: TSH 05/2022 wnl. Cont synthroid. (9) GERD (gastroesophageal reflux disease): is not on meds at home (10) Former tobacco use: noted has baseline COPD (11) COPD with emphysema: no exacerbation during the stay (12) HTN (hypertension): ARB resumed at discharge (13) Pre-diabetes: hemoglobin a1c 6% in May 2022 controlled (14) History of breast cancer: s/p b/l mastectomies in the past no evidence of metastatic disease on CTA chest (15) History of endocarditis: 2003 - AV endocarditis in setting of pyelonephritis/UTI/sepsis treated medically with prolonged IV antibiotic therapy never needed valve surgery blood cultures here negative Total Time Total Time Spent Total Time Spent (In Minutes): 25 Discharge Plan Discharge Items Patient Disposition: Home - Self-Care Reason For Visit: Right chest wall pain, right upper back pain, UTI Discharge Diagnosis: 1. right chest/neck/shoulder blade pain - resolved; muscular in etiology -no blood clots, heart attack, or pneumonia found; no herniated disc of the neck, no arterial issues of the neck found 2. urinary tract infection Activity: As commented below Activity Comment: gradually increase your activities over the next week Driving/Machine Use: Resume 1 day after discharge Non-emergency contact: Primary Care Provider and Urologist Call non-emergency contact if: you have any medication questions and you have a fever Follow-up/Referrals: Enoch Aguilar MD [Primary Care Provider] - 07/17/22 11:00 am (within 1 week) Ignacio Umaña MD [Physician] - (please call Dr Umaña' office to coordinate your referrals to [facility], etc for your bladder problem) Diet: Carb Consistent or DM2 Addtl Attending Provider Instructions: Mrs Rosado, You were hospitalized because of severe pain in the right upper back, right upper chest wall, right shoulder and right neck region. We performed CT scan of the chest which did not show blood clots, pneumonia or other abnormalities. MRI scans of the neck/spine and the arteries in your neck did not show abnormalities that would account for your symptoms. Your urine testing showed evidence of urinary tract infection. The upper back pains gradually resolved over your stay. It was felt that the pains were muscular in origin rather than a heart, lung, or circulatory problem. You received 2 days of IV antibiotics, then switched to oral antibiotics for your urinary tract infection. The cano catheter has been removed and you are urinating ok. Dr Umaña from [facility] saw you in consult and reviewed your recent biopsy results from the bladder surgery. Recommendations - 1. cephalexin 500mg twice daily x 5 days, first dose TONIGHT; this is your antibiotic for the urinary infection 2. probiotics once daily x 7 days to help prevent diarrhea from the cephalexin 3. please eat some extra yogurt each day over the next week to help prevent diarrhear 4. for upper back/shoulder/neck pain - ok to take tqhm-fav-hvnhext tylenol up to 3000mg in 24 hours for your pains. You could also try szcb-ngj-orwupwv "salonpas" patches - these work well for back and neck troubles - follow the directions on the box. 5. be sure to take it easy over the next few days and gradually increase your activities as tolerated. Follow-up - see separate section; be sure to touch base with Dr Umaña' office to arrange follow-up at [facility] for the bladder Return to [facility] if - * you have fevers over 100 degrees * you have worsening chest/back/neck pains * you are short of breath * you have severe diarrhea * you have large amounts of blood in your urine when you void * any other concerns It was our pleasure caring for you at [facility]! Please continue to feel better, Dr Sahni Pending Studies at Discharge: No Stand-Alone Forms: My [facility] [place] [employer], Smoking Cessation Medications and DC Order Prescriptions: Continued acetaminophen 500 mg capsule 500 mg PO Q6H PRN (Reason: Pain) lorazepam 0.5 mg tablet 0.5 mg PO BID PRN (Reason: anxiety) Qty: 30 0RF ondansetron HCl 4 mg tablet 4 mg PO Q6 PRN (Reason: Nausea) Qty: 100 1RF (DME) Prosthetic Mastectomy Bra Misc See Rx Instructions .Route Qty: 2 0RF Rx Instructions: As directed candesartan [Atacand] 16 mg tablet 16 mg PO QAM 90 Days Qty: 90 3RF levothyroxine 75 mcg tablet 75 mcg PO QAM Qty: 90 3RF diphenhydramine HCl [Benadryl] 25 mg capsule 25 mg PO DIRECTED PRN (Reason: Allergy Symptoms) cyanocobalamin (vitamin B-12) 1,000 mcg/mL Kit 1,000 mcg IM MONTHLY simethicone 180 mg Capsule 180 mg PO BID PRN (Reason: gas relief) cholecalciferol (vitamin D3) [Vitamin D3] 125 mcg (5,000 unit) Tablet 125 mcg PO QAM No Action venlafaxine [Effexor XR] 150 mg capsule,extended release 24hr 150 mg PO QAM Qty: 90 3RF Discharge Orders: Discharge Order (Routine); Ordered 07/12/22 Ordered By: Landon Sahni Admission Data Admit Date/Time: 07/09/22 16:41 Attending Provider: Landon Sahni Admit Provider: Landon Sahni Primary Care Provider: Enoch Aguilar Other Providers: Landon Sahni Other Interventions: Discharge Summary Assessment (RN) Last Done: 07/12/22 11:39 Coding Level of Care Code D/C DAY MANAGEMENT <30 MINS Diagnoses Catheter-associated urinary tract infection T83.511A; N39.0 Neck pain on right side M54.2 Right-sided chest pain R07.9 Right arm pain M79.601 Leukocytosis D72.829 Bladder tumor D49.4 Thoracic ascending aortic aneurysm I71.2 Hypothyroid E03.9 Hypothyroidism type: unspecified GERD (gastroesophageal reflux disease) K21.9 Esophagitis presence: esophagitis presence not specified Former tobacco use Z87.891 COPD with emphysema J43.9 HTN (hypertension) I10 Hypertension type: essential hypertension Pre-diabetes R73.03 History of breast cancer Z85.3 History of endocarditis Z86.79
--- NOTE | 2022-08-07 13:06 | Coding Query ---
A supporting diagnosis is required for the test/procedure performed on this patient in order for us to be reimbursed by the patient's insurance. Please provide a supporting diagnosis for the following test/procedure listed below next to the test name along with your signature. *If there is no additional diagnosis for this patient that would support the following test/procedure please document that below next to the test/procedure. Test(s)/Procedure(s) that require a supporting diagnosis: * [id number] MRA HEAD, NECK DIAGNOSIS: 1. Neck pain on right side M54.2 2. Headache R51.9 DATE OF SERVICE: 07/10/22 Provider Signature: ____Landon Sahni MD Date: _08/09/22 Thank you Cristi Lucio [facility] Information Management Once completed, please kindly fax back to [phone] For questions please call [phone] [facility]
== END 2022-07-12 12:14 | disposition home or self-care (01) ==
LOC: EDINP 08:12 → ED 08:12 → SUATTDRO 16:41 → 2W 07-10 14:59

== ENCOUNTER 2022-09-18 22:15 | Observation (INO) ==
[2022-09-18 22:49] LABS: Hematocrit (blood only) 28.6 % (34.1-44.9); Hemoglobin 9.2 g/dl (12.0-16.0); Mean Corpuscular Hemoglobin 30.1 pg (25.0-34.0); Mean Corpuscular Hgb Conc 32.2 g/dL (32.0-36.0); Mean Corpuscular Volume 93.5 fL (80.0-100.0); Mean Platelet Volume 10.4 fL (9.4-12.3); Platelet Count 218 K/uL (130-400); RDW Coefficient of Variation 14.9 % (11.5-14.5); RDW Standard Deviation 49.2 fL (36.4-46.3); Red Blood Count 3.06 M/uL (3.93-5.22); White Blood Count 22.04 K/ul (4.8-10.8)
[2022-09-18 22:58] LABS: Basophils # (auto) 0.06 K/uL (0-0.2); Basophils % (auto) 0.3 %; Dohle Bodies 1+; Eosinophils # (auto) 0.15 K/uL (0-0.50); Eosinophils % (auto) 0.7 %; Immature Granulocytes % (auto) 0.5 %; Lymphocytes # (auto) 3.05 K/uL (1.2-3.4); Lymphocytes % (auto) 13.8 %; Monocytes # (auto) 0.41 K/uL (0.24-0.82); Monocytes % (auto) 1.9 %; Neutrophils # (auto) 18.27 K/uL (1.4-6.5); Neutrophils % (auto) 82.8 %; Partial Thromboplastin Ratio 0.9; Partial Thromboplastin Time 25.6 Seconds (21.0-31.0); Prothrombin Time 10.9 Seconds (9.0-12.0)
[2022-09-18 23:03] LABS: Albumin Globulin Ratio 1.3 (0.9-2); Albumin Level 3.9 gm/dl (3.4-5.0); Bilirubin,Total 0.2 mg/dl (0.2-1.0); Calcium 8.5 mg/dl (8.5-10.1); Creatinine Clr Calc Pharmacy 41.7 ml/min; Est GFR (African American) 50.5 ml/min; Est GFR (Non-African American) 43.6 ml/min; Potassium 4.2 mmol/L (3.5-5.1); Total Protein 6.9 gm/dl (6.0-8.3)
[2022-09-18 23:08] LABS: Troponin I High Sensitivity 10.9 pg/ml (0-14)
[2022-09-19] MEDS ORDERED: SODIUM CHLORIDE 0.9% 1000ML 1,000 ML IV SCH (01:15)
[2022-09-19] MEDS ORDERED: OPTIRAY 320 500ml IV ONE (02:02)
--- NOTE | 2022-09-19 02:29 | Emergency Department Note ---
History of Present Illness General Chief complaint: Tachycardia Stated complaint: HEART BEATING FAST, SOB, CHEST PAIN Time Seen by Provider: 09/19/22 00:49 Source: patient Mode of arrival: ambulatory Limitations: no limitations History of Present Illness Provider complaint: Chest pain, shortness of breath Onset (ago): day(s) 3 This is a 72-year-old female presents emergency department due to chest pain and shortness of breath. Patient states symptoms first began on Sunday. She noted symptoms recur anytime she would exert herself and would go away at rest. She states the chest discomfort is a heaviness and pressure centrally that radiates into her left upper extremity, and her neck. She states with the pain she develops accompanying trouble breathing. She denies sweating, nausea, or dizziness. She denies any recent fevers, chills, or URI symptoms. She does note a mild dry cough over the last week or so. Patient is currently receiving chemotherapy for bladder cancer. She states her last infusion was on . She states she then received a Neulasta injection on Sunday. Patient denies any prior history of heart attack although she has previously had endocarditis many years ago which was treated. She states she does still follow with cardiology and they periodically do an echo. Patient states due to persistent exertional symptoms, she came the emergency department for additional evaluation. Home Medications Medication Instructions Recorded Confirmed Type diphenhydramine HCl 25 mg capsule 25 mg PO DIRECTED PRN Allergy 06/03/19 09/19/22 History (Benadryl) Symptoms acetaminophen 500 mg capsule 500 mg PO Q6H PRN Pain 08/29/19 09/19/22 History cholecalciferol (vitamin D3) 125 125 mcg PO QAM 05/18/21 09/19/22 History mcg (5,000 unit) tablet (Vitamin D3) cyanocobalamin (vitamin B-12) 1,000 mcg IM MONTHLY 02/07/22 09/19/22 History 1,000 mcg/mL injection kit simethicone 180 mg capsule 180 mg PO BID PRN gas relief 06/26/22 09/19/22 History candesartan 16 mg tablet (Atacand) 16 mg PO QAM 90 days #90 tabs 07/11/22 09/19/22 Rx levothyroxine 75 mcg tablet 75 mcg PO QAM #90 tabs 07/11/22 09/19/22 Rx venlafaxine 150 mg 150 mg PO QAM #90 caps 07/13/22 09/19/22 Rx capsule,extended release 24 hr (Effexor XR) Colon Health Probiotic 1 tab PO DAILY 09/19/22 09/19/22 History esomeprazole magnesium 20 mg 20 mg PO DAILY 09/19/22 09/19/22 History capsule,delayed release (Nexium) loperamide 2 mg tablet 2 mg PO DIRECTED PRN Diarrhea 09/19/22 09/19/22 History loratadine 10 mg tablet (Claritin) 10 mg PO DIRECTED 09/19/22 09/19/22 History ondansetron HCl 8 mg tablet 8 mg PO Q8 PRN nausea/vomiting 09/19/22 09/19/22 History metoprolol tartrate 25 mg tablet 25 mg PO BID 30 days #60 tabs 09/20/22 Rx Allergies Allergy/AdvReac Type Severity Reaction Status Date / Time docetaxel Allergy Severe chest Verified 08/22/22 11:26 pain, dyspnea adhesive Allergy Intermediate skin Verified 08/22/22 11:26 blisters atorvastatin Allergy Intermediate foot/leg Verified 08/22/22 11:26 swelling, nausea fluoxetine Allergy Intermediate gastrointestinal Verified 08/22/22 11:26 upset losartan Allergy Intermediate unsure Verified 08/22/22 11:26 (lethargy or leg swelling) silver sulfadiazine Allergy Intermediate worsening Verified 08/22/22 11:26 burning alendronate sodium Allergy Unknown unknown Verified 08/22/22 11:26 reaction albuterol AdvReac Intermediate nightmare Verified 08/22/22 11:26 cetirizine [From Zyrtec] AdvReac Mild drowsiness Verified 08/22/22 11:26 ibandronate sodium AdvReac Unknown unknown Verified 08/22/22 11:26 [From Boniva] reaction ibuprofen AdvReac Unknown advised to Verified 08/22/22 11:26 avoid (caused slight kidney damage) fluticasone [From Flonase] AdvReac nosebleed Verified 08/22/22 11:26 Past Med/Surg History Medical History (Updated 09/19/22 @ 17:30 by Zeke Mo MD) Acquired lymphedema LUE Anxiety and depression Aortic aneurysm 4 cm on chest CTA 05/19/20 Asthma stable> no inhalers Bladder cancer to start chemo unsure when- follows w/ [facility] Breast cancer dx 2006 (left) and 2020 (right) s/p chemo and bilat mastectomies COPD with emphysema Degenerative disc disease Emphysema of lung Endocarditis hx 15+ years ago (in setting of pyelonephritis and sepsis) 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 HTN (hypertension) controlled, stable per pt Hx of iron deficiency last iron infusion 2018 Hx of migraines Hyperlipidemia Hypothyroid Kidney stones no surgical intervention needed Limb alert care status left upper extremity LVH (left ventricular hypertrophy) moderate concentric on 05/18/21 echo Morbid obesity Osteoporosis Pre-diabetes diet controlled Restless leg syndrome Rupture of implant of left breast Sleep apnea did not tolerate CPAP (caused cough) Thoracic ascending aortic aneurysm last echo done 07/2022 - follows w/ dr barber has appointment on 08/07/2022 Surgical History H/O abdominal surgery naval removal (d/t infection) H/O left mastectomy H/O right mastectomy (12/08/19) Right Breast Mastectomy with Right [place] Lymph Node Biopsy,(Right) - Frantz Mayo DO 12/08/2019 s Mediport Removal - Frantz Mayo DO s First Stage Immediate Right Breast Reconstruction with Right Tissue Ex pander and Right Acellular Dermal Matrix(Right) - Sri Casillas MD: Grade 1 view, MAC 3, ETT 7.5. Removal 05/24/21: Grade 1 view, Stephen 2, ETT 7 atraumatic x 1. History of appendectomy History of breast reconstruction Left (03/2010), implant exchange (01/2011), right mastopexy History of cholecystectomy History of colonoscopy History of esophagogastroduodenoscopy (EGD) History of surgery on arm bialt, Brachioplasty with liposuction History of tooth extraction History of transesophageal echocardiography (JOSE) History of tubal ligation History of vascular access device since removed Hx of hand surgery right thumb tendon repair Port-A-Cath in place (08/04/22) Insertion Access Port with Fluoroscopy (Left Subclavian)(Left) - Frantz Mayo DO S/P gastric bypass 1991, 1993 S/P partial hysterectomy S/P sclerotherapy of varicose veins Family History Mother Myocardial infarction Breast cancer Diabetes ESRD (end stage renal disease) on dialysis Aunt Breast cancer Unknown Skin cancer Father Myocardial infarction Coronary heart disease Daughter , age 31. T1DM Diabetes Daughter , brain tumor, then pain med addiction age 36 No problems noted. Other No significant family history Denies family history of Ovarian cancer Prostate cancer Colorectal cancer Social History Smoking Status: Former smoker Tobacco Type: Cigarettes Cigarettes Per Day: up to 2-3ppd at times; started in her teenage years; Second Hand Exposure: Yes; Hx Alcohol Use: Yes Alcohol type: wine Alcohol Intake Frequency: Monthly or Less Hx Substance Use: No Preferred Language: Turkmen Communication Ability: Effective Visual Impairment: No Limitations Hearing Ability: Normal Operations [employer] Professionals Required: No Beliefs That Will Affect Care: None marital status: / Current Living Situation: Alone current occupational status: employed 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[employer] How many Children do You have: 4 How many Children do You have Comment: 2 children ; 1 living daughter, 1 living son Feels Safe at Home: Yes Childhood Exposure to Second-Hand Smoke: Yes caffeine: Yes Dental Care, Regularly: No Physical Activity Frequency: Does not Exercise Seatbelt Use: always Sunscreen Use: Yes Assistive Devices: Denture - Upper, Denture - Lower and Glasses Review of Systems A total of 10 systems reviewed and were otherwise negative All systems reviewed & are unremarkable except as noted in HPI & below Physical Exam Vital Signs Vital Signs - 24 hr 09/18/22 22:18 09/19/22 00:51 09/19/22 00:51 Temperature 36.9 C Temperature Source Temporal Artery Scan Pulse Rate 104 H Pulse Rate [Finger] 82 Pulse Rhythm Pulse Rhythm [Finger] Regular Pulse Strength [Finger] Normal Respiratory Rate 18 21 Respiratory Effort / Characteristics Non-Labored Spontaneous Respiratory Depth Normal Normal Respiratory Pattern Regular Blood Pressure 115/70 Blood Pressure [Right Arm] 132/66 Blood Pressure Mean 85 Blood Pressure Mean [Right Arm] 88 Pulse Oximetry 96 100 100 Oxygen Delivery Method Room Air Room Air Room Air Sepsis Recent Fever Within 48 Hours No Sepsis New/Unexplained Change in Mental Status N/A Sepsis Action Taken by Nursing No Action Required 09/19/22 00:51 09/19/22 02:00 Temperature Temperature Source Pulse Rate 90 Pulse Rate [Finger] 81 Pulse Rhythm Regular Pulse Rhythm [Finger] Regular Pulse Strength [Finger] Normal Respiratory Rate 21 19 Respiratory Effort / Characteristics Non-Labored Spontaneous Respiratory Depth Normal Respiratory Pattern Regular Blood Pressure Blood Pressure [Right Arm] 122/79 Blood Pressure Mean Blood Pressure Mean [Right Arm] 93 Pulse Oximetry 99 96 Oxygen Delivery Method Room Air Room Air Sepsis Recent Fever Within 48 Hours Sepsis New/Unexplained Change in Mental Status Sepsis Action Taken by Nursing GENERAL: alert, well appearing, well nourished, no distress, non-toxic EYE EXAM: normal conjunctiva, PERRL and EOM's grossly intact OROPHARYNX: no exudate, no erythema, lips, buccal mucosa, and tongue normal and mucous membranes are moist NECK: supple, no nuchal rigidity, no adenopathy, non-tender LUNGS: Clear to auscultation. Normal chest wall mechanics, no w/r/r HEART: no murmurs, S1 normal and S2 normal ABDOMEN: abdomen soft, non-tender, normo-active bowel sounds, no masses, no rebound or guarding. BACK: Back is symmetrical on inspection and there is no deformity, no midline tenderness, no CVA tenderness. SKIN: no rashes and no bruising UPPER EXTREMITIES: upper extremities are grossly normal. FROM, nml pulses b/l. LOWER EXTREMITIES: No pitting edema. FROM, nml pulses b/l. NEURO EXAM: Normal sensorium, cranial nerves II-XII grossly intact, normal speech, no gross weakness of arms, no gross weakness of legs. Gross sensation intact. Course Administered Medications Candesartan Cilexetil (Candesartan Cilexetil 16mg) 1 each PO QAM AJ Stop: 10/20/22 08:59 Last Admin: 09/20/22 08:43 Dose: 1 each Documented By: LIAM Diphenhydramine HCl (Diphenhydramine Capsule 25 Mg Cap) 25 mg PO DAILY PRN PRN Reason: Allergy Symptoms Stop: 10/19/22 06:41 Last Admin: 09/20/22 05:56 Dose: 25 mg Documented By: JOSHUA Heparin Sodium (Porcine) (Heparin Sod 5,000 Unit/0.5 Ml Vial) 7,500 units SQ Q8H [facility] Stop: 10/19/22 06:59 Last Admin: 09/20/22 08:42 Dose: 7,500 units Documented By: Admin: 09/19/22 21:11 Dose: 7,500 units Documented By: Admin: 09/19/22 17:14 Dose: Not Given Documented By: Admin: 09/19/22 09:57 Dose: 7,500 units Documented By: GLENN Levothyroxine Sodium (Levothyroxine Sodium 75 Mcg Tablet) 75 mcg PO DAILYBB [facility] Stop: 10/19/22 06:59 Last Admin: 09/20/22 05:27 Dose: 75 mcg Documented By: Admin: 09/19/22 10:13 Dose: Not Given Documented By: GLENN Metoprolol Tartrate (Metoprolol Tartrate 25 Mg Tab) 25 mg PO BID [facility] Stop: 10/19/22 20:59 Last Admin: 09/19/22 21:11 Dose: 25 mg Documented By: JOSHUA Miscellaneous (Candesartan [Atacand]: Order Awaiting Action) 1 each N/A QS [facility] Stop: 10/19/22 07:59 Last Admin: 09/20/22 08:44 Dose: 1 each Documented By: Admin: 09/20/22 00:05 Dose: Not Given Documented By: Admin: 09/19/22 17:15 Dose: Not Given Documented By: Admin: 09/19/22 09:17 Dose: Not Given Documented By: GLENN Ondansetron HCl (Ondansetron Inj 2 Mg/Ml 2 Ml Vial) 4 mg IV Q6H PRN PRN Reason: Nausea Stop: 10/19/22 06:41 Last Admin: 09/19/22 22:51 Dose: 4 mg Documented By: JOSHUA Simethicone (Simethicone 80 Mg Chew) 160 mg PO BID PRN PRN Reason: gas relief Last Admin: 09/20/22 08:44 Dose: 160 mg Documented By: LIAM Venlafaxine HCl (Venlafaxine Hcl Xr 150 Mg Capxr) 150 mg PO QAM [facility] Stop: 10/19/22 08:59 Last Admin: 09/20/22 08:44 Dose: 150 mg Documented By: Admin: 09/19/22 10:13 Dose: Not Given Documented By: GLENN Vitamin D (Cholecalciferol 5,000 Units 125 Mcg Tab) 5,000 units PO QAM AJ Stop: 10/19/22 08:59 Last Admin: 09/20/22 08:44 Dose: 5,000 units Documented By: Admin: 09/19/22 10:13 Dose: Not Given Documented By: GLENN Discontinued Medications Sodium Chloride (Nss 1000ml) 1,000 mls @ 125 mls/hr IV .Q8H AJ Stop: 10/19/22 01:14 Last Infusion: 09/19/22 17:15 Dose: 0 mls/hr Documented By: Infusion: 09/19/22 06:46 Dose: 0 mls/hr Documented By: Admin: 09/19/22 02:57 Dose: 125 mls/hr Documented By: JOSE Ioversol (Optiray 320 500ml) 125 ml IV ONCE ONE Stop: 09/19/22 02:03 Last Admin: 09/19/22 02:02 Dose: 109 ml Documented By: CISCO Medical Decision Making Differential Diagnosis Differential diagnoses includes but is not limited to acute coronary syndrome, myocardial infarction, pericarditis, pulmonary embolus, aortic dissection, pneumonia, pneumothorax, musculoskeletal, shingles, esophageal. Medical Records Attestation: I reviewed the patient's medical records. Home Medications Current Medication List: was personally reviewed by me Laboratory Data Attestation: I reviewed the patient's lab results. Result diagrams: 09/18/22 22:31 09/18/22 22:31 Lab Results 09/18/22 09/18/22 09/18/22 Range/Units 22:31 22:31 22:31 WBC 22.04 H (4.8-10.8) K/ul RBC 3.06 L (3.93-5.22) M/uL Hgb 9.2 L (12.0-16.0) g/dl Hct 28.6 L (34.1-44.9) % MCV 93.5 (80.0-100.0) fL MCH 30.1 (25.0-34.0) pg MCHC 32.2 (32.0-36.0) g/dL RDW Std Deviation 49.2 H (36.4-46.3) fL RDW Coeff of Jerry 14.9 H (11.5-14.5) % Plt Count 218 (130-400) K/uL MPV 10.4 (9.4-12.3) fL Immature Gran % (Auto) 0.5 % Neut % (Auto) 82.8 % Lymph % (Auto) 13.8 % Weston % (Auto) 1.9 % Eos % (Auto) 0.7 % Baso % (Auto) 0.3 % Neut # (Auto) 18.27 H (1.4-6.5) K/uL Lymph # (Auto) 3.05 (1.2-3.4) K/uL Weston # (Auto) 0.41 (0.24-0.82) K/uL Eos # (Auto) 0.15 (0-0.50) K/uL Baso # (Auto) 0.06 (0-0.2) K/uL Immature Gran # (Auto) 0.10 H (0.00-0.02) K/uL Dohle Bodies 1+ PT 10.9 (9.0-12.0) Seconds INR 1.0 (0.9-1.1) APTT 25.6 (21.0-31.0) Seconds PTT Ratio 0.9 Sodium 137 (136-145) mmol/L Potassium 4.2 (3.5-5.1) mmol/L Chloride 110 H (98-107) mmol/L Carbon Dioxide 21 (21-32) mmol/L Anion Gap 6 (3-11) BUN 33 H (6-23) mg/dl Creatinine 1.22 H (0.6-1.2) mg/dl Est Cr Clr Drug Dosing 41.7 ml/min Est GFR ( Amer) 50.5 ml/min Est GFR (Non-Af Amer) 43.6 ml/min BUN/Creatinine Ratio 27.0 H (10-20) Glucose 64 L (70-99(Fasting)) mg/dl POC Glucose (70-99) mg/dl Calcium 8.5 (8.5-10.1) mg/dl Total Bilirubin 0.2 (0.2-1.0) mg/dl AST 12 L (13-39) U/L ALT 9 (7-52) U/L Alkaline Phosphatase 133 H (34-104) U/L Troponin I High Sens 10.9 D (0-14) pg/ml B-Natriuretic Peptide (0-100) pg/ml Total Protein 6.9 (6.0-8.3) gm/dl Albumin 3.9 (3.4-5.0) gm/dl Globulin 3.0 (2.5-4.0) gm/dl Albumin/Globulin Ratio 1.3 (0.9-2) Adenovirus (PCR) (NotDetected) B. pertussis DNA (PCR) (NotDetected) B.parapertussis DNA PCR (NotDetected) C. pneumoniae DNA (PCR) (NotDetected) Coronavirus OC43 (PCR) (NotDetected) Coronavirus HKU1 (PCR) (NotDetected) Coronavirus 229E (PCR) (NotDetected) SARS-CoV-2 (PCR) (NotDetected) Coronavirus NL63 (PCR) (NotDetected) Human Metapneumovir PCR (NotDetected) Influenza Type A (PCR) (NotDetected) Influenza Type B (PCR) (NotDetected) M. pneumoniae (PCR) (NotDetected) Parainfluenza 1 (PCR) (NotDetected) Parainfluenza 2 (PCR) (NotDetected) Parainfluenza 3 (PCR) (NotDetected) Parainfluenza 4 (PCR) (NotDetected) RSV (PCR) (NotDetected) Entero/Rhino (PCR) (NotDetected) 09/19/22 09/19/22 09/19/22 Range/Units 01:07 02:12 03:52 WBC (4.8-10.8) K/ul RBC (3.93-5.22) M/uL Hgb (12.0-16.0) g/dl Hct (34.1-44.9) % MCV (80.0-100.0) fL MCH (25.0-34.0) pg MCHC (32.0-36.0) g/dL RDW Std Deviation (36.4-46.3) fL RDW Coeff of Jerry (11.5-14.5) % Plt Count (130-400) K/uL MPV (9.4-12.3) fL Immature Gran % (Auto) % Neut % (Auto) % Lymph % (Auto) % Weston % (Auto) % Eos % (Auto) % Baso % (Auto) % Neut # (Auto) (1.4-6.5) K/uL Lymph # (Auto) (1.2-3.4) K/uL Weston # (Auto) (0.24-0.82) K/uL Eos # (Auto) (0-0.50) K/uL Baso # (Auto) (0-0.2) K/uL Immature Gran # (Auto) (0.00-0.02) K/uL Dohle Bodies PT (9.0-12.0) Seconds INR (0.9-1.1) APTT (21.0-31.0) Seconds PTT Ratio Sodium (136-145) mmol/L Potassium (3.5-5.1) mmol/L Chloride (98-107) mmol/L Carbon Dioxide (21-32) mmol/L Anion Gap (3-11) BUN (6-23) mg/dl Creatinine (0.6-1.2) mg/dl Est Cr Clr Drug Dosing ml/min Est GFR ( Amer) ml/min Est GFR (Non-Af Amer) ml/min BUN/Creatinine Ratio (10-20) Glucose (70-99(Fasting)) mg/dl POC Glucose 80 (70-99) mg/dl Calcium (8.5-10.1) mg/dl Total Bilirubin (0.2-1.0) mg/dl AST (13-39) U/L ALT (7-52) U/L Alkaline Phosphatase (34-104) U/L Troponin I High Sens (0-14) pg/ml B-Natriuretic Peptide 147 H (0-100) pg/ml Total Protein (6.0-8.3) gm/dl Albumin (3.4-5.0) gm/dl Globulin (2.5-4.0) gm/dl Albumin/Globulin Ratio (0.9-2) Adenovirus (PCR) Not Detected (NotDetected) B. pertussis DNA (PCR) Not Detected (NotDetected) B.parapertussis DNA PCR Not Detected (NotDetected) C. pneumoniae DNA (PCR) Not Detected (NotDetected) Coronavirus OC43 (PCR) Not Detected (NotDetected) Coronavirus HKU1 (PCR) Not Detected (NotDetected) Coronavirus 229E (PCR) Not Detected (NotDetected) SARS-CoV-2 (PCR) Not Detected (NotDetected) Coronavirus NL63 (PCR) Not Detected (NotDetected) Human Metapneumovir PCR Not Detected (NotDetected) Influenza Type A (PCR) Not Detected (NotDetected) Influenza Type B (PCR) Not Detected (NotDetected) M. pneumoniae (PCR) Not Detected (NotDetected) Parainfluenza 1 (PCR) Not Detected (NotDetected) Parainfluenza 2 (PCR) Not Detected (NotDetected) Parainfluenza 3 (PCR) Not Detected (NotDetected) Parainfluenza 4 (PCR) Not Detected (NotDetected) RSV (PCR) Not Detected (NotDetected) Entero/Rhino (PCR) Not Detected (NotDetected) Imaging Data Radiologist's Impression: CTA chest: Indication: Technique: Multiple Contiguous axial cuts of the chest are obtained following the administration of IV contrast. High-resolution axial images as well as s agittal and coronal reformatted images are available. Comparison: 07/09/2022 Findings: No pulmonary embolus identified. The aorta is within normal limits, no aneurysm or dissection. The heart is mildly enlarged. Mitral valve calcifications are noted. No adenopathy or effusions. The lungs are clear other than minimal atelectasis. The osseous structures are unremarkable. Status post cholecystectomy bili direct dilation. Status post gastric bypass. Impression: No evidence of acute pathology. Radiologist: Hunter Diane MD ECG Data Attestation: I personally reviewed and interpreted this ECG as follows: Indication: + chest pain Rate (beats per minute): 92 Rhythm: + normal sinus ECG Intervals/blocks: + Normal QRS and + Normal QT ECG [place]: + Normal ECG ST segments: + Normal ST segments MDM Narrative An order was placed for continuous cardiac monitoring. The monitor shows a rate of _86__ with _normal sinus__ rhythm. This is a 72-year-old female who presents due to concern for chest pain and shortness of breath with exertion over the last several days. Labs drawn and sent were reassuring. Due to patient's accompanying cancer history and ongoing chemotherapy, she was sent for CT of the chest also. This was also reassuring. Patient was hemodynamically stable here and as long as she was at rest in bed did not have any discomfort or symptoms. I discussed my concern with her as well as a differential diagnosis. Patient eventually in agreement with plan for additional inpatient evaluation and management. Case discussed with suzanne olsen. I suspect leukocytosis secondary to recent Neulasta on injection on Sunday. Impression & Plan Chest pain, GARRIDO (dyspnea on exertion) Discharge Plan Visit Data Chief Complaint: Tachycardia Stated Complaint: HEART BEATING FAST, SOB, CHEST PAIN ED Provider: Genevieve Gavin Discharge Problem: Chest pain, GARRIDO (dyspnea on exertion) Patient Disposition: Admitted As Inpatient Condition: Good Discharge Instructions Interventions: ED Discharge Assessment Last Done: 09/19/22 06:34
[2022-09-19 03:48] LABS: Adenovirus PCR Not Detected (NotDetected); Bordetella parapertussis PCR Not Detected (NotDetected); Bordetella pertussis PCR Not Detected (NotDetected); Chlamydia pneumoniae PCR Not Detected (NotDetected); Coronavirus 229E PCR Not Detected (NotDetected); Coronavirus CoV-2 (COVID19)PCR Not Detected (NotDetected); Coronavirus HKU1 PCR Not Detected (NotDetected); Coronavirus NL63 PCR Not Detected (NotDetected); Coronavirus OC43PCR Not Detected (NotDetected); Human Metapneumovirus PCR Not Detected (NotDetected); Influenza A PCR Not Detected (NotDetected); Influenza B PCR Not Detected (NotDetected); Mycoplasma pneumoniae PCR Not Detected (NotDetected); Parainfluenza Virus 1 PCR Not Detected (NotDetected); Parainfluenza Virus 2 PCR Not Detected (NotDetected); Parainfluenza Virus 3 PCR Not Detected (NotDetected); Parainfluenza Virus 4 PCR Not Detected (NotDetected); Respiratory Syncytial VirusPCR Not Detected (NotDetected); Rhinovirus/Enterovirus PCR Not Detected (NotDetected)
--- NOTE | 2022-09-19 06:02 | History & Physical Report ---
Date of Service September 19, 2022 Assessment & Plan (1) Chest pain: Plan: Chest pain/dyspnea on exertion/palpitations/shortness of breath- The patient will be admitted to telemetry for serial cardiac enzymes, serial EKG's, cardiac rhythm monitoring. Patient did have an echocardiogram performed on 07/26/2022 which showed EF 65- 70%, mild concentric LVH, mild aortic regurgitation, moderate mitral annular calcification with mild mitral regurgitation, with no significant change from prior study on 05/18/2021. Her most concerning symptom is that of strong palpitations and associated chest pain, that have only occurred after taking some of her chemotherapy medications Continue candesartan We will consult her manager strategic partnerships Dr. Mo, for further assessment. (2) GARRIDO (dyspnea on exertion): (3) AI (aortic insufficiency): (4) Depression: Plan: Depression/PTSD- Continue lorazepam, venlafaxine. (5) Post traumatic stress disorder: Plan: See above (6) Invasive ductal carcinoma of right breast: Plan: Invasive ductal carcinoma of right breast/bladder cancer-patient presently undergoing chemotherapy. Questions regarding possible adverse reactions, that we will see if cardiology can give us input on (7) Bladder cancer: (8) Hypothyroid: Plan: Continue levothyroxine 75 mcg daily (9) Hyperlipidemia: Plan: On no specific treatment at this time (10) Sleep apnea: (11) Osteoporosis: History of Present Illness Chief Complaint: The patient presents to the emergency department with complaint of cute onset of chest pain, shortness of breath, dyspnea exertion and strong palpitations that she attributes to one of her oncology medications Primary Care Provider: Enoch Aguilar MD The patient is a 72-year-old female with a past medical history including Port-A-Cath placement, hypoxia, aortic insufficiency, allergic rhinitis, anemia, depression, eustachian tube dysfunction, LOIS, vit B12 deficiency, vitamin D deficiency, valvular endocarditis, PTSD, invasive ductal carcinoma the right breast, ascending aortic dilation, COVID-19, bladder cancer, asthma, hypothyroidism, osteoporosis, hyperlipidemia, LOIS and right mastectomy. She presents to the emergency department as noted above. She reports that whenever she is going through cycles of chemo, she gets very strong palpitations, can feel lightheaded and dizzy, along with severe chest pain and shortness of breath . She attributes this to a medication that is used to prevent nausea, which is not related to Zofran, that she reports works well. Allergies Allergy/AdvReac Type Severity Reaction Status Date / Time docetaxel Allergy Severe chest Verified 08/22/22 11:26 pain, dyspnea adhesive Allergy Intermediate skin Verified 08/22/22 11:26 blisters atorvastatin Allergy Intermediate foot/leg Verified 08/22/22 11:26 swelling, nausea fluoxetine Allergy Intermediate gastrointestinal Verified 08/22/22 11:26 upset losartan Allergy Intermediate unsure Verified 08/22/22 11:26 (lethargy or leg swelling) silver sulfadiazine Allergy Intermediate worsening Verified 08/22/22 11:26 burning alendronate sodium Allergy Unknown unknown Verified 08/22/22 11:26 reaction albuterol AdvReac Intermediate nightmare Verified 08/22/22 11:26 cetirizine [From Zyrtec] AdvReac Mild drowsiness Verified 08/22/22 11:26 ibandronate sodium AdvReac Unknown unknown Verified 08/22/22 11:26 [From Boniva] reaction ibuprofen AdvReac Unknown advised to Verified 08/22/22 11:26 avoid (caused slight kidney damage) fluticasone [From Flonase] AdvReac nosebleed Verified 08/22/22 11:26 Home Medications Medication Instructions Recorded Confirmed Type diphenhydramine HCl 25 mg capsule 25 mg PO DIRECTED PRN Allergy 06/03/19 08/07/22 History (Benadryl) Symptoms acetaminophen 500 mg capsule 500 mg PO Q6H PRN Pain 08/29/19 08/07/22 History lorazepam 0.5 mg tablet 0.5 mg PO BID PRN anxiety #30 tabs 03/21/21 08/07/22 Rx cholecalciferol (vitamin D3) 125 125 mcg PO QAM 05/18/21 08/07/22 History mcg (5,000 unit) tablet (Vitamin D3) ondansetron HCl 4 mg tablet 4 mg PO Q6 PRN Nausea #100 tabs 08/03/21 08/07/22 Rx Prosthetic Mastectomy Bra #2 ea 01/25/22 08/07/22 Rx cyanocobalamin (vitamin B-12) 1,000 mcg IM MONTHLY 02/07/22 08/07/22 History 1,000 mcg/mL injection kit simethicone 180 mg capsule 180 mg PO BID PRN gas relief 06/26/22 08/07/22 History candesartan 16 mg tablet (Atacand) 16 mg PO QAM 90 days #90 tabs 07/11/22 08/07/22 Rx levothyroxine 75 mcg tablet 75 mcg PO QAM #90 tabs 07/11/22 08/07/22 Rx venlafaxine 150 mg 150 mg PO QAM #90 caps 07/13/22 08/07/22 Rx capsule,extended release 24 hr (Effexor XR) Past Med/Surg History Medical History Acquired lymphedema LUE Anxiety and depression Aortic aneurysm 4 cm on chest CTA 05/19/20 Asthma stable> no inhalers Bladder cancer to start chemo unsure when- follows w/ [facility] Breast cancer dx 2006 (left) and 2020 (right) s/p chemo and bilat mastectomies COPD with emphysema Degenerative disc disease Emphysema of lung Endocarditis hx 15+ years ago (in setting of pyelonephritis and sepsis) 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 HTN (hypertension) controlled, stable per pt Hx of iron deficiency last iron infusion 2018 Hx of migraines Hyperlipidemia Hypothyroid Kidney stones no surgical intervention needed Limb alert care status left upper extremity LVH (left ventricular hypertrophy) moderate concentric on 05/18/21 echo Morbid obesity Osteoporosis Pre-diabetes diet controlled Restless leg syndrome Rupture of implant of left breast Sleep apnea did not tolerate CPAP (caused cough) Thoracic ascending aortic aneurysm last echo done 07/2022 - follows w/ dr barber has appointment on 08/07/2022 Surgical History H/O abdominal surgery naval removal (d/t infection) H/O left mastectomy H/O right mastectomy (12/08/19) Right Breast Mastectomy with Right Bear Lymph Node Biopsy,(Right) - Frantz Mayo DO 12/08/2019 s Mediport Removal - Frantz Mayo DO s First Stage Immediate Right Breast Reconstruction with Right Tissue Extrusion Die Coordinator and Right Acellular Dermal Matrix(Right) - Sri A. Casillas, MD: Grade 1 view, MAC 3, ETT 7.5. Removal 05/24/21: Grade 1 view, Stephen 2, ETT 7 atraumatic x 1. History of appendectomy History of breast reconstruction Left (03/2010), implant exchange (01/2011), right mastopexy History of cholecystectomy History of colonoscopy History of esophagogastroduodenoscopy (EGD) History of surgery on arm bialt, Brachioplasty with liposuction History of tooth extraction History of transesophageal echocardiography (JOSE) History of tubal ligation History of vascular access device since removed Hx of hand surgery right thumb tendon repair Port-A-Cath in place (08/04/22) Insertion Access Port with Fluoroscopy (Left Subclavian)(Left) - Frantz Mayo DO S/P gastric bypass 1991, 1993 S/P partial hysterectomy S/P sclerotherapy of varicose veins Family History Mother Myocardial infarction Breast cancer Diabetes ESRD (end stage renal disease) on dialysis Aunt Breast cancer Unknown Skin cancer Father Myocardial infarction Coronary heart disease Daughter , age 31. T1DM Diabetes Daughter , brain tumor, then pain med addiction age 36 No problems noted. Other No significant family history Denies family history of Ovarian cancer Prostate cancer Colorectal cancer Social History Smoking Status: Former smoker Tobacco Type: Cigarettes Cigarettes Per Day: up to 2-3ppd at times; started in her teenage years; Second Hand Exposure: Yes; Hx Alcohol Use: Yes Alcohol type: wine Alcohol Intake Frequency: Monthly or Less Hx Substance Use: No Preferred Language: [place] Communication Ability: Effective Visual Impairment: No Limitations Hearing Ability: Normal Gift Basket Packer Required: No Beliefs That Will Affect Care: None marital status: / Current Living Situation: Alone current occupational status: employed current occupation: [employer] How many Children do You have: 4 How many Children do You have Comment: 2 children ; 1 living daughter, 1 living son Feels Safe at Home: Yes Childhood Exposure to Second-Hand Smoke: Yes caffeine: Yes Dental Care, Regularly: No Physical Activity Frequency: Does not Exercise Seatbelt Use: always Sunscreen Use: Yes Assistive Devices: None Review of Systems Review of Systems: The patient denies chest pain, palpitations, cough, lower extremity swelling, sore throat, fevers, chills, sweats, vomiting, diarrhea , constipation, abdominal pain, pelvic pain, blood in urine or stool, dysuria, urinary frequency or urgency, lightheadedness, dizziness, headache, memory loss, loss of consciousness, rash, abnormal bruising or bleeding, imbalance, focal weakness, numbness or tingling in arms or legs, generalized arthralgias or myalgias, back or neck pain, or night sweats. The review of systems is otherwise negative other than for that already noted above, and at least 10 systems have been reviewed. Physical Exam Physical Exam: The patient is awake, alert and oriented 3, well developed and well nourished, normocephalic and atraumatic, lying in bed and in no acute distress. HEENT--PERRL, EOMI, mucous membranes and oropharynx dry. Neck--supple. No JVD. No bruits. Thyroid normal, trachea midline, no adenopathy. Heart--normal S1 and S2. No murmurs, rubs or gallops. Lungs--clear bilaterally, no respiratory distress, no accessory muscle use. Abdomen--normal bowel sounds and soft. Nontender. Nondistended, no hernias or masses, no organomegaly. Extremities--no cyanosis or clubbing. No edema. There are good distal pulses b/l. Dermatologic--normal skin turgor, normal color, no abnormal lymph nodes, no rash. Neurologic--cranial nerves II through XII grossly intact. Rheumatologic--normal range of motion. Psychiatric--normal affect. Results & Data Results & Data ([facility]) Vital Signs (Past 12 Hours) Vital Signs Temp Pulse Pulse Resp BP BP Pulse Ox 09/19/22 04:00 98 H 20 132/72 100 09/19/22 02:00 81 19 122/79 96 09/19/22 00:51 90 21 99 09/19/22 00:51 82 21 132/66 100 09/19/22 00:51 100 09/18/22 22:18 36.9 C 104 H 18 115/70 96 O2 Del Method 09/19/22 04:00 Room Air 09/19/22 02:00 Room Air 09/19/22 00:51 Room Air 09/19/22 00:51 Room Air 09/19/22 00:51 Room Air 09/18/22 22:18 Room Air Laboratory Results Laboratory Results WBC 22.04 K/ul (4.8-10.8) H 09/18/22 22:31 RBC 3.06 M/uL (3.93-5.22) L 09/18/22 22:31 Hgb 9.2 g/dl (12.0-16.0) L 09/18/22 22: Hct 28.6 % (34.1-44.9) L 09/18/22 22: MCV 93.5 fL (80.0-100.0) 09/18/22 22: MCH 30.1 pg (25.0-34.0) 09/18/22 22: MCHC 32.2 g/dL (32.0-36.0) 09/18/22 22: RDW Std Deviation 49.2 fL (36.4-46.3) H 09/18/22 22: RDW Coeff of Jerry 14.9 % (11.5-14.5) H 09/18/22 22: Plt Count 218 K/uL (130-400) 09/18/22 22: MPV 10.4 fL (9.4-12.3) 09/18/22 22: Immature Gran % (Auto) 0.5 % 09/18/22 22: Neut % (Auto) 82.8 % 09/18/22 22: Lymph % (Auto) 13.8 % 09/18/22 22: Duval % (Auto) 1.9 % 09/18/22 22: Eos % (Auto) 0.7 % 09/18/22 22: Baso % (Auto) 0.3 % 09/18/22 22: Neut # (Auto) 18.27 K/uL (1.4-6.5) H 09/18/22 22: Lymph # (Auto) 3.05 K/uL (1.2-3.4) 09/18/22 22: Duval # (Auto) 0.41 K/uL (0.24-0.82) 09/18/22 22:31 Eos # (Auto) 0.15 K/uL (0-0.50) 09/18/22 22:31 Baso # (Auto) 0.06 K/uL (0-0.2) 09/18/22 22:31 Immature Gran # (Auto) 0.10 K/uL (0.00-0.02) H 09/18/22 22:31 Dohle Bodies 1+ 09/18/22 22:31 PT 10.9 Seconds (9.0-12.0) 09/18/22 22: INR 1.0 (0.9-1.1) 09/18/22 22:31 APTT 25.6 Seconds (21.0-31.0) 09/18/22 22: PTT Ratio 0.9 09/18/22:31 Sodium 137 mmol/L (136-145) 09/18/22 22:31 Potassium 4.2 mmol/L (3.5-5.1) 09/18/22 22: Chloride 110 mmol/L (98-107) H 09/18/22 22:31 Carbon Dioxide 21 mmol/L (21-32) 09/18/22 22:31 Anion Gap 6 (3-11) 09/18/22 22:31 BUN 33 mg/dl (6-23) H 09/18/22 22:31 Creatinine 1.22 mg/dl (0.6-1.2) H 09/18/22 22:31 Est Cr Clr Drug Dosing 41.7 ml/min 09/18/22 22:31 Est GFR ( Amer) 50.5 ml/min 09/18/22 22:31 Est GFR (Non-Af Amer) 43.6 ml/min 09/18/22 22:31 BUN/Creatinine Ratio 27.0 (10-20) H 09/18/22 22:31 Glucose 64 mg/dl (70-99(Fasting)) L 09/18/22 22:31 POC Glucose 80 mg/dl (70-99) 09/19/22 02:12 Calcium 8.5 mg/dl (8.5-10.1) 09/18/22 22:31 Total Bilirubin 0.2 mg/dl (0.2-1.0) 09/18/22 22:31 AST 12 U/L (13-39) L 09/18/22 22:31 ALT 9 U/L (7-52) 09/18/22 22:31 Alkaline Phosphatase 133 U/L (34-104) H 09/18/22 22:31 Troponin I High Sens 10.9 pg/ml (0-14) D 09/18/22 22:31 B-Natriuretic Peptide 147 pg/ml (0-100) H 09/19/22 03:52 Total Protein 6.9 gm/dl (6.0-8.3) 09/18/22 22:31 Albumin 3.9 gm/dl (3.4-5.0) 09/18/22 22: Globulin 3.0 gm/dl (2.5-4.0) 09/18/22 22:31 Albumin/Globulin Ratio 1.3 (0.9-2) 09/18/22 22:31 Adenovirus (PCR) Not Detected (NotDetected) 09/19/22 01:07 B. pertussis DNA (PCR) Not Detected (NotDetected) 09/19/22 01:07 B.parapertussis DNA PCR Not Detected (NotDetected) 09/19/22 01:07 C. pneumoniae DNA (PCR) Not Detected (NotDetected) 09/19/22 01:07 Coronavirus OC43 (PCR) Not Detected (NotDetected) 09/19/22 01:07 Coronavirus HKU1 (PCR) Not Detected (NotDetected) 09/19/22 01:07 Coronavirus 229E (PCR) Not Detected (NotDetected) 09/19/22 01:07 SARS-CoV-2 (PCR) Not Detected (NotDetected) 09/19/22 01:07 Coronavirus NL63 (PCR) Not Detected (NotDetected) 09/19/22 01:07 Human Metapneumovir PCR Not Detected (NotDetected) 09/19/22 01:07 Influenza Type A (PCR) Not Detected (NotDetected) 09/19/22 01:07 Influenza Type B (PCR) Not Detected (NotDetected) 09/19/22 01:07 M. pneumoniae (PCR) Not Detected (NotDetected) 09/19/22 01:07 Parainfluenza 1 (PCR) Not Detected (NotDetected) 09/19/22 01:07 Parainfluenza 2 (PCR) Not Detected (NotDetected) 09/19/22 01:07 Parainfluenza 3 (PCR) Not Detected (NotDetected) 09/19/22 01:07 Parainfluenza 4 (PCR) Not Detected (NotDetected) 09/19/22 01:07 RSV (PCR) Not Detected (NotDetected) 09/19/22 01:07 Entero/Rhino (PCR) Not Detected (NotDetected) 09/19/22 01:07 Code Status & VTE Plan Code Status Full code VTE Prophylaxis Plan VTE Prophylaxis will be ordered: Yes PG Care Time/CCT Total # of Minutes Spent Total Time Spent with Patient: Total time spent is greater than 50% in coordination of care (as documented) at patient's floor/unit and/or counseling patient: Coding Level of Care Code INT OBSERVATION CARE 70M LVL 3 Diagnoses Chest pain R07.9 GARRIDO (dyspnea on exertion) R06.09 AI (aortic insufficiency) I35.1 Depression F32.9 Post traumatic stress disorder F43.10 Invasive ductal carcinoma of right breast C50.911 Bladder cancer C67.9 Hypothyroid E03.9 Hyperlipidemia E78.5 Sleep apnea G47.30 Osteoporosis M81.0
[2022-09-19] MEDS ORDERED: diphenhydrAMINE Capsule 25 MG CAP PO PRN (06:42)
[2022-09-19] MEDS ORDERED: SIMETHICONE 80 MG CHEW PO PRN (06:42)
[2022-09-19] MEDS ORDERED: ACETAMINOPHEN 325 MG TAB PO PRN (06:42)
[2022-09-19] MEDS ORDERED: LORazepam 0.5 MG TAB PO PRN (06:42)
--- NOTE | 2022-09-19 07:34 | XRay Report ---
SINGLE VIEW CHEST CLINICAL HISTORY: Atypical chest pain FINDINGS: An AP, portable, upright chest radiograph is compared to study dated 08/04/2022 and correlate d with chest CT dated 07/09/2022. A left subclavian central venous infusion port is unchanged in posit ion. The heart is mildly enlarged noting atherosclerotic calcification of the thoracic aorta. The pul monary vasculature is noncongested. Chronic interstitial thickening is similar to previous. The lungs and pleural spaces are clear noting mild bibasilar scarring/atelectasis. No pneumothorax is seen. Th e skeletal structures are osteopenic. The bony thorax is grossly intact. IMPRESSION: No active disease in the chest. ACT 112: Negative or not required by law. Electronically signed by: Cliff Kapoor M.D. 09/19/2022 7:33 AM
--- NOTE | 2022-09-19 07:41 | Hospitalist Progress Note ---
Date of Service September 19, 2022 Assessment & Plan (1) Chest pain: Plan: 72yo Female PMH bladder cancer breast cancer on chemo, port a cath, aortic insufficiency, anemia, depression, LOIS, PTSD, hx valvular endocarditis, hypothyroidism, HLD here for GARRIDO -admitted to telemetry for serial cardiac enzymes, serial EKG's, cardiac rhythm monitoring. -Patient did have an echocardiogram performed on 07/26/2022 which showed EF 65- 70%, mild concentric LVH, mild aortic regurgitation, moderate mitral annular calcification with mild mitral regurgitation, with no significant change from prior study on 05/18/2021. -Continue candesartan -negative trop -CXR neg, EKG NSR -Echo EF>70% -CTA: Cardiomegaly without pulmonary emboli identified. Mild emphysema with bronchial wall thickening suggestive of bronchitis. Mild associated bibasilar mucous plugging. No pleural effusion or airspace consolidation to suggest pneumonia. -consulted cardio myocardial perfusion study ordered, patient states she cannot walk treadmill Can start low-dose beta-rafaela to see if it improves symptoms. Consider aspirin 81 mg daily. Consider statin therapy however she has declined in the past after intolerance to low-dose atorvastatin.. Her symptoms seem to correlate with chemotherapy. (2) GARRIDO (dyspnea on exertion): Plan: see above (3) AI (aortic insufficiency): Plan: see above (4) Depression: Plan: Depression/PTSD- Continue lorazepam, venlafaxine. (5) Post traumatic stress disorder: Plan: See above (6) Invasive ductal carcinoma of right breast: Plan: Invasive ductal carcinoma of right breast/bladder cancer-patient presently undergoing chemotherapy. Questions regarding possible adverse reactions, that we will see if cardiology can give us input on (7) Bladder cancer: (8) Hypothyroid: Plan: Continue levothyroxine 75 mcg daily (9) Hyperlipidemia: Plan: On no specific treatment at this time (10) Sleep apnea: (11) Osteoporosis: Admission and Anticipated Discharge Date Admission Date: September 19, 2022 Supervising Physician Co-Signing Physician Notes I personally examined the patient and verified all perez points of history and exam, discussed case, and agree with decision making with Dr Cabrera feeling better but did still have burning on exertion when seen by cardiology vitals noted nad heent nc at mmm breathing unlabored no accessory muscles good effort skin no rahses n pallor or icterus chest pain - likely chemo related but can't entirely r/o cardiac. agree w beta rafaela, nuc med stress. otherwise as above Subjective Patient seen at bedside calm comfortable cooperative. Denies any pain SOB at this time. She sates Sunday was out camping suddenly had GARRIDO, continued through sunday to yesterday had several spells felt light weight type chest pain. Pain resulved by the time her daughter drove her to the ED, no onger SOB on exertion. Patient thinks it might be related to her olanzapine 2.5mg for 4 days after chemo for N/V. She last had chemo on , gets [place], magnesium, and nulesta. Review of Systems Review of Systems: Negative fever chills Negative headache dizziness Negative chest pain palpitations SOB Negative nausea vomitting diarrhea constipation Negative numbness tingling rash swelling Physical Exam Constitutional: WD/WN, vitals as above Eyes: PERRL, conjunctivae normal, anicteric sclerae ENMT: external ear and nose normal, oropharynx normal Neck: trachea midline, no thyromegaly Respiratory: normal respiratory effort, lungs clear to auscultation Cardiovascular: RRR, no murmur, no edema Chest (Breasts): normal inspection/palpation of breasts Gastrointestinal (Abdomen): normal bowel sounds, soft, nontender, no hepatosplenomegaly Skin: no rashes, warm and dry Results & Data Results & Data ([facility] [place]) Vital Signs (Past 12 Hours) Vital Signs Temp Pulse Pulse Resp BP BP Pulse Ox 09/19/22 06:11 82 20 110/56 L 98 09/19/22 04:00 98 H 20 132/72 100 09/19/22 02:00 81 19 122/79 96 09/19/22 00:51 90 21 99 09/19/22 00:51 82 21 132/66 100 09/19/22 00:51 100 09/18/22 22:18 36.9 C 104 H 18 115/70 96 O2 Del Method 09/19/22 06:11 Room Air 09/19/22 04:00 Room Air 09/19/22 02:00 Room Air 09/19/22 00:51 Room Air 09/19/22 00:51 Room Air 09/19/22 00:51 Room Air 09/18/22 22:18 Room Air Diagnostic Findings Laboratory Results WBC 22.04 K/ul (4.8-10.8) H 09/18/22 22: RBC 3.06 M/uL (3.93-5.22) L 09/18/22: Hgb 9.2 g/dl (12.0-16.0) L 09/18/22: Hct 28.6 % (34.1-44.9) L 09/18/22: MCV 93.5 fL (80.0-100.0) 09/18/22: MCH 30.1 pg (25.0-34.0) 09/18/22: MCHC 32.2 g/dL (32.0-36.0) 09/18/22: RDW Std Deviation 49.2 fL (36.4-46.3) H 09/18/22: RDW Coeff of Jerry 14.9 % (11.5-14.5) H 09/18/22: Plt Count 218 K/uL (130-400) 09/18/22: MPV 10.4 fL (9.4-12.3) 09/18/22: Immature Gran % (Auto) 0.5 % 09/18/22: Neut % (Auto) 82.8 % 09/18/22: Lymph % (Auto) 13.8 % 09/18/22: Tucker % (Auto) 1.9 % 09/18/22: Eos % (Auto) 0.7 % 09/18/22: Baso % (Auto) 0.3 % 09/18/22: Neut # (Auto) 18.27 K/uL (1.4-6.5) H 09/18/22: Lymph # (Auto) 3.05 K/uL (1.2-3.4) 09/18/22: Tucker # (Auto) 0.41 K/uL (0.24-0.82) 09/18/22 22: Eos # (Auto) 0.15 K/uL (0-0.50) 09/18/22: Baso # (Auto) 0.06 K/uL (0-0.2) 10/24/22 22:31 Immature Gran # (Auto) 0.10 K/uL (0.00-0.02) H 09/18/22 22:31 Dohle Bodies 1+ 09/18/22 22:31 PT 10.9 Seconds (9.0-12.0) 09/18/22 22:31 INR 1.0 (0.9-1.1) 09/18/22 22:31 APTT 25.6 Seconds (21.0-31.0) 09/18/22 22: PTT Ratio 0.9 09/18/22 22:31 Sodium 137 mmol/L (136-145) 09/18/22 22: Potassium 4.2 mmol/L (3.5-5.1) 09/18/22 22: Chloride 110 mmol/L (98-107) H 09/18/22 22:31 Carbon Dioxide 21 mmol/L (21-32) 09/18/22 22:31 Anion Gap 6 (3-11) 09/18/22 22:31 BUN 33 mg/dl (6-23) H 09/18/22 22: Creatinine 1.22 mg/dl (0.6-1.2) H 09/18/22 22:31 Est Cr Clr Drug Dosing 41.7 ml/min 09/18/22 22:31 Est GFR ( Amer) 50.5 ml/min 09/18/22 22:31 Est GFR (Non-Af Amer) 43.6 ml/min 09/18/22 22:31 BUN/Creatinine Ratio 27.0 (10-20) H 09/18/22 22:31 Glucose 64 mg/dl (70-99(Fasting)) L 09/18/22 22:31 POC Glucose 80 mg/dl (70-99) 09/19/22 02:12 Calcium 8.5 mg/dl (8.5-10.1) 09/18/22 22:31 Total Bilirubin 0.2 mg/dl (0.2-1.0) 09/18/22 22:31 AST 12 U/L (13-39) L 09/18/22 22:31 ALT 9 U/L (7-52) 09/18/22 22:31 Alkaline Phosphatase 133 U/L (34-104) H 09/18/22 22:31 Troponin I High Sens 9.8 pg/ml (0-14) 09/19/22 14:27 B-Natriuretic Peptide 147 pg/ml (0-100) H 09/19/22 03:52 Total Protein 6.9 gm/dl (6.0-8.3) 09/18/22 22:31 Albumin 3.9 gm/dl (3.4-5.0) 09/18/22 22:31 Globulin 3.0 gm/dl (2.5-4.0) 09/18/22 22:31 Albumin/Globulin Ratio 1.3 (0.9-2) 09/18/22 22:31 Adenovirus (PCR) Not Detected (NotDetected) 09/19/22 01:07 B. pertussis DNA (PCR) Not Detected (NotDetected) 09/19/22 01:07 B.parapertussis DNA PCR Not Detected (NotDetected) 09/19/22 01:07 C. pneumoniae DNA (PCR) Not Detected (NotDetected) 09/19/22 01:07 Coronavirus OC43 (PCR) Not Detected (NotDetected) 09/19/22 01:07 Coronavirus HKU1 (PCR) Not Detected (NotDetected) 09/19/22 01:07 Coronavirus 229E (PCR) Not Detected (NotDetected) 09/19/22 01:07 SARS-CoV-2 (PCR) Not Detected (NotDetected) 09/19/22 01:07 Coronavirus NL63 (PCR) Not Detected (NotDetected) 09/19/22 01:07 Human Metapneumovir PCR Not Detected (NotDetected) 09/19/22 01:07 Influenza Type A (PCR) Not Detected (NotDetected) 09/19/22 01:07 Influenza Type B (PCR) Not Detected (NotDetected) 09/19/22 01:07 M. pneumoniae (PCR) Not Detected (NotDetected) 09/19/22 01:07 Parainfluenza 1 (PCR) Not Detected (NotDetected) 09/19/22 01:07 Parainfluenza 2 (PCR) Not Detected (NotDetected) 09/19/22 01:07 Parainfluenza 3 (PCR) Not Detected (NotDetected) 09/19/22 01:07 Parainfluenza 4 (PCR) Not Detected (NotDetected) 09/19/22 01:07 RSV (PCR) Not Detected (NotDetected) 09/19/22 01:07 Entero/Rhino (PCR) Not Detected (NotDetected) 09/19/22 01:07 Impressions Chest X-Ray 09/18/22 22:21 SINGLE VIEW CHEST CLINICAL HISTORY: Atypical chest pain FINDINGS: An AP, portable, upright chest radiograph is compared to study dated 08/04/2022 and correlated with chest CT dated 07/09/2022. A left subclavian central venous infusion port is unchanged in position. The heart is mildly enlarged noting atherosclerotic calcification of the thoracic aorta. The pulmonary vasculature is noncongested. Chronic interstitial thickening is similar to previous. The lungs and pleural spaces are clear noting mild bibasilar scarring/atelectasis. No pneumothorax is seen. The skeletal structures are osteopenic. The bony thorax is grossly intact. IMPRESSION: No active disease in the chest. ACT 112: Negative or not required by law. Electronically signed by: Cliff Kapoor M.D. 09/19/2022 7:33 AM Chest CTA 09/19/22 01:07 CT angio chest PE protocol CT DOSE: 616.99 mGy.cm HISTORY: 72 years-old Female with PE. Acute shortness of breath TECHNIQUE: Multiple CTA images of the chest were obtained after the intravenous administration of 109 ml Optiray. Coronal and sagittal MIPS were obtained from the axial data set and were submitted for review. All measurements were obtained according to NASCET criteria. A dose lowering technique was utilized adhering to the principles of ALARA. COMPARISON: Chest radiograph 09/18/2022, CTA chest 07/09/2022 FINDINGS: CTA: The heart is mildly enlarged. Mitral annular with moderate coronary artery calcifications. Atherosclerosis of the thoracic aorta without aneurysm or dissection. Patency of the imaged great vessels. A left subclavian catheter is present with distal tip terminating within the mid SVC. Unremarkable pulmonary artery. No pulmonary emboli identified. CT CHEST: No thyroid nodule or lymphadenopathy. There is no pneumothorax, pleural effusion or overt pulmonary edema. Bronchial wall thickening with mild emphysema. Mild s ubsegmental bibasilar atelectasis. Mild bibasilar mucous plugging. 3 mm solid nodule of the left lower lobe, image 123 is favored to be benign. Gastric bypass. Cholecystectomy. Exophytic cyst within the superior pole right kidney, 1.8 cm. Mild colonic fecal retention. Tiny fat filled ventral abdominal wall hernias. Degenerative changes of the shoulders and spine. IMPRESSION: 1. Cardiomegaly without pulmonary emboli identified. 2. Mild emphysema with bronchial wall thickening suggestive of bronchitis. Mild associated bibasilar mucous plugging. 3. No pleural effusion or airspace consolidation to suggest pneumonia. ACT 112: Negative or not required by law. The above report was generated using voice recognition software. It may contain grammatical, syntax or spelling errors. Electronically signed by: Ben Chisholm M.D. 09/19/2022 7:51 AM Medications Administered Current Inpatient Medications Acetaminophen (Acetaminophen 325 Mg Tab) 650 mg PO Q4H PRN PRN Reason: Pain or Fever Stop: 10/19/22 06:41 Candesartan Cilexetil (Candesartan Cilexetil 16mg) 1 each PO QAM [facility] Stop: 10/20/22 08:59 Diphenhydramine HCl (Diphenhydramine Capsule 25 Mg Cap) 25 mg PO DAILY PRN PRN Reason: Allergy Symptoms Stop: 10/19/22 06:41 Heparin Sodium (Porcine) (Heparin Sod 5,000 Unit/0.5 Ml Vial) 7,500 units SQ Q8H AJ Stop: 10/19/22 06:59 Last Admin: 09/19/22 17:14 Dose: Not Given Levothyroxine Sodium (Levothyroxine Sodium 75 Mcg Tablet) 75 mcg PO DAILYBB AJ Stop: 10/19/22 06:59 Last Admin: 09/19/22 10:13 Dose: Not Given Lorazepam (Lorazepam 0.5 Mg Tab) 0.5 mg PO BID PRN PRN Reason: anxiety Stop: 10/19/22 06:41 Metoprolol Tartrate (Metoprolol Tartrate 25 Mg Tab) 25 mg PO BID AJ Stop: 10/19/22 20:59 Miscellaneous (Candesartan [Atacand]: Order Awaiting Action) 1 each N/A QS AJ Stop: 10/19/22 07:59 Last Admin: 09/19/22 17:15 Dose: Not Given Ondansetron HCl (Ondansetron Inj 2 Mg/Ml 2 Ml Vial) 4 mg IV Q6H PRN PRN Reason: Nausea Stop: 10/19/22 06:41 Simethicone (Simethicone 80 Mg Chew) 160 mg PO BID PRN PRN Reason: gas relief Venlafaxine HCl (Venlafaxine Hcl Xr 150 Mg Capxr) 150 mg PO QAM [facility] Stop: 10/19/22 08:59 Last Admin: 09/19/22 10:13 Dose: Not Given Vitamin D (Cholecalciferol 5,000 Units 125 Mcg Tab) 5,000 units PO QAM AJ Stop: 10/19/22 08:59 Last Admin: 09/19/22 10:13 Dose: Not Given Resident Activity Tracking Resident Involvement: Resident Care Provided Care Provided: Adult Hospital Medicine
--- NOTE | 2022-09-19 07:52 | CT Scan Report ---
CT angio chest PE protocol CT DOSE: 616.99 mGy.cm HISTORY: 72 years-old Female with PE. Acute shortness of breath TECHNIQUE: Multiple CTA images of the chest were obtained after the intravenous administration of 109 ml Optiray. Coronal and sagittal MIPS were obtained from the axial data set and were submitted for review. All measurements were obtained according to NASCET criteria. A dose lowering technique was u tilized adhering to the principles of ALARA. COMPARISON: Chest radiograph 09/18/2022, CTA chest 07/09/2022 FINDINGS: CTA: The heart is mildly enlarged. Mitral annular with moderate coronary artery calcifications. Atheroscle rosis of the thoracic aorta without aneurysm or dissection. Patency of the imaged great vessels. A le ft subclavian catheter is present with distal tip terminating within the mid SVC. Unremarkable pulmon ladonna artery. No pulmonary emboli identified. CT CHEST: No thyroid nodule or lymphadenopathy. There is no pneumothorax, pleural effusion or overt pulmonary e guillermo. Bronchial wall thickening with mild emphysema. Mild subsegmental bibasilar atelectasis. Mild bi basilar mucous plugging. 3 mm solid nodule of the left lower lobe, image 123 is favored to be benign. Gastric bypass. Cholecystectomy. Exophytic cyst within the superior pole right kidney, 1.8 cm. Mild c olonic fecal retention. Tiny fat filled ventral abdominal wall hernias. Degenerative changes of the s houlders and spine. IMPRESSION: 1. Cardiomegaly without pulmonary emboli identified. 2. Mild emphysema with bronchial wall thickening suggestive of bronchitis. Mild associated bibasilar mucous plugging. 3. No pleural effusion or airspace consolidation to suggest pneumonia. ACT 112: Negative or not required by law. The above report was generated using voice recognition software. It may contain grammatical, syntax o r spelling errors. Electronically signed by: Ben Chisholm M.D. 09/19/2022 7:51 AM
[2022-09-19] MEDS: HEPARIN SOD 5,000 UNIT/0.5 ML VIAL SQ SCH ×3 (09:57→21:11)
[2022-09-19] MEDS: VENLAFAXINE HCL XR 150 MG CAPXR PO SCH (10:13)
[2022-09-19] MEDS: CHOLECALCIFEROL 5,000 UNITS 125 MCG TAB PO SCH (10:13)
[2022-09-19] MEDS: LEVOTHYROXINE SODIUM 75 MCG TABLET PO SCH (10:13)
--- NOTE | 2022-09-19 12:55 | XCELERA ---
[id number]
--- NOTE | 2022-09-19 17:28 | Cardiology Consultation ---
Date of Consultation September 19, 2022 Assessment & Plan (1) Chest pain: (2) GARRIDO (dyspnea on exertion): (3) Palpitations: (4) Ascending aorta dilation: (5) AI (aortic insufficiency): (6) Hyperlipidemia: (7) HTN (hypertension): Plan ASSESSMENT/PLAN: 1. Chest pain: She has both typical and atypical characteristics of her chest discomfort. Therefore, recommend some form of ischemic evaluation but given prolonged episode over most of 3 days consistently, with negative high sensitivity troponins, unremarkable ECG and echo without wall motion abnormalities, favor noninvasive approach. Myocardial perfusion study ordered. She was asked to avoid caffeine. She states that she is unable to walk on a treadmill. CTA unremarkable. Repeat ECG was ordered and reviewed as noted. Coronary artery calcifications were noted. Can start low-dose beta-rafaela to see if it improves symptoms. Consider aspirin 81 mg daily. Consider statin therapy however she has declined in the past after intolerance to low-dose atorvastatin.. Her symptoms seem to correlate with chemotherapy. 2. Dyspnea on exertion: She appears euvolemic. CT scan suggested bronchitis with mucus plugging. Defer treatment, if necessary, to primary hospitalist service. Myocardial perfusion study as above. Dyspnea has been noted since starting chemotherapy. 3. Palpitations: Etiology uncertain however tends to occur after chemotherapy. Recommend outpatient event monitor. The may improve low-dose beta-rafaela. 4. Ascending aorta dilation: Has been noted past with echo and CTA of the chest however most recent CTA does not make mention of such. She has declined beta- rafaela in the past but she is agreeable now. She has not tolerated low-dose atorvastatin in the past and has declined other statin therapy. Will continue surveillance imaging as an outpatient. 5. Coronary artery calcifications: Would treat for CAD. Consider low-dose aspirin 81 mg daily. She has not tolerated low-dose statin therapy (atorvastatin) and has declined other statin therapies. Low-dose beta-rafaela as above. Myocardial perfusion study ordered. 6. Aortic valve endocarditis and regurgitation: Non severe aortic regurgitation on 2021 echo. SBE prophylaxis recommended. 7. Hypertension: Blood pressure adequately controlled. Low-dose beta-rafaela as above. 8. Dyslipidemia: She did not tolerate low-dose atorvastatin the past and has declined other lipid-lowering agents in the outpatient setting. 9. Disposition: Cardiology will continue to follow. Hopefully myocardial perfusion study can be performed tomorrow. Patient care communicated via telephone with Dr. Avila of the primary hospitalist service. Today's visit was 47 minutes in duration, which included [id number] time with the patient, reviewing records, coordinating care, discussing with primary hospitalist service, and completing documentation. History of Present Illness Reason for Consultation: Chest pain and palpitations Requesting Physician: Dr. Manning Attending Physician: Clemente Avila DO History of Present Illness Mrs. Rosado is a very pleasant 72-year-old female with history significant for dilated ascending aorta, aortic valve endocarditis, aortic regurgitation, prediabetes, hypertension, dyslipidemia, breast cancer, emphysema, gastric bypass, venous insufficiency s/p right GSV and SSV Varithena, and sleep apnea. She was diagnosed with bladder cancer in June of 2022. She was diagnosed with breast cancer initially in 2006 and underwent left-sided mastectomy and chemotherapy, followed by right sided mastectomy in 2020. Bladder cancer was diagnosed in June of 2022 and is undergoing chemotherapy with cisplatin and gemcitabine. In regards to her cardiac history, she reports endocarditis in the early involving her aortic valve. She recalls undergoing a transesophageal echo and being treated as an outpatient with intravenous vancomycin for many weeks. She reports having aortic regurgitation prior to her endocarditis and in the past had been evaluated by Dr. Bush. She did not require valve surgery and overall has done well in regards to her aortic valve issues. She uses antibiotics for SBE prophylaxis following endocarditis. She has had the following studies/procedures: 1. CTA chest 05/19/2020: Aortic root 4 cm. Stable findings per Radiology. 2. Echo 07/23/2020: Normal LV size, wall motion, systolic function. EF 60- 65%. Mild LVH. Moderate AI. Mild to moderate TR. 3. Echo 05/18/2021: Normal LV size, wall motion, systolic function. EF 60- 65%. Moderate LVH. Mild left atrial dilation. Mild AI. Moderate MAC. RVSP 29. Aortic root 4 cm. 4. Venous sclerotherapy 04/28/22: Right SSV and remnant GSV sclerotherapy with Varithena. 5. CTA chest 07/09/2022: Thoracic aorta within normal limits per Radiology. No PE. 6. Echo 07/26/2022 [facility] pg: Normal LV size, wall motion, systolic function. EF 65-70%. Mild LVH. Mild AI. Moderate MAC. Mild MR. RVSP 31. She was admitted on 09/18/2022 with chest pain. She states that she has been experiencing exertional chest discomfort described as a pressure, burning, and pounding sensation, typically most notable 2 days after chemotherapy. The pain is most intense substernally but it is notable across her entire chest in sometimes her distal left arm. There is no radiation to the neck or jaw however at other times she has bilateral neck pain, completely on associated with her presenting symptoms. There is associated shortness of breath with her chest discomfort but no diaphoresis. Symptoms can be very brief up to several hours. Her most recent chest discomfort began on , 2 days after chemotherapy. It persisted for most of the next 3 days, leading up to her presentation. Her chest pain subsided just prior to presentation. The chest discomfort is non positional. It has been worse with exertion. It is not related to food or drink. She has tried taking antacids at home with no relief. She has been chest pain-free here however after using the restroom during our visit, she noted very brief chest burning when returning to bed. She has noted dyspnea with exertion since starting chemotherapy but denies shortness of breath at rest, orthopnea, syncope, near-syncope, edema, melena, or hematochezia. She has occasional hematuria since being diagnosed with bladder cancer. She also has occasional positional lightheadedness if she changes positions quickly. Review of systems:As above. Family history:Mother had CABG, ESRD, and diabetes. No known aortic disease within the family. Social history: She quit smoking in February of 2010. Rare alcohol. No drugs. She is a . Her on 04/12/2021. She has 2 living children and 2 children that are . She has grandchildren. She was alone in her hospital room in the emergency department. Allergies Allergy/AdvReac Type Severity Reaction Status Date / Time docetaxel Allergy Severe chest Verified 08/22/22 11:26 pain, dyspnea adhesive Allergy Intermediate skin Verified 08/22/22 11:26 blisters atorvastatin Allergy Intermediate foot/leg Verified 08/22/22 11:26 swelling, nausea fluoxetine Allergy Intermediate gastrointestinal Verified 08/22/22 11:26 upset losartan Allergy Intermediate unsure Verified 08/22/22 11:26 (lethargy or leg swelling) silver sulfadiazine Allergy Intermediate worsening Verified 08/22/22 11:26 burning alendronate sodium Allergy Unknown unknown Verified 08/22/22 11:26 reaction albuterol AdvReac Intermediate nightmare Verified 08/22/22 11:26 cetirizine [From Zyrtec] AdvReac Mild drowsiness Verified 08/22/22 11:26 ibandronate sodium AdvReac Unknown unknown Verified 08/22/22 11:26 [From Boniva] reaction ibuprofen AdvReac Unknown advised to Verified 08/22/22 11:26 avoid (caused slight kidney damage) fluticasone [From Flonase] AdvReac nosebleed Verified 08/22/22 11:26 Home Medications Medication Instructions Recorded Confirmed Type diphenhydramine HCl 25 mg capsule 25 mg PO DIRECTED PRN Allergy 06/03/19 09/19/22 History (Benadryl) Symptoms acetaminophen 500 mg capsule 500 mg PO Q6H PRN Pain 08/29/19 09/19/22 History cholecalciferol (vitamin D3) 125 125 mcg PO QAM 05/18/21 09/19/22 History mcg (5,000 unit) tablet (Vitamin D3) cyanocobalamin (vitamin B-12) 1,000 mcg IM MONTHLY 02/07/22 09/19/22 History 1,000 mcg/mL injection kit simethicone 180 mg capsule 180 mg PO BID PRN gas relief 06/26/22 09/19/22 History candesartan 16 mg tablet (Atacand) 16 mg PO QAM 90 days #90 tabs 07/11/22 09/19/22 Rx levothyroxine 75 mcg tablet 75 mcg PO QAM #90 tabs 07/11/22 09/19/22 Rx venlafaxine 150 mg 150 mg PO QAM #90 caps 07/13/22 09/19/22 Rx capsule,extended release 24 hr (Effexor XR) Colon Health Probiotic 1 tab PO DAILY 09/19/22 09/19/22 History esomeprazole magnesium 20 mg 20 mg PO DAILY 09/19/22 09/19/22 History capsule,delayed release (Nexium) loperamide 2 mg tablet 2 mg PO DIRECTED PRN Diarrhea 09/19/22 09/19/22 History loratadine 10 mg tablet (Claritin) 10 mg PO DIRECTED 09/19/22 09/19/22 History ondansetron HCl 8 mg tablet 8 mg PO Q8 PRN nausea/vomiting 09/19/22 09/19/22 History Patient History Medical History (Updated 09/19/22 @ 17:30 by Zeke Mo MD) Acquired lymphedema LUE Anxiety and depression Aortic aneurysm 4 cm on chest CTA 05/19/20 Asthma stable> no inhalers Bladder cancer to start chemo unsure when- follows w/ [facility] Breast cancer dx 2006 (left) and 2020 (right) s/p chemo and bilat mastectomies COPD with emphysema Degenerative disc disease Emphysema of lung Endocarditis hx 15+ years ago (in setting of pyelonephritis and sepsis) 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 HTN (hypertension) controlled, stable per pt Hx of iron deficiency last iron infusion 2018 Hx of migraines Hyperlipidemia Hypothyroid Kidney stones no surgical intervention needed Limb alert care status left upper extremity LVH (left ventricular hypertrophy) moderate concentric on 05/18/21 echo Morbid obesity Osteoporosis Pre-diabetes diet controlled Restless leg syndrome Rupture of implant of left breast Sleep apnea did not tolerate CPAP (caused cough) Thoracic ascending aortic aneurysm last echo done 07/2022 - follows w/ dr barber has appointment on 08/07/2022 Surgical History H/O abdominal surgery naval removal (d/t infection) H/O left mastectomy H/O right mastectomy (12/08/19) Right Breast Mastectomy with Right [place] Lymph Node Biopsy,(Right) - Frantz Mayo DO 12/08/2019 s Mediport Removal - Frantz Mayo DO s First Stage Immediate Right Breast Reconstruction with Right Tissue Scientist Engineer and Right Acellular Dermal Matrix(Right) - Sri Casillas MD: Grade 1 view, MAC 3, ETT 7.5. Removal 05/24/21: Grade 1 view, Stephen 2, ETT 7 atraumatic x 1. History of appendectomy History of breast reconstruction Left (03/2010), implant exchange (01/2011), right mastopexy History of cholecystectomy History of colonoscopy History of esophagogastroduodenoscopy (EGD) History of surgery on arm bialt, Brachioplasty with liposuction History of tooth extraction History of transesophageal echocardiography (JOSE) History of tubal ligation History of vascular access device since removed Hx of hand surgery right thumb tendon repair Port-A-Cath in place (08/04/22) Insertion Access Port with Fluoroscopy (Left Subclavian)(Left) - Frantz Mayo DO S/P gastric bypass 1991, 1993 S/P partial hysterectomy S/P sclerotherapy of varicose veins Family History Mother Myocardial infarction Breast cancer Diabetes ESRD (end stage renal disease) on dialysis Aunt Breast cancer Unknown Skin cancer Father Myocardial infarction Coronary heart disease Daughter , age 31. T1DM Diabetes Daughter , brain tumor, then pain med addiction age 36 No problems noted. Other No significant family history Denies family history of Ovarian cancer Prostate cancer Colorectal cancer Social History Smoking Status: Former smoker Tobacco Type: Cigarettes Cigarettes Per Day: up to 2-3ppd at times; started in her teenage years; Second Hand Exposure: Yes; Hx Alcohol Use: Yes Alcohol type: wine Alcohol Intake Frequency: Monthly or Less Hx Substance Use: No Preferred Language: German Communication Ability: Effective Visual Impairment: No Limitations Hearing Ability: Normal Treadle Cut Off Saw Operator Required: No Beliefs That Will Affect Care: None marital status: / Current Living Situation: Alone current occupational status: employed current occupation: [employer] How many Children do You have: 4 How many Children do You have Comment: 2 children ; 1 living daughter, 1 living son Feels Safe at Home: Yes Childhood Exposure to Second-Hand Smoke: Yes caffeine: Yes Dental Care, Regularly: No Physical Activity Frequency: Does not Exercise Seatbelt Use: always Sunscreen Use: Yes Assistive Devices: Denture - Upper, Denture - Lower and Glasses Physical Exam Physical Exam: Gen.: No acute distress. Alert and oriented. HEENT: Anicteric sclera. Neck: No JVD. Normal carotid upstrokes bilaterally. No bruit. Cardiac: PMI was nondisplaced. No ventricular heave. Regular. No ectopy. Cinthia l S1-S2. No murmurs, rubs, or gallops. Pulmonary: Clear to auscultation bilaterally without wheezes, rales, or rhonchi. Abdomen: Soft, nontender, nondistended, with normoactive bowel sounds. No bruits noted. Extremities: 2+ radial pulses bilaterally. 2+ posterior tibialis pulses bilaterally. No edema or cyanosis. Right lower extremity chronically larger than the left. Right > left lower extremity varicose veins. Psychiatric: Affect appears appropriate. Chest: Nontender to palpation. Results & Data ([facility]) Vital Signs (Past 12 Hours) Vital Signs Temp Pulse Pulse Pulse Resp BP BP 09/19/22 16:57 37.0 C 92 H 18 127/77 09/19/22 13:30 93 H 20 09/19/22 13:00 86 17 09/19/22 12:30 92 H 23 09/19/22 12:00 80 20 09/19/22 11:30 79 27 H 09/19/22 11:00 78 16 09/19/22 11:00 98/50 L 09/19/22 10:30 83 16 09/19/22 10:00 88 19 09/19/22 10:00 90/55 L 09/19/22 09:00 101 H 19 09/19/22 08:00 91 H 17 09/19/22 07:00 87 17 09/19/22 06:30 81 22 09/19/22 06:11 82 20 110/56 L Pulse Ox O2 Del Method 09/19/22 16:57 96 09/19/22 13:30 99 09/19/22 13:00 97 09/19/22 12:30 09/19/22 12:00 96 09/19/22 11:30 94 09/19/22 11:00 93 09/19/22 11:00 09/19/22 10:30 96 09/19/22 10:00 99 09/19/22 10:00 09/19/22 09:00 09/19/22 08:00 09/19/22 07:00 09/19/22 06:30 96 09/19/22 06:11 98 Room Air Laboratory Results Laboratory Results - last 24 hr 09/18/22 09/18/22 09/18/22 22:31 22:31 22:31 WBC 22.04 H RBC 3.06 L Hgb 9.2 L Hct 28.6 L MCV 93.5 MCH 30.1 MCHC 32.2 RDW Std Deviation 49.2 H RDW Coeff of Jerry 14.9 H Plt Count 218 MPV 10.4 Immature Gran % (Auto) 0.5 Neut % (Auto) 82.8 Lymph % (Auto) 13.8 [place] % (Auto) 1.9 Eos % (Auto) 0.7 Baso % (Auto) 0.3 Neut # (Auto) 18.27 H Lymph # (Auto) 3.05 [place] # (Auto) 0.41 Eos # (Auto) 0.15 Baso # (Auto) 0.06 Immature Gran # (Auto) 0.10 H Dohle Bodies 1+ PT 10.9 INR 1.0 APTT 25.6 PTT Ratio 0.9 Sodium 137 Potassium 4.2 Chloride 110 H Carbon Dioxide 21 Anion Gap 6 BUN 33 H Creatinine 1.22 H Est Cr Clr Drug Dosing 41.7 Est GFR ( Amer) 50.5 Est GFR (Non-Af Amer) 43.6 BUN/Creatinine Ratio 27.0 H Glucose 64 L POC Glucose Calcium 8.5 Total Bilirubin 0.2 AST 12 L ALT 9 Alkaline Phosphatase 133 H Troponin I High Sens 10.9 D B-Natriuretic Peptide Total Protein 6.9 Albumin 3.9 Globulin 3.0 Albumin/Globulin Ratio 1.3 Adenovirus (PCR) B. pertussis DNA (PCR) B.parapertussis DNA PCR C. pneumoniae DNA (PCR) Coronavirus OC43 (PCR) Coronavirus HKU1 (PCR) Coronavirus 229E (PCR) SARS-CoV-2 (PCR) Coronavirus NL63 (PCR) Human Metapneumovir PCR Influenza Type A (PCR) Influenza Type B (PCR) M. pneumoniae (PCR) Parainfluenza 1 (PCR) Parainfluenza 2 (PCR) Parainfluenza 3 (PCR) Parainfluenza 4 (PCR) RSV (PCR) Entero/Rhino (PCR) 09/19/22 09/19/22 09/19/22 01:07 02:12 03:52 WBC RBC Hgb Hct MCV MCH MCHC RDW Std Deviation RDW Coeff of Jerry Plt Count MPV Immature Gran % (Auto) Neut % (Auto) Lymph % (Auto) [place] % (Auto) Eos % (Auto) Baso % (Auto) Neut # (Auto) Lymph # (Auto) [place] # (Auto) Eos # (Auto) Baso # (Auto) Immature Gran # (Auto) Dohle Bodies PT INR APTT PTT Ratio Sodium Potassium Chloride Carbon Dioxide Anion Gap BUN Creatinine Est Cr Clr Drug Dosing Est GFR ( Amer) Est GFR (Non-Af Amer) BUN/Creatinine Ratio Glucose POC Glucose 80 Calcium Total Bilirubin AST ALT Alkaline Phosphatase Troponin I High Sens B-Natriuretic Peptide 147 H Total Protein Albumin Globulin Albumin/Globulin Ratio Adenovirus (PCR) Not Detected B. pertussis DNA (PCR) Not Detected B.parapertussis DNA PCR Not Detected C. pneumoniae DNA (PCR) Not Detected Coronavirus OC43 (PCR) Not Detected Coronavirus HKU1 (PCR) Not Detected Coronavirus 229E (PCR) Not Detected SARS-CoV-2 (PCR) Not Detected Coronavirus NL63 (PCR) Not Detected Human Metapneumovir PCR Not Detected Influenza Type A (PCR) Not Detected Influenza Type B (PCR) Not Detected M. pneumoniae (PCR) Not Detected Parainfluenza 1 (PCR) Not Detected Parainfluenza 2 (PCR) Not Detected Parainfluenza 3 (PCR) Not Detected Parainfluenza 4 (PCR) Not Detected RSV (PCR) Not Detected Entero/Rhino (PCR) Not Detected 09/19/22 09/19/22 06:58 14:27 WBC RBC Hgb Hct MCV MCH MCHC RDW Std Deviation RDW Coeff of Jerry Plt Count MPV Immature Gran % (Auto) Neut % (Auto) Lymph % (Auto) [place] % (Auto) Eos % (Auto) Baso % (Auto) Neut # (Auto) Lymph # (Auto) [place] # (Auto) Eos # (Auto) Baso # (Auto) Immature Gran # (Auto) Dohle Bodies PT INR APTT PTT Ratio Sodium Potassium Chloride Carbon Dioxide Anion Gap BUN Creatinine Est Cr Clr Drug Dosing Est GFR ( Amer) Est GFR (Non-Af Amer) BUN/Creatinine Ratio Glucose POC Glucose Calcium Total Bilirubin AST ALT Alkaline Phosphatase Troponin I High Sens 11.9 9.8 B-Natriuretic Peptide Total Protein Albumin Globulin Albumin/Globulin Ratio Adenovirus (PCR) B. pertussis DNA (PCR) B.parapertussis DNA PCR C. pneumoniae DNA (PCR) Coronavirus OC43 (PCR) Coronavirus HKU1 (PCR) Coronavirus 229E (PCR) SARS-CoV-2 (PCR) Coronavirus NL63 (PCR) Human Metapneumovir PCR Influenza Type A (PCR) Influenza Type B (PCR) M. pneumoniae (PCR) Parainfluenza 1 (PCR) Parainfluenza 2 (PCR) Parainfluenza 3 (PCR) Parainfluenza 4 (PCR) RSV (PCR) Entero/Rhino (PCR) Diagnostic Findings Echo reviewed 09/19/2022: Hyperdynamic LV systolic function. EF > 70%. Normal wall motion. Mild LVH. Limited 2D echo. ECG personally 09/19/2022 at 4:35 p.m.: Sinus rhythm 89 beats per minute. Cannot exclude anterior infarct. ECG 09/18/2022 at 10:24 p.m.: Sinus rhythm 92 beats per minute. Similar findings from 09/19/2022 ECG. CTA chest 09/19/2022: No pulmonary emboli. Mild emphysema with bronchial wall thickening suggestive of bronchitis. Mild associated bibasilar mucus plugging. Atherosclerosis of thoracic aorta without aneurysm or dissection. Moderate coronary artery calcifications. Medications Administered Current Inpatient Medications Acetaminophen (Acetaminophen 325 Mg Tab) 650 mg PO Q4H PRN PRN Reason: Pain or Fever Stop: 10/19/22 06:41 Candesartan Cilexetil (Candesartan Cilexetil 16mg) 1 each PO QAM AJ Stop: 10/20/22 08:59 Diphenhydramine HCl (Diphenhydramine Capsule 25 Mg Cap) 25 mg PO DAILY PRN PRN Reason: Allergy Symptoms Stop: 10/19/22 06:41 Heparin Sodium (Porcine) (Heparin Sod 5,000 Unit/0.5 Ml Vial) 7,500 units SQ Q8H AJ Stop: 10/19/22 06:59 Last Admin: 09/19/22 17:14 Dose: Not Given Levothyroxine Sodium (Levothyroxine Sodium 75 Mcg Tablet) 75 mcg PO DAILYBB AJ Stop: 10/19/22 06:59 Last Admin: 09/19/22 10:13 Dose: Not Given Lorazepam (Lorazepam 0.5 Mg Tab) 0.5 mg PO BID PRN PRN Reason: anxiety Stop: 11/24/22 06:41 Metoprolol Tartrate (Metoprolol Tartrate 25 Mg Tab) 25 mg PO BID [facility] Stop: 10/19/22 20:59 Miscellaneous (Candesartan [Atacand]: Order Awaiting Action) 1 each N/A QS [facility] Stop: 10/19/22 07:59 Last Admin: 09/19/22 17:15 Dose: Not Given Ondansetron HCl (Ondansetron Inj 2 Mg/Ml 2 Ml Vial) 4 mg IV Q6H PRN PRN Reason: Nausea Stop: 10/19/22 06:41 Simethicone (Simethicone 80 Mg Chew) 160 mg PO BID PRN PRN Reason: gas relief Venlafaxine HCl (Venlafaxine Hcl Xr 150 Mg Capxr) 150 mg PO QAM [facility] Stop: 10/19/22 08:59 Last Admin: 09/19/22 10:13 Dose: Not Given Vitamin D (Cholecalciferol 5,000 Units 125 Mcg Tab) 5,000 units PO QAM [facility] Stop: 10/19/22 08:59 Last Admin: 09/19/22 10:13 Dose: Not Given PG Care Time/CCT Total # of Minutes Spent Total Time Spent with Patient: Total time spent is greater than 50% in coordination of care (as documented) at patient's floor/unit and/or counseling patient: Coding Level of Care Code 99652 Office/Outpt Visit, Est Diagnoses Chest pain R07.9 GARRIDO (dyspnea on exertion) R06.09 Palpitations R00.2 Ascending aorta dilation I77.810 AI (aortic insufficiency) I35.1 Hyperlipidemia E78.5 HTN (hypertension) I10 Hypertension type: essential hypertension Time Spent (min) 47 (1) HTN (hypertension) Hypertension type: essential hypertension Qualified Code(s): I10 - Essential (primary) hypertension
[2022-09-19] MEDS: METOPROLOL TARTRATE 25 MG TAB PO SCH (21:11)
[2022-09-19] MEDS: ONDANSETRON INJ 2 MG/ML 2 ML VIAL IV PRN (22:51)
[2022-09-20] MEDS: LEVOTHYROXINE SODIUM 75 MCG TABLET PO SCH (05:27)
--- NOTE | 2022-09-20 06:10 | Electrocardiogram Report ---
Test Reason : Blood Pressure : / mmHG Vent. Rate : 092 BPM Atrial Rate : 092 BPM P-R Int : 150 ms QRS Dur : 084 ms QT Int : 352 ms P-R-T Axes : 040 007 042 degrees QTc Int : 435 ms Normal sinus rhythm Normal ECG When compared with ECG of 09-JUL-2022 08:24, Premature atrial complexes are no longer Present Confirmed by Zeke Mo ([id number]) on 09/20/2022 6:10:02 AM Referred By: REFERRED SELF Confirmed By:Zeke Mo
--- NOTE | 2022-09-20 06:55 | Hospitalist Progress Note ---
Date of Service September 20, 2022 Assessment & Plan (1) Chest pain: Plan: 72yo Female PMH bladder cancer breast cancer on chemo, port a cath, aortic insufficiency, anemia, depression, LOIS, PTSD, hx valvular endocarditis, hypothyroidism, HLD here for GARRIDO -admitted to telemetry for serial cardiac enzymes, serial EKG's, cardiac rhythm monitoring. -Patient did have an echocardiogram performed on 07/26/2022 which showed EF 65- 70%, mild concentric LVH, mild aortic regurgitation, moderate mitral annular calcification with mild mitral regurgitation, with no significant change from prior study on 05/18/2021. -Continue candesartan -negative trop -CXR neg, EKG NSR -Echo EF>70% -CTA: Cardiomegaly without pulmonary emboli identified. Mild emphysema with bronchial wall thickening suggestive of bronchitis. Mild associated bibasilar mucous plugging. No pleural effusion or airspace consolidation to suggest pneumonia. -consulted cardio myocardial perfusion study ordered, patient states she cannot walk treadmill Can start low-dose beta-rafaela to see if it improves symptoms. Consider aspirin 81 mg daily. Consider statin therapy however she has declined in the past after intolerance to low-dose atorvastatin.. Her symptoms seem to correlate with chemotherapy. (2) GARRIDO (dyspnea on exertion): Plan: see above (3) AI (aortic insufficiency): Plan: see above (4) Depression: Plan: Depression/PTSD- Continue lorazepam, venlafaxine. (5) Post traumatic stress disorder: Plan: See above (6) Invasive ductal carcinoma of right breast: Plan: Invasive ductal carcinoma of right breast/bladder cancer-patient presently undergoing chemotherapy. Questions regarding possible adverse reactions, that we will see if cardiology can give us input on (7) Bladder cancer: (8) Hypothyroid: Plan: Continue levothyroxine 75 mcg daily (9) Hyperlipidemia: Plan: On no specific treatment at this time (10) Sleep apnea: (11) Osteoporosis: Admission and Anticipated Discharge Date Admission Date: September 19, 2022 Results & Data Results & Data ([facility]) Vital Signs (Past 12 Hours) Vital Signs Temp Pulse Pulse Resp BP Pulse Ox O2 Del Method 09/20/22 03:15 36.7 C 77 18 106/57 L 92 09/19/22 23:07 36.7 C 88 18 120/66 91 Room Air 09/19/22 23:07 82 09/19/22 19:42 36.7 C 81 18 110/69 95
[2022-09-20] MEDS: HEPARIN SOD 5,000 UNIT/0.5 ML VIAL SQ SCH ×2 (08:42→16:55)
[2022-09-20] MEDS: CHOLECALCIFEROL 5,000 UNITS 125 MCG TAB PO SCH (08:44)
[2022-09-20] MEDS: VENLAFAXINE HCL XR 150 MG CAPXR PO SCH (08:44)
[2022-09-20] MEDS ORDERED: CANDESARTAN CILEXETIL 16 MG PO SCH (09:00)
[2022-09-20] MEDS ORDERED: REGADENOSON 0.4 MG/5 ML SYR IV ONE (09:54)
--- NOTE | 2022-09-20 10:19 | Discharge Summary ---
Date of Service September 20, 2022 Admission HPI Per Admitting Provider The patient is a 72-year-old female with a past medical history including Port-A-Cath placement, hypoxia, aortic insufficiency, allergic rhinitis, anemia, depression, eustachian tube dysfunction, LOIS, vit B12 deficiency, vitamin D deficiency, valvular endocarditis, PTSD, invasive ductal carcinoma the right breast, ascending aortic dilation, COVID-19, bladder cancer, asthma, hypothyroidism, osteoporosis, hyperlipidemia, LOIS and right mastectomy. She presents to the emergency department as noted above. She reports that whenever she is going through cycles of chemo, she gets very strong palpitations, can feel lightheaded and dizzy, along with severe chest pain and shortness of breath. She attributes this to a medication that is used to prevent nausea, which is not related to Zofran, that she reports works well. Admission Exam Per Admitting Provider The patient is awake, alert and oriented 3, well developed and well nourished, normocephalic and atraumatic, lying in bed and in no acute distress. HEENT--PERRL, EOMI, mucous membranes and oropharynx dry. Neck--supple. No JVD. No bruits. Thyroid normal, trachea midline, no adenopathy. Heart--normal S1 and S2. No murmurs, rubs or gallops. Lungs--clear bilaterally, no respiratory distress, no accessory muscle use. Abdomen--normal bowel sounds and soft. Nontender. Nondistended, no hernias or masses, no organomegaly. Extremities--no cyanosis or clubbing. No edema. There are good distal pulses b/l. Dermatologic--normal skin turgor, normal color, no abnormal lymph nodes, no rash. Neurologic--cranial nerves II through XII grossly intact. Rheumatologic--normal range of motion. Psychiatric--normal affect. Principal Diagnosis Chest Pain Discharge Exam Constitutional WD/WN, vitals as above Eyes PERRL, conjunctivae normal, anicteric sclerae ENMT external ear and nose normal, oropharynx normal Neck trachea midline, no thyromegaly Respiratory normal respiratory effort, lungs clear to auscultation Cardiovascular Rate/Rhythm: regular rate and regular rhythm Gastrointestinal (Abdomen) Inspection/Auscultation: abdomen normal to inspection Percussion/Palpation: abdomen soft; abdomen nontender Skin no rashes, warm and dry Discharge Data Allergies Allergy/AdvReac Type Severity Reaction Status Date / Time docetaxel Allergy Severe chest Verified 08/22/22 11:26 pain, dyspnea adhesive Allergy Intermediate skin Verified 08/22/22 11:26 blisters atorvastatin Allergy Intermediate foot/leg Verified 08/22/22 11:26 swelling, nausea fluoxetine Allergy Intermediate gastrointestinal Verified 08/22/22 11:26 upset losartan Allergy Intermediate unsure Verified 08/22/22 11:26 (lethargy or leg swelling) silver sulfadiazine Allergy Intermediate worsening Verified 08/22/22 11:26 burning alendronate sodium Allergy Unknown unknown Verified 08/22/22 11:26 reaction albuterol AdvReac Intermediate nightmare Verified 08/22/22 11:26 cetirizine [From Zyrtec] AdvReac Mild drowsiness Verified 08/22/22 11:26 ibandronate sodium AdvReac Unknown unknown Verified 08/22/22 11:26 [From Boniva] reaction ibuprofen AdvReac Unknown advised to Verified 08/22/22 11:26 avoid (caused slight kidney damage) fluticasone [From Flonase] AdvReac nosebleed Verified 08/22/22 11:26 Consultations 09/19/22 04:57 ED Decision to Admit Stat 09/19/22 06:42 Consult Cardiology Routine Ordered Studies 09/19/22 01:07 CT angio chest PE protocol Urgent Hospital Course (1) Chest pain: 72yo Female PMH bladder cancer breast cancer on chemo, port a cath, aortic insufficiency, anemia, depression, LOIS, PTSD, hx valvular endocarditis, hypothyroidism, HLD here for GARRIDO -Started Metoprolol Tartrate 25mg BID -follow with PCP to monitor blood pressure, consider cardiac nurse for possible arrythmias post chemotherapy for better evaluation (1) Chest Pain -admitted to telemetry for serial cardiac enzymes, serial EKG's, cardiac rhythm monitoring. -Patient did have an echocardiogram performed on 07/26/2022 which showed EF 65- 70%, mild concentric LVH, mild aortic regurgitation, moderate mitral annular calcification with mild mitral regurgitation, with no significant change from prior study on 05/18/2021. -Continue candesartan -negative trop, CXR neg, EKG NSR -Echo EF>70% -CTA:Cardiomegaly without pulmonary emboli identified. Mild emphysema with bronchial wall thickening suggestive of bronchitis. Mild associated bibasilar mucous plugging. No pleural effusion or airspace consolidation to suggest pneumonia. -consulted cardio myocardial perfusion study ordered, patient states she cannot walk treadmill Can start low-dose beta-rafaela to see if it improves symptoms. Consider aspirin 81 mg daily.Consider cardiac nurse in outpatient Patient states she cannot tolerate statin (2) GARRIDO (dyspnea on exertion): see above (3) AI (aortic insufficiency): see above (4) Depression: Depression/PTSD- Continue lorazepam, venlafaxine. (5) Post traumatic stress disorder: See above (6) Invasive ductal carcinoma of right breast: Invasive ductal carcinoma of right breast/bladder cancer-patient presently undergoing chemotherapy. Questions regarding possible adverse reactions, that we will see if cardiology can give us input on (7) Bladder cancer: Continue chemotherapy (8) Hypothyroid: Continue levothyroxine 75 mcg daily (9) Hyperlipidemia: On no specific treatment at this time (2) GARRIDO (dyspnea on exertion): (3) AI (aortic insufficiency): (4) Depression: (5) Post traumatic stress disorder: (6) Invasive ductal carcinoma of right breast: (7) Bladder cancer: (8) Hypothyroid: (9) Hyperlipidemia: (10) Sleep apnea: (11) Osteoporosis: Total Time Total Time Spent Total Time Spent (In Minutes): <30 Discharge Plan Discharge Items Patient Disposition: Home - Self-Care Reason For Visit: CHEST PAIN Discharge Diagnosis: Chest Pain Condition on Discharge: Good Activity: Resume your previous activity Non-emergency contact: Primary Care Provider Call non-emergency contact if: you have any medication questions, your symptoms worsen and you have a fever Follow-up/Referrals: Enoch Aguilar MD [Primary Care Provider] - Diet: Heart Healthy Addtl Attending Provider Instructions: chest pain -the chest pain may have all been related to chemotherapy, but there was enough that was concerning about your symptoms that we wanted to make sure it's nothing to do with your heart -the stress test has been done - the images are up, but we're waiting on cardiology to read it - they'll almost certainly have it read by the end of the day - which is why i'd still recommend that you stay till it's read (because if it looks like there's poor bloodflow the next step would be a heart cath - which we can set up way faster here in the hospital than in the outpatient world) - at the same time, i don't think it's reckless to go home and follow up about this as an outpatient -the metoprolol will help slow your heart rate down and take strain off of it - which will be protective if the stress test is positive, and probably help with the palpitations you get if the stress test is negative -in between now and when the stress is read, if you have new chest symptoms that don't go away quickly (5 minutes or less) with rest, we'd want you back here to be checked out again -please take care of yourself Pending Studies at Discharge: No Stand-Alone Forms: My [facility] [employer] Business Plan, Smoking Cessation Medications and DC Order Prescriptions: New metoprolol tartrate 25 mg Tablet 25 mg PO BID 30 Days Qty: 60 0RF Continued acetaminophen 500 mg capsule 500 mg PO Q6H PRN (Reason: Pain) candesartan [Atacand] 16 mg tablet 16 mg PO QAM 90 Days Qty: 90 3RF levothyroxine 75 mcg tablet 75 mcg PO QAM Qty: 90 3RF venlafaxine [Effexor XR] 150 mg capsule,extended release 24hr 150 mg PO QAM Qty: 90 3RF diphenhydramine HCl [Benadryl] 25 mg capsule 25 mg PO DIRECTED PRN (Reason: Allergy Symptoms) cyanocobalamin (vitamin B-12) 1,000 mcg/mL Kit 1,000 mcg IM MONTHLY simethicone 180 mg Capsule 180 mg PO BID PRN (Reason: gas relief) ondansetron HCl 8 mg tablet 8 mg PO Q8 PRN (Reason: nausea/vomiting) loratadine [Claritin] 10 mg Tablet 10 mg PO DIRECTED Rx Instructions: take 4 days after chemo esomeprazole magnesium [Nexium] 20 mg Capsule,Delayed Release(Dr/Ec) 20 mg PO DAILY [facility] Probiotic 1 tab PO DAILY loperamide 2 mg Tablet 2 mg PO DIRECTED PRN (Reason: Diarrhea) cholecalciferol (vitamin D3) [Vitamin D3] 125 mcg (5,000 unit) Tablet 125 mcg PO QAM Discharge Orders: Discharge Order (Routine); Ordered 09/20/22 Ordered By: Clemente Samuel/Other Patient Handouts: Stroke and Heart Disease, Controlling High Blood Pressure, Low-Salt Choices, High Blood Pressure Risk Factors Admission Data Admit Date/Time: 09/19/22 06:01 Attending Provider: Clemente Avila Admit Provider: Arnulfo Manning Primary Care Provider: Enoch Aguilar Other Providers: Arnulfo Manning ; Zeke Mo Other Interventions: Discharge Summary Assessment (RN) Last Done: 09/20/22 16:23 Supervising Physician Co-Signing Physician Notes I personally examined the patient and verified all perez points of history and exam, discussed case, and agree with decision making with Dr Cabrera. Feeling better. No further chest pain. Would very much like to go home. After discussions with patient, informed of negative stress test. Vitals noted, in general she is awake and alert pleasant no distress. HEENT normocephalic atraumatic mucous membranes moist. Breathing unlabored no accessory muscle use good effort. Skin shows no rashes no pallor or icterus. Neuro without focal deficits. Chest painnegative cardiac enzymes reassuring nuc med studymost likely other chemo related or stress related. Safe/stable for home. Continue metoprolol for palpitations, outpatient follow-up. Otherwise as above Resident Activity Tracking Resident Involvement: Resident Care Provided Care Provided: Adult Hospital Medicine
[2022-09-20] MEDS: METOPROLOL TARTRATE 25 MG TAB PO SCH ×2 (12:36→16:55)
[2022-09-20] MEDS: ONDANSETRON INJ 2 MG/ML 2 ML VIAL IV PRN (13:52)
--- NOTE | 2022-09-20 15:59 | Myocardial Perfusion Study ---
Date of Service September 20, 2022 Myocardial Perfusion Study Blk Myocardial Perfusion Study Report PA Act 112: Negative Procedure: 1. Myocardial perfusion study performed in multiple views/images 2. Lexiscan pharmacologic stress ECG Indications: 1. Chest pain Consent: Informed written consent was obtained prior to the procedure. Ordering physician: Chely Procedural details: For the stress portion of the study, Lexiscan 0.4 mg was intravenously admin istered followed by a saline flush. This was followed by 30.4 mCi of technetium 99m Cardiolite, injected at 11:30 AM on 09/20/2022. 30 minutes following the injection, imaging of the heart was performed in multiple projections. For the rest portion of the study, 11 mCi technetium 99m Cardiolite was injected intravenously at 9:30 AM on 09/20/2022. 1 hour following the injection, imaging of the heart was performed in the same projections. Lexiscan stress ECG: Resting ECG demonstrated: Sinus rhythm 82 bpm Maximum heart rate: 109 bpm Maximal, age-predicted heart rate: 74% Resting blood pressure: 143/78 mmHg Maximum blood pressure: 143/[address] changes: none Arrhythmia: none Symptoms: Chest pain and nausea Findings: Rotating raw imaging demonstrated no significant lung uptake. There is no significant motion artifact. Heart size appeared normal. Myocardial perfusion demonstrated no significant reversible or fixed defect to suggest ischemia or infarct. Mildly reduced uptake involving the inferior wall which was fixed in both stress and rest imaging, with normal wall motion, suggesting diaphragmatic attenuation. Ejection fraction: 84% Wall motion: No regional wall motion abnormalities. Hyperdynamic. No significant transient ischemic dilation. Impression: 1. Negative myocardial perfusion study for ischemia. 2. Hyperdynamic LV systolic function. EF 84%. Normal wall motion. 3. Lexiscan induced nausea and chest pain. 4. Nondiagnostic Lexiscan ECG. [facility] Myocardial perfusion code Procedure Code Procedure 1: Myocardial Perfusion Codes: 92378 Cardiovascular Stress Test, multiple Procedure 2: Myocardial Perfusion Codes: 16532 Cardiovascular Stress Test, supervision only Procedure 3: Myocardial Perfusion Codes: 94229 Cardiovascular Stress Test, interpretation and report
--- NOTE | 2022-09-20 16:06 | Cardiology Progress Note ---
Date of Service September 20, 2022 Assessment & Plan (1) Chest pain: (2) GARRIDO (dyspnea on exertion): (3) Palpitations: (4) Ascending aorta dilation: (5) AI (aortic insufficiency): (6) Hyperlipidemia: (7) HTN (hypertension): Plan ASSESSMENT/PLAN: 1. Chest pain: Chest pain had both typical and atypical characteristics. No chest discomfort today despite walking in the hallways. Myocardial perfusion study was unremarkable. CTA of the chest was unremarkable on presentation. High-sensitivity troponin has been negative despite prolonged episodes of chest discomfort. No further ischemic evaluation necessary at this time. 2. Dyspnea on exertion: She appears euvolemic. CT scan suggested bronchitis with mucus plugging. Defer treatment, if necessary, to primary hospitalist service. Myocardial perfusion unremarkable. Dyspnea has been noted since starting chemotherapy. 3. Palpitations: Etiology uncertain however tends to occur after chemotherapy. Recommend outpatient event monitor. Symptoms may improve with low-dose beta- rafaela. 4. Ascending aorta dilation: Has been noted past with echo and CTA of the chest however most recent CTA does not make mention of such. She has declined beta- rafaela in the past but she is agreeable now. She has not tolerated low-dose atorvastatin in the past and has declined other statin therapy. Will continue surveillance imaging as an outpatient. 5. Coronary artery calcifications: Would treat for CAD. Consider low-dose aspirin 81 mg daily. She has not tolerated low-dose statin therapy (atorvastatin) and has declined other statin therapies. Low-dose beta-rafaela as above. Myocardial perfusion study unremarkable. 6. Aortic valve endocarditis and regurgitation: Non severe aortic regurgitation on 2021 echo. SBE prophylaxis recommended. 7. Hypertension: Blood pressure adequately controlled. Low-dose beta-rafaela as above. 8. Dyslipidemia: She did not tolerate low-dose atorvastatin the past and has declined other lipid-lowering agents in the outpatient setting. 9. Disposition: Can be discharged home from a cardiology perspective. We will arrange for outpatient monitor given palpitations. Presenting symptoms thus far have correlated with her chemotherapy sessions. Dr. Avila, [facility], notified of cardiology plan and stress findings. Admission and Anticipated Discharge Date Admission Date: September 19, 2022 Subjective Her last episode of chest discomfort when seen late this morning, was last evening. She was able to ambulate in the hallway today with no chest discomfort whatsoever. She had mild dyspnea with exertion but overall feels much better. She denies syncope, palpitations, orthopnea, shortness of breath at rest. Physical Exam Physical Exam: Gen.: No acute distress. Alert and oriented. HEENT: Anicteric sclera. Neck: No JVD. Cardiac: No ventricular heave. Regular. No ectopy. Normal S1-S2. No murmurs, rubs, or gallops. Pulmonary: Clear to auscultation bilaterally without wheezes, rales, or rhonchi. Abdomen: Soft, nontender, nondistended, with normoactive bowel sounds. No bruits noted. Extremities: 2+ radial pulses bilaterally. 2+ posterior tibialis pulses bilaterally. No edema or cyanosis. Right lower extremity chronically larger th an the left. Psychiatric: Affect appears appropriate. Results & Data ([facility]) Vital Signs (Past 12 Hours) Vital Signs Temp Pulse Pulse Resp BP Pulse Ox 09/20/22 14:53 90 09/20/22 11:53 36.8 C 88 18 125/74 97 09/20/22 11:17 79 09/20/22 08:00 37.0 C 76 18 115/67 97 Laboratory Results Laboratory Results - last 24 hr 09/19/22 20:01 Troponin I High Sens 9.4 Diagnostic Findings Telemetry personally reviewed: Sinus rhythm. No arrhythmia. ECG 09/20/2022 at 6:16 AM personally reviewed: Sinus rhythm 79 bpm. Cannot exclude lateral infarct. Stable findings. Myocardial perfusion study 09/20/2022: No significant ischemia. Medications Administered Current Inpatient Medications Acetaminophen (Acetaminophen 325 Mg Tab) 650 mg PO Q4H PRN PRN Reason: Pain or Fever Stop: 10/19/22 06:41 Candesartan Cilexetil (Candesartan Cilexetil 16mg) 1 each PO QAM AJ Stop: 10/20/22 08:59 Last Admin: 09/20/22 08:43 Dose: 1 each Diphenhydramine HCl (Diphenhydramine Capsule 25 Mg Cap) 25 mg PO DAILY PRN PRN Reason: Allergy Symptoms Stop: 10/19/22 06:41 Last Admin: 09/20/22 05:56 Dose: 25 mg Heparin Sodium (Porcine) (Heparin Sod 5,000 Unit/0.5 Ml Vial) 7,500 units SQ Q8H AJ Stop: 10/19/22 06:59 Last Admin: 09/20/22 08:42 Dose: 7,500 units Levothyroxine Sodium (Levothyroxine Sodium 75 Mcg Tablet) 75 mcg PO DAILYBB [facility] Stop: 10/19/22 06:59 Last Admin: 09/20/22 05:27 Dose: 75 mcg Lorazepam (Lorazepam 0.5 Mg Tab) 0.5 mg PO BID PRN PRN Reason: anxiety Stop: 10/19/22 06:41 Metoprolol Tartrate (Metoprolol Tartrate 25 Mg Tab) 25 mg PO BID [facility] Stop: 10/19/22 20:59 Last Admin: 09/20/22 12:36 Dose: Not Given Ondansetron HCl (Ondansetron Inj 2 Mg/Ml 2 Ml Vial) 4 mg IV Q6H PRN PRN Reason: Nausea Stop: 10/19/22 06:41 Last Admin: 09/20/22 13:52 Dose: 4 mg Simethicone (Simethicone 80 Mg Chew) 160 mg PO BID PRN PRN Reason: gas relief Last Admin: 09/20/22 08:44 Dose: 160 mg Venlafaxine HCl (Venlafaxine Hcl Xr 150 Mg Capxr) 150 mg PO QAM [facility] Stop: 10/19/22 08:59 Last Admin: 09/20/22 08:44 Dose: 150 mg Vitamin D (Cholecalciferol 5,000 Units 125 Mcg Tab) 5,000 units PO QAM [facility] Stop: 10/19/22 08:59 Last Admin: 09/20/22 08:44 Dose: 5,000 units PG Care Time/CCT Total # of Minutes Spent Total Time Spent with Patient: Total time spent is greater than 50% in coordination of care (as documented) at patient's floor/unit and/or counseling patient: Coding Level of Care Code 10258 Office/Outpt Visit, Est Diagnoses Chest pain R07.9 GARRIDO (dyspnea on exertion) R06.09 Palpitations R00.2 Ascending aorta dilation I77.810 AI (aortic insufficiency) I35.1 Hyperlipidemia E78.5 HTN (hypertension) I10 Hypertension type: essential hypertension (1) HTN (hypertension) Hypertension type: essential hypertension Qualified Code(s): I10 - Essential (primary) hypertension
--- NOTE | 2022-09-20 17:23 | Billing Data ---
Date of Service September 20, 2022 Coding Level of Care Code 66173 OBS Care - Discharge
--- NOTE | 2022-09-21 05:03 | Electrocardiogram Report ---
Test Reason : Blood Pressure : / mmHG Vent. Rate : 089 BPM Atrial Rate : 089 BPM P-R Int : 146 ms QRS Dur : 092 ms QT Int : 374 ms P-R-T Axes : 040 007 047 degrees QTc Int : 455 ms Normal sinus rhythm Cannot rule out Anterior infarct , age undetermined Abnormal ECG When compared with ECG of 18-SEP-2022 22:24, No significant change was found Confirmed by Zeke Mo ([id number]) on 09/21/2022 5:02:53 AM Referred By: REFERRED SELF Confirmed By:Zeke Mo
--- NOTE | 2022-09-21 05:28 | Electrocardiogram Report ---
Test Reason : Blood Pressure : / mmHG Vent. Rate : 079 BPM Atrial Rate : 079 BPM P-R Int : 144 ms QRS Dur : 088 ms QT Int : 382 ms P-R-T Axes : 049 015 062 degrees QTc Int : 438 ms Normal sinus rhythm Cannot rule out Anterior infarct Abnormal ECG When compared with ECG of 19-SEP-2022 16:35, No significant change was found Confirmed by Zeke Mo ([id number] on 09/21/2022 5:27:59 AM Referred By: REFERRED SELF Confirmed By:Zeke Mo
== END 2022-09-20 17:05 | disposition home or self-care (01) ==
LOC: ED 22:15 → INTOOBSV 09-19 06:01 → EDINP 09-19 06:01 → SUATTDRO 09-19 06:01 → 2S 09-19 06:34

== ENCOUNTER 2024-02-07 10:23 | Observation (INO) ==
[2024-02-07 11:12] LABS: Basophils # (auto) 0.05 K/uL (0.00-0.20); Basophils % (auto) 0.7 %; Eosinophils # (auto) 0.19 K/uL (0.00-0.50); Eosinophils % (auto) 2.5 %; Hematocrit (blood only) 36.5 % (37.0-47.0); Hemoglobin 11.7 g/dl (12.0-16.0); Immature Granulocytes # (auto) 0.03 K/uL (0.01-0.20); Immature Granulocytes % (auto) 0.4 %; Lymphocytes # (auto) 2.01 K/uL (1.20-3.40); Lymphocytes % (auto) 26.4 %; Mean Corpuscular Hemoglobin 31.4 pg (25.0-34.0); Mean Corpuscular Hgb Conc 32.1 g/dL (32.0-36.0); Mean Corpuscular Volume 97.9 fL (80.0-100.0); Mean Platelet Volume 10.3 fL (9.4-12.4); Monocytes # (auto) 0.64 K/uL (0.11-0.59); Monocytes % (auto) 8.4 %; Neutrophils # (auto) 4.69 K/uL (1.40-6.50); Neutrophils % (auto) 61.6 %; Platelet Count 215 K/uL (130-400); RDW Coefficient of Variation 13.4 % (11.5-14.5); RDW Standard Deviation 47.9 fL (36.4-46.3); Red Blood Count 3.73 M/uL (4.20-5.40); White Blood Count 7.61 K/ul (4.8-10.8)
[2024-02-07] MEDS: ONDANSETRON INJ 2 MG/ML 2 ML VIAL IV STA (11:24)
[2024-02-07] MEDS: MoRPHine SULFATE 4 MG/ML 1 ML CARP\\VIAL IV STA (11:24)
[2024-02-07] MEDS: SODIUM CHLORIDE 0.9% 500 ML IV ONE (11:30)
--- NOTE | 2024-02-07 11:31 | Emergency Department Note ---
Impression & Plan Myalgia ADMIT ED Provider Note HPI: History obtained from patient The patient is a 73-year-old female with history of breast cancer and bladder cancer, status post bladder removal at [facility] now with ileal conduit, presents the emergency department the chief complaint of bilateral arm pain and leg pain. Patient states her pain seems to be worsening over about the past month. Patient states she feels pain in her muscles in the bilateral arms every time she moves them she also feels pain in the right lower extremity mostly near her hip and thigh. Patient denies any traumatic injuries but states the pain in her leg is getting to the point where she does not feel that she can walk very well anymore. Patient states that she has been on Opdivo immunotherapy for her history of multiple cancers. She states that this is a known side effect of the medication and fears that she might be suffering musculoskeletal pain from her immunotherapy. Patient is hemodynamically stable on arrival, she overall appears nontoxic but states with movement she does get severe pain in her extremities. ROS: - Per HPI Differential Diagnosis: Rhabdomyolysis, myositis secondary to drug reaction/side effect, musculoskeletal pain secondary to drug reaction/side effect, pathologic fracture of the right hip, DVT, amongst other potential pathologies. *Outpatient medications and allergy history reviewed. PE: General: Alert, no acute distress HEENT: Normocephalic, trachea midline Eyes: Extraocular eye movement is intact, no scleral erythema Pulmonary: Clear to auscultation bilaterally, no wheezing Cardio: Regular rate and rhythm GI: Abdomen is soft to palpation : No suprapubic tenderness MSK: No evidence of trauma or malformation of the extremities, no edema Skin: No evidence of rash, port to left upper chest appears without any surrounding erythema Neuro: Alert, no focal deficits, limited range of motion of the right hip secondary to pain with movement, patient has equal bilateral vehicle painter strength in the upper extremities Psychiatric: Cooperative INDEPENDENT INTERPRETATIONS: library monitor: (As interpreted by myself): - An order was placed for continuous cardiac monitoring - Patient was noted to be in sinus rhythm with a rate of 80 EKG: (As interpreted by myself): Rate: 68 Rhythm: Normal sinus rhythm Intervals: Within normal limits ST changes: No ST elevation Time: 1203 Chest x-ray: (As interpreted by myself): No acute disease Interventions provided in ED: -IV morphine, IV Zofran, IV fluid bolus, IV Decadron Medical Decision Making: IV was established and lab work obtained, patient was placed on cardiac surgeon. Lab work shows no leukocytosis, hemoglobin is stable at 11.7, platelet count is normal, CMP does not show any critical findings, baseline chronic kidney disease, troponin is negative x 1. Total creatinine kinase level is within normal limits. Patient was given IV fluids as well as IV morphine and IV Zofran for her symptoms. X-ray imaging of the chest does not show any evidence of acute disease per my interpretation. X-ray imaging of the right hip and right femur does not show any evidence of pathologic fracture. Ultrasound imaging of the right lower extremity does not show any evidence of DVT. I did discuss the patient's presentation with on-call hematology/oncology, Dr. Lowery, who does follow with the patient in the office. She states it is possible that these side effects are all secondary to the Opdivo. She recommends initiation of high-dose steroids, patient was therefore given a dose of IV Decadron here in the ED. Patient is unable to ambulate, I did discuss outpatient options versus inpatient admission with the patient and she feels more comfortable with inpatient admission as she states she is still having pain and she cannot ambulate at home. Patient seems to have difficulty moving her right lower extremity secondary to pain as well as her bilateral upper extremities. I do not feel this is consistent with an acute neurologic event such as stroke. Favoring more musculoskeletal pain secondary to her immunotherapy. Case was discussed with the on-call hospitalist for [facility], Dr. Cameron, and the patient was placed for admission in stable condition for further care. Consultants/Discussions held with other healthcare providers: -Hospitalist, Dr. Cameron Disposition discussion held by myself with: -Patient Diagnosis: 1. Musculoskeletal pain secondary to prescription medication/immunotherapy, acute 2. Ambulatory dysfunction, acute 3. Right lower extremity pain, acute 4. Chronic kidney disease Disposition: Admission Raza Delatorre DO Emergency Medicine Past Med/Surg History Medical History (Updated 02/07/24 @ 18:56 by Raza Delatorre DO) Chronic kidney disease, stage 3a Rupture of implant of right breast Immunotherapy History of phlebitis Presence of urostomy Bladder cancer dx'd 2021. hx chemo + surgery. Immunotherapy q28d. 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 Morbid obesity Acquired lymphedema LUE Emphysema of lung COPD with emphysema Degenerative disc disease Kidney stones no surgical intervention needed GERD (gastroesophageal reflux disease) controlled, stable per pt Anxiety and depression Hx of iron deficiency last iron infusion 2018 Restless leg syndrome Hx of migraines Former tobacco use Herniated disc thoracic Aortic aneurysm Dr. Mo monitoring Sleep apnea did not tolerate CPAP (caused cough) Pre-diabetes diet controlled Thoracic ascending aortic aneurysm last echo done 07/2023 - follows w/ dr barber Hyperlipidemia Osteoporosis Hypothyroid HTN (hypertension) controlled, stable per pt Breast cancer dx 2006 (left) and 2020 (right) s/p chemo and bilat mastectomies Endocarditis hx 15+ years ago (in setting of pyelonephritis and sepsis) Asthma stable> no inhalers Surgical History (Updated 02/07/24 @ 16:41 by Clayton Conner PA-C) H/O bilateral mastectomy Hx of left cataract extraction History of arthroscopy of right knee History of total cystectomy Port-A-Cath in place (08/04/22) Insertion Access Port with Fluoroscopy (Left Subclavian)(Left) - Frantz Mayo, powerport S/P sclerotherapy of varicose veins H/O right mastectomy (12/08/19) Right Breast Mastectomy with Right [place] Lymph Node Biopsy,(Right) - Frantz Mayo DO 12/08/2019 s Mediport Removal - rFantz Mayo, DO s First Stage Immediate Right Breast Reconstruction with Right Tissue Turkey Boner and Right Acellular Dermal Matrix(Right) - Sri Casillas MD: Grade 1 view, MAC 3, ETT 7.5. Removal 05/24/21: Grade 1 view, Stephen 2, ETT 7 atraumatic x 1. Hx of hand surgery right thumb tendon repair History of surgery on arm bialt, Brachioplasty with liposuction H/O abdominal surgery naval removal (d/t infection) History of appendectomy History of esophagogastroduodenoscopy (EGD) History of tooth extraction History of transesophageal echocardiography (JOSE) History of vascular access device since removed S/P gastric bypass 1991, 1993 History of breast reconstruction Left (03/2010), implant exchange (01/2011), right mastopexy History of tubal ligation History of colonoscopy History of cholecystectomy H/O left mastectomy S/P partial hysterectomy Family History Mother Myocardial infarction Breast cancer Diabetes ESRD (end stage renal disease) on dialysis Aunt Breast cancer Unknown Skin cancer Father Myocardial infarction Coronary heart disease Daughter Diabetes Daughter No problems noted. Other No significant family history Denies family history of Ovarian cancer Prostate cancer Colorectal cancer Social History (Updated 12/13/23 @ 09:01 by Romina Reyes LPN) Smoking Status: Never smoker Tobacco Type: Cigarettes Cigarettes Per Day: 2-3 ppd at times in the past, started as a teen; Second Hand Exposure: No; Do You Dip or Chew Tobacco: No; Hx Alcohol Use: Yes Alcohol type: wine Alcohol Intake Frequency: Monthly or Less Hx Substance Use: No Preferred Language: Mozambican Communication Ability: Effective Visual Impairment: No Limitations Hearing Ability: Normal Windows Desktop Engineer Required: No Beliefs That Will Affect Care: None marital status: / Current Living Situation: Alone current occupational status: other current occupation: [employer] How many Children do You have: 4 How many Children do You have Comment: 2 children ; 1 living daughter, 1 living son Feels Safe at Home: Yes Childhood Exposure to Second-Hand Smoke: Yes Diet: regular caffeine: Yes Dental Care, Regularly: No Physical Activity Frequency: Does not Exercise Seatbelt Use: always Sunscreen Use: Yes Assistive Devices: Denture - Upper, Denture - Lower and Glasses Allergies Allergies Allergy/AdvReac Type Severity Reaction Status Date / Time docetaxel Allergy Severe chest Verified 12/20/23 10:50 pain, dyspnea adhesive Allergy Intermediate skin Verified 12/20/23 10:50 blisters atorvastatin Allergy Intermediate foot/leg Verified 12/20/23 10:50 swelling, nausea fluoxetine Allergy Intermediate gastrointestinal Verified 12/20/23 10:50 upset losartan Allergy Intermediate unsure Verified 12/20/23 10:50 (lethargy or leg swelling) silver sulfadiazine Allergy Intermediate worsening Verified 12/20/23 10:50 burning alendronate sodium Allergy Unknown unknown Verified 12/20/23 10:50 reaction albuterol AdvReac Intermediate nightmare Verified 12/20/23 10:50 cetirizine [From Zyrtec] AdvReac Mild drowsiness Verified 12/20/23 10:50 ibandronate sodium AdvReac Unknown unknown Verified 12/20/23 10:50 [From Boniva] reaction ibuprofen AdvReac Unknown advised to Verified 12/20/23 10:50 avoid (caused slight kidney damage) fluticasone [From Flonase] AdvReac nosebleed Verified 12/20/23 10:50 Home Meds Home Medications Medication Instructions Recorded Confirmed diphenhydramine HCl 25 mg capsule 25 mg PO DIRECTED PRN Allergy 06/03/19 02/07/24 (Benadryl) Symptoms acetaminophen 500 mg capsule 500 mg PO Q6H PRN Pain 08/29/19 02/07/24 cholecalciferol (vitamin D3) 125 125 mcg PO QAM 05/18/21 02/07/24 mcg (5,000 unit) tablet (Vitamin D3) cyanocobalamin (vitamin B-12) 1,000 mcg IM MONTHLY 02/07/22 02/07/24 1,000 mcg/mL injection kit loperamide 2 mg tablet 2 mg PO DIRECTED PRN Diarrhea 09/19/22 02/07/24 ondansetron HCl 8 mg tablet 8 mg PO Q8 PRN nausea/vomiting 09/19/22 02/07/24 famotidine 20 mg tablet (Pepcid) 20 mg PO DAILY PRN gerd 01/17/23 02/07/24 Compazine 1 dose PO UD PRN Nausea 08/23/23 02/07/24 Opdivo 1 dose IV Q28D 08/23/23 02/07/24 Previous Rx's Medication Instructions Recorded candesartan 16 mg tablet (Atacand) 16 mg PO QAM 90 days #90 tabs 06/04/23 venlafaxine 150 mg 150 mg PO QAM #90 caps 06/04/23 capsule,extended release 24 hr (Effexor XR) levothyroxine 75 mcg tablet 75 mcg PO DAILY #90 tabs 11/12/23 Results & Data (ED) Vital Signs Vital Signs - 24 hr 02/07/24 10:27 02/07/24 16:56 Temperature 36.5 C Temperature Source Temporal Artery Scan Pulse Rate 82 Pulse Rate [Finger] 76 Respiratory Rate 16 17 Respiratory Effort / Characteristics Non-Labored Spontaneous Respiratory Depth Normal Respiratory Pattern Regular Blood Pressure 98/65 L Blood Pressure [Right Arm] 114/64 Blood Pressure Mean 76 Blood Pressure Mean [Right Arm] 80 Pulse Oximetry 99 92 Oxygen Delivery Method Room Air Sepsis Recent Fever Within 48 Hours No Sepsis New/Unexplained Change in Mental Status No Sepsis Action Taken by Nursing No Action Required Laboratory Data 02/07/24 11:00 02/07/24 11:00 Lab Results 02/07/24 Range/Units 11:00 WBC 7.61 (4.8-10.8) K/ul RBC 3.73 L (4.20-5.40) M/uL Hgb 11.7 L (12.0-16.0) g/dl Hct 36.5 L (37.0-47.0) % MCV 97.9 (80.0-100.0) fL MCH 31.4 (25.0-34.0) pg MCHC 32.1 (32.0-36.0) g/dL RDW Std Deviation 47.9 H (36.4-46.3) fL RDW Coeff of Jerry 13.4 (11.5-14.5) % Plt Count 215 (130-400) K/uL MPV 10.3 (9.4-12.4) fL Immature Gran % (Auto) 0.4 % Neut % (Auto) 61.6 % Lymph % (Auto) 26.4 % Charles % (Auto) 8.4 % Eos % (Auto) 2.5 % Baso % (Auto) 0.7 % Neut # (Auto) 4.69 (1.40-6.50) K/uL Lymph # (Auto) 2.01 (1.20-3.40) K/uL Charles # (Auto) 0.64 H (0.11-0.59) K/uL Eos # (Auto) 0.19 (0.00-0.50) K/uL Baso # (Auto) 0.05 (0.00-0.20) K/uL Immature Gran # (Auto) 0.03 (0.01-0.20) K/uL Sodium 136 (136-145) mmol/L Potassium 4.8 (3.5-5.1) mmol/L Chloride 110 H (98-107) mmol/L Carbon Dioxide 20 L (21-32) mmol/L Anion Gap 6 (3-11) BUN 44 H (6-23) mg/dl Creatinine 1.41 H (0.6-1.2) mg/dl Est Cr Clr Drug Dosing Not Reportable Est GFR ( Amer) 42.1 ml/min Est GFR (Non-Af Amer) 36.3 ml/min BUN/Creatinine Ratio 31.2 H (10-20) Glucose 108 H (70-99(Fasting)) mg/dl Calcium 8.9 (8.6-10.3) mg/dl Magnesium 2.0 (1.7-2.4) mg/dl Total Bilirubin 0.4 (0.2-1.0) mg/dl AST 11 L (13-39) U/L ALT 8 (7-52) U/L Alkaline Phosphatase 107 H (34-104) U/L Total Creatine Kinase 53 (26-192) U/L Troponin I High Sens 5.2 (0-14) pg/ml C-Reactive Protein 3.03 H (0-0.5) mg/dl Total Protein 7.0 (6.0-8.3) gm/dl Albumin 4.0 (3.4-5.0) gm/dl Globulin 3.0 (2.5-4.0) gm/dl Albumin/Globulin Ratio 1.3 (0.9-2) Administered Medications Discontinued Medications Dexamethasone Sodium Phosphate (DexamethasonePf 10 Mg/Ml Vial) 10 mg IV NOW ONE Stop: 02/07/24 12:53 Last Admin: 02/07/24 13:10 Dose: 10 mg Documented By: MAAME Sodium Chloride (Nss) 500 mls @ 999 mls/hr IV .Q31M ONE Stop: 02/07/24 11:48 Last Infusion: 02/07/24 12:01 Dose: Infused Documented By: Admin: 02/07/24 11:30 Dose: 999 mls/hr Documented By: RUPA Morphine Sulfate (Morphine Sulfate 4 Mg/Ml 1 Ml Carp\Vial) 4 mg IV NOW STA Stop: 02/07/24 11:19 Last Admin: 02/07/24 11:24 Dose: 4 mg Documented By: RUPA Ondansetron HCl (Ondansetron Inj 2 Mg/Ml 2 Ml Vial) 4 mg IV NOW STA Stop: 02/07/24 11:19 Last Admin: 02/07/24 11:24 Dose: 4 mg Documented By: ARS Imaging Data Radiologist's Impression: Chest X-Ray 02/07/24 11:17 XR chest 1V not portable CLINICAL HISTORY: Fall. Chest pain. COMPARISON STUDY: Chest radiograph May 18, 2023. Chest CT October 03, 2023. FINDINGS: Left subclavian [id number] is unchanged in position. Cardiomegaly is unchanged. There is no evidence for pulmonary edema. No pneumothorax or pleural effusion is identified. There are no airspace opacities. The appearance of the chest is unchanged. IMPRESSION: No acute cardiopulmonary findings. ACT 112: Negative or not required by law. Electronically signed by: Peña Alanis M.D. 02/07/2024 12:24 PM Femur X-Ray 02/07/24 11:17 XR femur RT 2V routine CLINICAL HISTORY: atraumatic pain COMPARISON: Right knee radiographs November 10, 2022. CT of the abdomen and pelvis October 03, 2023. FINDINGS: Alignment of the right hip and knee is anatomic. There is no fracture or osseous lesion within the right femur. Mild right hip osteoarthritis is present. There are right groin surgical clips. Mild patellofemoral compartment osteophytes. IMPRESSION: 1. No fractures within the right femur. 2. Mild right hip and knee osteoarthritis. ACT 112: Negative or not required by law. Electronically signed by: Peña Alanis M.D. 02/07/2024 12:19 PM Hip X-Ray 02/07/24 11:17 XR hip RT min 2V CLINICAL HISTORY: hip pain, hx CA,. Fall. Right femur pain. COMPARISON STUDY: Abdomen and pelvis CT 10/03/2023. FINDINGS: No acute fracture or dislocation within the right hip. The visualized pelvic bones are intact. Surgical clips are seen within the right lower quadrant/groin. Mild osteoarthritis within the right hip. Soft tissues are unremarkable. IMPRESSION: No fracture or dislocation within the right hip. ACT 112: Negative or not required by law. Electronically signed by: Clayton Mora M.D. 02/07/2024 12:13 PM Venous Doppler Study 02/07/24 11:19 RIGHT LOWER EXTREMITY VENOUS DOPPLER HISTORY: Right leg pain COMPARISON STUDY: None. FINDINGS: There is normal compressibility, flow, and augmentation within the right lower extremity deep venous system. There is a small popliteal cyst measuring 35 x 19 x 7 mm. IMPRESSION: No DVT within the right lower extremity ACT 112: Negative or not required by law. Electronically signed by: Clayton Mora M.D. 02/07/2024 1:54 PM Discharge Plan Visit Data Chief Complaint: Pain (Generalized) Stated Complaint: PAIN IN ARMS AND RIGHT LEG, [facility]F [facility] Provider: Raza Delatorre Discharge Problem: Myalgia Forms Stand Alone Forms: [facility] Prescriptions Prescriptions: No Action acetaminophen 500 mg capsule 500 mg PO Q6H PRN (Reason: Pain) Rx Instructions: otc, not able to verify with pharmacy 02/07/24 venlafaxine [Effexor XR] 150 mg capsule,extended release 24hr 150 mg PO QAM Qty: 90 3RF candesartan [Atacand] 16 mg tablet 16 mg PO QAM 90 Days Qty: 90 3RF levothyroxine 75 mcg tablet 75 mcg PO DAILY Qty: 90 3RF diphenhydramine HCl [Benadryl] 25 mg capsule 25 mg PO DIRECTED PRN (Reason: Allergy Symptoms) Rx Instructions: otc, not able to verify with pharmacy 02/07/24 famotidine [Pepcid] 20 mg tablet 20 mg PO DAILY PRN (Reason: gerd) cyanocobalamin (vitamin B-12) 1,000 mcg/mL Kit 1,000 mcg IM MONTHLY Rx Instructions: not on file with pharmacy ondansetron HCl 8 mg tablet 8 mg PO Q8 PRN (Reason: nausea/vomiting) Rx Instructions: not able to verify loperamide 2 mg Tablet 2 mg PO DIRECTED PRN (Reason: Diarrhea) Rx Instructions: not able to verify cholecalciferol (vitamin D3) [Vitamin D3] 125 mcg (5,000 unit) Tablet 125 mcg PO QAM Rx Instructions: otc, not able to verify with pharmacy 02/07/24 Compazine 1 dose PO UD PRN (Reason: Nausea) Rx Instructions: prescription Opdivo 1 dose IV Q28D Rx Instructions: not able to verify 02/07/24 Referrals Referrals: Enoch Aguilar MD [Primary Care Provider] -
[2024-02-07 11:38] LABS: Alanine Aminotransferase 8 U/L (7-52); Albumin Globulin Ratio 1.3 (0.9-2); Alkaline Phosphatase 107 U/L (34-104); Anion Gap 6 (3-11); Aspartate Aminotransferase 11 U/L (13-39); BUN Creatinine Ratio 31.2 (10-20); Bilirubin,Total 0.4 mg/dl (0.2-1.0); Blood Urea Nitrogen 44 mg/dl (6-23); Calcium 8.9 mg/dl (8.6-10.3); Carbon Dioxide 20 mmol/L (21-32); Chloride 110 mmol/L (98-107); Creatine Kinase 53 U/L (26-192); Est GFR (African American) 42.1 ml/min; Est GFR (Non-African American) 36.3 ml/min; Glucose 108 mg/dl (70-99(Fasting)); Potassium 4.8 mmol/L (3.5-5.1); Sodium 136 mmol/L (136-145)
[2024-02-07 11:44] LABS: Troponin I High Sensitivity 5.2 pg/ml (0-14)
--- NOTE | 2024-02-07 12:15 | XRay Report ---
XR hip RT min 2V CLINICAL HISTORY: hip pain, hx CA,. Fall. Right femur pain. COMPARISON STUDY: Abdomen and pelvis CT 10/03/2023. FINDINGS: No acute fracture or dislocation within the right hip. The visualized pelvic bones are inta ct. Surgical clips are seen within the right lower quadrant/groin. Mild osteoarthritis within the rig ht hip. Soft tissues are unremarkable. IMPRESSION: No fracture or dislocation within the right hip. ACT 112: Negative or not required by law. Electronically signed by: Clayton Mora M.D. 02/07/2024 12:13 PM
--- NOTE | 2024-02-07 12:21 | XRay Report ---
XR femur RT 2V routine CLINICAL HISTORY: atraumatic pain COMPARISON: Right knee radiographs November 10, 2022. CT of the abdomen and pelvis October 03, 2023. FINDINGS: Alignment of the right hip and knee is anatomic. There is no fracture or osseous lesion wi thin the right femur. Mild right hip osteoarthritis is present. There are right groin surgical clips. Mild patellofemoral compartment osteophytes. IMPRESSION: 1. No fractures within the right femur. 2. Mild right hip and knee osteoarthritis. ACT 112: Negative or not required by law. Electronically signed by: Peña Alanis M.D. 02/07/2024 12:19 PM
--- NOTE | 2024-02-07 12:25 | XRay Report ---
XR chest 1V not portable CLINICAL HISTORY: Fall. Chest pain. COMPARISON STUDY: Chest radiograph May 18, 2023. Chest CT October 03, 2023. FINDINGS: Left subclavian [id number] is unchanged in position. Cardiomegaly is unchanged. There is no evidence for pulmonary edema. No pneumothorax or pleural effusion is identified. There are no air space opacities. The appearance of the chest is unchanged. IMPRESSION: No acute cardiopulmonary findings. ACT 112: Negative or not required by law. Electronically signed by: Peña Alanis M.D. 02/07/2024 12:24 PM
[2024-02-07] MEDS: dexAMETHasone**PF** 10 MG/ML VIAL IV ONE (13:10)
--- NOTE | 2024-02-07 13:56 | Ultrasound Report ---
RIGHT LOWER EXTREMITY VENOUS DOPPLER HISTORY: Right leg pain COMPARISON STUDY: None. FINDINGS: There is normal compressibility, flow, and augmentation within the right lower extremity de ep venous system. There is a small popliteal cyst measuring 35 x 19 x 7 mm. IMPRESSION: No DVT within the right lower extremity ACT 112: Negative or not required by law. Electronically signed by: Clayton Mora M.D. 02/07/2024 1:54 PM
--- NOTE | 2024-02-07 15:45 | History & Physical Report ---
Date of Service February 07, 2024 Assessment & Plan (1) Myalgia: Plan: Proximal, bilateral UE pain x 1 month Upper right leg pain x 1 week Acute worsening of both last night involving ambulatory dysfunction CRP, ESR ordered, pending Venous Doppler revealed no DVT within the RLE Right hip x-ray revealed no acute fracture or dislocation Right femur x-ray revealed mild right hip and right knee osteoarthritis Acetaminophen as needed for mild pain Prednisone 1mg/kg; weight ordered; based on previous weights, will start on Prednisone 45 mg BID Oncology consulted (may need bone scan) A.m. 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 may be the culprit for her myalgias Oncology consulted (3) Chronic kidney disease, stage 3b: Plan: BUN 44, creatinine 1.41 (around baseline), EGFR 36.3 Avoid nephrotoxic agents (4) Sleep apnea: Plan: Patient did not tolerate CPAP in the past (5) H/O bilateral mastectomy: Plan: No blood draws and either extremity Patient has a port placed (6) Depression: Plan: Continue venlafaxine (7) Hypothyroid: Plan: Continue levothyroxine Plan Disposition: Admit to [facility] Full code Regular diet with protein supplementation VTE PPx: Heparin 5000u SQ q12h History of Present Illness Chief Complaint: Pain (generalized) Primary Care Provider: Enoch Aguilar MD Jazmyn is a 73-year-old female with PMH of bilateral mastectomy, bladder cancer, LOIS, HLD, osteoporosis, hypothyroidism, HTN, depression, PTSD, and CKD stage IIIa. She presented for an acute worsening of upper extremity and right lower extremity pain the evening of 02/05. The pain in her bilateral, proximal upper extremities has been constant x 1 month. However the pain was so bad this morn ing that she could not "squeeze her fingers together into a fist". Described as dull and achy pain in the proximal upper extremities; worse with movements; and feels like "muscles are coming off the bone". The pain is only a 2/10 without movement, but movement exacerbates symptoms. Patient has tried to take Tylenol for the pain, but this does not help. The pain in her upper right leg has only been going on x 1 week, but it is severely limited her mobility; ambulatory dysfunction; worse with movement and an acute worsening last night. The pain is located in her right upper leg and groin region. She has not been able to use any ambulatory assist devices because of her arm pain. No recent falls, trauma, or injuries to the extremities. No sick contacts. She denies alcohol, smoking, and tobacco use. Patient reports that she took all of her regular morning medications, and that there have been no recent change in medications. She has been on Opdivo x 10 months for her known bladder cancer; it has been noted that myalgias are a common side effect of Opdivo, but she notes that she has only had itching prior to the development of these myalgias. Patient is mildly hypotensive at 98/65 at time of admission; vitals otherwise stable. ED course: NSS 500 mL IV Morphine 4 mg IV Zofran 4 mg IV Decadron 10 mg IV ROS: Patient endorses UE pain, Right leg pain, ALVAREZ x 1 day last week (resolved), hill in vision in left eye (blurry vision in right eye x 2 weeks; cataract surgery in September 2023), GARRIDO (chronic), dry cough from GERD Patient denies Left leg pain, fever, chills, night-sweats, dizziness/lightheadedness, loss of vision, photophobia, chest pain, SOB at rest, chest palpitations, abdominal pain, N/V/D, burning sensation with urination, or numbness/tingling in legs or arms. Allergies Allergy/AdvReac Type Severity Reaction Status Date / Time docetaxel Allergy Severe chest Verified 12/20/23 10:50 pain, dyspnea adhesive Allergy Intermediate skin Verified 12/20/23 10:50 blisters atorvastatin Allergy Intermediate foot/leg Verified 12/20/23 10:50 swelling, nausea fluoxetine Allergy Intermediate gastrointestinal Verified 12/20/23 10:50 upset losartan Allergy Intermediate unsure Verified 12/20/23 10:50 (lethargy or leg swelling) silver sulfadiazine Allergy Intermediate worsening Verified 12/20/23 10:50 burning alendronate sodium Allergy Unknown unknown Verified 12/20/23 10:50 reaction albuterol AdvReac Intermediate nightmare Verified 12/20/23 10:50 cetirizine [From Zyrtec] AdvReac Mild drowsiness Verified 12/20/23 10:50 ibandronate sodium AdvReac Unknown unknown Verified 12/20/23 10:50 [From Boniva] reaction ibuprofen AdvReac Unknown advised to Verified 12/20/23 10:50 avoid (caused slight kidney damage) fluticasone [From Flonase] AdvReac nosebleed Verified 12/20/23 10:50 Home Medications Medication Instructions Recorded Confirmed Type diphenhydramine HCl 25 mg capsule 25 mg PO DIRECTED PRN Allergy 06/03/19 02/07/24 History (Benadryl) Symptoms acetaminophen 500 mg capsule 500 mg PO Q6H PRN Pain 08/29/19 02/07/24 History cholecalciferol (vitamin D3) 125 125 mcg PO QAM 05/18/21 02/07/24 History mcg (5,000 unit) tablet (Vitamin D3) cyanocobalamin (vitamin B-12) 1,000 mcg IM MONTHLY 02/07/22 02/07/24 History 1,000 mcg/mL injection kit loperamide 2 mg tablet 2 mg PO DIRECTED PRN Diarrhea 09/19/22 02/07/24 History ondansetron HCl 8 mg tablet 8 mg PO Q8 PRN nausea/vomiting 09/19/22 02/07/24 History famotidine 20 mg tablet (Pepcid) 20 mg PO DAILY PRN gerd 01/17/23 02/07/24 History candesartan 16 mg tablet (Atacand) 16 mg PO QAM 90 days #90 tabs 06/04/23 02/07/24 Rx venlafaxine 150 mg 150 mg PO QAM #90 caps 06/04/23 02/07/24 Rx capsule,extended release 24 hr (Effexor XR) Compazine 1 dose PO UD PRN Nausea 08/23/23 02/07/24 History Opdivo 1 dose IV Q28D 08/23/23 02/07/24 History levothyroxine 75 mcg tablet 75 mcg PO DAILY #90 tabs 11/12/23 02/07/24 Rx Past Med/Surg History Medical History (Updated 02/07/24 @ 18:56 by Raza Delatorre DO) Chronic kidney disease, stage 3a Rupture of implant of right breast Immunotherapy History of phlebitis Presence of urostomy Bladder cancer dx'd 2021. hx chemo + surgery. Immunotherapy q28d. 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 Morbid obesity Acquired lymphedema LUE Emphysema of lung COPD with emphysema Degenerative disc disease Kidney stones no surgical intervention needed GERD (gastroesophageal reflux disease) controlled, stable per pt Anxiety and depression Hx of iron deficiency last iron infusion 2018 Restless leg syndrome Hx of migraines Former tobacco use Herniated disc thoracic Aortic aneurysm Dr. Mo monitoring Sleep apnea did not tolerate CPAP (caused cough) Pre-diabetes diet controlled Thoracic ascending aortic aneurysm last echo done 07/2023 - follows w/ dr barber Hyperlipidemia Osteoporosis Hypothyroid HTN (hypertension) controlled, stable per pt Breast cancer dx 2006 (left) and 2020 (right) s/p chemo and bilat mastectomies Endocarditis hx 15+ years ago (in setting of pyelonephritis and sepsis) Asthma stable> no inhalers Surgical History (Updated 02/07/24 @ 16:41 by Clayton Conner PA-C) H/O bilateral mastectomy Hx of left cataract extraction History of arthroscopy of right knee History of total cystectomy Port-A-Cath in place (08/04/22) Insertion Access Port with Fluoroscopy (Left Subclavian)(Left) - Frantz Mayo, powerport S/P sclerotherapy of varicose veins H/O right mastectomy (12/08/19) Right Breast Mastectomy with Right [place] Lymph Node Biopsy,(Right) - Sandeep Mayo DO 12/08/2019 s Mediport Removal - Frantz Mayo, s First Stage Immediate Right Breast Reconstruction with Right Tissue Environmental Marketer and Right Acellular Dermal Matrix(Right) - Sri Casillas MD: Grade 1 view, MAC 3, ETT 7.5. Removal 05/24/21: Grade 1 view, Stephen 2, ETT 7 atraumatic x 1. Hx of hand surgery right thumb tendon repair History of surgery on arm bialt, Brachioplasty with liposuction H/O abdominal surgery naval removal (d/t infection) History of appendectomy History of esophagogastroduodenoscopy (EGD) History of tooth extraction History of transesophageal echocardiography (JOSE) History of vascular access device since removed S/P gastric bypass 1991, 1993 History of breast reconstruction Left (03/2010), implant exchange (01/2011), right mastopexy History of tubal ligation History of colonoscopy History of cholecystectomy H/O left mastectomy S/P partial hysterectomy Family History Mother Myocardial infarction Breast cancer Diabetes ESRD (end stage renal disease) on dialysis Aunt Breast cancer Unknown Skin cancer Father Myocardial infarction Coronary heart disease Daughter Diabetes Daughter No problems noted. Other No significant family history Denies family history of Ovarian cancer Prostate cancer Colorectal cancer Social History (Updated 12/13/23 @ 09:01 by Romina Reyes LPN) Smoking Status: Never smoker Tobacco Type: Cigarettes Cigarettes Per Day: 2-3 ppd at times in the past, started as a teen; Second Hand Exposure: No; Do You Dip or Chew Tobacco: No; Hx Alcohol Use: No Hx Substance Use: No Preferred Language: Welsh Communication Ability: Effective Visual Impairment: No Limitations Hearing Ability: Normal Automobile Rental Agent Required: No Beliefs That Will Affect Care: None marital status: / Current Living Situation: Alone current occupational status: other current occupation: [employer] How many Children do You have: 4 How many Children do You have Comment: 2 children ; 1 living daughter, 1 living son Feels Safe at Home: Yes Safety Concerns: Feels Safe At This Time Childhood Exposure to Second-Hand Smoke: Yes Diet: regular caffeine: Yes Dental Care, Regularly: No Physical Activity Frequency: Does not Exercise Seatbelt Use: always Sunscreen Use: Yes Assistive Devices: Denture - Upper, Denture - Lower and Glasses Review of Systems Review of Systems: See HPI above Physical Exam Physical Exam: General: no acute distress; acute physical upper extremity and RLE pain with movement; lethargic; non-toxic appearing; well-nourished; cooperative; 95% SpO2 on RA HEENT: normocephalic, atraumatic; no scleral icterus; PERRLA w/ EOMs intact; moist mucus membrane; vision and hearing grossly intact Neck: supple; no JVD; no lymphadenopathy; trachea midline; patient demonstrates ability to shrug shoulders against resistance without pain Skin: warm, dry without signs of tenting; no cyanosis; no rashes, bruising, lesions, or erythema noted CV: S/p L mastectomy; her port on her left upper chest wall is without signs of drainage, erythema, or infection; chest wall NTP; RRR; S1/S2 normal; no murmurs/rubs/gallops; pulses intact and symmetric at radial, DP, and PT Lungs: no acute respiratory distress; symmetrical chest wall expansion; clear breath sounds across all lung fontanez w/o adventitious sounds; no wheezing ABD: RLQ ileal conduit/urostomy bag draining clear urine; abdominal wall soft, NTP; BS present; no rebound/guarding; moderate distention secondary to body habitus MSK: no tics or fasciculations; no edema noted in the LEs b/l, nonerythematous; patient demonstrates ability little toes bilaterally; 5/5 machine hamper maker strength bilaterally RLE: Cold to touch, neurovascular intact, difficulty with lifting leg off the bed lying supine (1/5 strength) LLE: Warm to touch, neurovascular intact, 4/5 strength when lifting of the bed Neuro: A&Ox3; normal mood and affect; fluent speech; sensation grossly intact in the LEs b/l Results & Data Results & Data Vital Signs (Past 12 Hours) Vital Signs Temp Pulse Resp BP Pulse Ox 02/07/24 10:27 36.5 C 82 16 98/65 L 99 Laboratory Results Abnormal lab results 02/07/24 Range/Units 11:00 RBC 3.73 L (4.20-5.40) M/uL Hgb 11.7 L (12.0-16.0) g/dl Hct 36.5 L (37.0-47.0) % RDW Std Deviation 47.9 H (36.4-46.3) fL [place] # (Auto) 0.64 H (0.11-0.59) K/uL Chloride 110 H (98-107) mmol/L Carbon Dioxide 20 L (21-32) mmol/L BUN 44 H (6-23) mg/dl Creatinine 1.41 H (0.6-1.2) mg/dl BUN/Creatinine Ratio 31.2 H (10-20) Glucose 108 H (70-99(Fasting)) mg/dl AST 11 L (13-39) U/L Alkaline Phosphatase 107 H (34-104) U/L Diagnostic Findings Chest X-Ray 02/07/24 11:17 XR chest 1V not portable CLINICAL HISTORY: Fall. Chest pain. COMPARISON STUDY: Chest radiograph May 18, 2023. Chest CT October 03, 2023. FINDINGS: Left subclavian [id number] is unchanged in position. Cardiomegaly is unchanged. There is no evidence for pulmonary edema. No pneumothorax or pleural effusion is identified. There are no airspace opacities. The appearance of the chest is unchanged. IMPRESSION: No acute cardiopulmonary findings. ACT 112: Negative or not required by law. Electronically signed by: Peña Alanis M.D. 02/07/2024 12:24 PM Femur X-Ray 02/07/24 11:17 XR femur RT 2V routine CLINICAL HISTORY: atraumatic pain COMPARISON: Right knee radiographs November 10, 2022. CT of the abdomen and pelvis October 03, 2023. FINDINGS: Alignment of the right hip and knee is anatomic. There is no fracture or osseous lesion within the right femur. Mild right hip osteoarthritis is present. There are right groin surgical clips. Mild patellofemoral compartment osteophytes. IMPRESSION: 1. No fractures within the right femur. 2. Mild right hip and knee osteoarthritis. ACT 112: Negative or not required by law. Electronically signed by: Peña Alanis M.D. 02/07/2024 12:19 PM Hip X-Ray 02/07/24 11:17 XR hip RT min 2V CLINICAL HISTORY: hip pain, hx CA,. Fall. Right femur pain. COMPARISON STUDY: Abdomen and pelvis CT 10/03/2023. FINDINGS: No acute fracture or dislocation within the right hip. The visualized pelvic bones are intact. Surgical clips are seen within the right lower quadrant/groin. Mild osteoarthritis within the right hip. Soft tissues are unremarkable. IMPRESSION: No fracture or dislocation within the right hip. ACT 112: Negative or not required by law. Electronically signed by: Clayton Mora M.D. 02/07/2024 12:13 PM Venous Doppler Study 02/07/24 11:19 RIGHT LOWER EXTREMITY VENOUS DOPPLER HISTORY: Right leg pain COMPARISON STUDY: None. FINDINGS: There is normal compressibility, flow, and augmentation within the right lower extremity deep venous system. There is a small popliteal cyst measuring 35 x 19 x 7 mm. IMPRESSION: No DVT within the right lower extremity ACT 112: Negative or not required by law. Electronically signed by: Clayton Mora M.D. 02/07/2024 1:54 PM Code Status & VTE Plan Code Status Full code VTE Prophylaxis Plan VTE Prophylaxis will be ordered: Yes Supervising Physician Co-Signing Physician Notes Patient seen and examined, chart reviewed, case discussed with Clayton Conner and I agree with the assessment and plan as above except as otherwise noted Labs and images reviewed Treated with presents with myalgias and pain limited movement. History of invasive bladder cancer, suspected to have Opdivo related myalgias. Strength is pain limited, but appears neurologically intact. CK is normal. Case was discussed with oncology. Recommend initial 10 mg dexamethasone and then 1 mg/kg of prednisone. Ordered has prednisone split dosing. Agree with assessment and management above. Other medications continued as noted. Seen on floor on reassessment, feels she is having rapid improvement in pain with steroid tx. Stable, able to ambulate with and with p>50% pain improvement. PG Care Time/CCT Total # of Minutes Spent Total Time Spent with Patient: Total time spent is greater than 50% in coordination of care (as documented) at patient's floor/unit and/or counseling patient: Coding [place] [address] INT INP/OBS CARE 2/55MIN Patient Type Established Medical Decision Making Moderate Complexity Diagnoses Myalgia M79.10 Bladder cancer C67.9 Chronic kidney disease, stage 3b N18.32 Sleep apnea G47.30 H/O bilateral mastectomy Z90.13 Depression F32.9 Hypothyroid E03.9
[2024-02-07 16:56] LABS: C Reactive Protein 3.03 mg/dl (0-0.5)
[2024-02-07] MEDS ORDERED: FAMOTIDINE 20 MG TAB PO PRN (20:28)
[2024-02-07] MEDS ORDERED: ONDANSETRON INJ 2 MG/ML 2 ML VIAL IV PRN (20:28)
[2024-02-07] MEDS ORDERED: ACETAMINOPHEN 325 MG TAB PO PRN (20:28)
[2024-02-07] MEDS: LACTATED RINGER'S 1,000 ML IV SCH (21:15)
[2024-02-07] MEDS: predniSONE 10 MG TABLET PO SCH (21:16)
[2024-02-07] MEDS: HEPARIN SOD 5,000 UNIT/0.5 ML VIAL SQ SCH (21:17)
[2024-02-08] MEDS: LEVOTHYROXINE SODIUM 75 MCG TABLET PO SCH (05:27)
[2024-02-08 06:10] LABS: Basophils # (auto) 0.02 K/uL (0.00-0.20); Basophils % (auto) 0.2 %; Hematocrit (blood only) 34.1 % (37.0-47.0); Immature Granulocytes # (auto) 0.03 K/uL (0.01-0.20); Immature Granulocytes % (auto) 0.4 %; Lymphocytes # (auto) 1.69 K/uL (1.20-3.40); Lymphocytes % (auto) 19.8 %; Mean Corpuscular Hemoglobin 31.5 pg (25.0-34.0); Mean Corpuscular Hgb Conc 32.3 g/dL (32.0-36.0); Mean Corpuscular Volume 97.7 fL (80.0-100.0); Mean Platelet Volume 10.5 fL (9.4-12.4); Monocytes # (auto) 0.31 K/uL (0.11-0.59); Monocytes % (auto) 3.6 %; Platelet Count 207 K/uL (130-400); RDW Coefficient of Variation 13.4 % (11.5-14.5); RDW Standard Deviation 48.2 fL (36.4-46.3); Red Blood Count 3.49 M/uL (4.20-5.40); White Blood Count 8.55 K/ul (4.8-10.8)
[2024-02-08 06:26] LABS: BUN Creatinine Ratio 31.6 (10-20); C Reactive Protein 4.23 mg/dl (0-0.5); Calcium 8.7 mg/dl (8.6-10.3); Creatinine Clr Calc Pharmacy 37.3 ml/min; Potassium 5.4 mmol/L (3.5-5.1)
[2024-02-08] MEDS: VENLAFAXINE HCL XR 150 MG CAPXR PO SCH (08:22)
[2024-02-08 09:09] LABS: Troponin I High Sensitivity 5.7 pg/ml (0-14)
--- NOTE | 2024-02-08 09:25 | Oncology Consultation ---
Date of Consultation February 08, 2024 Assessment & Plan (1) Myalgia: (2) Bladder cancer: (3) History of immunotherapy: Plan - Myalgias likely due to nivolumab. Normal CK, troponin, AST/ALT levels not suggestive of myositis. Will however check aldolase level today to confirm. Clinical symptoms not suggestive of myasthenia gravis or GBS -Since symptoms have improved very rapidly with steroids, patient can be discharged home on prednisone 1 mg/kg/day. Will start taper in about 1 week if symptoms do not recur. Plan to taper by 10 mg weekly thereafter. Would recommend considering discharging home on PJP prophylaxis and PPI since she will remain on high-dose steroids for several weeks. -Will discontinue outpatient nivolumab. Plan to obtain restaging CT CAP and bone scan for surveillance purposes outpatient Thank you for this consult. Oncology will sign off at this time. Will schedule her for close follow-up in clinic within the next 1 to 2 weeks. Please feel free to call if you have any further questions. History of Present Illness Reason for Consultation: Myalgias on immunotherapy Attending Physician: Clemente Avila DO History of Present Illness 73-year-old female with history of left breast cancer diagnosed in 2005 s/p mastectomy, adjuvant chemotherapy and adjuvant tamoxifen. Also has a history of stage II muscle invasive bladder cancer for which she is s/p 4 cycles of neoadjuvant systemic therapy followed by anterior pelvic exenteration and creation of ileal conduit on 02/06/2023. She subsequently started adjuvant nivolumab on 03/21/2023. She received of nivolumab on cycle 11 out of planned 13 cycles of nivolumab on 01/04/2024 Presented to the ER at [facility] yesterday with worsening myalgias involving bilateral upper and lower extremities. Imaging obtained in the ER including chest x-ray, femur x-ray, hip x-ray and venous Doppler study were all unremarkable. Labs revealed slightly elevated ESR of 60, CRP of 3.03. Due to concern for immunotherapy related myalgia/myositis, recommended initiating steroids. She received dexamethasone 10 mg IV while in the ER and was subsequently started on prednisone 1 mg/kg/day. During my evaluation of patient today, she states that her symptoms of almost completely resolved. Pain is now 1 out of 10 instead of 10 out of 10. Indicates that prior to coming to the ER, she could barely move and had difficulty getting out of her car. Now feels like she is completely back to normal. Also states that pruritus has also completely resolved. Allergies Allergy/AdvReac Type Severity Reaction Status Date / Time docetaxel Allergy Severe chest Verified 12/20/23 10:50 pain, dyspnea adhesive Allergy Intermediate skin Verified 12/20/23 10:50 blisters atorvastatin Allergy Intermediate foot/leg Verified 12/20/23 10:50 swelling, nausea fluoxetine Allergy Intermediate gastrointestinal Verified 12/20/23 10:50 upset losartan Allergy Intermediate unsure Verified 12/20/23 10:50 (lethargy or leg swelling) silver sulfadiazine Allergy Intermediate worsening Verified 12/20/23 10:50 burning alendronate sodium Allergy Unknown unknown Verified 12/20/23 10:50 reaction albuterol AdvReac Intermediate nightmare Verified 12/20/23 10:50 cetirizine [From Zyrtec] AdvReac Mild drowsiness Verified 12/20/23 10:50 ibandronate sodium AdvReac Unknown unknown Verified 12/20/23 10:50 [From Boniva] reaction ibuprofen AdvReac Unknown advised to Verified 12/20/23 10:50 avoid (caused slight kidney damage) fluticasone [From Flonase] AdvReac nosebleed Verified 12/20/23 10:50 Home Medications Medication Instructions Recorded Confirmed Type diphenhydramine HCl 25 mg capsule 25 mg PO DIRECTED PRN Allergy 06/03/19 02/07/24 History (Benadryl) Symptoms acetaminophen 500 mg capsule 500 mg PO Q6H PRN Pain 08/29/19 02/07/24 History cholecalciferol (vitamin D3) 125 125 mcg PO QAM 05/18/21 02/07/24 History mcg (5,000 unit) tablet (Vitamin D3) cyanocobalamin (vitamin B-12) 1,000 mcg IM MONTHLY 02/07/22 02/07/24 History 1,000 mcg/mL injection kit loperamide 2 mg tablet 2 mg PO DIRECTED PRN Diarrhea 09/19/22 02/07/24 History ondansetron HCl 8 mg tablet 8 mg PO Q8 PRN nausea/vomiting 09/19/22 02/07/24 History famotidine 20 mg tablet (Pepcid) 20 mg PO DAILY PRN gerd 01/17/23 02/07/24 History candesartan 16 mg tablet (Atacand) 16 mg PO QAM 90 days #90 tabs 06/04/23 02/07/24 Rx venlafaxine 150 mg 150 mg PO QAM #90 caps 06/04/23 02/07/24 Rx capsule,extended release 24 hr (Effexor XR) Compazine 1 dose PO UD PRN Nausea 08/23/23 02/07/24 History Opdivo 1 dose IV Q28D 08/23/23 02/07/24 History levothyroxine 75 mcg tablet 75 mcg PO DAILY #90 tabs 11/12/23 02/07/24 Rx Patient History Medical History (Updated 02/08/24 @ 09:29 by Yvonne Lowery MD) Chronic kidney disease, stage 3a Rupture of implant of right breast Immunotherapy History of phlebitis Presence of urostomy Bladder cancer dx'd 2021. hx chemo + surgery. Immunotherapy q28d. 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 Morbid obesity Acquired lymphedema LUE Emphysema of lung COPD with emphysema Degenerative disc disease Kidney stones no surgical intervention needed GERD (gastroesophageal reflux disease) controlled, stable per pt Anxiety and depression Hx of iron deficiency last iron infusion 2018 Restless leg syndrome Hx of migraines Former tobacco use Herniated disc thoracic Aortic aneurysm Dr. Mo monitoring Sleep apnea did not tolerate CPAP (caused cough) Pre-diabetes diet controlled Thoracic ascending aortic aneurysm last echo done 07/2023 - follows w/ dr barber Hyperlipidemia Osteoporosis Hypothyroid HTN (hypertension) controlled, stable per pt Breast cancer dx 2006 (left) and 2020 (right) s/p chemo and bilat mastectomies Endocarditis hx 15+ years ago (in setting of pyelonephritis and sepsis) Asthma stable> no inhalers Surgical History (Updated 02/07/24 @ 16:41 by Clayton Conner PA-C) H/O bilateral mastectomy Hx of left cataract extraction History of arthroscopy of right knee History of total cystectomy Port-A-Cath in place (08/04/22) Insertion Access Port with Fluoroscopy (Left Subclavian)(Left) - Frantz D. Mayo, DO [employer]port S/P sclerotherapy of varicose veins H/O right mastectomy (12/08/19) Right Breast Mastectomy with Right [place] Lymph Node Biopsy,(Right) - Frantz Mayo DO 12/08/2019 s Mediport Removal - Frantz Mayo, DO s First Stage Immediate Right Breast Reconstruction with Right Tissue Glue Bone Drier and Right Acellular Dermal Matrix(Right) - Sri Casillas MD: Grade 1 view, MAC 3, ETT 7.5. Removal 05/24/21: Grade 1 view, Stephen 2, ETT 7 atraumatic x 1. Hx of hand surgery right thumb tendon repair History of surgery on arm bialt, Brachioplasty with liposuction H/O abdominal surgery naval removal (d/t infection) History of appendectomy History of esophagogastroduodenoscopy (EGD) History of tooth extraction History of transesophageal echocardiography (JOSE) History of vascular access device since removed S/P gastric bypass 1991, 1993 History of breast reconstruction Left (03/2010), implant exchange (01/2011), right mastopexy History of tubal ligation History of colonoscopy History of cholecystectomy H/O left mastectomy S/P partial hysterectomy Family History Mother Myocardial infarction Breast cancer Diabetes ESRD (end stage renal disease) on dialysis Aunt Breast cancer Unknown Skin cancer Father Myocardial infarction Coronary heart disease Daughter Diabetes Daughter No problems noted. 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 Required: No Beliefs That Will Affect Care: None marital status: / Current Living Situation: Alone current occupational status: other current occupation: [employer] at [employer] How many Children do You have: 4 How many Children do You have Comment: 2 children ; 1 living daughter, 1 living son Feels Safe at Home: Yes Safety Concerns: Feels Safe At This Time Childhood Exposure to Second-Hand Smoke: Yes Diet: regular caffeine: Yes Dental Care, Regularly: No Physical Activity Frequency: Does not Exercise Seatbelt Use: always Sunscreen Use: Yes Assistive Devices: Denture - Upper, Denture - Lower and Glasses Results & Data Vital Signs (Past 12 Hours) Vital Signs Temp Pulse Resp Pulse Ox O2 Del Method 02/08/24 08:05 36.5 C 80 14 96 Room Air
[2024-02-08] MEDS: HEPARIN 100 UNIT/ML 5ML FLUSH FLUSH PRN (13:40)
--- NOTE | 2024-02-08 16:07 | Discharge Summary ---
Date of Service February 08, 2024 Admission HPI Per Admitting Provider Jazmyn is a 73-year-old female with PMH of bilateral mastectomy, bladder cancer, LOIS, HLD, osteoporosis, hypothyroidism, HTN, depression, PTSD, and CKD stage IIIa. She presented for an acute worsening of upper extremity and right lower extremity pain the evening of 02/05. The pain in her bilateral, proximal upper extremities has been constant x 1 month. However the pain was so bad this morning that she could not "squeeze her fingers together into a fist". Described as dull and achy pain in the proximal upper extremities; worse with movements; and feels like "muscles are coming off the bone". The pain is only a 2/10 without movement, but movement exacerbates symptoms. Patient has tried to take Tylenol for the pain, but this does not help. The pain in her upper right leg has only been going on x 1 week, but it is severely limited her mobility; ambulatory dysfunction; worse with movement and an acute worsening last night. The pain is located in her right upper leg and groin region. She has not been able to use any ambulatory assist devices because of her arm pain. No recent falls, trauma, or injuries to the extremities. No sick contacts. She denies alcohol, smoking, and tobacco use. Patient reports that she took all of her regular morning medications, and that there have been no recent change in medications. She has been on Opdivo x 10 months for her known bladder cancer; it has been noted that myalgias are a common side effect of Opdivo, but she notes that she has only had itching prior to the development of these myalgias. Patient is mildly hypotensive at 98/65 at time of admission; vitals otherwise stable. ED course: NSS 500 mL IV Morphine 4 mg IV Zofran 4 mg IV Decadron 10 mg IV ROS: Patient endorses UE pain, Right leg pain, ALVAREZ x 1 day last week (resolved), hill in vision in left eye (blurry vision in right eye x 2 weeks; cataract surgery in September 2023), GARRIDO (chronic), dry cough from GERD Patient denies Left leg pain, fever, chills, night-sweats, dizziness/lighthe adedness, loss of vision, photophobia, chest pain, SOB at rest, chest palpitations, abdominal pain, N/V/D, burning sensation with urination, or numbness/tingling in legs or arms. Admission Exam Per Admitting Provider General: no acute distress; acute physical upper extremity and RLE pain with movement; lethargic; non-toxic appearing; well-nourished; cooperative; 95% SpO2 on RA HEENT: normocephalic, atraumatic; no scleral icterus; PERRLA w/ EOMs intact; moist mucus membrane; vision and hearing grossly intact Neck: supple; no JVD; no lymphadenopathy; trachea midline; patient demonstrates ability to shrug shoulders against resistance without pain Skin: warm, dry without signs of tenting; no cyanosis; no rashes, bruising, lesions, or erythema noted CV: S/p L mastectomy; her port on her left upper chest wall is without signs of drainage, erythema, or infection; chest wall NTP; RRR; S1/S2 normal; no murmurs/rubs/gallops; pulses intact and symmetric at radial, DP, and PT Lungs: no acute respiratory distress; symmetrical chest wall expansion; clear breath sounds across all lung fontanez w/o adventitious sounds; no wheezing ABD: RLQ ileal conduit/urostomy bag draining clear urine; abdominal wall soft, NTP; BS present; no rebound/guarding; moderate distention secondary to body habitus MSK: no tics or fasciculations; no edema noted in the LEs b/l, nonerythematous; patient demonstrates ability little toes bilaterally; 5/5 marble cutter strength bilaterally RLE: Cold to touch, neurovascular intact, difficulty with lifting leg off the bed lying supine (1/5 strength) LLE: Warm to touch, neurovascular intact, 4/5 strength when lifting of the bed Neuro: A&Ox3; normal mood and affect; fluent speech; sensation grossly intact in the LEs b/l Principal Diagnosis Myalgias Discharge Exam Constitutional WD/WN, vitals as above Respiratory normal respiratory effort, lungs clear to auscultation Cardiovascular RRR, no murmur, no edema Gastrointestinal (Abdomen) normal bowel sounds, soft, nontender, no hepatosplenomegaly Musculoskeletal Proximal UEs mildly tender to palpation, 5/5 strength in all UEs and LEs bilaterally Skin no rashes, warm and dry Psychiatric A+Ox3, euthymic affect Discharge Data Allergies Allergy/AdvReac Type Severity Reaction Status Date / Time docetaxel Allergy Severe chest Verified 12/20/23 10:50 pain, dyspnea adhesive Allergy Intermediate skin Verified 12/20/23 10:50 blisters atorvastatin Allergy Intermediate foot/leg Verified 12/20/23 10:50 swelling, nausea fluoxetine Allergy Intermediate gastrointestinal Verified 12/20/23 10:50 upset losartan Allergy Intermediate unsure Verified 12/20/23 10:50 (lethargy or leg swelling) silver sulfadiazine Allergy Intermediate worsening Verified 12/20/23 10:50 burning alendronate sodium Allergy Unknown unknown Verified 12/20/23 10:50 reaction albuterol AdvReac Intermediate nightmare Verified 12/20/23 10:50 cetirizine [From Zyrtec] AdvReac Mild drowsiness Verified 12/20/23 10:50 ibandronate sodium AdvReac Unknown unknown Verified 12/20/23 10:50 [From Boniva] reaction ibuprofen AdvReac Unknown advised to Verified 12/20/23 10:50 avoid (caused slight kidney damage) fluticasone [From Flonase] AdvReac nosebleed Verified 12/20/23 10:50 Consultations 02/07/24 14:08 ED Decision to Admit Stat 02/07/24 20:28 Consult Oncology Routine Ordered Studies 02/07/24 11:19 US venous doppler LE RT Stat Hospital Course (1) Myalgia: (2) Bladder cancer: (3) History of immunotherapy: Plan Myalgias: Likely related to Opdivo Patient treated with steroids with rapid response/improved myalgias Oncology consulted, recommending prednisone taper: starting dose 90mg/day x1 week, decrease by 10mg/week if without sx recurrence - Dapsone for PJP prophylaxis while on steroids - Omeprazole for GI protection Follow up with oncology in 1-2 weeks Total Time Total Time Spent Total Time Spent (In Minutes): <30 Discharge Plan Discharge Items Patient Disposition: Home - Self-Care Reason For Visit: UE & RUE MYALGIA Discharge Diagnosis: myalgias Activity: Resume your previous activity Non-emergency contact: Primary Care Provider and Oncologist Call non-emergency contact if: you have any medication questions and your symptoms worsen Follow-up/Referrals: Enoch Aguilar MD [Primary Care Provider] - 02/18/24 1:00 pm Yvonne Lowery MD [Physician] - Diet: Regular Addtl Attending Provider Instructions: You were admitted to the hospital due to muscle pains, which are most likely due to your chemotherapy medication. Upon discharge, we recommend that you continue the steroid taper that was started in hospital and follow up with your oncologist shortly. While taking steroids, we recommend that you take a medication called Omeprazole once daily for GI protection, as steroids can cause stomach irritation. Also, because you are immunocompromised, Dr. Lowery recommends that you prophylactically take a medication to reduce risk of infection. Because you have a sulfa allergy, we recommend taking Dapsone once daily while on steroids. If this medication is too expensive or if you decide not take it, please let Dr. Lowery know as she may recommend shortening your course of steroids. A discharge summary will be sent to your primary care physician to ensure continuity of care. Please bring this discharge summary with you to your next office appointment so that your provider can review it at that time. Medications: Your medication list has been reviewed and reconciled upon discharge to ensure accuracy and continuity of care. An updated list of all your medications is included with your hospital discharge paperwork. Please review this list closely and make note of any changes to your medications. New Medications: Prednisone: - Please take 90mg (9 tabs) once daily for 7 days. Then take 80mg (8 tabs) once dialy for the next 7 days. Continue to taper, decreasing by 10mg each week for an anticipated total duration of 9 weeks. Dapsone - please take 1 tab daily while on steroids Omeprazole - please take 1 tab daily on an empty stomach once daily Follow up appointments: - Make a follow up appointment with your PCP within the next week. It is very important that you follow up with them shortly after discharge from the hospital. - Keep all of your follow up appointments as already scheduled. If you cannot make an appointment, notify your provider. CONTACT YOUR PRIMARY CARE PROVIDER if you experience any of the following: - Difficulty following your treatment plan - Difficulty taking any of your medications CALL 911 OR GO TO THE EMERGENCY DEPARTMENT if you experience any of the following: - Sudden, severe abdominal pain or nausea/vomiting - Severe chest pain or chest pain that radiates to your jaw or arm - Sudden, severe shortness of breath or difficulty breathing Pending Studies at Discharge: No Stand-Alone Forms: Tiltap, Smoking Cessation Medications and DC Order Prescriptions: New prednisone 10 mg tablet 10 mg PO DIRECTED Qty: 126 0RF Rx Instructions: Week 1: Please take 90mg (9 tabs) once daily for 7 days. Then: Week 2: Please take 80mg (8 tabs) once daily for 7 days. Follow up with your oncologist for guidance on further tapering instructions. omeprazole 20 mg capsule,delayed release(DR/EC) 20 mg PO DAILY 30 Days Qty: 30 2RF dapsone 100 mg tablet 100 mg PO DAILY Qty: 30 1RF Continued acetaminophen 500 mg capsule 500 mg PO Q6H PRN (Reason: Pain) Rx Instructions: otc, not able to verify with pharmacy 02/07/24 venlafaxine [Effexor XR] 150 mg capsule,extended release 24hr 150 mg PO QAM Qty: 90 3RF candesartan [Atacand] 16 mg tablet 16 mg PO QAM 90 Days Qty: 90 3RF levothyroxine 75 mcg tablet 75 mcg PO DAILY Qty: 90 3RF diphenhydramine HCl [Benadryl] 25 mg capsule 25 mg PO DIRECTED PRN (Reason: Allergy Symptoms) Rx Instructions: otc, not able to verify with pharmacy 02/07/24 famotidine [Pepcid] 20 mg tablet 20 mg PO DAILY PRN (Reason: gerd) cyanocobalamin (vitamin B-12) 1,000 mcg/mL Kit 1,000 mcg IM MONTHLY Rx Instructions: not on file with pharmacy ondansetron HCl 8 mg tablet 8 mg PO Q8 PRN (Reason: nausea/vomiting) Rx Instructions: not able to verify loperamide 2 mg Tablet 2 mg PO DIRECTED PRN (Reason: Diarrhea) Rx Instructions: not able to verify cholecalciferol (vitamin D3) [Vitamin D3] 125 mcg (5,000 unit) Tablet 125 mcg PO QAM Rx Instructions: otc, not able to verify with pharmacy 02/07/24 Compazine 1 dose PO UD PRN (Reason: Nausea) Rx Instructions: prescription Held Opdivo 1 dose IV Q28D Hold Instructions: Resume on 02/22/24. Hold until you see your oncologist. Rx Instructions: not able to verify 02/07/24 Discharge Orders: Discharge Order (Routine); Ordered 02/08/24 Ordered By: Jonathan Torres Admission Data Admit Date/Time: 02/07/24 16:37 Attending Provider: Clemente Avila Admit Provider: Diogenes Cameron Primary Care Provider: Enoch Aguilar Other Providers: Salma Iniguez; Diogenes Cameron; Yvonne Lowery Other Interventions: Discharge Summary Assessment (RN) Last Done: 02/08/24 13:46 Supervising Physician Co-Signing Physician Notes I personally examined the patient and verified all perez points of history and exam, discussed case, and agree with decision making with Dr Torres feeling better and would like to go home. Oncology input appreciated. Vitals noted, in general she is awake and alert pleasant no distress. HEENT normocephalic atraumatic mucous membranes moist. Breathing unlabored no accessory muscle use good effort. Skin shows no rashes no pallor or icterus. Neuro without focal deficits. Myalgias due to checkpoint inhibitor ADRimproved on prednisone. Home on prednisone 1 mg/kg, close follow-up with oncology and titration/tapering from there. Due to sulfa allergy, dapsone for PJP prophylaxis otherwise as above Resident Activity Tracking Resident Involvement: Resident Care Provided Care Provided: Adult Hospital Medicine
--- NOTE | 2024-02-08 18:59 | Billing Data ---
Date of Service February 08, 2024 Coding Level of Care Code 64480 IN/OBS DISCH 30 MIN/LESS
--- NOTE | 2024-02-09 06:45 | Electrocardiogram Report ---
Test Reason : Blood Pressure : / mmHG Vent. Rate : 068 BPM Atrial Rate : 068 BPM P-R Int : 164 ms QRS Dur : 082 ms QT Int : 410 ms P-R-T Axes : 052 030 059 degrees QTc Int : 435 ms Normal sinus rhythm ST elevation, consider early repolarization When compared with ECG of 18-MAY-2023 15:54, No significant change was found Confirmed by Zeke Mo ([id number]) on 02/09/2024 6:44:44 AM Referred By: REFERRED SELF Confirmed By:Zeke Mo
== END 2024-02-08 14:17 | disposition home or self-care (01) | DRG 556 ==
LOC: ED 10:23 → SUATTDRO 16:37 → INTOOBSV 16:37 → 3W 16:37

== ENCOUNTER 2024-03-19 15:03 | Inpatient (IN) ==
--- NOTE | 2024-03-19 15:14 | ED Triage Note ---
Date of Service March 19, 2024 Provider in Triage Author: Cyndy Mosley History of Present Illness This patient was briefly evaluated while in triage. An abbreviated physical exam was performed. This patient is a 73-year-old Female who presents to the ED for evaluation of low oxygen for the last few weeks. Pt recently on prednisone after d/c from hospital, currently tapered to 10mg daily from 90mg. Pt denies hx COPD. Physical Exam Initial orders for labs and / or imaging were placed and patient was placed in the waiting area until a bed is available. Please see further documentation for the full ED course.
[2024-03-19 15:53] LABS: Base Excess VBG -2.3 mEq/L; HCO3 VBG 22 mmol/L; Oxygen Saturation VBG 73.7 %; PCO2 VBG 37 mmHg (38-50); PO2 VBG 42 mmHg; pH VBG 7.39 (7.36-7.41)
[2024-03-19] MEDS: dilTIAZem HCl 5 MG/ML 5 ML VIAL IV ONE (15:57)
--- NOTE | 2024-03-19 16:17 | XRay Report ---
XR chest 1V portable HISTORY: 73 years-old Female Dyspnea acute cough or shortness of breath COMPARISON: Chest CT 03/11/2024 TECHNIQUE: AP view of the chest FINDINGS: Cardiomediastinal and hilar silhouettes are unchanged. Left subclavian [id number] catheter is in s table positioning. There is no pneumothorax, pleural effusion or airspace consolidation. Degenerative changes of the shoulders and spine. IMPRESSION: No acute process. ACT 112: Negative or not required by law. The above report was generated using voice recognition software. It may contain grammatical, syntax o r spelling errors. Electronically signed by: Ben Chisholm M.D. 03/19/2024 4:16 PM
[2024-03-19 16:26] LABS: Basophils # (auto) 0.06 K/uL (0.00-0.20); Basophils % (auto) 0.4 %; Eosinophils # (auto) 0.01 K/uL (0.00-0.50); Eosinophils % (auto) 0.1 %; Hematocrit (blood only) 32.4 % (37.0-47.0); Hemoglobin 9.9 g/dl (12.0-16.0); Immature Granulocytes # (auto) 0.19 K/uL (0.01-0.20); Immature Granulocytes % (auto) 1.4 %; Lymphocytes # (auto) 1.89 K/uL (1.20-3.40); Lymphocytes % (auto) 13.9 %; Mean Corpuscular Hemoglobin 32.1 pg (25.0-34.0); Mean Corpuscular Hgb Conc 30.6 g/dL (32.0-36.0); Mean Corpuscular Volume 105.2 fL (80.0-100.0); Mean Platelet Volume 11.1 fL (9.4-12.4); Monocytes # (auto) 1.06 K/uL (0.11-0.59); Monocytes % (auto) 7.8 %; Neutrophils # (auto) 10.41 K/uL (1.40-6.50); Neutrophils % (auto) 76.4 %; Platelet Count 198 K/uL (130-400); RDW Standard Deviation 60.3 fL (36.4-46.3); Red Blood Count 3.08 M/uL (4.20-5.40); White Blood Count 13.62 K/ul (4.8-10.8)
--- NOTE | 2024-03-19 16:36 | Electrocardiogram Report ---
Test Reason : Blood Pressure : / mmHG Vent. Rate : 087 BPM Atrial Rate : 087 BPM P-R Int : 138 ms QRS Dur : 084 ms QT Int : 350 ms P-R-T Axes : 036 021 057 degrees QTc Int : 421 ms Normal sinus rhythm Cannot rule out Anterior infarct , age undetermined Abnormal ECG When compared with ECG of 07-FEB-2024 12:03, No significant change was found Confirmed by Arpan Kauffman ([id number]) on 03/19/2024 4:35:36 PM Referred By: Confirmed By:Arpan Kauffman
[2024-03-19 16:41] LABS: Albumin Globulin Ratio 1.3 (0.9-2); Albumin Level 3.8 gm/dl (3.4-5.0); BUN Creatinine Ratio 27.9 (10-20); Calcium 9.1 mg/dl (8.6-10.3); Creatinine Clr Calc Pharmacy 37.3 ml/min; Globulin 2.9 gm/dl (2.5-4.0); Potassium 4.3 mmol/L (3.5-5.1); Total Protein 6.7 gm/dl (6.0-8.3)
[2024-03-19 16:48] LABS: Troponin I High Sensitivity 14.9 pg/ml (0-14)
[2024-03-19 17:35] LABS: Adenovirus PCR Not Detected (NotDetected); Bordetella parapertussis PCR Not Detected (NotDetected); Bordetella pertussis PCR Not Detected (NotDetected); Chlamydia pneumoniae PCR Not Detected (NotDetected); Coronavirus 229E PCR Not Detected (NotDetected); Coronavirus CoV-2 (COVID19)PCR Not Detected (NotDetected); Coronavirus HKU1 PCR Not Detected (NotDetected); Coronavirus NL63 PCR Not Detected (NotDetected); Coronavirus OC43PCR Not Detected (NotDetected); Human Metapneumovirus PCR Not Detected (NotDetected); Influenza A PCR Not Detected (NotDetected); Influenza B PCR Not Detected (NotDetected); Mycoplasma pneumoniae PCR Not Detected (NotDetected); Parainfluenza Virus 1 PCR Not Detected (NotDetected); Parainfluenza Virus 2 PCR Not Detected (NotDetected); Parainfluenza Virus 3 PCR Not Detected (NotDetected); Parainfluenza Virus 4 PCR Not Detected (NotDetected); Respiratory Syncytial VirusPCR Not Detected (NotDetected); Rhinovirus/Enterovirus PCR Not Detected (NotDetected)
[2024-03-19] MEDS: OPTIRAY 320 125ml IV ONE (18:19)
--- NOTE | 2024-03-19 19:12 | CT Scan Report ---
CHEST CTA for PULMONARY ARTERIES CT DOSE: 834.8 mGy.cm HISTORY: Shortness of breath. TECHNIQUE: Multiaxial CT images of the chest were performed following the intravenous administration of contrast to evaluate the pulmonary arteries. 3D/Maximal intensity projection images were also obta ined. Sagittal and coronal reformations were also reviewed. A dose lowering technique was utilized a dhering to the principles of ALARA. COMPARISON STUDY: Chest CT 03/11/2024. FINDINGS: Mild aneurysmal dilatation of the ascending thoracic aorta measuring up to 4.1 cm in diamet er. This remains unchanged. The heart is normal in size. No pleural or pericardial effusions. Moderat e coronary artery calcifications are again noted. No evidence for an aortic dissection. No filling de fects within the pulmonary arteries to suggest a pulmonary embolus. A left subclavian Port-A-Cath ter minates in the SVC. No suspicious lytic are blastic osseous lesions. Limited views of the upper abdom en demonstrate a normal liver, spleen, and adrenal glands. Partially visualized right renal cyst. Maren dence for prior gastric bypass. Prior bilateral mastectomy. No mediastinal or hilar lymphadenopathy. No pneumothorax. The central airways are patent. No focal lung consolidations to suggest a pneumonia. A few bibasilar linear densities consistent with subsegmental atelectasis. IMPRESSION: 1. No evidence for a pulmonary embolus. 2. Additional findings as described above. ACT 112: Negative or not required by law. Electronically signed by: Clayton Mora M.D. 03/19/2024 7:09 PM
--- NOTE | 2024-03-19 20:08 | History & Physical Report ---
Date of Service March 19, 2024 Assessment & Plan (1) Hypoxia: Plan: Worsening SOB and hypoxia x 3 weeks Home pulse ox readings have been around 83-90% on RA, per patient; not on supplemental oxygen at baseline CXR without acute processes or consolidation to suggest pneumonia Chest CTA revealed no evidence of pulmonary emboli BioFire negative No hx of CHF; BNP 104; last echo 65-70% in 07/2023 Leukocytosis at 13.62 in the setting of recent steroid taper PCT WNL Patient does not follow with pulmonology Etiology unclear; however, suspect undiagnosed emphysema/COPD + new megaloblastic anemia Ambulatory pulse ox ordered (will defer two-step testing for home O2 for now) A.m. CBC, BMP (2) Megaloblastic anemia: Plan: Hgb 9.9 with MCV 105.2 Vitamin B12 and folate levels WNL as of 03/12 ? In the setting of recent dapsone use Patient discharged from [place] in January on prednisone taper for her myalgias Dapsone for PJP prophylaxis while on prednisone taper; prescribed due to sulfa allergy Given patient is at the end of her prednisone taper, will hold further steroids/dapsone Follow a.m. 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 telemetry Full code AHA diet VTE PPx: Heparin 5000u SQ q24h History of Present Illness Chief Complaint: SOB/Dyspnea Primary Care Provider: Enoch Aguilar MD Jazmyn is a pleasant 73-year-old female with PMH of bladder cancer, breast cancer s/p bilateral mastectomy, gastric bypass, sleep apnea, HLD and HTN. Patient presented for worsening SOB and hypoxia x 3 weeks. Patient has a home pulse ox, and reports it has been around 83-90% on RA over the past few weeks. No supplemental oxygen at home. She has been avoiding coming any, she thought she thought it would likely improve over time. SOB is both at rest and with exertion, and she reports that she sometimes wakes up in the middle night taking deep breaths; she does not sleep on her back but rather on her side. She lives alone, but her daughter lives a few doors down and helps to manage her urostomy. Patient reports that she has been feeling lightheaded when she stands up, but denies any recent falls or fainting. No history of COPD or CHF, but patient does note she has aortic insufficiency.. Patient cannot use a CPAP at night, because it causes her to cough all night and she does not tolerate it well. She does note that she has had chest palpitations, SOB, that has led to chest tightness at times. 1 episode of chest pain while at her brother's house; she reports she was helping to make a cake, and put a cake into the oven and developed some chest pain. Patient has not been taking her pills as prescribed the past 2 days; notes that she is only taking prednisone (she is currently on a taper), levothyroxine, and dapsone the past 2 days. She never takes Lasix, she reports no leg swelling. She believes that the prednisone has made her urine more orange in her urostomy. Only recent change in medication was starting the prednisone, and stopping Opdivo (which was giving her myalgias). No recent changes in diet; patient does not eat a very salty diet; she reports she lives on yogurt and [employer] sandwiches. Patient is a former tobacco cigarette smoker, but quit 15 years ago. SpO2 was 91% on 3 L NC; vitals otherwise stable at time of admission. ED course: ROS: Patient endorses cold intolerance, heat intolerance, lightheadedness, chest pressure, SOB at rest and with exertion, dry cough, nausea Patient denies fever, chills, dizziness, pleuritic CP, hemoptysis, abdominal pain, vomiting, diarrhea, change in bowel habits, blood in the urine/stool, or numbness/tingling/swelling in the arms or legs. Allergies Allergy/AdvReac Type Severity Reaction Status Date / Time docetaxel Allergy Severe chest Verified 03/10/24 12:43 pain, dyspnea adhesive Allergy Intermediate skin Verified 03/10/24 12:43 blisters atorvastatin Allergy Intermediate foot/leg Verified 03/10/24 12:43 swelling, nausea fluoxetine Allergy Intermediate gastrointestinal Verified 03/10/24 12:43 upset losartan Allergy Intermediate unsure Verified 03/10/24 12:43 (lethargy or leg swelling) silver sulfadiazine Allergy Intermediate worsening Verified 03/10/24 12:43 burning alendronate sodium Allergy Unknown unknown Verified 03/10/24 12:43 reaction albuterol AdvReac Intermediate nightmare Verified 03/10/24 12:43 cetirizine [From Zyrtec] AdvReac Mild drowsiness Verified 03/10/24 12:43 ibandronate sodium AdvReac Unknown unknown Verified 03/10/24 12:43 [From Boniva] reaction ibuprofen AdvReac Unknown advised to Verified 03/10/24 12:43 avoid (caused slight kidney damage) fluticasone [From Flonase] AdvReac nosebleed Verified 03/10/24 12:43 Home Medications Medication Instructions Recorded Confirmed Type diphenhydramine HCl 25 mg capsule 25 mg PO DIRECTED PRN Allergy 06/03/19 03/19/24 History (Benadryl) Symptoms acetaminophen 500 mg capsule 500 mg PO Q6H PRN Pain 08/29/19 03/19/24 History cholecalciferol (vitamin D3) 125 125 mcg PO QAM 05/18/21 03/19/24 History mcg (5,000 unit) tablet (Vitamin D3) cyanocobalamin (vitamin B-12) 1,000 mcg IM MONTHLY 02/07/22 03/19/24 History 1,000 mcg/mL injection kit loperamide 2 mg tablet 2 mg PO DIRECTED PRN Diarrhea 09/19/22 03/19/24 History famotidine 20 mg tablet (Pepcid) 20 mg PO DAILY PRN gerd 01/17/23 03/19/24 History candesartan 16 mg tablet (Atacand) 16 mg PO QAM 90 days #90 tabs 06/04/23 03/19/24 Rx venlafaxine 150 mg 150 mg PO QAM #90 caps 06/04/23 03/19/24 Rx capsule,extended release 24 hr (Effexor XR) levothyroxine 75 mcg tablet 75 mcg PO DAILY #90 tabs 11/12/23 03/19/24 Rx dapsone 100 mg tablet 100 mg PO DAILY #30 tabs 02/08/24 03/19/24 Rx omeprazole 20 mg capsule,delayed 20 mg PO DAILY 30 days #30 caps 02/08/24 03/19/24 Rx release ondansetron HCl 8 mg tablet 8 mg PO Q8 PRN nausea/vomiting #30 02/27/24 03/19/24 Rx tabs Past Med/Surg History Medical History Chronic kidney disease, stage 3a Rupture of implant of right breast Immunotherapy History of phlebitis Presence of urostomy Bladder cancer dx'd 2021. hx chemo + surgery. Immunotherapy q28d. 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 Morbid obesity Acquired lymphedema LUE Emphysema of lung COPD with emphysema Degenerative disc disease Kidney stones no surgical intervention needed GERD (gastroesophageal reflux disease) controlled, stable per pt Anxiety and depression Hx of iron deficiency last iron infusion 2018 Restless leg syndrome Hx of migraines Former tobacco use Herniated disc thoracic Aortic aneurysm Dr. Mo monitoring Sleep apnea did not tolerate CPAP (caused cough) Pre-diabetes diet controlled Thoracic ascending aortic aneurysm last echo done 07/2023 - follows w/ dr barber Hyperlipidemia Osteoporosis Hypothyroid HTN (hypertension) controlled, stable per pt Breast cancer dx 2006 (left) and 2020 (right) s/p chemo and bilat mastectomies Endocarditis hx 15+ years ago (in setting of pyelonephritis and sepsis) Asthma stable> no inhalers Surgical History H/O bilateral mastectomy Hx of left cataract extraction History of arthroscopy of right knee History of total cystectomy Port-A-Cath in place (08/04/22) Insertion Access Port with Fluoroscopy (Left Subclavian)(Left) - Frantz Mayo, [place] S/P sclerotherapy of varicose veins H/O right mastectomy (12/08/19) Right Breast Mastectomy with Right [place] Lymph Node Biopsy,(Right) - Frantz Mayo DO 12/08/2019 s Mediport Removal - Frantz Mayo, DO s First Stage Immediate Right Breast Reconstruction with Right Tissue Cardio Clinician and Right Acellular Dermal Matrix(Right) - Sri Casillas MD: Grade 1 view, MAC 3, ETT 7.5. Removal 05/24/21: Grade 1 view, Stephen 2, ETT 7 atraumatic x 1. Hx of hand surgery right thumb tendon repair History of surgery on arm bialt, Brachioplasty with liposuction H/O abdominal surgery naval removal (d/t infection) History of appendectomy History of esophagogastroduodenoscopy (EGD) History of tooth extraction History of transesophageal echocardiography (JOSE) History of vascular access device since removed S/P gastric bypass 1991, 1993 History of breast reconstruction Left (03/2010), implant exchange (01/2011), right mastopexy History of tubal ligation History of colonoscopy History of cholecystectomy H/O left mastectomy S/P partial hysterectomy Family History Mother Myocardial infarction Breast cancer Diabetes ESRD (end stage renal disease) on dialysis Aunt Breast cancer Unknown Skin cancer Father Myocardial infarction Coronary heart disease Daughter , age 31. T1DM Diabetes Daughter , brain tumor, then pain med addiction age 36 No problems noted. Other No significant family history Denies family history of Ovarian cancer Prostate cancer Colorectal cancer Social History Smoking Status: Former smoker Tobacco Type: Cigarettes Age Started Using Tobacco: 14; Age Quit Using Tobacco: 38; Cigarettes Per Day: 2-3 ppd at times in the past, started as a teen; Second Hand Exposure: No; Do You Dip or Chew Tobacco: No; Hx Alcohol Use: Yes Alcohol type: wine Alcohol Intake Frequency: Monthly or Less Hx Substance Use: No Preferred Language: Ukrainian Communication Ability: Effective Visual Impairment: No Limitations Hearing Ability: Normal Pumper Hand Required: No Beliefs That Will Affect Care: None marital status: / Current Living Situation: Alone current occupational status: retired current occupation: [employer] at [employer] How many Children do You have: 4 How many Children do You have Comment: 2 children ; 1 living daughter, 1 living son Other Information That Helps Us Care for You: No Feels Safe at Home: Yes Safety Concerns: Feels Safe At This Time Childhood Exposure to Second-Hand Smoke: Yes Diet: regular Diet Comment: aware of protein caffeine: Yes (tea 8 cups daily) Dental Care, Regularly: No Physical Activity Frequency: Does not Exercise Seatbelt Use: always Sunscreen Use: Yes Do you think of yourself as: straight/heterosexual Gender Identity: Female Assistive Devices: CPAP, Denture - Upper, Denture - Lower and Glasses Review of Systems Review of Systems: See HPI above Physical Exam Physical Exam: General: no acute distress; cyanotic lips; pleasant affect; non-toxic appearing; well-nourished; cooperative; SpO2 91% on 3L NC HEENT: normocephalic, atraumatic; no scleral icterus; PERRLA w/ EOMs intact; moist mucus membrane; vision and hearing grossly intact Neck: supple; negative for JVP; no lymphadenopathy; trachea midline Skin: warm, dry without signs of tenting; no rashes, bruising, lesions, or erythema noted CV: chest wall NTP; double mastectomy status; RRR; S1/S2 normal; no murmurs/rubs/gallops; pulses intact and symmetric at radial, DP, and PT Lungs: no acute respiratory distress; barrel chested; symmetrical chest wall expansion; diminished breath sounds across all lung fontanez w/o adventitious sounds; no wheezing ABD: Soft, NTP; BS present; no rebound/guarding; no distention; RLQ urostomy draining clear orange urine MSK: no tics or fasciculations; no edema noted in the LEs b/l, nonerythematous Neuro: A&Ox3; normal mood and affect; fluent speech; no focal deficits; sensation grossly intact in the LEs b/l Results & Data Results & Data Vital Signs (Past 12 Hours) Vital Signs Temp Pulse Resp BP Pulse Ox O2 Del Method O2 Flow Rate 03/19/24 19:43 87 03/19/24 18:30 85 20 111/67 91 Nasal Cannula 03/19/24 18:28 88 24 118/66 91 Nasal Cannula 03/19/24 17:30 88 22 128/83 91 03/19/24 17:07 84 19 115/90 91 Nasal Cannula 03/19/24 15:50 88 03/19/24 15:40 189 H 24 103/58 L 90 Nasal Cannula 3 03/19/24 15:04 Nasal Cannula 1 03/19/24 15:04 37.1 C 101 H 18 123/85 96 Laboratory Results Abnormal lab results 03/19/24 Range/Units 15:40 WBC 13.62 H (4.8-10.8) K/ul RBC 3.08 L (4.20-5.40) M/uL Hgb 9.9 L (12.0-16.0) g/dl Hct 32.4 L (37.0-47.0) % MCV 105.2 H (80.0-100.0) fL MCHC 30.6 L (32.0-36.0) g/dL RDW Std Deviation 60.3 H (36.4-46.3) fL RDW Coeff of Jerry 16.0 H (11.5-14.5) % Neut # (Auto) 10.41 H (1.40-6.50) K/uL Posey # (Auto) 1.06 H (0.11-0.59) K/uL VBG pCO2 37 L (38-50) mmHg BUN 38 H (6-23) mg/dl Creatinine 1.36 H (0.6-1.2) mg/dl BUN/Creatinine Ratio 27.9 H (10-20) Glucose 170 H (70-99(Fasting)) mg/dl AST 11 L (13-39) U/L Troponin I High Sens 14.9 H (0-14) pg/ml B-Natriuretic Peptide 104 H (0-100) pg/ml Diagnostic Findings Chest X-Ray 03/19/24 00:00 XR chest 1V portable HISTORY: 73 years-old Female Dyspnea acute cough or shortness of breath COMPARISON: Chest CT 03/11/2024 TECHNIQUE: AP view of the chest FINDINGS: Cardiomediastinal and hilar silhouettes are unchanged. Left subclavian [id number] catheter is in stable positioning. There is no pneumothorax, pleural effusion or airspace consolidation. Degenerative changes of the shoulders and spine. IMPRESSION: No acute process. ACT 112: Negative or not required by law. The above report was generated using voice recognition software. It may contain grammatical, syntax or spelling errors. Electronically signed by: Ben Chisholm M.D. 03/19/2024 4:16 PM Chest CTA 03/19/24 17:10 CHEST CTA for PULMONARY ARTERIES CT DOSE: 834.8 mGy.cm HISTORY: Shortness of breath. TECHNIQUE: Multiaxial CT images of the chest were performed following the intravenous administration of contrast to evaluate the pulmonary arteries. 3D/Maximal intensity projection images were also obtained. Sagittal and coronal reformations were also reviewed. A dose lowering technique was utilized adhering to the principles of ALARA. COMPARISON STUDY: Chest CT 03/11/2024. FINDINGS: Mild aneurysmal dilatation of the ascending thoracic aorta measuring up to 4.1 cm in diameter. This remains unchanged. The heart is normal in size. No pleural or pericardial effusions. Moderate coronary artery calcifications are again noted. No evidence for an aortic dissection. No filling defects within the pulmonary arteries to suggest a pulmonary embolus. A left subclavian Port-A-Cath terminates in the SVC. No suspicious lytic are blastic osseous lesions. Limited views of the upper abdomen demonstrate a normal liver, spleen, and adrenal glands. Partially visualized right renal cyst. Evidence for prior gastric bypass. Prior bilateral mastectomy. No mediastinal or hilar lymphadenopathy. No pneumothorax. The central airways are patent. No focal lung consolidations to suggest a pneumonia. A few bibasilar linear densities consistent with subsegmental atelectasis. IMPRESSION: 1. No evidence for a pulmonary embolus. 2. Additional findings as described above. ACT 112: Negative or not required by law. Electronically signed by: Clayton Mora M.D. 03/19/2024 7:09 PM ECG Additional Comments: ECG revealed NSR at 87 bpm; QTc 421 Code Status & VTE Plan Code Status Full code VTE Prophylaxis Plan VTE Prophylaxis will be ordered: Yes Supervising Physician Co-Signing Physician Notes Patient seen and examined, chart reviewed, case discussed with WYATT Conner and I agree with the assessment and plan as above. In brief, patient is a 73yo female with history of bladder cancer, HTN, HLP presenting with SOB and hypoxia. Patient was previously on Opdivo but developed myalgias. Her Opdivo was discontinued and she was started on a prolonged steroid taper as well as Dapsone for PCP prophylaxis while on steroids. She reports SOB as well as low pulse ox at home for at least the last 3 weeks. She has a pulse oximetry at home and states that her saturations have been 83- 90% over the last three weeks. She has been having GARRIDO as well as some dyspnea at rest. She has occasional chest pressure. No cough, fever/chills or additional complaints. On exam patient is resting comfortably. Some conversational dyspnea Skin - cyanosis of lips and nail beds, no rash HEENT - MMM, Neck supple Heart - +S1/S2, regular, no m/r/g Lungs - CTA, no rales/rhonchi/wheezes Abd - Soft, NT/ND Ext - warm, well perfused, non-pitting edema Labs and images reviewed CTA chest with no PE, PNA, PTZ Respiratory biofire panel is negative Assessment/Plan - 73yo female with acute hypoxic respiratory failure. Oral and digital cyanosis - concern for methemaglobinemia - patient on Dapsone Elevated methemaglobin level - likely acquired secondary to Dapsone use Will hold Dapsone Patient is not overly hypoxic. Methemoglonin = 7.4% Patient on Venlafaxine - contraindication to use of Methylene Blue - not indicated with current Methemoglobin level If patient worsens would consider treatment with Vitamin C Remaider as above PG Care Time/CCT Total # of Minutes Spent Total Time Spent with Patient: Total time spent is greater than 50% in coordination of care (as documented) at patient's floor/unit and/or counseling patient: Coding [place] [address] INT INP/OBS CARE 3/75MIN Patient Type Established Medical Decision Making High Complexity Diagnoses Hypoxia R09.02 Megaloblastic anemia D53.1 Sleep apnea G47.30 Bladder cancer C67.9 Chronic kidney disease, stage 3b N18.32 H/O bilateral mastectomy Z90.13 AI (aortic insufficiency) I35.1
[2024-03-19] MEDS: HEPARIN 100 UNIT/ML 5ML FLUSH ONE (20:18)
--- NOTE | 2024-03-19 20:58 | Emergency Department Note ---
History of Present Illness General Chief Complaint: Shortness of Breath/Dyspnea Stated Complaint: LOW OXYGEN LEVEL, SOB, CHEST PRESSURE Time Seen by Provider: 03/19/24 15:21 History of Present Illness Provider Complaint: shortness of breath and chest pain Onset (ago): week(s) (2) Severity: similar to previous episodes Consistency/Duration: + progressively worsening Relieved By: + nothing Exacerbated By: + lying flat and + coughing Associated symptoms: + chest pain, + cough, + orthopnea, + chest congestion and + other (Nasal congestion); no fever, no wheezing, no sputum production, no hemoptysis or no nausea/vomiting Related Data Home oxygen amount: none Home Medications Medication Instructions Recorded Confirmed Type diphenhydramine HCl 25 mg capsule 25 mg PO DIRECTED PRN Allergy 06/03/19 03/19/24 History (Benadryl) Symptoms acetaminophen 500 mg capsule 500 mg PO Q6H PRN Pain 08/29/19 03/19/24 History cholecalciferol (vitamin D3) 125 125 mcg PO QAM 05/18/21 03/19/24 History mcg (5,000 unit) tablet (Vitamin D3) cyanocobalamin (vitamin B-12) 1,000 mcg IM MONTHLY 02/07/22 03/19/24 History 1,000 mcg/mL injection kit loperamide 2 mg tablet 2 mg PO DIRECTED PRN Diarrhea 09/19/22 03/19/24 History famotidine 20 mg tablet (Pepcid) 20 mg PO DAILY PRN gerd 01/17/23 03/19/24 History candesartan 16 mg tablet (Atacand) 16 mg PO QAM 90 days #90 tabs 06/04/23 03/19/24 Rx venlafaxine 150 mg 150 mg PO QAM #90 caps 06/04/23 03/19/24 Rx capsule,extended release 24 hr (Effexor XR) levothyroxine 75 mcg tablet 75 mcg PO DAILY #90 tabs 11/12/23 03/19/24 Rx dapsone 100 mg tablet 100 mg PO DAILY #30 tabs 02/08/24 03/19/24 Rx omeprazole 20 mg capsule,delayed 20 mg PO DAILY 30 days #30 caps 02/08/24 03/19/24 Rx release ondansetron HCl 8 mg tablet 8 mg PO Q8 PRN nausea/vomiting #30 02/27/24 03/19/24 Rx tabs Allergies Allergy/AdvReac Type Severity Reaction Status Date / Time docetaxel Allergy Severe chest Verified 03/10/24 12:43 pain, dyspnea adhesive Allergy Intermediate skin Verified 03/10/24 12:43 blisters atorvastatin Allergy Intermediate foot/leg Verified 03/10/24 12:43 swelling, nausea fluoxetine Allergy Intermediate gastrointestinal Verified 03/10/24 12:43 upset losartan Allergy Intermediate unsure Verified 03/10/24 12:43 (lethargy or leg swelling) silver sulfadiazine Allergy Intermediate worsening Verified 03/10/24 12:43 burning alendronate sodium Allergy Unknown unknown Verified 03/10/24 12:43 reaction albuterol AdvReac Intermediate nightmare Verified 03/10/24 12:43 cetirizine [From Zyrtec] AdvReac Mild drowsiness Verified 03/10/24 12:43 ibandronate sodium AdvReac Unknown unknown Verified 03/10/24 12:43 [From Boniva] reaction ibuprofen AdvReac Unknown advised to Verified 03/10/24 12:43 avoid (caused slight kidney damage) fluticasone [From Flonase] AdvReac nosebleed Verified 03/10/24 12:43 Past Med/Surg History Medical History Chronic kidney disease, stage 3a Rupture of implant of right breast Immunotherapy History of phlebitis Presence of urostomy Bladder cancer dx'd 2021. hx chemo + surgery. Immunotherapy q28d. 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 Morbid obesity Acquired lymphedema LUE Emphysema of lung COPD with emphysema Degenerative disc disease Kidney stones no surgical intervention needed GERD (gastroesophageal reflux disease) controlled, stable per pt Anxiety and depression Hx of iron deficiency last iron infusion 2018 Restless leg syndrome Hx of migraines Former tobacco use Herniated disc thoracic Aortic aneurysm Dr. Mo monitoring Sleep apnea did not tolerate CPAP (caused cough) Pre-diabetes diet controlled Thoracic ascending aortic aneurysm last echo done 07/2023 - follows w/ dr barber Hyperlipidemia Osteoporosis Hypothyroid HTN (hypertension) controlled, stable per pt Breast cancer dx 2006 (left) and 2020 (right) s/p chemo and bilat mastectomies Endocarditis hx 15+ years ago (in setting of pyelonephritis and sepsis) Asthma stable> no inhalers Surgical History H/O bilateral mastectomy Hx of left cataract extraction History of arthroscopy of right knee History of total cystectomy Port-A-Cath in place (08/04/22) Insertion Access Port with Fluoroscopy (Left Subclavian)(Left) - Frantz aMyo, DO [employer] S/P sclerotherapy of varicose veins H/O right mastectomy (12/08/19) Right Breast Mastectomy with Right Couch Lymph Node Biopsy,(Right) - Frantz Mayo DO 12/08/2019 s Mediport Removal - Frantz Mayo, DO s First Stage Immediate Right Breast Reconstruction with Right Tissue Audio Visual Manager and Right Acellular Dermal Matrix(Right) - Sri Casillas MD: Grade 1 view, MAC 3, ETT 7.5. Removal 05/24/21: Grade 1 view, Stephen 2, ETT 7 atraumatic x 1. Hx of hand surgery right thumb tendon repair History of surgery on arm bialt, Brachioplasty with liposuction H/O abdominal surgery naval removal (d/t infection) History of appendectomy History of esophagogastroduodenoscopy (EGD) History of tooth extraction History of transesophageal echocardiography (JOSE) History of vascular access device since removed S/P gastric bypass 1991, 1993 History of breast reconstruction Left (03/2010), implant exchange (01/2011), right mastopexy History of tubal ligation History of colonoscopy History of cholecystectomy H/O left mastectomy S/P partial hysterectomy Family History Mother Myocardial infarction Breast cancer Diabetes ESRD (end stage renal disease) on dialysis Aunt Breast cancer Unknown Skin cancer Father Myocardial infarction Coronary heart disease Daughter , age 31. T1DM Diabetes Daughter , brain tumor, then pain med addiction age 36 No problems noted. 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 Required: No Beliefs That Will Affect Care: None marital status: / Current Living Situation: Alone current occupational status: retired current occupation: [employer] How many Children do You have: 4 How many Children do You have Comment: 2 children ; 1 living daughter, 1 living son Feels Safe at Home: Yes Childhood Exposure to Second-Hand Smoke: Yes Diet: regular Diet Comment: aware of protein caffeine: Yes (tea 8 cups daily) Dental Care, Regularly: No Physical Activity Frequency: Does not Exercise Seatbelt Use: always Sunscreen Use: Yes Do you think of yourself as: straight/heterosexual Gender Identity: Female Assistive Devices: CPAP, Denture - Upper, Denture - Lower and Glasses Physical Exam 2 Vital Signs: Vital Signs - 24 hr 03/19/24 15:04 03/19/24 15:04 03/19/24 15:04 Temperature 37.1 C Temperature Source Oral Pulse Rate 101 H Pulse Rate from Sp O2 Sensor Respiratory Rate 18 Respiratory Effort / Characteristics Spontaneous Respiratory Depth Normal Blood Pressure 123/85 Blood Pressure [place] n 97 Pulse Oximetry 96 Oxygen Delivery Me thod Nasal Cannula Oxygen Flow Rate 1 Sepsis Recent Feve r Within 48 Hours No Sepsis New/Unexpla ined Change in Men xin Status N/A Sepsis Action Take n by Nursing No Action Required 03/19/24 15:40 03/19/24 15:50 03/19/24 17:07 Temperature Temperature Source Pulse Rate 189 H 88 84 Pulse Rate from Sp O2 Sensor 94 H 85 Respiratory Rate 24 19 Respiratory Effort / Characteristics Respiratory Depth Blood Pressure 103/58 L 115/90 Blood Pressure [place] n 73 98 Pulse Oximetry 90 91 Oxygen Delivery Me thod Nasal Cannula Nasal Cannula Oxygen Flow Rate 3 3 Sepsis Recent Feve r Within 48 Hours Sepsis New/Unexpla ined Change in Men xin Status Sepsis Action Take n by Nursing 03/19/24 17:30 03/19/24 18:28 03/19/24 18:30 Temperature Temperature Source Pulse Rate 88 88 85 Pulse Rate from Sp O2 Sensor 88 89 85 Respiratory Rate 22 24 20 Respiratory Effort / Characteristics Respiratory Depth Blood Pressure 128/83 118/66 111/67 Blood Pressure [place] n 98 83 81 Pulse Oximetry 91 91 91 Oxygen Delivery Me thod Nasal Cannula Nasal Cannula Oxygen Flow Rate 3 Sepsis Recent Feve r Within 48 Hours Sepsis New/Unexpla ined Change in Men xin Status Sepsis Action Take n by Nursing 03/19/24 19:43 Temperature Temperature Source Pulse Rate 87 Pulse Rate from Sp O2 Sensor Respiratory Rate Respiratory Effort / Characteristics Respiratory Depth Blood Pressure Blood Pressure [place] n Pulse Oximetry Oxygen Delivery Me thod Oxygen Flow Rate Sepsis Recent Feve r Within 48 Hours Sepsis New/Unexpla ined Change in Men xin Status Sepsis Action Take n by Nursing Physical Exam: Physical Exam GENERAL: oriented to person, place, and time. appears well-developed and well- nourished. HENT: Exam performed. - Head: Normocephalic and atraumatic. EYES: Conjunctivae and EOM are normal. Right eye exhibits no discharge. Left eye exhibits no discharge. No scleral icterus. NECK: Normal range of motion. Neck supple. No JVD present. CV: Normal rate, regular rhythm, normal heart sounds and intact distal pulses. There is no peripheral edema. Palpable radial pulses bue. PULM/CHEST: Effort normal and breath sounds normal. No respiratory distress. No stridor. no wheezes. no rales. ABD: The abdomen is soft. There is no tenderness. NEURO: Motor and sensation grossly intact. SKIN: Skin is warm and dry. He is not diaphoretic. PSYCH: normal mood and affect. Behavior is normal. Judgment and thought content normal. Course Course 1521: The patient was evaluated in room B3. A complete history and physical exam was performed Cardiac monitoring: An order was placed for continuous cardiac monitoring. The monitor shows a rate of 90 with sinus rhythm interpreted by me Patient was hypoxic on room air supplemental oxygen via nasal cannula was applied which improved the patient's oxygen saturation. 1950: Vital signs stable on supplemental oxygen via nasal cannula. Labs show a leukocytosis of 13.62. Hemoglobin 9.9. Platelet count 198. VBG shows venous pH of 7.39 with a venous pCO2 of 37. Creatinine 1.36 BUN 38. Patient's high- sensitivity troponin mildly elevated at 14.9 and BNP mildly elevated at 104. CTA of the chest is negative for PE or any sort of congestive heart failure. BioFire negative. Patient will be admitted to the [facility] Hospitalist team. Administered Medications Discontinued Medications Diltiazem HCl (Diltiazem Hcl 5 Mg/Ml 5 Ml Vial) Confirm Administered Dose 25 mg IV .STK-MED ONE Stop: 03/19/24 15:36 Last Admin: 03/19/24 15:57 Dose: Not Given Documented By: KEKE Heparin Sodium (Porcine) (Heparin 100 Unit/Ml 5ml Flush) Confirm Administered Dose 5 ml .ROUTE .STK-MED ONE Stop: 03/19/24 18:26 Last Admin: 03/19/24 20:18 Dose: 5 ml Documented By: RACHEL Ioversol (Optiray 320 125ml) 102 ml IV ONCE ONE Stop: 03/19/24 18:19 Last Admin: 03/19/24 18:19 Dose: 102 ml Documented By: DAVID Medical Decision Making Laboratory Data 03/19/24 15:40 03/19/24 15:40 Lab Results 03/19/24 03/19/24 Range/Units 15:40 16:30 WBC 13.62 H (4.8-10.8) K/ul RBC 3.08 L (4.20-5.40) M/uL Hgb 9.9 L (12.0-16.0) g/dl Hct 32.4 L (37.0-47.0) % MCV 105.2 H (80.0-100.0) fL MCH 32.1 (25.0-34.0) pg MCHC 30.6 L (32.0-36.0) g/dL RDW Std Deviation 60.3 H (36.4-46.3) fL RDW Coeff of Jerry 16.0 H (11.5-14.5) % Plt Count 198 (130-400) K/uL MPV 11.1 (9.4-12.4) fL Immature Gran % (Auto) 1.4 % Neut % (Auto) 76.4 % Lymph % (Auto) 13.9 % [place] % (Auto) 7.8 % Eos % (Auto) 0.1 % Baso % (Auto) 0.4 % Neut # (Auto) 10.41 H (1.40-6.50) K/uL Lymph # (Auto) 1.89 (1.20-3.40) K/uL [place] # (Auto) 1.06 H (0.11-0.59) K/uL Eos # (Auto) 0.01 (0.00-0.50) K/uL Baso # (Auto) 0.06 (0.00-0.20) K/uL Immature Gran # (Auto) 0.19 (0.01-0.20) K/uL VBG pH 7.39 (7.36-7.41) VBG pCO2 37 L (38-50) mmHg VBG pO2 42 mmHg VBG HCO3 22 mmol/L VBG O2 Saturation 73.7 % VBG Base Excess -2.3 mEq/L Sodium 136 (136-145) mmol/L Potassium 4.3 (3.5-5.1) mmol/L Chloride 105 (98-107) mmol/L Carbon Dioxide 21 (21-32) mmol/L Anion Gap 10 (3-11) BUN 38 H (6-23) mg/dl Creatinine 1.36 H (0.6-1.2) mg/dl Est Cr Clr Drug Dosing 37.3 ml/min Est GFR ( Amer) 44.0 ml/min Est GFR (Non-Af Amer) 38.0 ml/min BUN/Creatinine Ratio 27.9 H (10-20) Glucose 170 H (70-99(Fasting)) mg/dl Calcium 9.1 (8.6-10.3) mg/dl Total Bilirubin 1.0 (0.2-1.0) mg/dl AST 11 L (13-39) U/L ALT 10 (7-52) U/L Alkaline Phosphatase 82 (34-104) U/L Troponin I High Sens 14.9 H (0-14) pg/ml B-Natriuretic Peptide 104 H (0-100) pg/ml Total Protein 6.7 (6.0-8.3) gm/dl Albumin 3.8 (3.4-5.0) gm/dl Globulin 2.9 (2.5-4.0) gm/dl Albumin/Globulin Ratio 1.3 (0.9-2) Adenovirus (PCR) Not Detected (NotDetected) B. pertussis DNA (PCR) Not Detected (NotDetected) B.parapertussis DNA PCR Not Detected (NotDetected) C. pneumoniae DNA (PCR) Not Detected (NotDetected) Coronavirus OC43 (PCR) Not Detected (NotDetected) Coronavirus HKU1 (PCR) Not Detected (NotDetected) Coronavirus 229E (PCR) Not Detected (NotDetected) SARS-CoV-2 (PCR) Not Detected (NotDetected) Coronavirus NL63 (PCR) Not Detected (NotDetected) Human Metapneumovir PCR Not Detected (NotDetected) Influenza Type A (PCR) Not Detected (NotDetected) Influenza Type B (PCR) Not Detected (NotDetected) M. pneumoniae (PCR) Not Detected (NotDetected) Parainfluenza 1 (PCR) Not Detected (NotDetected) Parainfluenza 2 (PCR) Not Detected (NotDetected) Parainfluenza 3 (PCR) Not Detected (NotDetected) Parainfluenza 4 (PCR) Not Detected (NotDetected) RSV (PCR) Not Detected (NotDetected) Entero/Rhino (PCR) Not Detected (NotDetected) Imaging Data Attestation: I personally reviewed and interpreted this imaging study as follows: My Impression: Chest x-ray negative. Airway clear. No pneumothorax. No consolidation. No cardiomegaly or cephalization.. No free air under the diaphragm. No fractures of the skeletal structures. Radiologist's Impression: Chest X-Ray 03/19/24 00:00 XR chest 1V portable HISTORY: 73 years-old Female Dyspnea acute cough or shortness of breath COMPARISON: Chest CT 03/11/2024 TECHNIQUE: AP view of the chest FINDINGS: Cardiomediastinal and hilar silhouettes are unchanged. Left subclavian [id number] catheter is in stable positioning. There is no pneumothorax, pleural effusion or airspace consolidation. Degenerative changes of the shoulders and spine. IMPRESSION: No acute process. ACT 112: Negative or not required by law. The above report was generated using voice recognition software. It may contain grammatical, syntax or spelling errors. Electronically signed by: Ben Chisholm M.D. 03/19/2024 4:16 PM Chest CTA 03/19/24 17:10 CHEST CTA for PULMONARY ARTERIES CT DOSE: 834.8 mGy.cm HISTORY: Shortness of breath. TECHNIQUE: Multiaxial CT images of the chest were performed following the intravenous administration of contrast to evaluate the pulmonary arteries. 3D/Maximal intensity projection images were also obtained. Sagittal and coronal reformations were also reviewed. A dose lowering technique was utilized adhering to the principles of ALARA. COMPARISON STUDY: Chest CT 03/11/2024. FINDINGS: Mild aneurysmal dilatation of the ascending thoracic aorta measuring up to 4.1 cm in diameter. This remains unchanged. The heart is normal in size. No pleural or pericardial effusions. Moderate coronary artery calcifications are again noted. No evidence for an aortic dissection. No filling defects within the pulmonary arteries to suggest a pulmonary embolus. A left subclavian Port-A-Cath terminates in the SVC. No suspicious lytic are blastic osseous lesions. Limited views of the upper abdomen demonstrate a normal liver, spleen, and adrenal glands. Partially visualized right renal cyst. Evidence for prior gastric bypass. Prior bilateral mastectomy. No mediastinal or hilar lymphadenopathy. No pneumothorax. The central airways are patent. No focal lung consolidations to suggest a pneumonia. A few bibasilar linear densities consistent with subsegmental atelectasis. IMPRESSION: 1. No evidence for a pulmonary embolus. 2. Additional findings as described above. ACT 112: Negative or not required by law. Electronically signed by: Clayton Mora M.D. 03/19/2024 7:09 PM ECG Data Attestation: I personally reviewed and interpreted this ECG as follows: Interpretation: Sinus rhythm with a rate of 87. TN QS and QTc intervals are within normal limits. No ST elevation or ST depression. There are mild peaked T waves in leads II, III, aVF, V3 V4 V5 V6. [facility] Narrative 1521: The patient was evaluated in room B3. A complete history and physical exam was performed Cardiac monitoring: An order was placed for continuous cardiac monitoring. The monitor shows a rate of 90 with sinus rhythm interpreted by me Patient was hypoxic on room air supplemental oxygen via nasal cannula was applied which improved the patient's oxygen saturation. 1950: Vital signs stable on supplemental oxygen via nasal cannula. Labs show a leukocytosis of 13.62. Hemoglobin 9.9. Platelet count 198. VBG shows venous pH of 7.39 with a venous pCO2 of 37. Creatinine 1.36 BUN 38. Patient's high- sensitivity troponin mildly elevated at 14.9 and BNP mildly elevated at 104. CTA of the chest is negative for PE or any sort of congestive heart failure. BioFire negative. Patient will be admitted to the [facility] hospitalist team. Impression & Plan Hypoxia Critical Care Time Critical Care Time: Yes Total Critical Care Time: 58 I have personally spent greater than 58 minutes of critical care time in the direct management of this patient. This includes bedside care, interpretation of diagnostic studies, and testing, discussion with consultants, patient, and family members, and other required patient management activities. This 58 minutes is in excess of all separately billable procedures. Discharge Plan Visit Data Chief Complaint: Shortness of Breath/Dyspnea Stated Complaint: LOW OXYGEN LEVEL, SOB, CHEST PRESSURE ED Provider: Jonathan Kearney Discharge Problem: Hypoxia Patient Disposition: Admitted As Inpatient Forms Stand Alone Forms: My [facility] Prescriptions Prescriptions: No Action acetaminophen 500 mg capsule 500 mg PO Q6H PRN (Reason: Pain) Rx Instructions: otc, not able to verify with pharmacy 02/07/24 venlafaxine [Effexor XR] 150 mg capsule,extended release 24hr 150 mg PO QAM Qty: 90 3RF candesartan [Atacand] 16 mg tablet 16 mg PO QAM 90 Days Qty: 90 3RF levothyroxine 75 mcg tablet 75 mcg PO DAILY Qty: 90 3RF ondansetron HCl 8 mg tablet 8 mg PO Q8 PRN (Reason: nausea/vomiting) Qty: 30 0RF diphenhydramine HCl [Benadryl] 25 mg capsule 25 mg PO DIRECTED PRN (Reason: Allergy Symptoms) Rx Instructions: otc, not able to verify with pharmacy 02/07/24 famotidine [Pepcid] 20 mg tablet 20 mg PO DAILY PRN (Reason: gerd) cyanocobalamin (vitamin B-12) 1,000 mcg/mL Kit 1,000 mcg IM MONTHLY Rx Instructions: not on file with pharmacy loperamide 2 mg Tablet 2 mg PO DIRECTED PRN (Reason: Diarrhea) Rx Instructions: not able to verify cholecalciferol (vitamin D3) [Vitamin D3] 125 mcg (5,000 unit) Tablet 125 mcg PO QAM Rx Instructions: otc, not able to verify with pharmacy 02/07/24 omeprazole 20 mg capsule,delayed release(DR/EC) 20 mg PO DAILY 30 Days Qty: 30 2RF dapsone 100 mg tablet 100 mg PO DAILY Qty: 30 1RF Referrals Referrals: Enoch Aguilar MD [Primary Care Provider] -
[2024-03-19 23:08] LABS: Base Excess ABG -0.8 mEq/L (-9-1.8); HCO3 ABG 23 mmol/L (19-24); PCO2 ABG 36 mmHg (35-46); PO2 ABG 106 mmHg (80-95); pH ABG 7.42 (7.35-7.45)
[2024-03-19 23:09] LABS: Allen Test Pos (Pos)
[2024-03-20 00:09] LABS: Appearance Urine Clear (Clear); Bilirubin Urine Negative (Negative); Blood Urine Trace (Negative); Color Urine Yellow; Glucose Urine UA Negative (Negative); Ketones Urine Negative (Negative); Leukocyte Esterase Urine 1+ (Negative); Nitrite Urine Negative (Negative); Protein Urine 1+ (Negative); Specific Gravity Urine > 1.045 (1.000-1.030); Urobilinogen Urine Negative (Negative)
[2024-03-20 00:19] LABS: Bacteria Urine 1+ (None Seen); Epithelial Cell Urine 0-2 /hpf (0-2); RBC Urine 0-2 /hpf (0-2)
[2024-03-20 00:20] LABS: Amorphous Sediment Urine Present (None Prsent)
[2024-03-20] MEDS: ACETAMINOPHEN 325 MG TAB PO PRN (00:30)
[2024-03-20] MEDS: HEPARIN SOD 5,000 UNIT/0.5 ML VIAL SQ SCH (00:34)
[2024-03-20] MEDS: LEVOTHYROXINE SODIUM 75 MCG TABLET PO SCH (05:49)
[2024-03-20 07:12] LABS: Basophils # (auto) 0.02 K/uL (0.00-0.20); Basophils % (auto) 0.2 %; Eosinophils # (auto) 0.03 K/uL (0.00-0.50); Eosinophils % (auto) 0.3 %; Hematocrit (blood only) 31.4 % (37.0-47.0); Hemoglobin 9.5 g/dl (12.0-16.0); Immature Granulocytes # (auto) 0.16 K/uL (0.01-0.20); Immature Granulocytes % (auto) 1.6 %; Lymphocytes # (auto) 2.69 K/uL (1.20-3.40); Lymphocytes % (auto) 26.1 %; Mean Corpuscular Hemoglobin 32.1 pg (25.0-34.0); Mean Corpuscular Hgb Conc 30.3 g/dL (32.0-36.0); Mean Corpuscular Volume 106.1 fL (80.0-100.0); Mean Platelet Volume 10.9 fL (9.4-12.4); Monocytes # (auto) 1.02 K/uL (0.11-0.59); Monocytes % (auto) 9.9 %; Neutrophils # (auto) 6.37 K/uL (1.40-6.50); Neutrophils % (auto) 61.9 %; Platelet Count 187 K/uL (130-400); RDW Standard Deviation 61.8 fL (36.4-46.3); Red Blood Count 2.96 M/uL (4.20-5.40); White Blood Count 10.29 K/ul (4.8-10.8)
[2024-03-20] MEDS: PANTOprazole 40 MG TAB PO SCH (07:26)
[2024-03-20] MEDS: VENLAFAXINE HCL XR 150 MG CAPXR PO SCH (07:27)
[2024-03-20 07:29] LABS: BUN Creatinine Ratio 26.2 (10-20); Calcium 9.1 mg/dl (8.6-10.3); Creatinine Clr Calc Pharmacy 39.1 ml/min; Est GFR (African American) 46.5 ml/min; Est GFR (Non-African American) 40.1 ml/min; Potassium 4.1 mmol/L (3.5-5.1)
[2024-03-20] MEDS: CANDESARTAN CILEXETIL 16 MG TABLET PO SCH (09:20)
--- NOTE | 2024-03-20 17:20 | Hospitalist Progress Note ---
Date of Service March 20, 2024 Assessment & Plan (1) Megaloblastic anemia: (2) Hypoxia: (3) Chronic kidney disease, stage 3b: (4) AI (aortic insufficiency): (5) Hypothyroid: (6) Sleep apnea: (7) Hyperlipidemia: (8) Methemoglobinemia: Plan Ms. Rosado is a 73 y/o female with PMHx bladder cancer s/p TURBT and adjuvant chemotherapy w/ Gemcitabine/Cisplatin, Breast cancer s/p b/l mastectomy, gastric bypass, LOIS, HLD, HTN, aortic insufficiency, Hypothyroidism, and CKD-III who was admitted due to progressive SOB and hypoxia (home pulse ox of 83-90%) for 3 weeks. Hypoxia // Methemoglobinemia - Patient with recent discharge from [facility] with steroid taper for myalgias 2ry to Opdivo plus Dapsone for PJP ppx as she is immunocompromised - CXR nml and CTA without evidence of PE - Biofire negative - TTE (07/2023) with normal LV function (EF 65-70%), mild-mod aortic regurgitation, mildly dilated ascending aorta (4.2 cm) - She has been having worsening SOB for the last 3 weeks - Methemoglobin level of 7.4% makes this a likely cause for patient's SOB Methemoglobin likely secondary to Dapsone, as it is a common cause of acquired methemoglobinemia. Will hold. - Will continue supportive therapy with supplemental O2 through NC - Will defer Methylene Blue given patient's current use of SSRI, as well as the mild nature of her methemoglobinemia - If symptoms fail to improve, may consider Vitamin C - Continue to monitor. May consider 2-step prior to discharge depending on clinical presentation, but will defer for now. Megaloblastic anemia - Patient with Hgb of 9.9 and MCV of 105 on admission labs - B12 and folate wnl (03/12/24) - Patient states she does get iron infusions as an outpatient for chronic anemia - Possible this is also related to Dapsone use - Will hold Dapsone - As patient was near the end of her steroid taper, will also stop - Monitor am labs CKD-III - Baseline Cr of 1.3-1.6 - Cr this morning was 1.36 - Continue to monitor am labs LOIS - Was advised to use CPAP at home, but did not tolerate well Hypothyroidism - Last TSH was 7.191 (03/12) - Continue home levothyroxine - Advise f/u with PCP for dose adjustment if necessary HTN - Continue home Candesartan Dispo: Discharge back home once respiratory status improves Diet: HH VTE ppx: Heparin 5000 u SubQ daily FULL CODE Admission and Anticipated Discharge Date Admission Date: March 19, 2024 Supervising Physician Co-Signing Physician Notes I personally examined the patient and verified all perez points of history and exam, discussed case, and agree with decision making with Dr Granados Feeling better. Breathing easier. Down to about her last 3 days of 10 mg prednisone. Vitals noted, in general she is awake and alert pleasant no distress. HEENT normocephalic atraumatic mucous membranes moist. Breathing unlabored no accessory muscle use good effort. Skin shows no rashes no pallor or icterus. Neuro without focal deficits. Hypoxiamethemoglobinemia due to dapsonemegaloblastic anemia likely due to the sameoff of dapsone, and given that she is on such a low-dose of prednisone at this point may not really need any substitute for PJP prophylaxis at this point. Appears clinically to be improving, likely time and allowing the dapsone to washout will allow time for the methemoglobinemia to self-correct. Otherwise as above DVT proph - heparin SQ Subjective Ms. Rosado is a 73 y/o female with PMHx bladder cancer s/p TURBT and adjuvant chemotherapy w/ Gemcitabine/Cisplatin, Breast cancer s/p b/l mastectomy, gastric bypass, LOIS (not on home CPAP due to poor tolerance), HLD, HTN, aortic insufficiency, Hypothyroidism, and CKD-III (Cr b/l 1.3-1.6) who was admitted due to progressive SOB and hypoxia (home pulse ox of 83-90%) for 3 weeks. Patient was evaluated at bedside and found to be AAOx4, afebrile, and in NAD. She states that she is feeling better with regards to her SOB and does not have any current concerns. Review of Systems Review of Systems: As per HPI. Physical Exam Physical Exam: General: AAOX4, afebrile, NAD CV: RRR/ no r/m/g Pulm: CTA bilaterally, normal respiratory effort, no respiratory distress GI: soft, nontender, nondistended Ext: no swelling or calf tenderness in bilateral LE Results & Data Results & Data Vital Signs (Past 12 Hours) Vital Signs Temp Pulse Pulse Resp BP Pulse Ox O2 Del Method 03/20/24 15:57 36.9 C 82 16 110/71 94 Room Air 03/20/24 15:00 76 03/20/24 11:33 36.6 C 90 18 94/45 L 94 Room Air 03/20/24 07:46 36.6 C 69 16 121/73 93 Nasal Cannula 03/20/24 07:25 Nasal Cannula 03/20/24 07:00 63 O2 Flow Rate 03/20/24 15:57 03/20/24 15:00 03/20/24 11:33 03/20/24 07:46 3 03/20/24 07:25 3 03/20/24 07:00 Resident Activity Tracking Resident Involvement: Resident Care Provided Care Provided: Adult Hospital Medicine
--- NOTE | 2024-03-20 19:21 | Billing Data ---
Date of Service March 20, 2024 Coding Level of Care Code 84161 SUB INP/OBS CARE
[2024-03-20] MEDS: ONDANSETRON INJ 2 MG/ML 2 ML VIAL IV PRN (19:48)
[2024-03-21 04:32] LABS: Basophils # (auto) 0.04 K/uL (0.00-0.20); Basophils % (auto) 0.5 %; Eosinophils # (auto) 0.01 K/uL (0.00-0.50); Eosinophils % (auto) 0.1 %; Hematocrit (blood only) 30.2 % (37.0-47.0); Hemoglobin 9.1 g/dl (12.0-16.0); Immature Granulocytes # (auto) 0.21 K/uL (0.01-0.20); Immature Granulocytes % (auto) 2.4 %; Lymphocytes # (auto) 2.91 K/uL (1.20-3.40); Lymphocytes % (auto) 33.3 %; Mean Corpuscular Hemoglobin 31.6 pg (25.0-34.0); Mean Corpuscular Hgb Conc 30.1 g/dL (32.0-36.0); Mean Corpuscular Volume 104.9 fL (80.0-100.0); Mean Platelet Volume 10.8 fL (9.4-12.4); Monocytes # (auto) 1.01 K/uL (0.11-0.59); Monocytes % (auto) 11.5 %; Neutrophils # (auto) 4.57 K/uL (1.40-6.50); Neutrophils % (auto) 52.2 %; Platelet Count 195 K/uL (130-400); RDW Standard Deviation 61.9 fL (36.4-46.3); Red Blood Count 2.88 M/uL (4.20-5.40); White Blood Count 8.75 K/ul (4.8-10.8)
--- NOTE | 2024-03-21 04:32 | Communication Note ---
Date of Service: March 21, 2024 Notified by nursing of compliant of chest pain. Pt evaluated at bedside. She notes intermittent chest tightness over the past few weeks, episode tonight is the same as the pain she described when she was admitted and the same as the pain she has had for the past few weeks. She notes significant improvement in the pain at this time, almost resolved. She states that at home when she was getting this pain taking deep breaths and rubbing chest, would help to get rid of it. Lungs clear to auscultation B/L, heart with RRR. Repeat EKG, compared to prior and largely unchanged. Will get plan to get morning labs now and add a troponin.
[2024-03-21 04:41] LABS: Albumin Globulin Ratio 1.2 (0.9-2); Albumin Level 3.4 gm/dl (3.4-5.0); BUN Creatinine Ratio 23.1 (10-20); Bilirubin,Total 0.8 mg/dl (0.2-1.0); Calcium 7.9 mg/dl (8.6-10.3); Creatinine Clr Calc Pharmacy 31.7 ml/min; Est GFR (African American) 36.2 ml/min; Est GFR (Non-African American) 31.2 ml/min; Globulin 2.8 gm/dl (2.5-4.0); Magnesium 1.9 mg/dl (1.7-2.4); Potassium 4.3 mmol/L (3.5-5.1); Total Protein 6.2 gm/dl (6.0-8.3)
[2024-03-21 04:46] LABS: Troponin I High Sensitivity 12.4 pg/ml (0-14)
[2024-03-21] MEDS: FAMOTIDINE 20 MG TAB PO PRN (08:12)
[2024-03-21] MEDS: LACTATED RINGER'S 1,000 ML IV SCH (08:13)
--- NOTE | 2024-03-21 12:44 | Hospitalist Progress Note ---
Date of Service March 21, 2024 Assessment & Plan (1) Megaloblastic anemia: (2) Hypoxia: (3) Chronic kidney disease, stage 3b: (4) AI (aortic insufficiency): (5) Hypothyroid: (6) Sleep apnea: (7) Hyperlipidemia: (8) Methemoglobinemia: Plan Ms. Rosado is a 73 y/o female with PMHx bladder cancer s/p TURBT and adjuvant chemotherapy w/ Gemcitabine/Cisplatin, Breast cancer s/p b/l mastectomy, gastric bypass, LOIS, HLD, HTN, aortic insufficiency, Hypothyroidism, and CKD-III who was admitted due to progressive SOB and hypoxia (home pulse ox of 83-90%) for 3 weeks. Hypoxia // Methemoglobinemia - Patient with recent discharge from [facility] with steroid taper for myalgias 2ry to Opdivo plus Dapsone for PJP ppx as she is immunocompromised - CXR nml and CTA without evidence of PE - Biofire negative - TTE (07/2023) with normal LV function (EF 65-70%), mild-mod aortic regurgitation, mildly dilated ascending aorta (4.2 cm) - She has been having worsening SOB for the last 3 weeks - Methemoglobin level of 7.4% makes this a likely cause for patient's SOB Methemoglobin likely secondary to Dapsone, as it is a common cause of acquired methemoglobinemia. Will hold. - Seems to be improving with her SOB and hypoxia. Measured pulse ox while in the room and NC off, and patient stayed between 90-91%. Took O2 sat after she walked to the bathroom and back and was 92%. - Will continue supportive therapy with supplemental O2 through NC as needed. - Will defer Methylene Blue given patient's current use of SSRI, as well as the mild nature of her methemoglobinemia - If symptoms fail to improve, may consider Vitamin C - Continue to monitor. May consider 2-step prior to discharge depending on clinical presentation, although could be deferred based on clinical presentation. Megaloblastic anemia - Patient with Hgb of 9.9 and MCV of 105 on admission labs - B12 and folate wnl (03/12/24) - Patient states she does get iron infusions as an outpatient for chronic anemia - Possible this is also related to Dapsone use. Will hold - Hgb in am labs 9.1 - Monitor am labs CKD-III - Baseline Cr of 1.3-1.6 - Cr this morning was 1.60, likely pre-renal - Continue to monitor am labs LOIS - Was advised to use CPAP at home, but did not tolerate well Hypothyroidism - Last TSH was 7.191 (03/12) - Continue home levothyroxine - Advise f/u with PCP for dose adjustment if necessary HTN - Continue home Candesartan Dispo: Discharge back home once respiratory status improves; anticipate possible discharge tomorrow. Diet: HH VTE ppx: Heparin 5000 u SubQ daily FULL CODE Admission and Anticipated Discharge Date Admission Date: March 19, 2024 Supervising Physician Co-Signing Physician Notes I personally examined the patient and verified all perez points of history and exam, discussed case, and agree with decision making with Dr Granados Feeling better. Breathing easier. On room air. Still some dyspnea with exertion. Vitals noted, in general she is awake and alert pleasant no distress. HEENT normocephalic atraumatic mucous membranes moist. Breathing unlabored no accessory muscle use good effort. Skin shows no rashes no pallor or icterus. Neuro without focal deficits. Hypoxiamethemoglobinemia due to dapsonemegaloblastic anemia likely due to the sameoff of dapsone, and given that she is on such a low-dose of prednisone at this point may not really need any substitute for PJP prophylaxis at this point. Appears clinically to be improving, likely time and allowing the dapsone to washout will allow time for the methemoglobinemia to self-correct. Hopefully home tomorrow. Otherwise as above DVT proph - heparin SQ Subjective Ms. Rosado is a 73 y/o female with PMHx bladder cancer s/p TURBT and adjuvant chemotherapy w/ Gemcitabine/Cisplatin, Breast cancer s/p b/l mastectomy, gastric bypass, LOIS (not on home CPAP due to poor tolerance), HLD, HTN, aortic insufficiency, Hypothyroidism, and CKD-III (Cr b/l 1.3-1.6) who was admitted due to progressive SOB and hypoxia (home pulse ox of 83-90%) for 3 weeks. Patient was evaluated at bedside and found to be AAOx4, afebrile, and in NAD. She states that she is feeling better with regards to her SOB and does not have any current concerns. Was able to walk to the bathroom with some SOB but not very significant. Review of Systems Review of Systems: As per HPI. Physical Exam Physical Exam: General: AAOX4, afebrile, NAD CV: RRR/ no r/m/g Pulm: CTA bilaterally, normal respiratory effort, no respiratory distress GI: soft, nontender, nondistended Ext: no swelling or calf tenderness in bilateral LE Results & Data Results & Data Vital Signs (Past 12 Hours) Vital Signs Temp Pulse Pulse Resp BP Pulse Ox Pulse Ox 03/21/24 11:55 95 03/21/24 11:55 97/63 L 03/21/24 11:48 37.0 C 76 18 87/47 L 90 03/21/24 08:10 03/21/24 07:50 37.0 C 78 18 108/74 94 03/21/24 07:00 79 03/21/24 03:21 37.6 C H 76 16 97/60 L 93 O2 Del Method O2 Flow Rate O2 Flow Rate 03/21/24 11:55 0 03/21/24 11:55 03/21/24 11:48 Room Air 03/21/24 08:10 Room Air 03/21/24 07:50 Nasal Cannula 2 03/21/24 07:00 03/21/24 03:21 Room Air Resident Activity Tracking Resident Involvement: Resident Care Provided Care Provided: Adult Hospital Medicine
--- NOTE | 2024-03-21 12:56 | Electrocardiogram Report ---
Test Reason : Blood Pressure : / mmHG Vent. Rate : 080 BPM Atrial Rate : 080 BPM P-R Int : 142 ms QRS Dur : 080 ms QT Int : 378 ms P-R-T Axes : 044 030 062 degrees QTc Int : 435 ms Normal sinus rhythm ST elevation, consider early repolarization, pericarditis, or injury Abnormal ECG When compared with ECG of 19-MAR-2024 15:36, No significant change was found Confirmed by Arpan Kauffman ([id number]) on 03/21/2024 12:55:53 PM Referred By: REFERRED SELF Confirmed By:Arpan Kauffman
--- NOTE | 2024-03-21 16:20 | Billing Data ---
Date of Service March 21, 2024 Coding Level of Care Code 71734 SUB INP/OBS CARE
--- NOTE | 2024-03-22 07:08 | Hospitalist Progress Note ---
Date of Service March 22, 2024 Assessment & Plan (1) Megaloblastic anemia: (2) Hypoxia: (3) Chronic kidney disease, stage 3b: (4) AI (aortic insufficiency): (5) Hypothyroid: (6) Sleep apnea: (7) Hyperlipidemia: (8) Methemoglobinemia: Plan Ms. Rosado is a 73 y/o female with PMHx bladder cancer s/p TURBT and adjuvant chemotherapy w/ Gemcitabine/Cisplatin, Breast cancer s/p b/l mastectomy, gastric bypass, LOIS, HLD, HTN, aortic insufficiency, Hypothyroidism, and CKD-III who was admitted due to progressive SOB and hypoxia (home pulse ox of 83-90%) for 3 weeks. Hypoxia // Methemoglobinemia - Patient with recent discharge from [facility] with steroid taper for myalgias 2ry to Opdivo plus Dapsone for PJP ppx as she is immunocompromised - CXR nml and CTA without evidence of PE - Biofire negative - TTE (07/2023) with normal LV function (EF 65-70%), mild-mod aortic regurgitation, mildly dilated ascending aorta (4.2 cm) - She has been having worsening SOB for the last 3 weeks - Methemoglobin level of 7.4% makes this a likely cause for patient's SOB Methemoglobin likely secondary to Dapsone, as it is a common cause of acquired methemoglobinemia. Will hold. - Seems to be improving with her SOB and hypoxia. Measured pulse ox while in the room and NC off, and patient stayed between 90-91%. Took O2 sat after she walked to the bathroom and back and was 92%. - Will continue supportive therapy with supplemental O2 through NC as needed. - Will defer Methylene Blue given patient's current use of SSRI, as well as the mild nature of her methemoglobinemia - If symptoms fail to improve, may consider Vitamin C - Continue to monitor. May consider 2-step prior to discharge depending on clinical presentation, although could be deferred based on clinical presentation. Megaloblastic anemia - Patient with Hgb of 9.9 and MCV of 105 on admission labs - B12 and folate wnl (03/12/24) - Patient states she does get iron infusions as an outpatient for chronic anemia - Possible this is also related to Dapsone use. Will hold - Hgb in am labs 9.1 - Monitor am labs CKD-III - Baseline Cr of 1.3-1.6 - Cr this morning was 1.60, likely pre-renal - Continue to monitor am labs LOIS - Was advised to use CPAP at home, but did not tolerate well Hypothyroidism - Last TSH was 7.191 (03/12) - Continue home levothyroxine - Advise f/u with PCP for dose adjustment if necessary HTN - Continue home Candesartan Dispo: Discharge back home once respiratory status improves; anticipate possible discharge tomorrow. Diet: HH VTE ppx: Heparin 5000 u SubQ daily FULL CODE Admission and Anticipated Discharge Date Admission Date: March 19, 2024 Subjective Ms. Rosado is a 73 y/o female with PMHx bladder cancer s/p TURBT and adjuvant chemotherapy w/ Gemcitabine/Cisplatin, Breast cancer s/p b/l mastectomy, gastric bypass, LOSI (not on home CPAP due to poor tolerance), HLD, HTN, aortic insufficiency, Hypothyroidism, and CKD-III (Cr b/l 1.3-1.6) who was admitted due to progressive SOB and hypoxia (home pulse ox of 83-90%) for 3 weeks. Patient was evaluated at bedside and found to be AAOx4, afebrile, and in NAD. She states that she is feeling better with regards to her SOB and does not have any current concerns. Was able to walk to the bathroom with some SOB but not very significant. Results & Data Results & Data Vital Signs (Past 12 Hours) Vital Signs Temp Pulse Pulse Resp BP Pulse Ox O2 Del Method 03/22/24 03:48 36.7 C 68 20 94/62 L 93 Nasal Cannula 03/22/24 00:14 36.7 C 72 20 110/71 96 Nasal Cannula 03/21/24 21:59 70 03/21/24 21:00 Room Air 03/21/24 20:19 36.8 C 80 20 101/65 93 Nasal Cannula O2 Flow Rate 03/22/24 03:48 2 03/22/24 00:14 2 03/21/24 21:59 03/21/24 21:00 03/21/24 20:19 2
[2024-03-22 08:42] LABS: Basophils # (auto) 0.02 K/uL (0.00-0.20); Basophils % (auto) 0.3 %; Eosinophils # (auto) 0.01 K/uL (0.00-0.50); Eosinophils % (auto) 0.1 %; Hematocrit (blood only) 28.4 % (37.0-47.0); Hemoglobin 8.4 g/dl (12.0-16.0); Immature Granulocytes # (auto) 0.17 K/uL (0.01-0.20); Immature Granulocytes % (auto) 2.3 %; Lymphocytes % (auto) 36.6 %; Mean Corpuscular Hemoglobin 31.5 pg (25.0-34.0); Mean Corpuscular Hgb Conc 29.6 g/dL (32.0-36.0); Mean Corpuscular Volume 106.4 fL (80.0-100.0); Mean Platelet Volume 10.7 fL (9.4-12.4); Monocytes # (auto) 0.88 K/uL (0.11-0.59); Monocytes % (auto) 11.9 %; Neutrophils # (auto) 3.59 K/uL (1.40-6.50); Neutrophils % (auto) 48.8 %; Platelet Count 192 K/uL (130-400); RDW Coefficient of Variation 15.9 % (11.5-14.5); Red Blood Count 2.67 M/uL (4.20-5.40); White Blood Count 7.37 K/ul (4.8-10.8)
[2024-03-22 09:00] LABS: BUN Creatinine Ratio 23.8 (10-20); Calcium 7.9 mg/dl (8.6-10.3); Creatinine Clr Calc Pharmacy 34.9 ml/min; Est GFR (African American) 40.1 ml/min; Est GFR (Non-African American) 34.6 ml/min; Potassium 4.3 mmol/L (3.5-5.1)
[2024-03-22] MEDS: HEPARIN 100 UNIT/ML 5ML FLUSH FLUSH PRN (12:34)
--- NOTE | 2024-03-22 13:50 | Discharge Summary ---
Date of Service March 22, 2024 Admission HPI Per Admitting Provider Jazmyn is a pleasant 73-year-old female with PMH of bladder cancer, breast cancer s/p bilateral mastectomy, gastric bypass, sleep apnea, HLD and HTN. Patient presented for worsening SOB and hypoxia x 3 weeks. Patient has a home pulse ox, and reports it has been around 83-90% on RA over the past few weeks. No supplemental oxygen at home. She has been avoiding coming any, she thought she thought it would likely improve over time. SOB is both at rest and with exertion, and she reports that she sometimes wakes up in the middle night taking deep breaths; she does not sleep on her back but rather on her side. She lives alone, but her daughter lives a few doors down and helps to manage her urostomy. Patient reports that she has been feeling lightheaded when she stands up, but denies any recent falls or fainting. No history of COPD or CHF, but patient does note she has aortic insufficiency.. Patient cannot use a CPAP at night, because it causes her to cough all night and she does not tolerate it well. She does note that she has had chest palpitations, SOB, that has led to chest tightness at times. 1 episode of chest pain while at her brother's house; she reports she was helping to make a cake, and put a cake into the oven and developed some chest pain. Patient has not been taking her pills as prescribed the past 2 days; notes that she is only taking prednisone (she is currently on a taper), levothyroxine, and dapsone the past 2 days. She never takes Lasix, she reports no leg swelling. She believes that the prednisone has made her urine more orange in her urostomy. Only recent change in medication was starting the prednisone, and stopping Opdivo (which was giving her myalgias). No recent changes in diet; patient does not eat a very salty diet; she reports she lives on yogurt and [employer] sandwiches. Patient is a former tobacco cigarette smoker, but quit 15 years ago. SpO2 was 91% on 3 L NC; vitals otherwise stable at time of admission. ED course: ROS: Patient endorses cold intolerance, heat intolerance, lightheadedness, chest pressure, SOB at rest and with exertion, dry cough, nausea Patient denies fever, chills, dizziness, pleuritic CP, hemoptysis, abdominal pain, vomiting, diarrhea, change in bowel habits, blood in the urine/stool, or numbness/tingling/swelling in the arms or legs. Admission Exam Per Admitting Provider General: no acute distress; cyanotic lips; pleasant affect; non-toxic appearing; well-nourished; cooperative; SpO2 91% on 3L NC HEENT: normocephalic, atraumatic; no scleral icterus; PERRLA w/ EOMs intact; moist mucus membrane; vision and hearing grossly intact Neck: supple; negative for JVP; no lymphadenopathy; trachea midline Skin: warm, dry without signs of tenting; no rashes, bruising, lesions, or erythema noted CV: chest wall NTP; double mastectomy status; RRR; S1/S2 normal; no murmurs/rubs/gallops; pulses intact and symmetric at radial, DP, and PT Lungs: no acute respiratory distress; barrel chested; symmetrical chest wall expansion; diminished breath sounds across all lung fontanez w/o adventitious sounds; no wheezing ABD: Soft, NTP; BS present; no rebound/guarding; no distention; RLQ urostomy draining clear orange urine MSK: no tics or fasciculations; no edema noted in the LEs b/l, nonerythematous Neuro: A&Ox3; normal mood and affect; fluent speech; no focal deficits; sensation grossly intact in the LEs b/l Principal Diagnosis Methemoglobinemia Discharge Exam Constitutional WD/WN, vitals as above ENMT external ear and nose normal, oropharynx normal Respiratory normal respiratory effort, lungs clear to auscultation Cardiovascular RRR, no murmur, no edema Gastrointestinal (Abdomen) normal bowel sounds, soft, nontender, no hepatosplenomegaly Skin no rashes, warm and dry Discharge Data Allergies Allergy/AdvReac Type Severity Reaction Status Date / Time docetaxel Allergy Severe chest Verified 03/10/24 12:43 pain, dyspnea adhesive Allergy Intermediate skin Verified 03/10/24 12:43 blisters atorvastatin Allergy Intermediate foot/leg Verified 03/10/24 12:43 swelling, nausea fluoxetine Allergy Intermediate gastrointestinal Verified 03/10/24 12:43 upset losartan Allergy Intermediate unsure Verified 03/10/24 12:43 (lethargy or leg swelling) silver sulfadiazine Allergy Intermediate worsening Verified 03/10/24 12:43 burning alendronate sodium Allergy Unknown unknown Verified 03/10/24 12:43 reaction albuterol AdvReac Intermediate nightmare Verified 03/10/24 12:43 cetirizine [From Zyrtec] AdvReac Mild drowsiness Verified 03/10/24 12:43 ibandronate sodium AdvReac Unknown unknown Verified 03/10/24 12:43 [From Boniva] reaction ibuprofen AdvReac Unknown advised to Verified 03/10/24 12:43 avoid (caused slight kidney damage) fluticasone [From Flonase] AdvReac nosebleed Verified 03/10/24 12:43 Consultations 03/19/24 19:47 ED Decision to Admit Stat Ordered Studies 03/19/24 17:10 CT angio chest PE protocol Stat Chest X-Ray 03/19/24 00:00 XR chest 1V portable HISTORY: 73 years-old Female Dyspnea acute cough or shortness of breath COMPARISON: Chest CT 03/11/2024 TECHNIQUE: AP view of the chest FINDINGS: Cardiomediastinal and hilar silhouettes are unchanged. Left subclavian Jolhuk-o-Gmrh catheter is in stable positioning. There is no pneumothorax, pleural effusion or airspace consolidation. Degenerative changes of the shoulder s and spine. IMPRESSION: No acute process. ACT 112: Negative or not required by law. The above report was generated using voice recognition software. It may contain grammatical, syntax or spelling errors. Electronically signed by: Ben Chisholm M.D. 03/19/2024 4:16 PM Chest CTA 03/19/24 17:10 CHEST CTA for PULMONARY ARTERIES CT DOSE: 834.8 mGy.cm HISTORY: Shortness of breath. TECHNIQUE: Multiaxial CT images of the chest were performed following the intravenous administration of contrast to evaluate the pulmonary arteries. 3D/Maximal intensity projection images were also obtained. Sagittal and coronal reformations were also reviewed. A dose lowering technique was utilized adhering to the principles of ALARA. COMPARISON STUDY: Chest CT 03/11/2024. FINDINGS: Mild aneurysmal dilatation of the ascending thoracic aorta measuring up to 4.1 cm in diameter. This remains unchanged. The heart is normal in size. No pleural or pericardial effusions. Moderate coronary artery calcifications are again noted. No evidence for an aortic dissection. No filling defects within the pulmonary arteries to suggest a pulmonary embolus. A left subclavian Port-A-Cath terminates in the SVC. No suspicious lytic are blastic osseous lesions. Limited views of the upper abdomen demonstrate a normal liver, spleen, and adrenal glands. Partially visualized right renal cyst. Evidence for prior gastric bypass. Prior bilateral mastectomy. No mediastinal or hilar lymphadenopathy. No pneumothorax. The central airways are patent. No focal lung consolidations to suggest a pneumonia. A few bibasilar linear densities consistent with subsegmental atelectasis. IMPRESSION: 1. No evidence for a pulmonary embolus. 2. Additional findings as described above. ACT 112: Negative or not required by law. Electronically signed by: Clayton Mora M.D. 03/19/2024 7:09 PM Hospital Course (1) Megaloblastic anemia: (2) Hypoxia: (3) Chronic kidney disease, stage 3b: (4) AI (aortic insufficiency): (5) Hypothyroid: (6) Sleep apnea: (7) Hyperlipidemia: (8) Methemoglobinemia: Plan Ms. Rosado is a 73 y/o female with PMHx bladder cancer s/p TURBT and adjuvant chemotherapy w/ Gemcitabine/Cisplatin, Breast cancer s/p b/l mastectomy, gastric bypass, LOIS, HLD, HTN, aortic insufficiency, Hypothyroidism, and CKD-III who was admitted due to progressive SOB and hypoxia (home pulse ox of 83-90%) for 3 weeks. Hypoxia // Methemoglobinemia - Patient with recent discharge from [facility] with steroid taper for myalgias 2ry to Opdivo plus Dapsone for PJP ppx as she is immunocompromised - CXR nml and CTA without evidence of PE - Biofire negative - TTE (07/2023) with normal LV function (EF 65-70%), mild-mod aortic regurgitation, mildly dilated ascending aorta (4.2 cm) - Methemoglobin level of 7.4% makes this a likely cause for patient's SOB Methemoglobin likely secondary to Dapsone, as it is a common cause of acquired methemoglobinemia. Will continue to hold this on discharge - SOB and hypoxia improved after supplemental O2 though NC as needed. Measured pulse ox while in the room and NC off, and patient stayed between 90-91%. Took O2 sat after she walked to the bathroom and back and was 92%. - Methylene Blue was deferred given patient's current use of SSRI, as well as the mild nature of her methemoglobinemia Megaloblastic anemia - Patient with Hgb of 9.9 and MCV of 105 on admission labs - B12 and folate wnl - Patient states she does get iron infusions as an outpatient for chronic anemia - Possible this is also related to Dapsone use. Will hold - Hgb in am labs 8.4 - Consider repeating CBC in 1- 2 weeks after discharge CKD-III - Baseline Cr of 1.3-1.6 - Cr this morning was 1.47 LOIS - Was advised to use CPAP at home, but did not tolerate well Hypothyroidism - Last TSH was 7.191 (03/12) - Continue home levothyroxine - Advise f/u with PCP for dose adjustment if necessary HTN - Continue home Candesartan Total Time Total Time Spent Total Time Spent (In Minutes): <30 Discharge Plan Discharge Items Patient Disposition: Home - Self-Care Reason For Visit: HYPOXIA, SOB/DYSPNEA Discharge Diagnosis: Hypoxia/ Methemoglobinemia Activity: Per Instructions section Non-emergency contact: Primary Care Provider Call non-emergency contact if: you have any medication questions, your symptoms worsen, your pain is unusual for you and your rectal temperature is above 100.4 Follow-up/Referrals: Enoch Aguilar MD [Primary Care Provider] - Diet: Regular and Heart Healthy Addtl Attending Provider Instructions: You were on the hospital due to hypoxia. This was found to be due to methemoglobinemia. This a form of hemoglobin that cannot carry oxygen as normal hemoglobin. This seem to be secondary to the Dapsone. You were treated with supportive therapy such as supplemental Oxygen. Now you are back to your baseline you will be discharge home Follow-up appointments: Make a follow-up appointment with your PCP within the next week. It is very important that you follow up with them shortly after discharge from the hospital. Keep all your follow-up appointments as already scheduled. If you cannot make an appointment, notify your provider. Medications: Your medication list has been reviewed and reconciled upon discharge to ensure accuracy and continuity of care. An updated list of all your medications is included with your hospital discharge paperwork. Please review this list closely, and make note of any changes. Stop the follow mediation: Dapsone 100 mg po Daily Take your medications as instructed; do not skip a dose of your medicines. Make sure all of your doctors know every medicine you are taking (including [id number] medicines, vitamins, and supplements). Call your primary care provider before taking any new medicines (including cems-bnf-ifvlqng medicines, vitamins, and supplements), because some of these may interact with your current medications, or may make your symptoms worse. Tell your primary care provider if you cannot afford your medications. CALL 911 OR GO TO THE EMERGENCY DEPARTMENT if you experience any of the following: Sudden, severe abdominal pain or nausea/vomiting Severe chest pain, or chest pain that radiates (moves) to your jaw or arm Sudden, severe shortness of breath or difficulty breathing Thank you for allowing us to participate in your care. Pending Studies at Discharge: No Stand-Alone Forms: My [facility] [email or web address], Smoking Cessation Medications and DC Order Prescriptions: Continued acetaminophen 500 mg capsule 500 mg PO Q6H PRN (Reason: Pain) Rx Instructions: otc, not able to verify with pharmacy 02/07/24 venlafaxine [Effexor XR] 150 mg capsule,extended release 24hr 150 mg PO QAM Qty: 90 3RF candesartan [Atacand] 16 mg tablet 16 mg PO QAM 90 Days Qty: 90 3RF levothyroxine 75 mcg tablet 75 mcg PO DAILY Qty: 90 3RF ondansetron HCl 8 mg tablet 8 mg PO Q8 PRN (Reason: nausea/vomiting) Qty: 30 0RF diphenhydramine HCl [Benadryl] 25 mg capsule 25 mg PO DIRECTED PRN (Reason: Allergy Symptoms) Rx Instructions: otc, not able to verify with pharmacy 02/07/24 famotidine [Pepcid] 20 mg tablet 20 mg PO DAILY PRN (Reason: gerd) cyanocobalamin (vitamin B-12) 1,000 mcg/mL Kit 1,000 mcg IM MONTHLY Rx Instructions: not on file with pharmacy loperamide 2 mg Tablet 2 mg PO DIRECTED PRN (Reason: Diarrhea) Rx Instructions: not able to verify cholecalciferol (vitamin D3) [Vitamin D3] 125 mcg (5,000 unit) Tablet 125 mcg PO QAM Rx Instructions: otc, not able to verify with pharmacy 02/07/24 omeprazole 20 mg capsule,delayed release(DR/EC) 20 mg PO DAILY 30 Days Qty: 30 2RF Discontinued dapsone 100 mg tablet 100 mg PO DAILY Qty: 30 1RF Discharge Orders: Discharge Order (Routine); Ordered 03/22/24 Ordered By: Shannan Davidson Admission Data Admit Date/Time: 03/19/24 21:04 Attending Provider: Clemente Avila Admit Provider: Jeannette Land Primary Care Provider: Enoch Aguilar Other Providers: Jeannette Land Other Interventions: Discharge Summary Assessment (RN) Last Done: 03/22/24 13:34 Supervising Physician Co-Signing Physician Notes I personally examined the patient and verified all perez points of history and exam, discussed case, and agree with decision making with Dr Tao Davidson Feeling better. Breathing easier. On room air. less GARRIDO. Vitals noted, in general she is awake and alert pleasant no distress. HEENT normocephalic atraumatic mucous membranes moist. Breathing unlabored no accessory muscle use good effort. Skin shows no rashes no pallor or icterus. Neuro without focal deficits. Hypoxiamethemoglobinemia due to dapsonemegaloblastic anemia likely due to the sameoff of dapsone, and given that she is on such a low-dose of prednisone at this point may not really need any substitute for PJP prophylaxis at this point. Appears clinically to be improving, safe/stable for home today. outlined symptoms/pulse ox guidance for activity. also separately discussed that while risk of myalgias recurring is low, she is now off prednisone and should myalgias recur would want her to notify care team chloe DVT proph - heparin SQ utilized during her stay
--- NOTE | 2024-03-22 14:01 | Billing Data ---
Date of Service March 22, 2024 Coding Level of Care Code 25439 IN/OBS DISCH 30 MIN/LESS
--- NOTE | 2024-03-22 14:01 | Billing Data ---
Date of Service March 22, 2024 Coding Level of Care Code 90701 IN/OBS DISCH 30 MIN/LESS
[2024-03-23] MEDS ORDERED: predniSONE 10 MG TABLET PO SCH (09:00)
[2024-03-26 11:43] LABS: iSTAT Creatinine 1.5 mg/dl (0.6-1.3); iSTAT Hemoglobin 10.5 g/dl (12.0-16.0); iSTAT Ionized Calcium 1.16 mmol/l (1.12-1.32); iSTAT Potassium 4.3 mmol/L (3.3-5.0)
== END 2024-03-22 14:17 | disposition home or self-care (01) | DRG 812 ==
LOC: ED 15:03 → SUATTDRO 21:04 → 2N 21:04

== ENCOUNTER 2024-03-24 16:05 | Inpatient (IN) ==
[2024-03-24 16:58] LABS: Basophils # (auto) 0.09 K/uL (0.00-0.20); Basophils % (auto) 0.4 %; Hematocrit (blood only) 29.4 % (37.0-47.0); Hemoglobin 9.2 g/dl (12.0-16.0); Immature Granulocytes # (auto) 0.35 K/uL (0.01-0.20); Immature Granulocytes % (auto) 1.6 %; Lymphocytes # (auto) 3.41 K/uL (1.20-3.40); Lymphocytes % (auto) 15.5 %; Mean Corpuscular Hemoglobin 32.2 pg (25.0-34.0); Mean Corpuscular Hgb Conc 31.3 g/dL (32.0-36.0); Mean Corpuscular Volume 102.8 fL (80.0-100.0); Mean Platelet Volume 10.7 fL (9.4-12.4); Monocytes # (auto) 1.68 K/uL (0.11-0.59); Monocytes % (auto) 7.6 %; Neutrophils # (auto) 16.49 K/uL (1.40-6.50); Neutrophils % (auto) 74.9 %; Platelet Count 229 K/uL (130-400); RDW Coefficient of Variation 15.6 % (11.5-14.5); RDW Standard Deviation 59.4 fL (36.4-46.3); Red Blood Count 2.86 M/uL (4.20-5.40); White Blood Count 22.02 K/ul (4.8-10.8)
--- NOTE | 2024-03-24 17:03 | XRay Report ---
SINGLE VIEW CHEST CLINICAL HISTORY: Generalized weakness. FINDINGS: 2 AP, portable, upright chest radiographs are compared to chest x-ray and chest CT dated . A left subclavian central venous infusion port is unchanged in position. The heart is enlarg ed. The pulmonary vasculature is noncongested. Chronic interstitial thickening is similar to previous . Scarring/atelectasis is noted at the lung bases. The lungs and pleural spaces are otherwise clear. No pneumothorax is seen. The skeletal structures are osteopenic. The bony thorax is grossly intact. IMPRESSION: Cardiomegaly with no active disease in the chest. ACT 112: Negative or not required by law. Electronically signed by: Cliff Kapoor M.D. 03/24/2024 5:01 PM
[2024-03-24 17:06] LABS: Base Excess VBG 1.7 mEq/L; HCO3 VBG 24 mmol/L; Oxygen Saturation VBG < 60.0 %; PCO2 VBG 32 mmHg (38-50); PO2 VBG 26 mmHg; pH VBG 7.49 (7.36-7.41)
[2024-03-24 17:17] LABS: Albumin Globulin Ratio 1.2 (0.9-2); Albumin Level 3.6 gm/dl (3.4-5.0); BUN Creatinine Ratio 19.9 (10-20); Bilirubin,Total 1.4 mg/dl (0.2-1.0); Calcium 8.6 mg/dl (8.6-10.3); Creatinine Clr Calc Pharmacy 30.5 ml/min; Est GFR (African American) 35.9 ml/min; Globulin 3.1 gm/dl (2.5-4.0); Magnesium 1.6 mg/dl (1.7-2.4); Potassium 4.2 mmol/L (3.5-5.1); Total Protein 6.7 gm/dl (6.0-8.3)
[2024-03-24 17:20] LABS: Troponin I High Sensitivity 22.4 pg/ml (0-14)
--- NOTE | 2024-03-24 17:21 | Emergency Department Note ---
Impression & Plan Sepsis, Acute UTI, Leukocytosis, Hypomagnesemia ED Provider Note NAME: ABELARDO ANGELES AGE: 73 SEX: F : 1950 ARRIVES VIA: Walk-In INFORMANT: Patient ED PROVIDER(S): Espinoza Bosch MD CHIEF COMPLAINT: Weakness. PLAN: Disposition: Admit MEDICAL DECISION MAKING: The patient is a pleasant 73-year-old woman with past medical history of bladder cancer, history of urostomy, recent hospitalization to this facility for hypoxia related methemoglobinemia secondary to being on dapsone for PJP prophylaxis in the setting of being on Opdivo for her bladder cancer. The patient was discharged this past Sunday and reports since then has been feeling significant malaise, fatigue and has only been able to sleep all day. She is able to ambulate however does not have the energy to eat or drink. She reports feeling feverish but has not measured her temperature. On evaluation the patient is ill-appearing but no distress, afebrile with heart rate in the 90s and vital signs otherwise stable. O2 saturation 94% on room air with normal respiratory effort. Patient appears clinically dry. Abdomen is nontender. EKG without overt acute ischemia. CXR negative for acute cardiopulmonary process per my personal preliminary review/interpretation. WBC 22 K with neutrophil predominance and left shift. The patient denies being on steroids and so suspicious for infection. H/H similar to prior. Platelets within normal limits. Chemistry without metabolic acidosis. Creatinine 1.6, similar to prior range of values. Magnesium 1.6 with repletion provided. High- sensitivity troponin 22.4, nonspecific. BNP 157, nonspecific. TSH is 12 however free T4 within normal limits. UA is suspicious for infection with 1+ leuk esterase, WBCs and 3+ bacteria. Respiratory viral panel/[employer] was negative. The patient was treated with 30 cc/kg of IV fluids with 2 L normal saline per ideal body weight. IV cefepime initiated for UTI which would cover previous pathogens. Patient agrees to plan for admission for further management. Case was discussed with Dr. Gupta, [facility] hospital[place], who will evaluate the patient for admission. Triage Nursing notes reviewed and agree them. Prior/external medical records reviewed Vital Signs: reviewed Differential diagnosis: Infection, dehydration, metabolic abnormality, hypo/hyperglycemia, electrolyte disturbance, anemia, hypoxia, cardiac sources, intracerebral event, toxicologic, neurologic, as well as other pathologies. ER treatment provided: See below. Diagnostics interpreted by me: ECG: Normal sinus rhythm, 87 bpm, no ectopy, no overt ST elevation or depression, QTc 450, QRS 82. Cardiac Monitoring: An order for continuous cardiac monitoring was placed and demonstrated Normal sinus rhythm, 87 bpm, no ectopy, Laboratory studies: See below Imaging studies: See below Consultation(s): Dr. Gupta, [facility] hospitalist HPI: The patient is a pleasant 73-year-old woman with past medical history of bladder cancer, history of urostomy, recent hospitalization to this facility for hypoxia related methemoglobinemia secondary to being on dapsone for PJP prophylaxis in the setting of being on Opdivo for her bladder cancer. The patient was discharged this past Sunday and reports since then has been feeling significant malaise, fatigue and has only been able to sleep all day. She is able to ambulate however does not have the energy to eat or drink. She reports feeling feverish but has not measured her temperature. ROS: See above HPI for pertinent positives & negatives. A total of 10 systems reviewed and were otherwise negative. VITALS:See Below PHYSICAL EXAMINATION: GENERAL: Awake, alert, fatigued/ill-appearing, in no distress HENT: Normocephalic, atraumatic. Oropharynx with dry mucous membranes and otherwise unremarkable. EYES: Normal conjunctiva. Sclera non-icteric. NECK: Supple. No nuchal rigidity. FROM. No JVD. RESPIRATORY: Clear to auscultation. CARDIAC: Regular rate, normal rhythm. Extremities warm and well perfused. Pulses equal. ABDOMEN: Soft, non-distended. No tenderness to palpation. No rebound or guarding. RLQ urostomy site c/d/i. MUSCULOSKELETAL: Chest examination reveals no tenderness. The back is symmetrical on inspection without obvious abnormality. There is no CVA tenderness to palpation. No joint edema. LOWER EXTREMITIES: Calves are equal size bilaterally and non-tender. No edema. No discoloration. NEURO: Normal sensorium. No sensory or motor deficits noted. SKIN: No rash or jaundice noted. ED COURSE: Critical Care: I have personally spent greater than 35 minutes of critical care time in the direct management of this patient. This includes bedside care, interpretation of diagnostic studies, and testing, discussion with consultants, patient, and family members, and other required patient management activities. This 35 minutes is in excess of all separately billable procedures. Espinoza Bosch MD Past Med/Surg History Medical History Urinary tract infection Chronic kidney disease, stage 3a Rupture of implant of right breast Immunotherapy History of phlebitis Presence of urostomy Bladder cancer dx'd 2021. hx chemo + surgery. Immunotherapy q28d. 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 Morbid obesity Acquired lymphedema LUE Emphysema of lung COPD with emphysema Degenerative disc disease Kidney stones no surgical intervention needed GERD (gastroesophageal reflux disease) controlled, stable per pt Anxiety and depression Hx of iron deficiency last iron infusion 2018 Restless leg syndrome Hx of migraines Former tobacco use Herniated disc thoracic Aortic aneurysm Dr. Mo monitoring Sleep apnea did not tolerate CPAP (caused cough) Pre-diabetes diet controlled Thoracic ascending aortic aneurysm last echo done 07/2023 - follows w/ dr barber Hyperlipidemia Osteoporosis Hypothyroid HTN (hypertension) controlled, stable per pt Breast cancer dx 2006 (left) and 2020 (right) s/p chemo and bilat mastectomies Endocarditis hx 15+ years ago (in setting of pyelonephritis and sepsis) Asthma stable> no inhalers Surgical History H/O bilateral mastectomy Hx of left cataract extraction History of arthroscopy of right knee History of total cystectomy Port-A-Cath in place (08/04/22) Insertion Access Port with Fluoroscopy (Left Subclavian)(Left) - Frantz Mayo, powerport S/P sclerotherapy of varicose veins H/O right mastectomy (12/08/19) Right Breast Mastectomy with Right [place] Lymph Node Biopsy,(Right) - Frantz Mayo DO 12/08/2019 s Mediport Removal - Frantz Mayo, DO s First Stage Immediate Right Breast Reconstruction with Right Tissue Health And Wellness Coach and Right Acellular Dermal Matrix(Right) - Sri Casillas MD: Grade 1 view, MAC 3, ETT 7.5. Removal 05/24/21: Grade 1 view, Stephen 2, ETT 7 atraumatic x 1. Hx of hand surgery right thumb tendon repair History of surgery on arm bialt, Brachioplasty with liposuction H/O abdominal surgery naval removal (d/t infection) History of appendectomy History of esophagogastroduodenoscopy (EGD) History of tooth extraction History of transesophageal echocardiography (JOSE) History of vascular access device since removed S/P gastric bypass 1991, 1993 History of breast reconstruction Left (03/2010), implant exchange (01/2011), right mastopexy History of tubal ligation History of colonoscopy History of cholecystectomy H/O left mastectomy S/P partial hysterectomy Family History Mother Myocardial infarction Breast cancer Diabetes ESRD (end stage renal disease) on dialysis Aunt Breast cancer Unknown Skin cancer Father Myocardial infarction Coronary heart disease Daughter , age 31. T1DM Diabetes Daughter , brain tumor, then pain med addiction age 36 No problems noted. Other No significant family history Denies family history of Ovarian cancer Prostate cancer Colorectal cancer Social History Smoking Status: Former smoker Tobacco Type: Cigarettes Age Started Using Tobacco: 14; Age Quit Using Tobacco: 38; Cigarettes Per Day: 2-3 ppd at times in the past, started as a teen; Second Hand Exposure: No; Do You Dip or Chew Tobacco: No; Hx Alcohol Use: Yes Alcohol type: wine Alcohol Intake Frequency: Monthly or Less Hx Substance Use: No Preferred Language: Tongan Communication Ability: Effective Visual Impairment: No Limitations Hearing Ability: Normal Roller Inspector And Mender Required: No Beliefs That Will Affect Care: None marital status: / Current Living Situation: Alone current occupational status: retired current occupation: [employer] How many Children do You have: 4 How many Children do You have Comment: 2 children ; 1 living daughter, 1 living son Feels Safe at Home: Yes Childhood Exposure to Second-Hand Smoke: Yes Diet: regular Diet Comment: aware of protein caffeine: Yes (tea 8 cups daily) Dental Care, Regularly: No Physical Activity Frequency: Does not Exercise Seatbelt Use: always Sunscreen Use: Yes Do you think of yourself as: straight/heterosexual Gender Identity: Female Assistive Devices: Glasses Allergies Allergies Allergy/AdvReac Type Severity Reaction Status Date / Time docetaxel Allergy Severe chest Verified 03/10/24 12:43 pain, dyspnea adhesive Allergy Intermediate skin Verified 03/10/24 12:43 blisters atorvastatin Allergy Intermediate foot/leg Verified 03/10/24 12:43 swelling, nausea fluoxetine Allergy Intermediate gastrointestinal Verified 03/10/24 12:43 upset silver sulfadiazine Allergy Intermediate worsening Verified 03/10/24 12:43 burning alendronate sodium Allergy Unknown unknown Verified 03/10/24 12:43 reaction albuterol AdvReac Intermediate nightmare Verified 03/10/24 12:43 losartan AdvReac Intermediate unsure Verified 03/24/24 21:02 (lethargy or leg swelling) cetirizine [From Zyrtec] AdvReac Mild drowsiness Verified 03/10/24 12:43 ibandronate sodium AdvReac Unknown unknown Verified 03/10/24 12:43 [From Boniva] reaction ibuprofen AdvReac Unknown advised to Verified 03/10/24 12:43 avoid (caused slight kidney damage) fluticasone [From Flonase] AdvReac nosebleed Verified 03/10/24 12:43 Home Meds Home Medications Medication Instructions Recorded Confirmed diphenhydramine HCl 25 mg capsule 25 mg PO DIRECTED PRN Allergy 06/03/19 03/24/24 (Benadryl) Symptoms acetaminophen 500 mg capsule 500 mg PO Q6H PRN Pain 08/29/19 03/24/24 cholecalciferol (vitamin D3) 125 125 mcg PO QAM 05/18/21 03/24/24 mcg (5,000 unit) tablet (Vitamin D3) cyanocobalamin (vitamin B-12) 1,000 mcg IM MONTHLY 02/07/22 03/24/24 1,000 mcg/mL injection kit loperamide 2 mg tablet 2 mg PO DIRECTED PRN Diarrhea 09/19/22 03/24/24 famotidine 20 mg tablet (Pepcid) 20 mg PO DAILY PRN gerd 01/17/23 03/24/24 Previous Rx's Medication Instructions Recorded candesartan 16 mg tablet (Atacand) 16 mg PO QAM 90 days #90 tabs 06/04/23 venlafaxine 150 mg 150 mg PO QAM #90 caps 06/04/23 capsule,extended release 24 hr (Effexor XR) levothyroxine 75 mcg tablet 75 mcg PO DAILY #90 tabs 11/12/23 omeprazole 20 mg capsule,delayed 20 mg PO DAILY 30 days #30 caps 02/08/24 release ondansetron HCl 8 mg tablet 8 mg PO Q8 PRN nausea/vomiting #30 02/27/24 tabs Results & Data (ED) Vital Signs Vital Signs - 24 hr 03/24/24 16:09 03/24/24 16:18 03/24/24 16:20 Temperature 37.1 C Temperature Source Oral Pulse Rate 94 H 88 88 Pulse Rate from SpO2 Sensor 88 Pulse Rhythm Regular Pulse Strength Normal Respiratory Rate 18 15 Respiratory Effort / Characteristics Non-Labored Respiratory Depth Normal Respiratory Pattern Regular Blood Pressure 109/72 Blood Pressure Mean 84 Blood Pressure Position Sitting Pulse Oximetry 94 94 Oxygen Delivery Method Room Air Sepsis Recent Fever Within 48 Hours No Sepsis New/Unexplained Change in Mental Status No Sepsis Action Taken by Nursing No Action Required 03/24/24 16:28 03/24/24 16:30 03/24/24 16:30 Temperature Temperature Source Pulse Rate 86 Pulse Rate from SpO2 Sensor 86 Pulse Rhythm Pulse Strength Respiratory Rate 18 Respiratory Effort / Characteristics Respiratory Depth Respiratory Pattern Blood Pressure 99/66 L Blood Pressure Mean 68 Blood Pressure Position Pulse Oximetry 94 92 Oxygen Delivery Method Room Air Sepsis Recent Fever Within 48 Hours Sepsis New/Unexplained Change in Mental Status Sepsis Action Taken by Nursing 03/24/24 17:00 03/24/24 17:00 03/24/24 17:30 Temperature Temperature Source Pulse Rate 85 88 Pulse Rate from SpO2 Sensor 86 88 Pulse Rhythm Pulse Strength Respiratory Rate 27 H 21 Respiratory Effort / Characteristics Respiratory Depth Respiratory Pattern Blood Pressure 106/79 Blood Pressure Mean 92 Blood Pressure Position Pulse Oximetry 93 93 Oxygen Delivery Method Sepsis Recent Fever Within 48 Hours Sepsis New/Unexplained Change in Mental Status Sepsis Action Taken by Nursing 03/24/24 17:30 03/24/24 18:00 03/24/24 18:00 Temperature Temperature Source Pulse Rate 89 Pulse Rate from SpO2 Sensor 92 H Pulse Rhythm Pulse Strength Respiratory Rate 21 Respiratory Effort / Characteristics Respiratory Depth Respiratory Pattern Blood Pressure 129/74 122/75 Blood Pressure Mean 90 97 Blood Pressure Position Pulse Oximetry 94 Oxygen Delivery Method Sepsis Recent Fever Within 48 Hours Sepsis New/Unexplained Change in Mental Status Sepsis Action Taken by Nursing 03/24/24 18:30 03/24/24 19:00 Temperature Temperature Source Pulse Rate 88 84 Pulse Rate from SpO2 Sensor 89 84 Pulse Rhythm Pulse Strength Respiratory Rate 25 H 22 Respiratory Effort / Characteristics Respiratory Depth Respiratory Pattern Blood Pressure Blood Pressure Mean Blood Pressure Position Pulse Oximetry 97 94 Oxygen Delivery Method Room Air Sepsis Recent Fever Within 48 Hours Sepsis New/Unexplained Change in Mental Status Sepsis Action Taken by Nursing Laboratory Data Attestation: I reviewed the patient's lab results. 03/24/24 16:34 03/24/24 16:34 Lab Results 03/24/24 03/24/24 03/24/24 Range/Units 15:55 16:34 16:45 WBC 22.02 H (4.8-10.8) K/ul RBC 2.86 L (4.20-5.40) M/uL Hgb 9.2 L (12.0-16.0) g/dl Hct 29.4 L (37.0-47.0) % MCV 102.8 H (80.0-100.0) fL MCH 32.2 (25.0-34.0) pg MCHC 31.3 L (32.0-36.0) g/dL RDW Std Deviation 59.4 H (36.4-46.3) fL RDW Coeff of Jerry 15.6 H (11.5-14.5) % Plt Count 229 (130-400) K/uL MPV 10.7 (9.4-12.4) fL Immature Gran % (Auto) 1.6 % Neut % (Auto) 74.9 % Lymph % (Auto) 15.5 % [place] % (Auto) 7.6 % Eos % (Auto) 0.0 % Baso % (Auto) 0.4 % Neut # (Auto) 16.49 H (1.40-6.50) K/uL Lymph # (Auto) 3.41 H (1.20-3.40) K/uL [place] # (Auto) 1.68 H (0.11-0.59) K/uL Eos # (Auto) 0.00 (0.00-0.50) K/uL Baso # (Auto) 0.09 (0.00-0.20) K/uL Immature Gran # (Auto) 0.35 H (0.01-0.20) K/uL PT 12.5 H (9.0-12.0) Seconds INR 1.2 H (0.9-1.1) APTT 33 H (21-31) Seconds PTT Ratio 1.2 VBG pH (7.36-7.41) VBG pCO2 (38-50) mmHg VBG pO2 mmHg VBG HCO3 mmol/L VBG O2 Saturation % VBG Base Excess mEq/L Methemoglobin (0.0-1.5) % Sodium 133 L (136-145) mmol/L Potassium 4.2 (3.5-5.1) mmol/L Chloride 101 (98-107) mmol/L Carbon Dioxide 21 (21-32) mmol/L Anion Gap 11 (3-11) BUN 32 H (6-23) mg/dl Creatinine 1.61 H (0.6-1.2) mg/dl Est Cr Clr Drug Dosing 30.5 ml/min Est GFR ( Amer) 35.9 ml/min Est GFR (Non-Af Amer) 31.0 ml/min BUN/Creatinine Ratio 19.9 (10-20) Glucose 156 H (70-99(Fasting)) mg/dl Lactate (0.4-2.0) mmol/L Calcium 8.6 (8.6-10.3) mg/dl Phosphorus 2.6 (2.5-4.9) mg/dl Magnesium 1.6 L (1.7-2.4) mg/dl Total Bilirubin 1.4 H (0.2-1.0) mg/dl AST 13 (13-39) U/L ALT 7 (7-52) U/L Alkaline Phosphatase 77 (34-104) U/L Ammonia (18-72) umol/L Troponin I High Sens 22.4 H (0-14) pg/ml B-Natriuretic Peptide 157 H (0-100) pg/ml Total Protein 6.7 (6.0-8.3) gm/dl Albumin 3.6 (3.4-5.0) gm/dl Globulin 3.1 (2.5-4.0) gm/dl Albumin/Globulin Ratio 1.2 (0.9-2) TSH 12.107 H (0.300-4.500) uIu/ml Free T4 0.76 (0.61-1.60) ng/dl Urine Color Urine Appearance (Clear) Urine pH (4.5-7.5) Ur Specific [place] (1.000-1.030) Urine Protein (Negative) Urine Glucose (UA) (Negative) Urine Ketones (Negative) Urine Blood (Negative) Urine Nitrite (Negative) Urine Bilirubin (Negative) Urine Urobilinogen (Negative) Ur Leukocyte Esterase (Negative) Urine WBC (Auto) (0-5) /hpf Urine RBC (Auto) (0-2) /hpf U Hyaline Cast (Auto) (0-2) /lpf U Epithel Cells (Auto) (0-2) /hpf Urine Bacteria (Auto) (None Seen) Adenovirus (PCR) Not Detected (NotDetected) B. pertussis DNA (PCR) Not Detected (NotDetected) B.parapertussis DNA PCR Not Detected (NotDetected) C. pneumoniae DNA (PCR) Not Detected (NotDetected) Coronavirus OC43 (PCR) Not Detected (NotDetected) Coronavirus HKU1 (PCR) Not Detected (NotDetected) Coronavirus 229E (PCR) Not Detected (NotDetected) SARS-CoV-2 (PCR) Not Detected (NotDetected) Coronavirus NL63 (PCR) Not Detected (NotDetected) Human Metapneumovir PCR Not Detected (NotDetected) Influenza Type A (PCR) Not Detected (NotDetected) Influenza Type B (PCR) Not Detected (NotDetected) M. pneumoniae (PCR) Not Detected (NotDetected) Parainfluenza 1 (PCR) Not Detected (NotDetected) Parainfluenza 2 (PCR) Not Detected (NotDetected) Parainfluenza 3 (PCR) Not Detected (NotDetected) Parainfluenza 4 (PCR) Not Detected (NotDetected) RSV (PCR) Not Detected (NotDetected) Entero/Rhino (PCR) Not Detected (NotDetected) 03/24/24 03/24/24 03/24/24 Range/Units 16:53 18:02 18:05 WBC (4.8-10.8) K/ul RBC (4.20-5.40) M/uL Hgb (12.0-16.0) g/dl Hct (37.0-47.0) % MCV (80.0-100.0) fL MCH (25.0-34.0) pg MCHC (32.0-36.0) g/dL RDW Std Deviation (36.4-46.3) fL RDW Coeff of Jerry (11.5-14.5) % Plt Count (130-400) K/uL MPV (9.4-12.4) fL Immature Gran % (Auto) % Neut % (Auto) % Lymph % (Auto) % [place] % (Auto) % Eos % (Auto) % Baso % (Auto) % Neut # (Auto) (1.40-6.50) K/uL Lymph # (Auto) (1.20-3.40) K/uL [place] # (Auto) (0.11-0.59) K/uL Eos # (Auto) (0.00-0.50) K/uL Baso # (Auto) (0.00-0.20) K/uL Immature Gran # (Auto) (0.01-0.20) K/uL PT (9.0-12.0) Seconds INR (0.9-1.1) APTT (21-31) Seconds PTT Ratio VBG pH 7.49 H (7.36-7.41) VBG pCO2 32 L (38-50) mmHg VBG pO2 26 mmHg VBG HCO3 24 mmol/L VBG O2 Saturation < 60.0 % VBG Base Excess 1.7 mEq/L Methemoglobin 1.2 (0.0-1.5) % Sodium (136-145) mmol/L Potassium (3.5-5.1) mmol/L Chloride (98-107) mmol/L Carbon Dioxide (21-32) mmol/L Anion Gap (3-11) BUN (6-23) mg/dl Creatinine (0.6-1.2) mg/dl Est Cr Clr Drug Dosing ml/min Est GFR ( Amer) ml/min Est GFR (Non-Af Amer) ml/min BUN/Creatinine Ratio (10-20) Glucose (70-99(Fasting)) mg/dl Lactate 1.4 (0.4-2.0) mmol/L Calcium (8.6-10.3) mg/dl Phosphorus (2.5-4.9) mg/dl Magnesium (1.7-2.4) mg/dl Total Bilirubin (0.2-1.0) mg/dl AST (13-39) U/L ALT (7-52) U/L Alkaline Phosphatase (34-104) U/L Ammonia 16.0 L (18-72) umol/L Troponin I High Sens (0-14) pg/ml B-Natriuretic Peptide (0-100) pg/ml Total Protein (6.0-8.3) gm/dl Albumin (3.4-5.0) gm/dl Globulin (2.5-4.0) gm/dl Albumin/Globulin Ratio (0.9-2) TSH (0.300-4.500) uIu/ml Free T4 (0.61-1.60) ng/dl Urine Color Dark Yellow Urine Appearance Cloudy A (Clear) Urine pH 6.0 (4.5-7.5) Ur Specific [place] 1.013 (1.000-1.030) Urine Protein 2+ H (Negative) Urine Glucose (UA) Negative (Negative) Urine Ketones Negative (Negative) Urine Blood 1+ H (Negative) Urine Nitrite Negative (Negative) Urine Bilirubin Negative (Negative) Urine Urobilinogen Negative (Negative) Ur Leukocyte Esterase 1+ H (Negative) Urine WBC (Auto) 21-50 H (0-5) /hpf Urine RBC (Auto) 0-2 (0-2) /hpf U Hyaline Cast (Auto) 3-5 H (0-2) /lpf U Epithel Cells (Auto) 0-2 (0-2) /hpf Urine Bacteria (Auto) 3+ H (None Seen) Adenovirus (PCR) (NotDetected) B. pertussis DNA (PCR) (NotDetected) B.parapertussis DNA PCR (NotDetected) C. pneumoniae DNA (PCR) (NotDetected) Coronavirus OC43 (PCR) (NotDetected) Coronavirus HKU1 (PCR) (NotDetected) Coronavirus 229E (PCR) (NotDetected) SARS-CoV-2 (PCR) (NotDetected) Coronavirus NL63 (PCR) (NotDetected) Human Metapneumovir PCR (NotDetected) Influenza Type A (PCR) (NotDetected) Influenza Type B (PCR) (NotDetected) M. pneumoniae (PCR) (NotDetected) Parainfluenza 1 (PCR) (NotDetected) Parainfluenza 2 (PCR) (NotDetected) Parainfluenza 3 (PCR) (NotDetected) Parainfluenza 4 (PCR) (NotDetected) RSV (PCR) (NotDetected) Entero/Rhino (PCR) (NotDetected) 03/24/24 Range/Units 18:28 WBC (4.8-10.8) K/ul RBC (4.20-5.40) M/uL Hgb (12.0-16.0) g/dl Hct (37.0-47.0) % MCV (80.0-100.0) fL MCH (25.0-34.0) pg MCHC (32.0-36.0) g/dL RDW Std Deviation (36.4-46.3) fL RDW Coeff of Jerry (11.5-14.5) % Plt Count (130-400) K/uL MPV (9.4-12.4) fL Immature Gran % (Auto) % Neut % (Auto) % Lymph % (Auto) % [place] % (Auto) % Eos % (Auto) % Baso % (Auto) % Neut # (Auto) (1.40-6.50) K/uL Lymph # (Auto) (1.20-3.40) K/uL [place] # (Auto) (0.11-0.59) K/uL Eos # (Auto) (0.00-0.50) K/uL Baso # (Auto) (0.00-0.20) K/uL Immature Gran # (Auto) (0.01-0.20) K/uL PT (9.0-12.0) Seconds INR (0.9-1.1) APTT (21-31) Seconds PTT Ratio VBG pH (7.36-7.41) VBG pCO2 (38-50) mmHg VBG pO2 mmHg VBG HCO3 mmol/L VBG O2 Saturation % VBG Base Excess mEq/L Methemoglobin (0.0-1.5) % Sodium (136-145) mmol/L Potassium (3.5-5.1) mmol/L Chloride (98-107) mmol/L Carbon Dioxide (21-32) mmol/L Anion Gap (3-11) BUN (6-23) mg/dl Creatinine (0.6-1.2) mg/dl Est Cr Clr Drug Dosing ml/min Est GFR ( Amer) ml/min Est GFR (Non-Af Amer) ml/min BUN/Creatinine Ratio (10-20) Glucose (70-99(Fasting)) mg/dl Lactate (0.4-2.0) mmol/L Calcium (8.6-10.3) mg/dl Phosphorus (2.5-4.9) mg/dl Magnesium (1.7-2.4) mg/dl Total Bilirubin (0.2-1.0) mg/dl AST (13-39) U/L ALT (7-52) U/L Alkaline Phosphatase (34-104) U/L Ammonia (18-72) umol/L Troponin I High Sens 21.3 H (0-14) pg/ml B-Natriuretic Peptide (0-100) pg/ml Total Protein (6.0-8.3) gm/dl Albumin (3.4-5.0) gm/dl Globulin (2.5-4.0) gm/dl Albumin/Globulin Ratio (0.9-2) TSH (0.300-4.500) uIu/ml Free T4 (0.61-1.60) ng/dl Urine Color Urine Appearance (Clear) Urine pH (4.5-7.5) Ur Specific [place] (1.000-1.030) Urine Protein (Negative) Urine Glucose (UA) (Negative) Urine Ketones (Negative) Urine Blood (Negative) Urine Nitrite (Negative) Urine Bilirubin (Negative) Urine Urobilinogen (Negative) Ur Leukocyte Esterase (Negative) Urine WBC (Auto) (0-5) /hpf Urine RBC (Auto) (0-2) /hpf U Hyaline Cast (Auto) (0-2) /lpf U Epithel Cells (Auto) (0-2) /hpf Urine Bacteria (Auto) (None Seen) Adenovirus (PCR) (NotDetected) B. pertussis DNA (PCR) (NotDetected) B.parapertussis DNA PCR (NotDetected) C. pneumoniae DNA (PCR) (NotDetected) Coronavirus OC43 (PCR) (NotDetected) Coronavirus HKU1 (PCR) (NotDetected) Coronavirus 229E (PCR) (NotDetected) SARS-CoV-2 (PCR) (NotDetected) Coronavirus NL63 (PCR) (NotDetected) Human Metapneumovir PCR (NotDetected) Influenza Type A (PCR) (NotDetected) Influenza Type B (PCR) (NotDetected) M. pneumoniae (PCR) (NotDetected) Parainfluenza 1 (PCR) (NotDetected) Parainfluenza 2 (PCR) (NotDetected) Parainfluenza 3 (PCR) (NotDetected) Parainfluenza 4 (PCR) (NotDetected) RSV (PCR) (NotDetected) Entero/Rhino (PCR) (NotDetected) Administered Medications Acetaminophen (Acetaminophen 325 Mg Tab) 650 mg PO Q4H PRN PRN Reason: Pain or Fever Stop: 04/23/24 19:06 Last Admin: 03/25/24 03:47 Dose: 650 mg Documented By: MABEL Enoxaparin Sodium (Enoxaparin Inj 40 Mg/0.4 Ml Syr) 40 mg SQ Q24H [facility] Stop: 04/23/24 19:44 Last Admin: 03/24/24 20:20 Dose: Not Given Documented By: JOHNATHAN Sodium Chloride (Nss) 1,000 mls @ 80 mls/hr IV .[id number] [facility] Stop: 04/23/24 19:14 Last Admin: 03/24/24 20:19 Dose: 80 mls/hr Documented By: JOHNATHAN Discontinued Medications Magnesium Sulfate/Dextrose (Magnesium Sulfate / D5w) 1 gm in 100 mls @ 100 mls/hr IV NOW STA Stop: 03/24/24 19:00 Last Infusion: 03/24/24 19:44 Dose: Infused Documented By: Admin: 03/24/24 18:28 Dose: 100 mls/hr Documented By: CARMENZA Cefepime HCl (Maxipime) 2,000 mg in 20 mls @ 5 mls/min IV NOW STA; Protocol Stop: 03/24/24 18:29 Last Admin: 03/24/24 18:45 Dose: 5 mls/min Documented By: CARMENZA Sodium Chloride (Nss) 1,000 mls @ 999 mls/hr IV .[id number] AJ Stop: 03/24/24 20:30 Last Infusion: 03/24/24 21:38 Dose: Infused Documented By: Admin: 03/24/24 19:40 Dose: 999 mls/hr Documented By: Infusion: 03/24/24 19:40 Dose: Infused Documented By: Admin: 03/24/24 18:45 Dose: 999 mls/hr Documented By: CARMENZA Acetaminophen (Ofirmev) 1,000 mg in 100 mls @ 400 mls/hr IV NOW STA Stop: 03/24/24 18:43 Last Infusion: 03/24/24 19:03 Dose: Infused Documented By: Admin: 03/24/24 18:45 Dose: 400 mls/hr Documented By: CARMENZA Vancomycin HCl 2,000 mg/ (Sodium Chloride) 540 mls @ 200 mls/hr IV ONE ONE Stop: 03/24/24 22:26 Last Infusion: 03/24/24 23:03 Dose: Infused Documented By: Admin: 03/24/24 20:19 Dose: 200 mls/hr Documented By: JOHNATHAN Miscellaneous (Candasartan~Order Awaiting Action) 1 each N/A QS AJ Stop: 04/23/24 21:29 Last Admin: 03/25/24 00:37 Dose: Not Given Documented By: MABEL Imaging Data Radiologist's Impression: Chest X-Ray 03/24/24 16:28 SINGLE VIEW CHEST CLINICAL HISTORY: Generalized weakness. FINDINGS: 2 AP, portable, upright chest radiographs are compared to chest x-ray and chest CT dated 03/19/2024. A left subclavian central venous infusion port is unchanged in position. The heart is enlarged. The pulmonary vasculature is noncongested. Chronic interstitial thickening is similar to previous. Scarring/atelectasis is noted at the lung bases. The lungs and pleural spaces are otherwise clear. No pneumothorax is seen. The skeletal structures are osteopenic. The bony thorax is grossly intact. IMPRESSION: Cardiomegaly with no active disease in the chest. ACT 112: Negative or not required by law. Electronically signed by: Cliff Kapoor M.D. 03/24/2024 5:01 PM Discharge Plan Visit Data Chief Complaint: Cough Stated Complaint: DOCTOR REF. COUGH, PAIN, LETHARGIC, NOT EATEN ED Provider: Espinoza Bosch Discharge Problem: Sepsis, Acute UTI, Leukocytosis, Hypomagnesemia Patient Disposition: Admitted As Inpatient Discharge Instructions Interventions: ED Discharge Assessment Last Done: 03/24/24 20:49 Discharge Problem: Sepsis Qualifiers: Sepsis type: sepsis due to unspecified organism Sepsis acute organ dysfunction status: unspecified Qualified Code(s): A41.9 - Sepsis, unspecified organism Leukocytosis Qualifiers: Leukocytosis type: bandemia Qualified Code(s): D72.825 - Bandemia
[2024-03-24 17:22] LABS: INR 1.2 (0.9-1.1); Partial Thromboplastin Ratio 1.2; Partial Thromboplastin Time 33 Seconds (21-31); Prothrombin Time 12.5 Seconds (9.0-12.0)
[2024-03-24 17:29] LABS: Thyroid Stimulating Hormone 12.107 uIu/ml (0.300-4.500)
[2024-03-24 17:45] LABS: Adenovirus PCR Not Detected (NotDetected); Bordetella parapertussis PCR Not Detected (NotDetected); Bordetella pertussis PCR Not Detected (NotDetected); Chlamydia pneumoniae PCR Not Detected (NotDetected); Coronavirus 229E PCR Not Detected (NotDetected); Coronavirus CoV-2 (COVID19)PCR Not Detected (NotDetected); Coronavirus HKU1 PCR Not Detected (NotDetected); Coronavirus NL63 PCR Not Detected (NotDetected); Coronavirus OC43PCR Not Detected (NotDetected); Human Metapneumovirus PCR Not Detected (NotDetected); Influenza A PCR Not Detected (NotDetected); Influenza B PCR Not Detected (NotDetected); Mycoplasma pneumoniae PCR Not Detected (NotDetected); Parainfluenza Virus 1 PCR Not Detected (NotDetected); Parainfluenza Virus 2 PCR Not Detected (NotDetected); Parainfluenza Virus 3 PCR Not Detected (NotDetected); Parainfluenza Virus 4 PCR Not Detected (NotDetected); Respiratory Syncytial VirusPCR Not Detected (NotDetected); Rhinovirus/Enterovirus PCR Not Detected (NotDetected)
[2024-03-24 17:48] LABS: Phosphorus 2.6 mg/dl (2.5-4.9)
[2024-03-24 18:06] LABS: T4 Free Thyroxine 0.76 ng/dl (0.61-1.60)
[2024-03-24 18:21] LABS: Appearance Urine Cloudy (Clear); Bacteria Urine Automated 3+ (None Seen); Bilirubin Urine Negative (Negative); Blood Urine 1+ (Negative); Color Urine Dark Yellow; Epithelial Cell Urine Auto 0-2 /hpf (0-2); Glucose Urine UA Negative (Negative); Ketones Urine Negative (Negative); Leukocyte Esterase Urine 1+ (Negative); Nitrite Urine Negative (Negative); Protein Urine 2+ (Negative); RBC Urine Automated 0-2 /hpf (0-2); Specific Gravity Urine 1.013 (1.000-1.030); Urobilinogen Urine Negative (Negative); WBC Urine Automated 21-50 /hpf (0-5)
[2024-03-24] MEDS: MAGNESIUM SULFATE / D5W 1 GM/100 ML BAG IV STA (18:28)
[2024-03-24] MEDS: CEFEPIME 2,000 MG/20 ML VIAL IV STA (18:45)
[2024-03-24] MEDS: ACETAMINOPHEN 1,000 MG/100 ML VIAL IV STA (18:45)
[2024-03-24] MEDS: SODIUM CHLORIDE 0.9% 1,000 ML IV SCH ×2 (18:45→20:19)
[2024-03-24] MEDS ORDERED: VANCOMYCIN CONSULT ACTIVE PRN (19:07)
--- NOTE | 2024-03-24 19:29 | History & Physical Report ---
Date of Service March 24, 2024 Assessment & Plan (1) Clinical sepsis: Plan: Assessment: 1. Early clinical sepsis with borderline hypotension 99/66 in the ER with borderline tachycardia 94 bpm in the ER. With a leukocytosis with left shift. Blood cultures obtained. Probable urinary source. Await urine culture data. Empiric cefepime and vancomycin for now. In addition the patient has had watery diarrhea we will check a stool for C. difficile. 2. Watery diarrhea per the patient starting today. Will check stool sample for C. difficile oral vancomycin if positive. 3. Urinary tract infection with a positive urostomy from a history of bladder carcinoma. Await culture data cefepime for now plus vancomycin for the early sepsis and recent hospitalization. 4. Recent hospitalization recently discharged approximately 48 hours ago with hypoxemia from methemoglobinemia secondary to chemotherapy. This is resolved. She was discharged again 48 hours ago. 5. Bladder carcinoma status post cystectomy with urostomy. 6. History of breast carcinoma 2 separate occasions 1 in 2006 11 and 2021. Status post bilateral mastectomy 7. Hypothyroidism with an elevated TSH greater than 12 with a normal free T4 reflecting euthyroid sick syndrome. Continue same home medication. 8. Hypertension continue same medications. 9. Dyslipidemia continue home meds. 10. Depression continue home meds. 11. CKD stage IIIb. Creatinine 1.6 baseline ranges from 1.3-1.6. 12. Obstructive sleep apnea. Patient nontolerant of CPAP. Will do continuous pulse ox and oxygen as needed to keep sats greater than 92%. 13. GERD. Continue home medications. Plan: As described above. Please refer to orders for further planning. History of Present Illness Chief Complaint: Weakness, fatigue, foul-smelling urine, diarrhea. Primary Care Provider: Enoch Aguilar MD Pleasant 73-year-old female just recently admitted and discharged to [facility] discharge date was approximately 48 hours ago on Sunday (today is Sunday). Since discharge the patient's been having fevers some intermittent watery diarrhea and foul-smelling urine. The patient does have a urostomy in place secondary to bladder carcinoma and surgery. Patient was initially admitted due to hypoxemia due to methemoglobinemia. Due to chemotherapy treatment for her cancer. This was treated subsequently resolved and now she presents for evaluation due to the above symptoms. On presentation the patient's vital signs were stable she was mildly tachypneic at 25 breaths/min blood pressure was stable at 122/75 pulse ox 97% on room air. Laboratory studies showed a white count of 22,000 with a significant left shift. Viral respiratory panel screening was negative for infectious agent. Creatinine was 1.6 which is approximately her baseline she ranges 1.3-1.6. TSH was found to be elevated at 12.107 however free T4 was normal at 0.76. Urinalysis was positive for UTI. Blood cultures were obtained in the ER and culture data was reviewed from prior urinalyses and patient was commenced on IV cefepime. We are going to continue the cefepime at this time however due to the recent hospitalization and early clinical sepsis we will initiate the patient on vancomycin as well. Allergies Allergy/AdvReac Type Severity Reaction Status Date / Time docetaxel Allergy Severe chest Verified 03/10/24 12:43 pain, dyspnea adhesive Allergy Intermediate skin Verified 03/10/24 12:43 blisters atorvastatin Allergy Intermediate foot/leg Verified 03/10/24 12:43 swelling, nausea fluoxetine Allergy Intermediate gastrointestinal Verified 03/10/24 12:43 upset losartan Allergy Intermediate unsure Verified 03/10/24 12:43 (lethargy or leg swelling) silver sulfadiazine Allergy Intermediate worsening Verified 03/10/24 12:43 burning alendronate sodium Allergy Unknown unknown Verified 03/10/24 12:43 reaction albuterol AdvReac Intermediate nightmare Verified 03/10/24 12:43 cetirizine [From Zyrtec] AdvReac Mild drowsiness Verified 03/10/24 12:43 ibandronate sodium AdvReac Unknown unknown Verified 03/10/24 12:43 [From Boniva] reaction ibuprofen AdvReac Unknown advised to Verified 03/10/24 12:43 avoid (caused slight kidney damage) fluticasone [From Flonase] AdvReac nosebleed Verified 03/10/24 12:43 Home Medications Medication Instructions Recorded Confirmed Type diphenhydramine HCl 25 mg capsule 25 mg PO DIRECTED PRN Allergy 06/03/19 03/24/24 History (Benadryl) Symptoms acetaminophen 500 mg capsule 500 mg PO Q6H PRN Pain 08/29/19 03/24/24 History cholecalciferol (vitamin D3) 125 125 mcg PO QAM 05/18/21 03/24/24 History mcg (5,000 unit) tablet (Vitamin D3) cyanocobalamin (vitamin B-12) 1,000 mcg IM MONTHLY 02/07/22 03/24/24 History 1,000 mcg/mL injection kit loperamide 2 mg tablet 2 mg PO DIRECTED PRN Diarrhea 09/19/22 03/24/24 Histo ry famotidine 20 mg tablet (Pepcid) 20 mg PO DAILY PRN gerd 01/17/23 03/24/24 History candesartan 16 mg tablet (Atacand) 16 mg PO QAM 90 days #90 tabs 06/04/23 03/24/24 Rx venlafaxine 150 mg 150 mg PO QAM #90 caps 06/04/23 03/24/24 Rx capsule,extended release 24 hr (Effexor XR) levothyroxine 75 mcg tablet 75 mcg PO DAILY #90 tabs 11/12/23 03/24/24 Rx omeprazole 20 mg capsule,delayed 20 mg PO DAILY 30 days #30 caps 02/08/24 03/24/24 Rx release ondansetron HCl 8 mg tablet 8 mg PO Q8 PRN nausea/vomiting #30 02/27/24 03/24/24 Rx tabs Past Med/Surg History Medical History (Updated 03/24/24 @ 19:24 by Jorge Gupta, PhD, DO) Urinary tract infection Chronic kidney disease, stage 3a Rupture of implant of right breast Immunotherapy History of phlebitis Presence of urostomy Bladder cancer dx'd 2021. hx chemo + surgery. Immunotherapy q28d. 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 Morbid obesity Acquired lymphedema LUE Emphysema of lung COPD with emphysema Degenerative disc disease Kidney stones no surgical intervention needed GERD (gastroesophageal reflux disease) controlled, stable per pt Anxiety and depression Hx of iron deficiency last iron infusion 2018 Restless leg syndrome Hx of migraines Former tobacco use Herniated disc thoracic Aortic aneurysm Dr. Mo monitoring Sleep apnea did not tolerate CPAP (caused cough) Pre-diabetes diet controlled Thoracic ascending aortic aneurysm last echo done 07/2023 - follows w/ dr barber Hyperlipidemia Osteoporosis Hypothyroid HTN (hypertension) controlled, stable per pt Breast cancer dx 2006 (left) and 2020 (right) s/p chemo and bilat mastectomies Endocarditis hx 15+ years ago (in setting of pyelonephritis and sepsis) Asthma stable> no inhalers Surgical History H/O bilateral mastectomy Hx of left cataract extraction History of arthroscopy of right knee History of total cystectomy Port-A-Cath in place (08/04/22) Insertion Access Port with Fluoroscopy (Left Subclavian)(Left) - Frantz Mayo, DO [place] S/P sclerotherapy of varicose veins H/O right mastectomy (12/08/19) Right Breast Mastectomy with Right [place] Lymph Node Biopsy,(Right) - Farntz Mayo, 12/08/2019 s Mediport Removal - Frantz Mayo, DO s First Stage Immediate Right Breast Reconstruction with Right Tissue Inspector Rubber Stamp Die and Right Acellular Dermal Matrix(Right) - Sri Casillas MD: Grade 1 view, MAC 3, ETT 7.5. Removal 05/24/21: Grade 1 view, Stephen 2, ETT 7 atraumatic x 1. Hx of hand surgery right thumb tendon repair History of surgery on arm bialt, Brachioplasty with liposuction H/O abdominal surgery naval removal (d/t infection) History of appendectomy History of esophagogastroduodenoscopy (EGD) History of tooth extraction History of transesophageal echocardiography (JOSE) History of vascular access device since removed S/P gastric bypass 1991, 1993 History of breast reconstruction Left (03/2010), implant exchange (01/2011), right mastopexy History of tubal ligation History of colonoscopy History of cholecystectomy H/O left mastectomy S/P partial hysterectomy Family History Mother Myocardial infarction Breast cancer Diabetes ESRD (end stage renal disease) on dialysis Aunt Breast cancer Unknown Skin cancer Father Myocardial infarction Coronary heart disease Daughter , age 31. T1DM Diabetes Daughter , brain tumor, then pain med addiction age 36 No problems noted. Other No significant family history Denies family history of Ovarian cancer Prostate cancer Colorectal cancer Social History Smoking Status: Never smoker Tobacco Type: Cigarettes Age Started Using Tobacco: 14; Age Quit Using Tobacco: 38; Cigarettes Per Day: 2-3 ppd at times in the past, started as a teen; Second Hand Exposure: No; Do You Dip or Chew Tobacco: No; Hx Alcohol Use: Yes Alcohol type: wine Alcohol Intake Frequency: Monthly or Less Hx Substance Use: No Preferred Language: Romansh Communication Ability: Effective Visual Impairment: No Limitations Hearing Ability: Normal Visual Basic Programmer Required: No Beliefs That Will Affect Care: None marital status: / Current Living Situation: Alone current occupational status: retired current occupation: [employer] How many Children do You have: 4 How many Children do You have Comment: 2 children ; 1 living daughter, 1 living son Feels Safe at Home: Yes Childhood Exposure to Second-Hand Smoke: Yes Diet: regular Diet Comment: aware of protein caffeine: Yes (tea 8 cups daily) Dental Care, Regularly: No Physical Activity Frequency: Does not Exercise Seatbelt Use: always Sunscreen Use: Yes Do you think of yourself as: straight/heterosexual Gender Identity: Female Assistive Devices: Glasses Review of Systems Review of Systems: A 10 point review of system was obtained and unless otherwise stated here or in history of present illness are negative and noncontributory to chief complaint. Physical Exam Physical Exam: In General: In general this is a pleasant 73-year-old female who is alert and oriented x 3 at the time my exam she does appear to be quite fatigued at the time of my exam. But she does interact appropriately and is pleasant. HEENT: Normocephalic atraumatic pupils are equal round and reactive to light bilaterally. No scleral icterus no conjunctival injection external auditory canals are patent septum is in the midline nose is without discharge oral mucosa is pink and dry without lesion. NECK: Supple no rigidity no lymphadenopathy no thyromegaly no carotid bruits no JVD no masses. HEART: Regular rate and rhythm I do not appreciate any ectopy or rub. No murmur. LUNGS: Clear to auscultation bilaterally and anteriorly with no evidence of adventitious sounds/wheezes rales or rhonchi. ABDOMEN: Soft nontender, no rebound, no peritoneal signs, positive bowel sounds, no appreciable organomegaly however exam is somewhat limited due to body habitus. In addition urostomy noted in the midline.. EXTREMITIES: Intact, no peripheral cyanosis, clubbing or edema. Strength is 5 out of 5 in extremities x4, no pathological reflexes. NEUROLOGICAL: Cranial nerves II through XII are grossly intact with no focal deficit elicited upon examination. No tremor. Results & Data Results & Data Vital Signs (Past 12 Hours) Vital Signs Temp Pulse Resp BP Pulse Ox O2 Del Method 03/24/24 18:30 88 25 H 97 Room Air 03/24/24 18:00 122/75 03/24/24 18:00 89 21 94 03/24/24 17:30 129/74 03/24/24 17:30 88 21 93 03/24/24 17:00 85 27 H 93 03/24/24 17:00 106/79 03/24/24 16:30 86 18 92 03/24/24 16:30 99/66 L 03/24/24 16:28 94 Room Air 03/24/24 16:20 88 03/24/24 16:18 88 15 94 03/24/24 16:09 37.1 C 94 H 18 109/72 94 Room Air Code Status & VTE Plan Code Status Full code. I personally discussed with patient this afternoon VTE Prophylaxis Plan VTE Prophylaxis will be ordered: Yes PG Care Time/CCT Total # of Minutes Spent Total Time Spent with Patient: Total time spent is greater than 50% in coordination of care (as documented) at patient's floor/unit and/or counseling patient: Coding Level of Care Code 78541 INT INP/OBS CARE 3/75MIN Diagnoses Clinical sepsis A41.9
[2024-03-24] MEDS: VANCOMYCIN HCL 2,000 MG in SODIUM CHLORIDE 0.9% 500 ML IV ONE (20:19)
[2024-03-24] MEDS: ENOXAPARIN INJ 40 MG/0.4 ML SYR SQ SCH (20:20)
[2024-03-24] MEDS ORDERED: FAMOTIDINE 20 MG TAB PO PRN (20:48)
[2024-03-24] MEDS ORDERED: VANCOMYCIN HCL 1,250 MG in SODIUM CHLORIDE 0.9% 500 ML IV SCH (21:00)
[2024-03-25] MEDS: ACETAMINOPHEN 325 MG TAB PO PRN (03:47)
[2024-03-25] MEDS: CEFEPIME 2,000 MG in SYRINGE 0 ML IV SCH (06:01)
[2024-03-25] MEDS: LEVOTHYROXINE SODIUM 75 MCG TABLET PO SCH (06:01)
[2024-03-25 07:33] LABS: Basophils # (auto) 0.03 K/uL (0.00-0.20); Basophils % (auto) 0.2 %; Eosinophils # (auto) 0.01 K/uL (0.00-0.50); Eosinophils % (auto) 0.1 %; Hematocrit (blood only) 23.5 % (37.0-47.0); Hemoglobin 7.4 g/dl (12.0-16.0); Immature Granulocytes # (auto) 0.21 K/uL (0.01-0.20); Immature Granulocytes % (auto) 1.3 %; Lymphocytes # (auto) 2.41 K/uL (1.20-3.40); Lymphocytes % (auto) 15.2 %; Mean Corpuscular Hgb Conc 31.5 g/dL (32.0-36.0); Mean Corpuscular Volume 104.9 fL (80.0-100.0); Mean Platelet Volume 11.1 fL (9.4-12.4); Monocytes # (auto) 1.26 K/uL (0.11-0.59); Neutrophils # (auto) 11.92 K/uL (1.40-6.50); Neutrophils % (auto) 75.2 %; Platelet Count 212 K/uL (130-400); RDW Coefficient of Variation 15.7 % (11.5-14.5); Red Blood Count 2.24 M/uL (4.20-5.40); White Blood Count 15.84 K/ul (4.8-10.8)
[2024-03-25 07:59] LABS: Polychromasia 1+
[2024-03-25 08:19] LABS: Albumin Globulin Ratio 1.2 (0.9-2); BUN Creatinine Ratio 20.1 (10-20); Bilirubin,Total 0.9 mg/dl (0.2-1.0); Calcium 7.3 mg/dl (8.6-10.3); Chol HDL Ratio 2.9 (0-5); Creatinine Clr Calc Pharmacy 37.3 ml/min; Est GFR (African American) 42.9 ml/min; Globulin 2.5 gm/dl (2.5-4.0); Magnesium 1.9 mg/dl (1.7-2.4); Total Protein 5.5 gm/dl (6.0-8.3)
[2024-03-25] MEDS: CHOLECALCIFEROL 125 MCG (5,000 UNITS) TAB PO SCH (08:42)
[2024-03-25] MEDS: VENLAFAXINE HCL XR 150 MG CAPXR PO SCH (08:43)
[2024-03-25] MEDS: CANDESARTAN CILEXETIL 16 MG TABLET PO SCH (08:43)
[2024-03-25] MEDS: PANTOprazole 40 MG TAB PO SCH (08:44)
--- NOTE | 2024-03-25 09:36 | Pharmacy Report ---
Pharmacy PK ABX Note - Date of Service March 25, 2024 - Assessment and Plan Assessment 73 year old F receiving empiric vancomycin and cefepime for treatment of sepsis likely secondary to complicated UTI. Pertinent microbiologic data includes: urine culture (03/24): gram-negative bacilli, blood cultures x 2 (03/24): pending. Broad spectrum antibiotics appropriate in light of sepsis in context of immunocompromise (chemotherapy) and recent hospitalization. Pertinent PMH includes hx bladder carcinoma s/p cystectomy w/ urostomy, as well as CKD. Code purple this morning (03/25) due to slight facial droop and minimal responsiveness. Patient reportedly back at baseline now. Day # 1 of antimicrobial therapy. Plan Vancomycin * Loading dose: 2000 mg IV x 1 * Maintenance dose: 750 mg IV every 24 hours * Regimen is predicted to achieve target AUC/SHRUTHI of 400-600 mg/L.hr * Random level will be ordered if therapy is to continue beyond 48 hours Cefepime * 2 g IV q12h (renally adjusted dose, target of 2 g q8h reasonable until SHRUTHI available on organism) * Will follow urine culture in regards to cefepime de-escalation. Pharmacy will continue to follow and will adjust dose/frequency as necessary. Thank you. Pharmacy has transitioned to AUC monitoring for vancomycin. AUC/SHRUTHI is the preferred PK/PD target and is associated with decreased risk of nephrotoxicity compared to traditional trough targets.
--- NOTE | 2024-03-25 13:41 | Hospitalist Progress Note ---
Date of Service March 25, 2024 Assessment & Plan (1) Sepsis: Plan: Present on admission. Blood culture and urine culture results pending. She remains on cefepime and vancomycin, day 2. Continue IV fluids. Supportive care (2) Acute UTI: Plan: With urostomy. Most recent cultures of the urine grew Klebsiella and Providencia. Currently on cefepime and vancomycin, day 2. Await final urine culture and blood culture results and tailor antibiotics accordingly (3) Hypomagnesemia: Plan: Parenteral replacement ordered. Serial labs (4) Chronic kidney disease, stage 3b: Plan: Monitor intake and output. Serial labs (5) Anemia: Plan: Hemoglobin is down to 7.4. No overt GI bleeding. Will follow Plan To be Admission and Anticipated Discharge Date Admission Date: March 24, 2024 Subjective The patient was difficult to arouse earlier this morning and the nurse called a code purple. Vital signs however were stable and she was awake and in no apparent acute problems. She remains on cefepime and vancomycin. She appears to have a UTI associated with her urostomy. Blood and urine cultures are pending. Hemoglobin is down to 7.4 with fluid hydration and probably delusional since there is no overt GI bleeding. Will follow. Most recent urine culture obtained March 19 reveals Klebsiella and Providentia Review of Systems 2 Review of Systems: Constitutional-no fever or chills ENT-no blurred vision, no double vision, no epistaxis, no sore throat Respiratory-no cough, no wheezing, no shortness of breath Cardiac-no palpitations, no chest pain, no syncope GI-no nausea, vomiting, diarrhea, melena, hematochezia -she has a urostomy. No hematuria. Musculoskeletal-no joint pain, no muscle tenderness Skin-no bruising, no rashes, no pruritus Neuro-no isolated weakness, no paresthesia Psych-no depression, no anxiety Physical Exam 2 Physical Exam: General-alert and oriented x3, no fever, no chills HEENT-head atraumatic and normocephalic, pupils equal and reactive to light, extraocular muscles intact Neck-no lymphadenopathy or thyromegaly, trachea midline Chest-clear to auscultation. No rales, wheezing or rhonchi Cardiac-regular rate and rhythm, normal S1 and S2 Abdomen-normal bowel sounds, no hepatosplenomegaly Extremities-no cyanosis, clubbing, or edema GUurostomy in place and functioning Neuro-cranial nerves II through XII intact, motor and sensory function within normal limits, strength symmetrical, no focal deficits Psych-normal affect, normal mood Results & Data Results & Data Vital Signs (Past 12 Hours) Vital Signs Temp Pulse Pulse Resp BP Pulse Ox O2 Del Method 03/25/24 10:39 37.0 C 81 20 107/66 96 Nasal Cannula 03/25/24 07:23 36.8 C 76 20 120/72 94 Nasal Cannula 03/25/24 07:15 37.0 C 68 18 112/70 93 Nasal Cannula 03/25/24 07:00 77 03/25/24 07:00 Nasal Cannula 03/25/24 03:34 38.0 C H 82 18 100/54 L 96 Room Air O2 Flow Rate 03/25/24 10:39 03/25/24 07:23 03/25/24 07:15 03/25/24 07:00 03/25/24 07:00 1.5 03/25/24 03:34 Laboratory Results 03/25/24 06:26 03/25/24 06:26 PG Care Time/CCT Total # of Minutes Spent Total Time Spent with Patient: Total time spent is greater than 50% in coordination of care (as documented) at patient's floor/unit and/or counseling patient: Coding Level of Care Code 58978 SUB INP/OBS CARE 3/50MIN Diagnoses Sepsis A41.9 Sepsis acute organ dysfunction status: unspecified Sepsis type: sepsis due to unspecified organism Acute UTI N39.0 Hypomagnesemia E83.42 Chronic kidney disease, stage 3b N18.32 Anemia D64.9 (1) Sepsis Sepsis acute organ dysfunction status: unspecified Sepsis type: sepsis due to unspecified organism Qualified Code(s): A41.9 - Sepsis, unspecified organism
--- NOTE | 2024-03-25 15:01 | Electrocardiogram Report ---
Test Reason : Blood Pressure : / mmHG Vent. Rate : 087 BPM Atrial Rate : 087 BPM P-R Int : 140 ms QRS Dur : 082 ms QT Int : 374 ms P-R-T Axes : 029 014 062 degrees QTc Int : 450 ms Normal sinus rhythm Early transition Cannot rule out Anterior infarct , age undetermined Abnormal ECG When compared with ECG of 21-MAR-2024 03:24, No significant change was found Confirmed by Jacky Hartley ([id number]) on 03/25/2024 3:01:00 PM Referred By: Dannie Aguilar Confirmed By:Jacky Hartley
[2024-03-25] MEDS: ONDANSETRON 4 MG OD TAB PO PRN (17:12)
[2024-03-25] MEDS: VANCOMYCIN HCL 750 MG in SODIUM CHLORIDE 0.9% 250 ML IV SCH (20:00)
[2024-03-25 21:42] LABS: A calco-baum cmplx NotReported Not Detected (NotDetected); Bact fragilis Not Reported Not Detected (NotDetected); Blood Culture Id Panel See PCR Comment (NotDetected); C auris Not Reported Not Detected (NotDetected); CTX-M Resistant Gene Not Detected (NotDetected); Calbicans Not Reported Not Detected (NotDetected); Candida glabrata Not Reported Not Detected (NotDetected); Candida krusei Not Reported Not Detected (NotDetected); Cneoformans/gatti Not Reported Not Detected (NotDetected); Cparapsilosis Not Reported Not Detected (NotDetected); E cloacae compx Not Reported Not Detected (NotDetected); Efaecalis Not Reported Not Detected (NotDetected); Efaecium Not Reported Not Detected (NotDetected); Enterobacterales Not Reported DETECTED (NotDetected); Escherichia coli Not Reported Not Detected (NotDetected); H influenzae Not Reported Not Detected (NotDetected); IMP Resistant Gene Not Detected (NotDetected); K aerogenes Not Reported Not Detected (NotDetected); KPC Resistant Gene Not Detected (NotDetected); Koxytoca Not Reported Not Detected (NotDetected); Kpneumoniae grp Not Reported DETECTED (NotDetected); Lmonocyt Not Reported Not Detected (NotDetected); N meningitidis Not Reported Not Detected (NotDetected); NDM Resistant Gene Not Detected (NotDetected); OXA 48 Like Resistant Gene Not Detected (NotDetected); P aeruginosa Not Reported Not Detected (NotDetected); Proteus spp Not Reported Not Detected (NotDetected); Salmonella spp Not Reported Not Detected (NotDetected); Smarcescens Not Reported Not Detected (NotDetected); Staph lugdunensis Not Reported Not Detected (NotDetected); Staph spp. Not Reported Not Detected (NotDetected); Staphaureus Not Reported Not Detected (NotDetected); Staphepi Not Reported Not Detected (NotDetected); Stenmaltophilia Not Reported Not Detected (NotDetected); Strep agal(GrpB) Not Reported Not Detected (NotDetected); Strep pneum Not Reported Not Detected (NotDetected); Strep pyog (GrpA) Not Reported Not Detected (NotDetected); Strep spp Not Reported Not Detected (NotDetected); VIM Resistant Gene Not Detected (NotDetected); mcr-1 Colistin Resistant Gene Not Detected (NotDetected)
[2024-03-25 21:49] LABS: Enterobacterales DETECTED (NotDetected); Klebsiella pneumoniae group DETECTED (NotDetected)
[2024-03-26 06:34] LABS: BUN Creatinine Ratio 16.4 (10-20); Calcium 6.9 mg/dl (8.6-10.3); Creatinine Clr Calc Pharmacy 39.4 ml/min; Est GFR (African American) 44.8 ml/min; Est GFR (Non-African American) 38.7 ml/min; Potassium 3.9 mmol/L (3.5-5.1)
[2024-03-26 06:39] LABS: Hematocrit (blood only) 21.5 % (37.0-47.0); Hemoglobin 6.4 g/dl (12.0-16.0); Mean Corpuscular Hemoglobin 32.3 pg (25.0-34.0); Mean Corpuscular Hgb Conc 29.8 g/dL (32.0-36.0); Mean Corpuscular Volume 108.6 fL (80.0-100.0); Platelet Count 206 K/uL (130-400); RDW Coefficient of Variation 15.9 % (11.5-14.5); RDW Standard Deviation 63.2 fL (36.4-46.3); Red Blood Count 1.98 M/uL (4.20-5.40); White Blood Count 9.31 K/ul (4.8-10.8)
[2024-03-26 06:40] LABS: Basophils # (auto) 0.02 K/uL (0.00-0.20); Basophils % (auto) 0.2 %; Immature Granulocytes # (auto) 0.17 K/uL (0.01-0.20); Immature Granulocytes % (auto) 1.8 %; Lymphocytes # (auto) 2.58 K/uL (1.20-3.40); Lymphocytes % (auto) 27.7 %; Monocytes # (auto) 0.92 K/uL (0.11-0.59); Monocytes % (auto) 9.9 %; Neutrophils # (auto) 5.62 K/uL (1.40-6.50); Neutrophils % (auto) 60.4 %; Polychromasia 1+
[2024-03-26] MEDS ORDERED: SODIUM CHLORIDE 0.9% 250 ML IV PRN ×2 (07:07→07:34)
--- NOTE | 2024-03-26 12:29 | Hospitalist Progress Note ---
Date of Service March 26, 2024 Assessment & Plan (1) Sepsis: Plan: Present on admission. Fortunately she did not require pressor support. Klebsiella isolated in the urine and blood. Supportive care (2) Bacteremia: Plan: Klebsiella isolated. Fortunately is pansensitive. Antibiotic therapy has been de-escalated to cefazolin. Infectious disease consultation requested (3) Acute UTI: Plan: With urostomy. Klebsiella isolated. Pansensitive. Antibiotics have been de- escalated to cefazolin, day 1. Currently day 3 of antibiotic therapy (4) Hypomagnesemia: Plan: Corrected with parenteral replacement. Serial labs (5) Chronic kidney disease, stage 3b: Plan: Monitor intake and output. Serial labs (6) Anemia: Plan: Hemoglobin has dropped further to 6.4 and 2 units packed red blood cell transfusion ordered. Will check fecal occult blood. Iron profile is pending. Serial labs. No overt GI bleeding. Plan To be determined Admission and Anticipated Discharge Date Admission Date: March 24, 2024 Subjective Alert and oriented. Urine cultures positive for Klebsiella and unfortunately the blood cultures are also positive for Klebsiella. It is pansensitive however and antibiotics have been de-escalated to intravenous Ancef. Repeat blood cultures ordered along with infectious disease consultation. Hemoglobin is dropped down to 6.4 but no overt blood loss. Blood transfusion ordered. Stool fecal occult blood is pending. Review of Systems 2 Review of Systems: Constitutional-no fever or chills ENT-no blurred vision, no double vision, no epistaxis, no sore throat Respiratory-no cough, no wheezing, no shortness of breath Cardiac-no palpitations, no chest pain, no syncope GI-no nausea, vomiting, diarrhea, melena, hematochezia -she has a urostomy. No hematuria. Musculoskeletal-no joint pain, no muscle tenderness Skin-no bruising, no rashes, no pruritus Neuro-no isolated weakness, no paresthesia Psych-no depression, no anxiety Physical Exam 2 Physical Exam: General-alert and oriented x3, no fever, no chills HEENT-head atraumatic and normocephalic, pupils equal and reactive to light, extraocular muscles intact Neck-no lymphadenopathy or thyromegaly, trachea midline Chest-clear to auscultation. No rales, wheezing or rhonchi Cardiac-regular rate and rhythm, normal S1 and S2 Abdomen-normal bowel sounds, no hepatosplenomegaly Extremities-no cyanosis, clubbing, or edema GUurostomy in place and functioning Neuro-cranial nerves II through XII intact, motor and sensory function within normal limits, strength symmetrical, no focal deficits Psych-normal affect, normal mood Results & Data Results & Data Vital Signs (Past 12 Hours) Vital Signs Temp Pulse Pulse Resp BP BP Pulse Ox 03/26/24 11:37 36.4 C L 71 18 112/76 99 03/26/24 11:07 37.1 C 70 18 124/69 98 03/26/24 10:52 36.9 C 70 18 107/73 98 03/26/24 10:31 36.3 C L 68 16 98/66 L 98 03/26/24 10:25 36.3 C L 69 16 98/66 L 98 03/26/24 08:00 03/26/24 07:29 36.5 C 63 17 96/56 L 97 03/26/24 03:52 36.9 C 70 16 97/63 L 95 O2 Del Method O2 Flow Rate 03/26/24 11:37 1.5 03/26/24 11:07 1.5 03/26/24 10:52 1.5 03/26/24 10:31 1.5 03/26/24 10:25 Nasal Cannula 1.5 03/26/24 08:00 Nasal Cannula 1.5 03/26/24 07:29 Nasal Cannula 03/26/24 03:52 Nasal Cannula 2 Laboratory Results 03/26/24 05:41 03/26/24 05:41 PG Care Time/CCT Total # of Minutes Spent Total Time Spent with Patient: Total time spent is greater than 50% in coordination of care (as documented) at patient's floor/unit and/or counseling patient: Coding Level of Care Code 75203 SUB INP/OBS CARE 3/50MIN Diagnoses Sepsis A41.9 Sepsis acute organ dysfunction status: unspecified Sepsis type: sepsis due to unspecified organism Bacteremia R78.81 Acute UTI N39.0 Hypomagnesemia E83.42 Chronic kidney disease, stage 3b N18.32 Anemia D64.9 (1) Sepsis Sepsis acute organ dysfunction status: unspecified Sepsis type: sepsis due to unspecified organism Qualified Code(s): A41.9 - Sepsis, unspecified organism
[2024-03-26] MEDS: ceFAZolin 2000MG 2,000 MG/15 ML SYR IV SCH (13:03)
[2024-03-26 16:43] LABS: Hematocrit (blood only) 29.4 % (37.0-47.0); Hemoglobin 9.4 g/dl (12.0-16.0)
[2024-03-27 06:50] LABS: Basophils # (auto) 0.02 K/uL (0.00-0.20); Basophils % (auto) 0.3 %; Hematocrit (blood only) 25.8 % (37.0-47.0); Hemoglobin 8.3 g/dl (12.0-16.0); Immature Granulocytes # (auto) 0.12 K/uL (0.01-0.20); Immature Granulocytes % (auto) 1.5 %; Lymphocytes # (auto) 2.63 K/uL (1.20-3.40); Lymphocytes % (auto) 33.2 %; Mean Corpuscular Hemoglobin 32.7 pg (25.0-34.0); Mean Corpuscular Hgb Conc 32.2 g/dL (32.0-36.0); Mean Corpuscular Volume 101.6 fL (80.0-100.0); Mean Platelet Volume 10.7 fL (9.4-12.4); Monocytes # (auto) 0.77 K/uL (0.11-0.59); Monocytes % (auto) 9.7 %; Neutrophils # (auto) 4.38 K/uL (1.40-6.50); Neutrophils % (auto) 55.3 %; Platelet Count 241 K/uL (130-400); RDW Coefficient of Variation 18.5 % (11.5-14.5); RDW Standard Deviation 68.7 fL (36.4-46.3); Red Blood Count 2.54 M/uL (4.20-5.40); White Blood Count 7.92 K/ul (4.8-10.8)
[2024-03-27 07:16] LABS: BUN Creatinine Ratio 14.6 (10-20); Calcium 7.7 mg/dl (8.6-10.3); Creatinine Clr Calc Pharmacy 36.8 ml/min; Est GFR (African American) 41.1 ml/min; Est GFR (Non-African American) 35.4 ml/min; Potassium 4.1 mmol/L (3.5-5.1)
--- NOTE | 2024-03-27 08:04 | Infectious Disease Consult ---
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 On presentation, afebrile, mildly tachypneic with stable oxygen and BP. WBC 22K, Cr 1.6 (baseline) Viral respiratory panel screening was negative. UA with pyuria. 03/24 Ucx and bcx growing kleb pneumo, pansensitive. She was initially started on Cefepime. Repeat bcx 03/26 NGTD. She did have Ct a/p on 03/11, which showed Several subcentimeter renal lesions are too small to characterize. No hydronephrosis status post cystectomy with right lower quadrant urostomy. ID has been consulted for abx management in setting of bacteremia. She has now been narrowed to cefazolin which she is tolerating well. Appears diarrhea has resolved Cdiff not checked At this time, can transition to po for discharge. Given her ileal conduit with renal lesions on ct from 03/11 would favor giving 2 week treatment of UTI/Bacteremia from 03/26 blood cultures, I am calculating her CrCl at 25ml/min, can use high dose beta lactam for tx of bacteremia Recommend: We can discharge patient on Amoxicillin 1G Po BID (I will confirm this dose with pharm tomorrow) through 04/08/24 If her bcx from 03/26 are neg tomorrow C/W cefazolin while inpatient Thank you for this consult Stacey Pulido MD Infectious Diseases [facility] Consultation Information This patient recommendation is based on a telemedicine consult request which was completed asynchronously through chart review and information provided by the primary physician. The patient was not seen or examined today. The evaluation is consultative in nature and all patient care and treatment decisions can either be accepted or rejected by the patient's primary hospital-based treating physi moris using their own independent medical judgment for their patient. [employer] Roof[employer] Installer contact information: Please call [facility] Center . (Phone Number For Physician Use Only) Time Spent Reviewing Chart: 31+ minutes History of Present Illness Reason for Consultation: kleb bacteremia and UTI Requesting Physician: Dr. 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 On presentation, afebrile, mildly tachypneic with stable oxygen and BP. WBC 22K, Cr 1.6 (baseline) Viral respiratory panel screening was negative. UA with pyuria. 03/24 Ucx and bcx growing kleb pneumo, pansensitive. She was initially started on Cefepime. Repeat bcx 03/26 NGTD. She did have Ct a/p on 03/11, which showed Several subcentimeter renal lesions are too small to characterize. No hydronephrosis status post cystectomy with right lower quadrant urostomy. ID has been consulted for abx management in setting of bacteremia. She has now been narrowed to cefazolin which she is tolerating well. Allergies Allergy/AdvReac Type Severity Reaction Status Date / Time docetaxel Allergy Severe chest Verified 03/10/24 12:43 pain, dyspnea adhesive Allergy Intermediate skin Verified 03/10/24 12:43 blisters atorvastatin Allergy Intermediate foot/leg Verified 03/10/24 12:43 swelling, nausea fluoxetine Allergy Intermediate gastrointestinal Verified 03/10/24 12:43 upset silver sulfadiazine Allergy Intermediate worsening Verified 03/10/24 12:43 burning alendronate sodium Allergy Unknown unknown Verified 03/10/24 12:43 reaction albuterol AdvReac Intermediate nightmare Verified 03/10/24 12:43 losartan AdvReac Intermediate unsure Verified 03/24/24 21:02 (lethargy or leg swelling) cetirizine [From Zyrtec] AdvReac Mild drowsiness Verified 03/10/24 12:43 ibandronate sodium AdvReac Unknown unknown Verified 03/10/24 12:43 [From Boniva] reaction ibuprofen AdvReac Unknown advised to Verified 03/10/24 12:43 avoid (caused slight kidney damage) fluticasone [From Flonase] AdvReac nosebleed Verified 03/10/24 12:43 Home Medications Medication Instructions Recorded Confirmed Type diphenhydramine HCl 25 mg capsule 25 mg PO DIRECTED PRN Allergy 06/03/19 03/24/24 History (Benadryl) Symptoms acetaminophen 500 mg capsule 500 mg PO Q6H PRN Pain 08/29/19 03/24/24 History cholecalciferol (vitamin D3) 125 125 mcg PO QAM 05/18/21 03/24/24 History mcg (5,000 unit) tablet (Vitamin D3) cyanocobalamin (vitamin B-12) 1,000 mcg IM MONTHLY 02/07/22 03/24/24 History 1,000 mcg/mL injection kit loperamide 2 mg tablet 2 mg PO DIRECTED PRN Diarrhea 09/19/22 03/24/24 History famotidine 20 mg tablet (Pepcid) 20 mg PO DAILY PRN gerd 01/17/23 03/24/24 History candesartan 16 mg tablet (Atacand) 16 mg PO QAM 90 days #90 tabs 06/04/23 03/24/24 Rx venlafaxine 150 mg 150 mg PO QAM #90 caps 06/04/23 03/24/24 Rx capsule,extended release 24 hr (Effexor XR) levothyroxine 75 mcg tablet 75 mcg PO DAILY #90 tabs 11/12/23 03/24/24 Rx omeprazole 20 mg capsule,delayed 20 mg PO DAILY 30 days #30 caps 02/08/24 03/24/24 Rx release ondansetron HCl 8 mg tablet 8 mg PO Q8 PRN nausea/vomiting #30 02/27/24 03/24/24 Rx tabs Patient History Medical History Urinary tract infection Chronic kidney disease, stage 3a Rupture of implant of right breast Immunotherapy History of phlebitis Presence of urostomy Bladder cancer dx'd 2021. hx chemo + surgery. Immunotherapy q28d. 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 Morbid obesity Acquired lymphedema LUE Emphysema of lung COPD with emphysema Degenerative disc disease Kidney stones no surgical intervention needed GERD (gastroesophageal reflux disease) controlled, stable per pt Anxiety and depression Hx of iron deficiency last iron infusion 2018 Restless leg syndrome Hx of migraines Former tobacco use Herniated disc thoracic Aortic aneurysm Dr. Mo monitoring Sleep apnea did not tolerate CPAP (caused cough) Pre-diabetes diet controlled Thoracic ascending aortic aneurysm last echo done 07/2023 - follows w/ dr barber Hyperlipidemia Osteoporosis Hypothyroid HTN (hypertension) controlled, stable per pt Breast cancer dx 2006 (left) and 2020 (right) s/p chemo and bilat mastectomies Endocarditis hx 15+ years ago (in setting of pyelonephritis and sepsis) Asthma stable> no inhalers Surgical History H/O bilateral mastectomy Hx of left cataract extraction History of arthroscopy of right knee History of total cystectomy Port-A-Cath in place (08/04/22) Insertion Access Port with Fluoroscopy (Left Subclavian)(Left) - Frantz Mayo, powerport S/P sclerotherapy of varicose veins H/O right mastectomy (12/08/19) Right Breast Mastectomy with Right Amelia Lymph Node Biopsy,(Right) - Frantz Mayo DO 12/08/2019 s Mediport Removal - Frantz Mayo, DO s First Stage Immediate Right Breast Reconstruction with Right Tissue Hotel Operations Manager and Right Acellular Dermal Matrix(Right) - Sri Casillas MD: Grade 1 view, MAC 3, ETT 7.5. Removal 05/24/21: Grade 1 view, Stephen 2, ETT 7 atraumatic x 1. Hx of hand surgery right thumb tendon repair History of surgery on arm bialt, Brachioplasty with liposuction H/O abdominal surgery naval removal (d/t infection) History of appendectomy History of esophagogastroduodenoscopy (EGD) History of tooth extraction History of transesophageal echocardiography (JOSE) History of vascular access device since removed S/P gastric bypass 1991, 1993 History of breast reconstruction Left (03/2010), implant exchange (01/2011), right mastopexy History of tubal ligation History of colonoscopy History of cholecystectomy H/O left mastectomy S/P partial hysterectomy Family History Mother Myocardial infarction Breast cancer Diabetes ESRD (end stage renal disease) on dialysis Aunt Breast cancer Unknown Skin cancer Father Myocardial infarction Coronary heart disease Daughter , age 31. T1DM Diabetes Daughter , brain tumor, then pain med addiction age 36 No problems noted. Other No significant family history Denies family history of Ovarian cancer Prostate cancer Colorectal cancer Social History Smoking Status: Former smoker Tobacco Type: Cigarettes Age Started Using Tobacco: 14; Age Quit Using Tobacco: 38; Cigarettes Per Day: 2-3 ppd at times in the past, started as a teen; Second Hand Exposure: No; Do You Dip or Chew Tobacco: No; Hx Alcohol Use: Yes Alcohol type: wine Alcohol Intake Frequency: Monthly or Less Hx Substance Use: No Preferred Language: German Communication Ability: Effective Visual Impairment: No Limitations Hearing Ability: Normal Pathology Teacher Required: No Beliefs That Will Affect Care: None marital status: / Current Living Situation: Alone current occupational status: retired current occupation: [employer] How many Children do You have: 4 How many Children do You have Comment: 2 children ; 1 living daughter, 1 living son Feels Safe at Home: Yes Childhood Exposure to Second-Hand Smoke: Yes Diet: regular Diet Comment: aware of protein caffeine: Yes (tea 8 cups daily) Dental Care, Regularly: No Physical Activity Frequency: Does not Exercise Seatbelt Use: always Sunscreen Use: Yes Do you think of yourself as: straight/heterosexual Gender Identity: Female Assistive Devices: None Results & Data Vital Signs (Past 12 Hours) Vital Signs Temp Pulse Pulse Resp BP Pulse Ox O2 Del Method 03/27/24 03:32 36.5 C 68 18 99/74 L 94 Room Air 03/26/24 22:48 36.7 C 82 18 117/76 96 Room Air 03/26/24 22:00 88 Laboratory Results Laboratory Results - last 48 hr 03/24/24 03/26/24 03/26/24 16:53 05:41 06:49 WBC 9.31 RBC 1.98 L Hgb 6.4 L* Hct 21.5 L MCV 108.6 H MCH 32.3 MCHC 29.8 L RDW Std Deviation 63.2 H RDW Coeff of Jerry 15.9 H Plt Count 206 MPV 11.0 Immature Gran % (Auto) 1.8 Neut % (Auto) 60.4 Lymph % (Auto) 27.7 [place] % (Auto) 9.9 Eos % (Auto) 0.0 Baso % (Auto) 0.2 Neut # (Auto) 5.62 Lymph # (Auto) 2.58 [place] # (Auto) 0.92 H Eos # (Auto) 0.00 Baso # (Auto) 0.02 Immature Gran # (Auto) 0.17 Polychromasia 1+ Sodium 138 Potassium 3.9 Chloride 113 H Carbon Dioxide 19 L Anion Gap 6 BUN 22 Creatinine 1.34 H Est Cr Clr Drug Dosing 39.4 Est GFR ( Amer) 44.8 Est GFR (Non-Af Amer) 38.7 BUN/Creatinine Ratio 16.4 Glucose 92 Calcium 6.9 L Enterobacterales (PCR) DETECTED A K. pneumoniae group (PCR) DETECTED A mcr-1 Colistin Res Gene PCR Not Detected blaIMP Car res Gene PCR Not Detected KPC-Carbap Res Gene PCR Not Detected blaNDM Car Res Gene PCR Not Detected OXA-48 Carbapenem Resis Gene (PCR) Not Detected blaVIM Car Res Gene PCR Not Detected CTX-M Gene Resistance (PCR) Not Detected Bld Cult ID Panel PCR See PCR Comment Blood Type O Positive Antibody Screen NEGATIVE Crossmatch See Detail 03/26/24 03/27/24 16:22 06:10 WBC 7.92 RBC 2.54 L Hgb 9.4 L D 8.3 L Hct 29.4 L 25.8 L MCV 101.6 H D MCH 32.7 MCHC 32.2 RDW Std Deviation 68.7 H RDW Coeff of Jerry 18.5 H Plt Count 241 MPV 10.7 Immature Gran % (Auto) 1.5 Neut % (Auto) 55.3 Lymph % (Auto) 33.2 [place] % (Auto) 9.7 Eos % (Auto) 0.0 Baso % (Auto) 0.3 Neut # (Auto) 4.38 Lymph # (Auto) 2.63 [place] # (Auto) 0.77 H Eos # (Auto) 0.00 Baso # (Auto) 0.02 Immature Gran # (Auto) 0.12 Polychromasia Sodium 138 Potassium 4.1 Chloride 112 H Carbon Dioxide 20 L Anion Gap 6 BUN 21 Creatinine 1.44 H Est Cr Clr Drug Dosing 36.8 Est GFR ( Amer) 41.1 Est GFR (Non-Af Amer) 35.4 BUN/Creatinine Ratio 14.6 Glucose 88 Calcium 7.7 L Enterobacterales (PCR) K. pneumoniae group (PCR) mcr-1 Colistin Res Gene PCR blaIMP Car res Gene PCR KPC-Carbap Res Gene PCR blaNDM Car Res Gene PCR OXA-48 Carbapenem Resis Gene (PCR) blaVIM Car Res Gene PCR CTX-M Gene Resistance (PCR) Bld Cult ID Panel PCR Blood Type Antibody Screen Crossmatch Medications Administered Current Inpatient Medications Acetaminophen (Acetaminophen 325 Mg Tab) 650 mg PO Q4H PRN PRN Reason: Pain or Fever Stop: 04/23/24 19:06 Last Admin: 03/27/24 02:52 Dose: 650 mg Candesartan Cilexetil (Candesartan Cilexetil 16 Mg Tablet) 16 mg PO QAM [facility] Stop: 04/24/24 08:59 Last Admin: 03/27/24 09:01 Dose: 16 mg Cyanocobalamin (Cyanocobalamin 1000 Mcg/Ml Vial) 1,000 mcg IM Q30D AJ Stop: 05/09/24 08:59 Famotidine (Famotidine 20 Mg Tab) 20 mg PO DAILY PRN PRN Reason: gerd Stop: 04/23/24 20:47 Heparin Sodium (Porcine) (Heparin 100 Unit/Ml 5ml Flush) 5 ml FLUSH PRN PRN PRN Reason: Flush Stop: 04/26/24 15:42 Cefazolin Sodium (Ancef 2000mg) 2,000 mg in 15 mls @ 3.75 mls/min IV Q8H AJ Stop: 04/09/24 09:29 Last Admin: 03/27/24 17:27 Dose: 3.75 mls/min Levothyroxine Sodium (Levothyroxine Sodium 75 Mcg Tablet) 75 mcg PO DAILYBB [facility] Stop: 04/24/24 06:29 Last Admin: 03/27/24 05:55 Dose: 75 mcg Ondansetron HCl (Ondansetron 4 Mg Od Tab) 4 mg PO Q8H PRN PRN Reason: nausea/vomiting Stop: 04/23/24 21:02 Last Admin: 03/26/24 22:43 Dose: 4 mg Pantoprazole Sodium (Pantoprazole 40 Mg Tab) 40 mg PO DAILY [facility] Stop: 04/24/24 08:59 Last Admin: 03/27/24 09:01 Dose: Not Given Polyethylene Glycol (Polyethylene (Miralax) 17 Gm Pack) 17 gm PO DAILY [facility] Stop: 04/26/24 10:04 Last Admin: 03/27/24 11:45 Dose: Not Given Venlafaxine HCl (Venlafaxine Hcl Xr 150 Mg Capxr) 150 mg PO QAM [facility] Stop: 04/24/24 08:59 Last Admin: 03/27/24 09:02 Dose: 150 mg Vitamin D (Cholecalciferol 125 Mcg (5,000 Units) Tab) 125 mcg PO QAM [facility] Stop: 04/24/24 08:59 Last Admin: 03/27/24 09:01 Dose: 125 mcg (2) Urinary tract infection Urinary tract infection type: acute cystitis Hematuria presence: without hematuria Qualified Code(s): N30.00 - Acute cystitis without hematuria
[2024-03-27] MEDS: POLYETHYLENE (MIRALAX) 17 GM PACK PO SCH (11:45)
--- NOTE | 2024-03-27 12:27 | Hospitalist Progress Note ---
Date of Service March 27, 2024 Assessment & Plan (1) Sepsis: Plan: Present on admission. Fortunately she did not require pressor support. Now resolved. Klebsiella isolated in the urine and blood. Supportive care (2) Bacteremia: Plan: Klebsiella isolated. Fortunately is pansensitive. Antibiotic therapy has been de-escalated to cefazolin. Ancef day 2, antibiotic day 4. Eventual discharge to home on oral antibiotic. Infectious disease consultation requested and pending (3) Acute UTI: Plan: With urostomy. Klebsiella isolated. Pansensitive. Antibiotics have been de- escalated to cefazolin, day 2. Currently day 4 of antibiotic therapy. Anticipate discharge to home on an oral antibiotic (4) Hypomagnesemia: Plan: Corrected with parenteral replacement. Serial labs (5) Chronic kidney disease, stage 3b: Plan: Monitor intake and output. Serial labs (6) Anemia: Plan: She received 2 units of packed red blood cells yesterday, March 26. Hemoglobin improved to 9.4 and today hemoglobin is 8.3. Will follow. Fecal occult blood test remains pending. She is not iron deficient. No overt GI bleeding. Plan Hopefully home tomorrow, March 28, on an oral antibiotic Admission and Anticipated Discharge Date Admission Date: March 24, 2024 Subjective Alert and oriented. No new problems. Repeat blood cultures obtained on March 26 are negative. Hemoglobin improved to 9.4 after 2 units packed red blood cells and this morning is 8.3. Will follow. IV fluids have been discontinued. She is now on intravenous Ancef and will be switched to an oral antibiotic at the time of discharge. OT and PT have seen the patient. Hopefully she can go home tomorrow, March 28. Review of Systems 2 Review of Systems: Constitutional-no fever or chills ENT-no blurred vision, no double vision, no epistaxis, no sore throat Respiratory-no cough, no wheezing, no shortness of breath Cardiac-no palpitations, no chest pain, no syncope GI-no nausea, vomiting, diarrhea, melena, hematochezia -she has a urostomy. No hematuria. Musculoskeletal-no joint pain, no muscle tenderness Skin-no bruising, no rashes, no pruritus Neuro-no isolated weakness, no paresthesia Psych-no depression, no anxiety Physical Exam 2 Physical Exam: General-alert and oriented x3, no fever, no chills HEENT-head atraumatic and normocephalic, pupils equal and reactive to light, extraocular muscles intact Neck-no lymphadenopathy or thyromegaly, trachea midline Chest-clear to auscultation. No rales, wheezing or rhonchi Cardiac-regular rate and rhythm, normal S1 and S2 Abdomen-normal bowel sounds, no hepatosplenomegaly Extremities-no cyanosis, clubbing, or edema GUurostomy in place and functioning Neuro-cranial nerves II through XII intact, motor and sensory function within normal limits, strength symmetrical, no focal deficits Psych-normal affect, normal mood Results & Data Results & Data Vital Signs (Past 12 Hours) Vital Signs Temp Pulse Resp BP Pulse Ox O2 Del Method 03/27/24 07:12 36.6 C 64 18 109/69 92 Room Air 03/27/24 03:32 36.5 C 68 18 99/74 L 94 Room Air Laboratory Results 03/27/24 06:10 03/27/24 06:10 PG Care Time/CCT Total # of Minutes Spent Total Time Spent with Patient: Total time spent is greater than 50% in coordination of care (as documented) at patient's floor/unit and/or counseling patient: Coding Level of Care Code 37391 SUB INP/OBS CARE 3/50MIN Diagnoses Sepsis A41.9 Sepsis acute organ dysfunction status: unspecified Sepsis type: sepsis due to unspecified organism Bacteremia R78.81 Acute UTI N39.0 Hypomagnesemia E83.42 Chronic kidney disease, stage 3b N18.32 Anemia D64.9 (1) Sepsis Sepsis acute organ dysfunction status: unspecified Sepsis type: sepsis due to unspecified organism Qualified Code(s): A41.9 - Sepsis, unspecified organism
[2024-03-27] MEDS ORDERED: HEPARIN 100 UNIT/ML 5ML FLUSH FLUSH PRN (15:43)
[2024-03-28 06:48] LABS: Basophils # (auto) 0.03 K/uL (0.00-0.20); Basophils % (auto) 0.4 %; Hematocrit (blood only) 26.9 % (37.0-47.0); Hemoglobin 8.3 g/dl (12.0-16.0); Immature Granulocytes # (auto) 0.12 K/uL (0.01-0.20); Immature Granulocytes % (auto) 1.7 %; Lymphocytes # (auto) 2.57 K/uL (1.20-3.40); Mean Corpuscular Hemoglobin 31.1 pg (25.0-34.0); Mean Corpuscular Hgb Conc 30.9 g/dL (32.0-36.0); Mean Corpuscular Volume 100.7 fL (80.0-100.0); Mean Platelet Volume 10.5 fL (9.4-12.4); Monocytes # (auto) 0.67 K/uL (0.11-0.59); Monocytes % (auto) 9.7 %; Neutrophils # (auto) 3.55 K/uL (1.40-6.50); Neutrophils % (auto) 51.2 %; Platelet Count 256 K/uL (130-400); RDW Coefficient of Variation 17.5 % (11.5-14.5); RDW Standard Deviation 65.2 fL (36.4-46.3); Red Blood Count 2.67 M/uL (4.20-5.40); White Blood Count 6.94 K/ul (4.8-10.8)
[2024-03-28 07:15] LABS: BUN Creatinine Ratio 11.9 (10-20); Calcium 8.3 mg/dl (8.6-10.3); Est GFR (African American) 36.2 ml/min; Est GFR (Non-African American) 31.2 ml/min; Potassium 4.1 mmol/L (3.5-5.1)
--- NOTE | 2024-03-28 11:02 | Hospitalist Progress Note ---
Date of Service March 28, 2024 Assessment & Plan (1) Sepsis: Plan: Present on admission. Fortunately she did not require pressor support. Now resolved. Klebsiella isolated in the urine and blood. Supportive care (2) Bacteremia: Plan: Klebsiella isolated. Fortunately is pansensitive. Antibiotic therapy has been de-escalated to cefazolin. Ancef day 3, antibiotic day 5. She will be discharged on Augmentin 875 mg twice a day through April 08. Infectious disease consultation noted. (3) Acute UTI: Plan: With urostomy. Klebsiella isolated. Pansensitive. Treated while hospitalized with cefepime and vancomycin initially then switched to Ancef. She will be discharged on Augmentin through April 08. (4) Hypomagnesemia: Plan: Corrected with parenteral replacement. Serial labs (5) Chronic kidney disease, stage 3b: Plan: Monitor intake and output. Serial labs (6) Anemia: Plan: She received 2 units of packed red blood cells on March 26. Hemoglobin now stabilized at 8.3. Unfortunately, the fecal occult blood test was never completed. She is not iron deficient. No overt GI bleeding. Plan Home today, March 28, on Augmentin through April 08. Admission and Anticipated Discharge Date Admission Date: March 24, 2024 Subjective Alert and oriented. No distress. Hemoglobin now stable at 8.3. Blood cultures remain negative from March 26. Infectious disease consultation noted. Unfortunately, the fecal occult blood was never done. She will be discharged on Augmentin 875 mg twice a day through April 08. Review of Systems 2 Review of Systems: Constitutional-no fever or chills ENT-no blurred vision, no double vision, no epistaxis, no sore throat Respiratory-no cough, no wheezing, no shortness of breath Cardiac-no palpitations, no chest pain, no syncope GI-no nausea, vomiting, diarrhea, melena, hematochezia -she has a urostomy. No hematuria. Musculoskeletal-no joint pain, no muscle tenderness Skin-no bruising, no rashes, no pruritus Neuro-no isolated weakness, no paresthesia Psych-no depression, no anxiety Physical Exam 2 Physical Exam: General-alert and oriented x3, no fever, no chills HEENT-head atraumatic and normocephalic, pupils equal and reactive to light, extraocular muscles intact Neck-no lymphadenopathy or thyromegaly, trachea midline Chest-clear to auscultation. No rales, wheezing or rhonchi Cardiac-regular rate and rhythm, normal S1 and S2 Abdomen-normal bowel sounds, no hepatosplenomegaly Extremities-no cyanosis, clubbing, or edema GUurostomy in place and functioning Neuro-cranial nerves II through XII intact, motor and sensory function within normal limits, strength symmetrical, no focal deficits Psych-normal affect, normal mood Results & Data Results & Data Vital Signs (Past 12 Hours) Vital Signs Temp Pulse Pulse Resp BP Pulse Ox O2 Del Method 03/28/24 07:00 62 03/28/24 06:58 36.6 C 65 17 104/61 94 Room Air 03/28/24 02:22 36.6 C 69 18 115/65 94 Room Air Laboratory Results 03/28/24 06:04 03/28/24 06:04 PG Care Time/CCT Total # of Minutes Spent Total Time Spent with Patient: Total time spent is greater than 50% in coordination of care (as documented) at patient's floor/unit and/or counseling patient: Coding Level of Care Code 37017 SUB INP/OBS CARE 3/50MIN Diagnoses Sepsis A41.9 Sepsis acute organ dysfunction status: unspecified Sepsis type: sepsis due to unspecified organism Bacteremia R78.81 Acute UTI N39.0 Hypomagnesemia E83.42 Chronic kidney disease, stage 3b N18.32 Anemia D64.9 (1) Sepsis Sepsis acute organ dysfunction status: unspecified Sepsis type: sepsis due to unspecified organism Qualified Code(s): A41.9 - Sepsis, unspecified organism
--- NOTE | 2024-03-28 11:05 | Discharge Summary ---
Date of Service March 28, 2024 Admission HPI Per Admitting Provider Farnaz 73-year-old female just recently admitted and discharged to [facility] discharge date was approximately 48 hours ago on Sunday (today is Sunday). Since discharge the patient's been having fevers some intermittent watery diarrhea and foul-smelling urine. The patient does have a urostomy in place secondary to bladder carcinoma and surgery. Patient was initially admitted due to hypoxemia due to methemoglobinemia. Due to chemotherapy treatment for her cancer. This was treated subsequently resolved and now she presents for evaluation due to the above symptoms. On presentation the patient's vital signs were stable she was mildly tachypneic at 25 breaths/min blood pressure was stable at 122/75 pulse ox 97% on room air. Laboratory studies showed a white count of 22,000 with a significant left shift. Viral respiratory panel screening was negative for infectious agent. Creatinine was 1.6 which is approximately her baseline she ranges 1.3-1.6. TSH was found to be elevated at 12.107 however free T4 was normal at 0.76. Urinalysis was positive for UTI. Blood cultures were obtained in the ER and culture data was reviewed from prior urinalyses and patient was commenced on IV cefepime. We are going to continue the cefepime at this time however due to the recent hospitalization and early clinical sepsis we will initiate the patient on vancomycin as well. Principal Diagnosis Klebsiella UTI associated with urostomy, Klebsiella bacteremia, sepsis, hypomagnesemia, anemia of chronic disease Discharge Exam General-alert and oriented x3, no fever, no chills HEENT-head atraumatic and normocephalic, pupils equal and reactive to light, extraocular muscles intact Neck-no lymphadenopathy or thyromegaly, trachea midline Chest-clear to auscultation. No rales, wheezing or rhonchi Cardiac-regular rate and rhythm, normal S1 and S2 Abdomen-normal bowel sounds, no hepatosplenomegaly Extremities-no cyanosis, clubbing, or edema GUurostomy in place and functioning Neuro-cranial nerves II through XII intact, motor and sensory function within normal limits, strength symmetrical, no focal deficits Psych-normal affect, normal mood Discharge Data Allergies Allergy/AdvReac Type Severity Reaction Status Date / Time docetaxel Allergy Severe chest Verified 03/10/24 12:43 pain, dyspnea adhesive Allergy Intermediate skin Verified 03/10/24 12:43 blisters atorvastatin Allergy Intermediate foot/leg Verified 03/10/24 12:43 swelling, nausea fluoxetine Allergy Intermediate gastrointestinal Verified 03/10/24 12:43 upset silver sulfadiazine Allergy Intermediate worsening Verified 03/10/24 12:43 burning alendronate sodium Allergy Unknown unknown Verified 03/10/24 12:43 reaction albuterol AdvReac Intermediate nightmare Verified 03/10/24 12:43 losartan AdvReac Intermediate unsure Verified 03/24/24 21:02 (lethargy or leg swelling) cetirizine [From Zyrtec] AdvReac Mild drowsiness Verified 03/10/24 12:43 ibandronate sodium AdvReac Unknown unknown Verified 03/10/24 12:43 [From Boniva] reaction ibuprofen AdvReac Unknown advised to Verified 03/10/24 12:43 avoid (caused slight kidney damage) fluticasone [From Flonase] AdvReac nosebleed Verified 03/10/24 12:43 Consultations 03/24/24 18:30 ED Decision to Admit Stat 03/26/24 09:26 Consult Infectious Diseases Routine Hospital Course (1) Sepsis: Present on admission. Fortunately she did not require pressor support. Now resolved. Klebsiella isolated in the urine and blood. Supportive care (2) Bacteremia: Klebsiella isolated. Fortunately is pansensitive. Antibiotic therapy has been de-escalated to cefazolin. Ancef day 3, antibiotic day 5. She will be discharged on Augmentin 875 mg twice a day through April 08. Infectious disease consultation noted. (3) Acute UTI: With urostomy. Klebsiella isolated. Pansensitive. Treated while hospitalized with cefepime and vancomycin initially then switched to Ancef. She will be discharged on Augmentin through April 08. (4) Hypomagnesemia: Corrected with parenteral replacement. Serial labs (5) Chronic kidney disease, stage 3b: Monitor intake and output. Serial labs (6) Anemia: She received 2 units of packed red blood cells on March 26. Hemoglobin now stabilized at 8.3. Unfortunately, the fecal occult blood test was never completed. She is not iron deficient. No overt GI bleeding. Plan Home today, March 28, on Augmentin through April 08. Total Time Total Time Spent Total Time Spent (In Minutes): 45-minute Discharge Plan Discharge Items Patient Disposition: Home - Self-Care Reason For Visit: SEPSIS Discharge Diagnosis: Sepsis, Klebsiella UTI associated with urostomy, Klebsiella bacteremia, hypomagnesemia, anemia of chronic illness Activity: Resume your previous activity Non-emergency contact: Primary Care Provider Call non-emergency contact if: your symptoms worsen Follow-up/Referrals: Enoch Aguilar MD [Primary Care Provider] - Diet: Regular and Heart Healthy Addtl Attending Provider Instructions: Take Augmentin antibiotic for 10 more days. All other medications remain the same Pending Studies at Discharge: No Stand-Alone Forms: [employer], Smoking Cessation Medications and DC Order Prescriptions: New amoxicillin-pot clavulanate 875-125 mg tablet 1 tab PO BID Qty: 22 0RF polyethylene glycol 3350 [Miralax] 17 gram Powder In Packet 17 g PO DAILY Qty: 0 0RF Continued acetaminophen 500 mg capsule 500 mg PO Q6H PRN (Reason: Pain) Rx Instructions: otc, not able to verify with pharmacy 02/07/24 venlafaxine [Effexor XR] 150 mg capsule,extended release 24hr 150 mg PO QAM Qty: 90 3RF candesartan [Atacand] 16 mg tablet 16 mg PO QAM 90 Days Qty: 90 3RF levothyroxine 75 mcg tablet 75 mcg PO DAILY Qty: 90 3RF ondansetron HCl 8 mg tablet 8 mg PO Q8 PRN (Reason: nausea/vomiting) Qty: 30 0RF diphenhydramine HCl [Benadryl] 25 mg capsule 25 mg PO DIRECTED PRN (Reason: Allergy Symptoms) Rx Instructions: otc, not able to verify with pharmacy 02/07/24 famotidine [Pepcid] 20 mg tablet 20 mg PO DAILY PRN (Reason: gerd) cyanocobalamin (vitamin B-12) 1,000 mcg/mL Kit 1,000 mcg IM MONTHLY Rx Instructions: not on file with pharmacy loperamide 2 mg Tablet 2 mg PO DIRECTED PRN (Reason: Diarrhea) Rx Instructions: not able to verify cholecalciferol (vitamin D3) [Vitamin D3] 125 mcg (5,000 unit) Tablet 125 mcg PO QAM Rx Instructions: otc, not able to verify with pharmacy 02/07/24 omeprazole 20 mg capsule,delayed release(DR/EC) 20 mg PO DAILY 30 Days Qty: 30 2RF Discharge Orders: Discharge Order (Routine); Ordered 03/28/24 Ordered By: Bacilio Romano Admission Data Admit Date/Time: 03/24/24 19:09 Attending Provider: Bacilio Romano Admit Provider: Jorge Gupta Primary Care Provider: Enoch Aguilar Other Providers: Jorge Gupta; Carmen Cuevas; Eric Quinteros; Stacey Pulido; Deja Diaz; Michael Hair; Ninfa Khan; [place] Coding Level of Care Code 09606 INP/OBS DISCH >30 MIN Diagnoses Sepsis A41.9 Sepsis acute organ dysfunction status: unspecified Sepsis type: sepsis due to unspecified organism Bacteremia R78.81 Acute UTI N39.0 Hypomagnesemia E83.42 Chronic kidney disease, stage 3b N18.32 Anemia D64.9
[2024-04-09] MEDS ORDERED: CYANOCOBALAMIN 1000 MCG/ML VIAL IM SCH (09:00)
== END 2024-03-28 14:05 | disposition home or self-care (01) | DRG 698 ==
LOC: ED 16:05 → EDINP 19:09 → SUATTDRO 19:09 → 2S 20:49

== ENCOUNTER 2024-08-25 10:00 | Observation (INO) ==
--- NOTE | 2024-08-25 10:17 | Emergency Department Note ---
Impression & Plan Stroke-like symptom, Aphasia ED Provider Note HISTORY OF PRESENT ILLNESS: Patient is a 74-year-old female presenting with aphasia. Daughter presents with patient in triage and provides most of history. 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 Patient reportedly is normally conversant and able to speak. Daughter states that this happened at 9 AM. She is not on any anticoagulation or antiplatelet therapy. Reports the patient was trying to write and communicate, but it did not seem to make sense. Patient denies any recent falls or head injury. She is able to shake her head yes and no to answering questions. Denies any weakness in her extremities. Denies any numbness or tingling in her extremities. Denies any changes in vision or headache. ROS: as above PHYSICAL EXAM: Constitutional: Patient appears in no acute distress. HENT: Head: Normocephalic and atraumatic. Eyes: EOMI, PERRL Mouth/Throat: Mucous membranes moist. Neck: Trachea midline. Neck supple. Cardiovascular: RRR, No murmurs, rubs or gallops. Intact distal pulses. Pulmonary/Chest: No respiratory distress. Breath sounds clear and equal bilaterally. No wheezes or rales. Abdominal: Abdomen soft, no tenderness, rebound or guarding. Musculoskeletal: No edema, tenderness or deformity noted. Skin: Warm and dry. No rash, erythema, pallor or cyanosis Psychiatric: Appropriate mood and affect for situation. Neurological: Alert and able to answer yes and no by shaking her head. However, she is completely aphasic. Facies symmetric. Able to raise eyebrows, close eyes, smile, puff mouth, stick out tongue, move tongue left and right and raise palate symmetrically. Able to shrug shoulders. PERRLA. SILT to forehead below eye and at jawline. Can hear soft noise bilaterally. Strength 5/5 in bilateral upper and lower extremities. SILT throughout bilateral upper and lower extremities. MDM: - Vitals signs showed hypertension. - History obtained via patient and patient's daughter, given patient's aphasia. History as above. - Chronic conditions affecting care: depression; HTN; HLD; hypothyroidism; bladder cancer - Differential diagnoses include, but are not limited to: CVA; intracranial hemorrhage; ACS; dysrhythmia - Order placed for continuous cardiac monitoring. At this time, monitor showed rate of 68 bpm with normal sinus rhythm, per my interpretation. - External medical records reviewed. Oncology/hematology visit note dated 08/06/2024 was reviewed. Patient follows with their clinic for muscle invasive bladder cancer and right breast invasive ductal carcinoma. - EKG interpreted by myself showed normal sinus rhythm. Rate 78 bpm. QT 380. No acute ischemic changes. - Laboratory workup interpreted by myself showed normal WBC; anemia (Hgb 10.8); normal INR but elevated PTT; stable electrolytes; CKD - CT head wo contrast negative for acute pathology - CTA head/neck negative - Discussed case initially with telestroke neurologist, Dr. Conner at 1029. He logged into the stroke cart and evaluated the patient. He called me back at 1101 and reports that the patient is within the TNK window, when he discussed administering TNK with the patient she declined. She wrote that she did not want TNK given the risk factors. He reports no obvious large vessel occlusion or need for thrombectomy at this time based on imaging. Recommended baby aspirin and loading the patient with 300 mg of Plavix. Recommended admission for further strokelike workup. - During her stay in the emergency department, the patient started to be able to produce certain words, but is unable to speak a full sentence at this time. - 81 mg PO aspirin and 300 mg PO plavix ordered. - Discussion was had with medical case manager about patient's case and need for admission - Hospitalist, Dr. Cameron, consulted for admission [ - [facility]. I have personally spent 38 minutes of critical care time in the direct management of this patient. This includes bedside care, interpretation of diagnostic studies, and testing, discussion with consultants, patient, and family members, and other required patient management activities. This 38 minutes is in excess of all separately billable procedures. ASSESSMENT AND PLAN: Diagnosis: Strokelike symptoms; aphasia Plan: Admit Past Med/Surg History Problem List (Updated 08/25/24 @ 11:46 by Jenn Wilson MD) Aphasia (Acute) Stroke-like symptom (Acute) Atypical chest pain Vaginal discharge, bloody Vaginal bleeding Anemia Hypomagnesemia (Acute) Leukocytosis (Acute) Megaloblastic anemia History of immunotherapy H/O bilateral mastectomy Chronic kidney disease, stage 3b Immunosuppressed due to chemotherapy Gross hematuria Chronic venous insufficiency Varicose vein of leg Ascending aorta dilation Invasive ductal carcinoma of right breast Chronic cough Ex-smoker Post traumatic stress disorder Myofascial pain 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" on CCD Vitamin D deficiency Vitamin B12 deficiency Vitamin B deficiency Obstructive sleep apnea of adult Localized osteoarthritis of hands, bilateral Edema Depression Anemia Allergic rhinitis AI (aortic insufficiency) Asthma stable> no inhalers HTN (hypertension) controlled, stable per pt Hypothyroid Osteoporosis Hyperlipidemia Sleep apnea did not tolerate CPAP (caused cough) H/O right mastectomy (12/08/19) Right Breast Mastectomy with Right Bells Lymph Node Biopsy,(Right) - Franzt Mayo DO 12/08/2019 s Mediport Removal - Frantz Mayo, DO s First Stage Immediate Right Breast Reconstruction with Right Tissue 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 Removal 05/24/21: Grade 1 view, Stephen 2, ETT 7 atraumatic x 1. Bladder cancer dx'd 2021. hx chemo + surgery. Immunotherapy q28d. Medical History Methemoglobinemia Hypoxia Chronic kidney disease, stage 3a Rupture of implant of right breast Immunotherapy History of phlebitis Presence of urostomy Facial basal cell cancer Rupture of implant of left breast Limb alert care status LVH (left ventricular hypertrophy) History of COVID-19 Morbid obesity Acquired lymphedema Emphysema of lung COPD with emphysema Degenerative disc disease Kidney stones GERD (gastroesophageal reflux disease) Anxiety and depression Hx of iron deficiency Restless leg syndrome Hx of migraines Former tobacco use Herniated disc Aortic aneurysm Pre-diabetes Thoracic ascending aortic aneurysm Breast cancer Surgical History Hx of left cataract extraction History of arthroscopy of right knee History of total cystectomy Port-A-Cath in place (08/04/22) S/P sclerotherapy of varicose veins Hx of hand surgery History of surgery on arm H/O abdominal surgery History of appendectomy History of esophagogastroduodenoscopy (EGD) History of tooth extraction History of transesophageal echocardiography (JOSE) History of vascular access device S/P gastric bypass History of breast reconstruction History of tubal ligation History of colonoscopy History of cholecystectomy H/O left mastectomy S/P partial hysterectomy Family History Mother Myocardial infarction Breast cancer Diabetes ESRD (end stage renal disease) on dialysis Aunt Breast cancer Unknown Skin cancer Father Myocardial infarction Coronary heart disease Daughter Diabetes Daughter No problems noted. Other No significant family history Denies family history of Ovarian cancer Prostate cancer Colorectal cancer Social History Smoking Status: Never smoker Tobacco Type: Cigarettes Age Started Using Tobacco: 14; Age Quit Using Tobacco: 38; Cigarettes Per Day: 2-3 ppd at times in the past, started as a teen; Second Hand Exposure: No; Do You Dip or Chew Tobacco: No; Hx Alcohol Use: Yes Alcohol type: wine Alcohol Intake Frequency: Monthly or Less Hx Substance Use: No Preferred Language: Irish Communication Ability: Effective Visual Impairment: No Limitations Hearing Ability: Normal Surveillance Agent Required: No Beliefs That Will Affect Care: None marital status: / Current Living Situation: Alone current occupational status: retired current occupation: [employer] How many Children do You have: 4 How many Children do You have Comment: 2 children ; 1 living daughter, 1 living son Feels Safe at Home: Yes Childhood Exposure to Second-Hand Smoke: Yes Diet: regular Diet Comment: aware of protein caffeine: Yes (tea 8 cups daily) Dental Care, Regularly: No Physical Activity Frequency: Does not Exercise Seatbelt Use: always Sunscreen Use: Yes Do you think of yourself as: straight/heterosexual Gender Identity: Female Assistive Devices: None Allergies Allergies Allergy/AdvReac Type Severity Reaction Status Date / Time docetaxel Allergy Severe chest Verified 08/11/24 11:44 pain, dyspnea adhesive Allergy Intermediate skin Verified 08/11/24 11:44 blisters atorvastatin Allergy Intermediate foot/leg Verified 08/11/24 11:44 swelling, nausea fluoxetine Allergy Intermediate gastrointestinal Verified 08/11/24 11:44 upset silver sulfadiazine Allergy Intermediate worsening Verified 08/11/24 11:44 burning alendronate sodium Allergy Unknown unknown Verified 08/11/24 11:44 reaction aspirin Allergy Verified 08/11/24 11:44 dapsone AdvReac Severe Unknown Verified 08/11/24 11:44 nivolumab [From Opdivo] AdvReac Severe Cramping Verified 08/11/24 11:44 of the Muscles albuterol AdvReac Intermediate nightmare Verified 08/11/24 11:44 losartan AdvReac Intermediate unsure Verified 08/11/24 11:44 (lethargy or leg swelling) cetirizine [From Zyrtec] AdvReac Mild drowsiness Verified 08/11/24 11:44 ibandronate sodium AdvReac Unknown unknown Verified 08/11/24 11:44 [From Boniva] reaction ibuprofen AdvReac Unknown advised to Verified 08/11/24 11:44 avoid (caused slight kidney damage) fluticasone [From Flonase] AdvReac nosebleed Verified 08/11/24 11:44 dapsone Allergy Uncoded 08/11/24 11:44 osteoporosis medications Allergy Uncoded 08/11/24 11:44 optivo AdvReac Severe rash, Uncoded 08/11/24 11:44 cramping, ALVAREZ Home Meds Home Medications Medication Instructions Recorded Confirmed diphenhydramine HCl 25 mg capsule 25 mg PO DIRECTED PRN Allergy 06/03/19 08/25/24 (Benadryl) Symptoms acetaminophen 500 mg capsule 500 mg PO Q6H PRN Pain 08/29/19 08/25/24 cholecalciferol (vitamin D3) 125 125 mcg PO QAM 05/18/21 08/25/24 mcg (5,000 unit) tablet (Vitamin D3) cyanocobalamin (vitamin B-12) 1,000 mcg IM MONTHLY 02/07/22 08/25/24 1,000 mcg/mL injection kit loperamide 2 mg tablet 2 mg PO DIRECTED PRN Diarrhea 09/19/22 08/25/24 famotidine 20 mg tablet (Pepcid) 20 mg PO DAILY PRN gerd 01/17/23 08/25/24 levothyroxine 75 mcg tablet 100 mcg PO DAILY 06/12/24 08/25/24 prednisone 10 mg PO DAILY 08/05/24 08/25/24 Previous Rx's Medication Instructions Recorded candesartan 16 mg tablet (Atacand) 16 mg PO QAM 90 days #90 tabs 06/04/23 venlafaxine 150 mg 150 mg PO QAM #90 caps 06/04/23 capsule,extended release 24 hr (Effexor XR) ondansetron HCl 8 mg tablet 8 mg PO Q8 PRN nausea/vomiting #30 02/27/24 tabs Results & Data (ED) Vital Signs Vital Signs - 24 hr 08/25/24 10:04 08/25/24 10:14 08/25/24 10:14 Temperature 36.7 C Temperature Source Temporal Artery Scan Pulse Rate 80 78 Pulse Rate from SpO2 Sensor Pulse Rhythm Regular Respiratory Rate 18 20 Respiratory Effort / Characteristics Non-Labored Spontaneous Respiratory Depth Normal Respiratory Pattern Regular Blood Pressure 166/83 H Blood Pressure Mean 110 Pulse Oximetry 97 97 Oxygen Delivery Method Room Air Room Air Sepsis Recent Fever Within 48 Hours No Sepsis New/Unexplained Change in Mental Status N/A Sepsis Action Taken by Nursing No Action Required 08/25/24 10:31 08/25/24 10:40 08/25/24 11:09 Temperature Temperature Source Pulse Rate 73 72 67 Pulse Rate from SpO2 Sensor 73 67 Pulse Rhythm Respiratory Rate 18 19 Respiratory Effort / Characteristics Respiratory Depth Respiratory Pattern Blood Pressure 148/79 H 144/77 H Blood Pressure Mean 100 99 Pulse Oximetry 97 100 Oxygen Delivery Method Sepsis Recent Fever Within 48 Hours Sepsis New/Unexplained Change in Mental Status Sepsis Action Taken by Nursing 08/25/24 11:30 Temperature Temperature Source Pulse Rate 68 Pulse Rate from SpO2 Sensor 68 Pulse Rhythm Respiratory Rate 18 Respiratory Effort / Characteristics Respiratory Depth Respiratory Pattern Blood Pressure 134/75 Blood Pressure Mean 101 Pulse Oximetry 97 Oxygen Delivery Method Room Air Sepsis Recent Fever Within 48 Hours Sepsis New/Unexplained Change in Mental Status Sepsis Action Taken by Nursing Laboratory Data 08/25/24 10:16 08/25/24 10:16 Lab Results 08/25/24 08/25/24 08/25/24 Range/Units 10:14 10:16 10:22 WBC 8.23 (4.8-10.8) K/ul RBC 3.52 L (4.20-5.40) M/uL Hgb 10.8 L (12.0-16.0) g/dl POC Hgb 12.6 (12.0-16.0) g/dl Hct 34.7 L (37.0-47.0) % POC Hct 37 (37-47) % MCV 98.6 (80.0-100.0) fL MCH 30.7 (25.0-34.0) pg MCHC 31.1 L (32.0-36.0) g/dL RDW Std Deviation 52.1 H (36.4-46.3) fL RDW Coeff of Jerry 14.5 (11.5-14.5) % Plt Count 198 (130-400) K/uL MPV 10.8 (9.4-12.4) fL PT 11.5 (9.0-12.0) Seconds INR 1.1 (0.9-1.1) APTT > 139 H* (21-31) Seconds PTT Ratio > 4.9 POC Sodium 142 (135-144) mmol/L Sodium 141 (136-145) mmol/L POC Potassium 3.9 (3.3-5.0) mmol/L Potassium 3.9 (3.5-5.1) mmol/L POC Chloride 111 (101-112) mmol/L Chloride 110 H (98-107) mmol/L Carbon Dioxide 22 (21-32) mmol/L POC Total CO2 20 L (24-31) mmol/L Anion Gap 9 (3-11) POC Anion Gap 16.0 (16-25) mmol/L POC BUN 42 H (7-18) mg/dl BUN 47 H (6-23) mg/dl Creatinine 1.34 H (0.6-1.2) mg/dl POC Creatinine 1.5 H (0.6-1.3) mg/dl Est Cr Clr Drug Dosing 37.8 ml/min Est GFR ( Amer) 44.5 ml/min Est GFR (Non-Af Amer) 38.4 ml/min BUN/Creatinine Ratio 35.1 H (10-20) Glucose 100 H (70-99(Fasting)) mg/dl POC Glucose 98 (70-99) mg/dl POC Glucose (other) 101 H (70-99) mg/dl Calcium 9.1 (8.6-10.3) mg/dl POC Ioniz Calcium Nona 1.16 (1.12-1.32) mmol/l Magnesium 1.9 (1.7-2.4) mg/dl Total Bilirubin 0.4 (0.2-1.0) mg/dl AST 11 L (13-39) U/L ALT 8 (7-52) U/L Alkaline Phosphatase 81 (34-104) U/L Total Protein 6.9 (6.0-8.3) gm/dl Albumin 4.0 (3.4-5.0) gm/dl Globulin 2.9 (2.5-4.0) gm/dl Albumin/Globulin Ratio 1.4 (0.9-2) Administered Medications Discontinued Medications Aspirin (Aspirin Chew 324 Mg) 81 mg PO NOW STA Stop: 08/25/24 11:03 Last Admin: 08/25/24 11:22 Dose: 81 mg Documented By: SRL Clopidogrel Bisulfate (Clopidogrel Bisulfate 300 Mg Tab) 300 mg PO NOW STA Stop: 08/25/24 11:03 Last Admin: 08/25/24 11:22 Dose: 300 mg Documented By: SRL Ioversol (Optiray 320 125ml) 112 ml IV ONCE ONE Stop: 08/25/24 10:24 Last Admin: 08/25/24 10:24 Dose: 112 ml Documented By: ISABELA Imaging Data Radiologist's Impression: Chest X-Ray 08/25/24 10:14 XR chest 1V portable HISTORY: 74 years-old Female stroke alert acute stroke like symptoms COMPARISON: 03/24/2024 TECHNIQUE: AP view chest FINDINGS: The cardiac silhouette is mildly enlarged. Left subclavian [id number] catheter is unchanged. Lungs are clear. No pneumothorax or pleural effusion. The bones appear grossly intact. IMPRESSION: Cardiomegaly without acute process. ACT 112: Negative or not required by law. The above report was generated using voice recognition software. It may contain grammatical, syntax or spelling errors. Electronically signed by: Ben Chisholm M.D. 08/25/2024 11:24 AM Head CTA 08/25/24 10:21 CT angio head w con CLINICAL HISTORY: 74 years-old Female with stroke like symptoms. Acute stroke like symptoms COMPARISON STUDY: CT neck of same day, brain MRI 02/01/2024 TECHNIQUE: Unenhanced axial CT scan of the brain is performed. Subsequently, following the IV administration of 112 cc of Optiray, CT angiogram of the brain was performed from the skull base to the vertex. Images are reviewed in the axial, sagittal, and coronal planes. 3-D MIPS images are created and assessed. IV contrast was administered without complication. All measurements were obtained according to NASCET criteria. A dose lowering technique was utilized adhering to the principles of ALARA. CT DOSE: 415.81 mGy.cm FINDINGS: CT BRAIN: There is no acute intracranial hemorrhage, midline shift, hydrocephalus, intracranial mass, territorial ischemia or abnormal extra-axial collections. No abnormal intra-axial or extra-axial enhancement. Involutional changes with chronic microvascular ischemic disease. Mastoid air cells and middle ear cavities are clear. No calvarial fracture. Paranasal sinuses are clear. CT ANGIOGRAM OF THE BRAIN: The imaged bilateral internal carotid arteries are patent. The bilateral anterior and middle cerebral arteries are also patent. The vertebrobasilar system and posterior cerebral arteries are widely patent. There is no aneurysm, high-grade stenosis, or proximal branch occlusion identified. Dural sinuses appear patent. IMPRESSION: 1. No acute intracranial abnormality. 2. Unremarkable CTA of the head. ACT 112: Negative or not required by law. The above report was generated using voice recognition software. It may contain grammatical, syntax or spelling errors. Electronically signed by: Ben Chisholm M.D. 08/25/2024 10:55 AM Neck CTA 08/25/24 10:21 CT angio neck with con CLINICAL HISTORY: stroke like symptoms TECHNIQUE: CT angiography of the neck was performed following intravenous administration of iodinated contrast. Coronal and sagittal MIPS were obtained from the axial data set and were submitted for review. Automated dose lowering techniques and/or adjustment according to patient size were utilized for this examination. All measurements were calculated based on NASCET criteria. Comparison: None available at the time of this dictation. FINDINGS: Lungs and soft tissues are unremarkable. CTA Neck: A 3 vessel aortic arch is shown. There is no significant atherosclerotic plaque in the aortic arch or the origins of the innominate, left common carotid, and left subclavian arteries. The common carotid, external carotid, cervical segments of the internal carotid arteries, and the cervical segments of the vertebral arteries are patent without hemodynamically significant stenosis. The vertebral arteries are codominant. IMPRESSION: No occlusion, hemodynamically significant stenosis, or dissection in the major cervical arteries. Assessment of stenosis of the internal carotid arteries is based on NASCET criteria. ACT 112: Negative or not required by law. Electronically signed by: Marcio Esquivel M.D. 08/25/2024 10:49 AM Discharge Plan Visit Data Chief Complaint: Stroke/CVA Symptoms Stated Complaint: UNABLE TO SPEAK ED Provider: Jenn Wilson Discharge Problem: Stroke-like symptom, Aphasia Forms Stand Alone Forms: My [facility]wi Prescriptions Prescriptions: No Action acetaminophen 500 mg capsule 500 mg PO Q6H PRN (Reason: Pain) Rx Instructions: otc, not able to verify with pharmacy 02/07/24 venlafaxine [Effexor XR] 150 mg capsule,extended release 24hr 150 mg PO QAM Qty: 90 3RF candesartan [Atacand] 16 mg tablet 16 mg PO QAM 90 Days Qty: 90 3RF ondansetron HCl 8 mg tablet 8 mg PO Q8 PRN (Reason: nausea/vomiting) Qty: 30 0RF levothyroxine 75 mcg tablet 100 mcg PO DAILY diphenhydramine HCl [Benadryl] 25 mg capsule 25 mg PO DIRECTED PRN (Reason: Allergy Symptoms) Rx Instructions: otc, not able to verify with pharmacy 02/07/24 famotidine [Pepcid] 20 mg tablet 20 mg PO DAILY PRN (Reason: gerd) prednisone 10 mg PO DAILY cyanocobalamin (vitamin B-12) 1,000 mcg/mL Kit 1,000 mcg IM MONTHLY Rx Instructions: not on file with pharmacy loperamide 2 mg Tablet 2 mg PO DIRECTED PRN (Reason: Diarrhea) Rx Instructions: not able to verify cholecalciferol (vitamin D3) [Vitamin D3] 125 mcg (5,000 unit) Tablet 125 mcg PO QAM Rx Instructions: otc, not able to verify with pharmacy 02/07/24 Referrals Referrals: Enoch Aguilar MD [Primary Care Provider] -
[2024-08-25] MEDS: OPTIRAY 320 125ml IV ONE (10:24)
[2024-08-25 10:35] LABS: Hematocrit (blood only) 34.7 % (37.0-47.0); Hemoglobin 10.8 g/dl (12.0-16.0); Mean Corpuscular Hemoglobin 30.7 pg (25.0-34.0); Mean Corpuscular Hgb Conc 31.1 g/dL (32.0-36.0); Mean Corpuscular Volume 98.6 fL (80.0-100.0); Mean Platelet Volume 10.8 fL (9.4-12.4); Platelet Count 198 K/uL (130-400); RDW Coefficient of Variation 14.5 % (11.5-14.5); RDW Standard Deviation 52.1 fL (36.4-46.3); Red Blood Count 3.52 M/uL (4.20-5.40); White Blood Count 8.23 K/ul (4.8-10.8)
[2024-08-25 10:35] LABS: iSTAT Creatinine 1.5 mg/dl (0.6-1.3); iSTAT Hemoglobin 12.6 g/dl (12.0-16.0); iSTAT Ionized Calcium 1.16 mmol/l (1.12-1.32); iSTAT Potassium 3.9 mmol/L (3.3-5.0)
[2024-08-25 10:49] LABS: Albumin Globulin Ratio 1.4 (0.9-2); BUN Creatinine Ratio 35.1 (10-20); Bilirubin,Total 0.4 mg/dl (0.2-1.0); Calcium 9.1 mg/dl (8.6-10.3); Creatinine Clr Calc Pharmacy 37.8 ml/min; Est GFR (African American) 44.5 ml/min; Est GFR (Non-African American) 38.4 ml/min; Globulin 2.9 gm/dl (2.5-4.0); Magnesium 1.9 mg/dl (1.7-2.4); Potassium 3.9 mmol/L (3.5-5.1); Total Protein 6.9 gm/dl (6.0-8.3)
--- NOTE | 2024-08-25 10:51 | CT Scan Report ---
CT angio neck with con CLINICAL HISTORY: stroke like symptoms TECHNIQUE: CT angiography of the neck was performed following intravenous administration of iodinate d contrast. Coronal and sagittal MIPS were obtained from the axial data set and were submitted for re view. Automated dose lowering techniques and/or adjustment according to patient size were utilized f or this examination. All measurements were calculated based on NASCET criteria. Comparison: None available at the time of this dictation. FINDINGS: Lungs and soft tissues are unremarkable. CTA Neck: A 3 vessel aortic arch is shown. There is no significant atherosclerotic plaque in the aor tic arch or the origins of the innominate, left common carotid, and left subclavian arteries. The co mmon carotid, external carotid, cervical segments of the internal carotid arteries, and the cervical segments of the vertebral arteries are patent without hemodynamically significant stenosis. The verte bral arteries are codominant. IMPRESSION: No occlusion, hemodynamically significant stenosis, or dissection in the major cervical arteries. Assessment of stenosis of the internal carotid arteries is based on NASCET criteria. ACT 112: Negative or not required by law. Electronically signed by: Marcio Esquivel M.D. 08/25/2024 10:49 AM
--- NOTE | 2024-08-25 10:57 | CT Scan Report ---
CT angio head w con CLINICAL HISTORY: 74 years-old Female with stroke like symptoms. Acute stroke like symptoms COMPARISON STUDY: CT neck of same day, brain MRI 02/01/2024 TECHNIQUE: Unenhanced axial CT scan of the brain is performed. Subsequently, following the IV adminis tration of 112 cc of Optiray, CT angiogram of the brain was performed from the skull base to the vert ex. Images are reviewed in the axial, sagittal, and coronal planes. 3-D MIPS images are created and a ssessed. IV contrast was administered without complication. All measurements were obtained according to NASCET criteria. A dose lowering technique was utilized adhering to the principles of ALARA. CT DOSE: 415.81 mGy.cm FINDINGS: CT BRAIN: There is no acute intracranial hemorrhage, midline shift, hydrocephalus, intracranial mass, territori al ischemia or abnormal extra-axial collections. No abnormal intra-axial or extra-axial enhancement. Involutional changes with chronic microvascular ischemic disease. Mastoid air cells and middle ear ca vities are clear. No calvarial fracture. Paranasal sinuses are clear. CT ANGIOGRAM OF THE BRAIN: The imaged bilateral internal carotid arteries are patent. The bilateral anterior and middle cerebral arteries are also patent. The vertebrobasilar system and posterior cerebral arteries are widely gandara nt. There is no aneurysm, high-grade stenosis, or proximal branch occlusion identified. Dural sinuses appear patent. IMPRESSION: 1. No acute intracranial abnormality. 2. Unremarkable CTA of the head. ACT 112: Negative or not required by law. The above report was generated using voice recognition software. It may contain grammatical, syntax o r spelling errors. Electronically signed by: Ben Chisholm M.D. 08/25/2024 10:55 AM
[2024-08-25 11:15] LABS: INR 1.1 (0.9-1.1); Partial Thromboplastin Ratio > 4.9; Prothrombin Time 11.5 Seconds (9.0-12.0)
[2024-08-25] MEDS: ASPIRIN CHEW 324 MG PO STA (11:22)
[2024-08-25] MEDS: CLOPIDOGREL BISULFATE 300 MG TAB PO STA (11:22)
--- NOTE | 2024-08-25 11:26 | XRay Report ---
XR chest 1V portable HISTORY: 74 years-old Female stroke alert acute stroke like symptoms COMPARISON: 03/24/2024 TECHNIQUE: AP view chest FINDINGS: The cardiac silhouette is mildly enlarged. Left subclavian [id number] catheter is unchanged. Lungs are clear. No pneumothorax or pleural effusion. The bones appear grossly intact. IMPRESSION: Cardiomegaly without acute process. ACT 112: Negative or not required by law. The above report was generated using voice recognition software. It may contain grammatical, syntax o r spelling errors. Electronically signed by: Ben Chisholm M.D. 08/25/2024 11:24 AM
[2024-08-25 11:27] LABS: Partial Thromboplastin Time > 139 Seconds (21-31)
--- NOTE | 2024-08-25 12:07 | History & Physical Report ---
Date of Service August 25, 2024 Assessment & Plan (1) Aphasia: Plan: Jazmyn presented with aphasia that is improving by the time of admission. Head CT/Head & Neck CTA: no acute intracranial abnormalities, patent carotids CXR: cardiomegaly without acute process Brain MRI: ordered, pending Echo w/ bubble study: ordered, pending EKG: NSR. Pt denies hx of afib Permissive HTN 220/110 for 24 hours - candesartan held on admission Plavix load & ASA given in ED. Continue DAPT with ASA and Plavix Check A1c, lipids - pt reports she has not tolerated atorvastatin in the past and unwilling to try at present. Unclear if she has trialed rousavastatin. PT/OT/MUSEUM INFORMATICS SPECIALIST AM CBC and BMP (2) Chronic kidney disease, stage 3b: Plan: Cr. 1.34 on admission, baseline ~1.4 - renal dose as appropriate - did recieve IV contrast (3) Prolonged PTT: Plan: from labs in the ER. PT/INR WNL. No signs of bleeding - suspect lab error, repeat ordered (4) Presence of urostomy: Plan: Care q shift Plan Chronic stable medications: * hypothyroid - continue Synthroid * mental health - continue venlafaxine Dispo: med/tele DVT proh: SCDs Code status: Full, discussed with patient History of Present Illness Chief Complaint: aphasia Primary Care Provider: Enoch Aguilar MD Jazmyn is a 74F with a PMH of breast cancer x2 with tamoxifen, endocarditis, HTN, HLD, hypothyroid who presents to the hospital for aphasia and stroke like symptoms. Patient was in her normal state of health this morning until she went to breakfast and was unable to talk to any of the employees. Was seen At the time of admission, was evaluated by tele-stroke and was offered TNK but she declined this and confirms this decision during my eval. Patient states she is very sensitive to medications, takes chronic prednisone as a result of side effects from Opdivo infusion. patient is able to speak in full sentences but speech is slow. Did not take her medications, but did take her Synthroid. ER course: Aspirin 81mg Plavix 300 mg Allergies Allergy/AdvReac Type Severity Reaction Status Date / Time docetaxel Allergy Severe chest Verified 08/11/24 11:44 pain, dyspnea adhesive Allergy Intermediate skin Verified 08/11/24 11:44 blisters atorvastatin Allergy Intermediate foot/leg Verified 08/11/24 11:44 swelling, nausea fluoxetine Allergy Intermediate gastrointestinal Verified 08/11/24 11:44 upset silver sulfadiazine Allergy Intermediate worsening Verified 08/11/24 11:44 burning alendronate sodium Allergy Unknown unknown Verified 08/11/24 11:44 reaction aspirin Allergy Unknown Verified 08/25/24 13:07 dapsone AdvReac Severe Unknown Verified 08/11/24 11:44 nivolumab [From Opdivo] AdvReac Severe Cramping Verified 08/11/24 11:44 of the Muscles albuterol AdvReac Intermediate nightmare Verified 08/11/24 11:44 losartan AdvReac Intermediate unsure Verified 08/11/24 11:44 (lethargy or leg swelling) cetirizine [From Zyrtec] AdvReac Mild drowsiness Verified 08/11/24 11:44 ibandronate sodium AdvReac Unknown unknown Verified 08/11/24 11:44 [From Boniva] reaction ibuprofen AdvReac Unknown advised to Verified 08/11/24 11:44 avoid (caused slight kidney damage) fluticasone [From Flonase] AdvReac nosebleed Verified 08/11/24 11:44 Home Medications Medication Instructions Recorded Confirmed Type diphenhydramine HCl 25 mg capsule 25 mg PO DIRECTED PRN Allergy 06/03/19 08/25/24 History (Benadryl) Symptoms acetaminophen 500 mg capsule 500 mg PO Q6H PRN Pain 08/29/19 08/25/24 History cholecalciferol (vitamin D3) 125 125 mcg PO QAM 05/18/21 08/25/24 History mcg (5,000 unit) tablet (Vitamin D3) cyanocobalamin (vitamin B-12) 1,000 mcg IM MONTHLY 02/07/22 08/25/24 History 1,000 mcg/mL injection kit loperamide 2 mg tablet 2 mg PO DIRECTED PRN Diarrhea 09/19/22 08/25/24 History famotidine 20 mg tablet (Pepcid) 20 mg PO DAILY PRN gerd 01/17/23 08/25/24 History candesartan 16 mg tablet (Atacand) 16 mg PO QAM 90 days #90 tabs 06/04/23 08/25/24 Rx venlafaxine 150 mg 150 mg PO QAM #90 caps 06/04/23 08/25/24 Rx capsule,extended release 24 hr (Effexor XR) ondansetron HCl 8 mg tablet 8 mg PO Q8 PRN nausea/vomiting #30 02/27/24 08/25/24 Rx tabs levothyroxine 75 mcg tablet 100 mcg PO DAILY 06/12/24 08/25/24 History prednisone 10 mg PO DAILY 08/05/24 08/25/24 History Past Med/Surg History Problem List (Updated 08/25/24 @ 12:30 by Laurie Gil PA-C) Prolonged PTT Aphasia (Acute) Stroke-like symptom (Acute) Atypical chest pain Vaginal discharge, bloody Vaginal bleeding Anemia Hypomagnesemia (Acute) Leukocytosis (Acute) Megaloblastic anemia History of immunotherapy H/O bilateral mastectomy Chronic kidney disease, stage 3b Immunosuppressed due to chemotherapy Gross hematuria Chronic venous insufficiency Varicose vein of leg Ascending aorta dilation Invasive ductal carcinoma of right breast Chronic cough Ex-smoker Post traumatic stress disorder Myofascial pain 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" on CCD Vitamin D deficiency Vitamin B12 deficiency Vitamin B deficiency Obstructive sleep apnea of adult Localized osteoarthritis of hands, bilateral Edema Depression Anemia Allergic rhinitis AI (aortic insufficiency) Asthma stable> no inhalers HTN (hypertension) controlled, stable per pt Hypothyroid Osteoporosis Hyperlipidemia Sleep apnea did not tolerate CPAP (caused cough) H/O right mastectomy (12/08/19) Right Breast Mastectomy with Right [place] Lymph Node Biopsy,(Right) - Frantz Mayo DO 12/08/2019 s Mediport Removal - Frantz Mayo, s First Stage Immediate Right Breast Reconstruction with Right Tissue Call Specialist and Right Acellular Dermal Matrix(Right) - Sri Casillas MD: Grade 1 view, MAC 3, ETT 7.5. Removal 05/24/21: Grade 1 view, Stephen 2, ETT 7 atraumatic x 1. Bladder cancer dx'd 2021. hx chemo + surgery. Immunotherapy q28d. Medical History Methemoglobinemia Hypoxia Chronic kidney disease, stage 3a Rupture of implant of right breast Immunotherapy History of phlebitis Presence of urostomy Facial basal cell cancer Rupture of implant of left breast Limb alert care status LVH (left ventricular hypertrophy) History of COVID-19 Morbid obesity Acquired lymphedema Emphysema of lung COPD with emphysema Degenerative disc disease Kidney stones GERD (gastroesophageal reflux disease) Anxiety and depression Hx of iron deficiency Restless leg syndrome Hx of migraines Former tobacco use Herniated disc Aortic aneurysm Pre-diabetes Thoracic ascending aortic aneurysm Breast cancer Surgical History Hx of left cataract extraction History of arthroscopy of right knee History of total cystectomy Port-A-Cath in place (08/04/22) S/P sclerotherapy of varicose veins Hx of hand surgery History of surgery on arm H/O abdominal surgery History of appendectomy History of esophagogastroduodenoscopy (EGD) History of tooth extraction History of transesophageal echocardiography (JOSE) History of vascular access device S/P gastric bypass History of breast reconstruction History of tubal ligation History of colonoscopy History of cholecystectomy H/O left mastectomy S/P partial hysterectomy Family History Mother Myocardial infarction Breast cancer Diabetes ESRD (end stage renal disease) on dialysis Aunt Breast cancer Unknown Skin cancer Father Myocardial infarction Coronary heart disease Daughter Diabetes Daughter No problems noted. Other No significant family history Denies family history of Ovarian cancer Prostate cancer Colorectal cancer Social History Smoking Status: Never smoker Tobacco Type: Cigarettes Age Started Using Tobacco: 14; Age Quit Using Tobacco: 38; Cigarettes Per Day: 2-3 ppd at times in the past, started as a teen; Second Hand Exposure: No; Do You Dip or Chew Tobacco: No; Hx Alcohol Use: Yes Alcohol type: wine Alcohol Intake Frequency: Monthly or Less Hx Substance Use: No Preferred Language: Ethiopian Communication Ability: Effective Visual Impairment: No Limitations Hearing Ability: Normal Parts Expediter Required: No Beliefs That Will Affect Care: None marital status: / Current Living Situation: Alone current occupational status: retired current occupation: [employer] How many Children do You have: 4 How many Children do You have Comment: 2 children ; 1 living daughter, 1 living son Feels Safe at Home: Yes Childhood Exposure to Second-Hand Smoke: Yes Diet: regular Diet Comment: aware of protein caffeine: Yes (tea 8 cups daily) Dental Care, Regularly: No Physical Activity Frequency: Does not Exercise Seatbelt Use: always Sunscreen Use: Yes Do you think of yourself as: straight/heterosexual Gender Identity: Female Assistive Devices: None Review of Systems Review of Systems: All systems reviewed & are unremarkable except as noted in Subjective Physical Exam Physical Exam: General: NAD, VS as above, sitting up in bed Resp: normal respiratory effort, lungs clear to auscultation CV: RRR, no murmur, Abd: soft, non tender, urotomy present Extremities: Moves all extremities, no edema Neuro: A&O x3, slow speech but able to complete full sentence, UE/LE strength and sensation in tact. no focal deficits Results & Data Results & Data Vital Signs (Past 12 Hours) Vital Signs Temp Pulse Resp BP Pulse Ox O2 Del Method 08/25/24 11:30 68 18 134/75 97 Room Air 08/25/24 11:09 67 19 144/77 H 100 08/25/24 10:40 72 08/25/24 10:31 73 18 148/79 H 97 08/25/24 10:14 78 20 97 Room Air 08/25/24 10:14 Room Air 08/25/24 10:04 98.1 F 80 18 166/83 H 97 Laboratory Results CBC, chemistry, coagulation studies reviewed Diagnostic Findings head neck CTA, head CT reviewed Supervising Physician Co-Signing Physician Notes Patient seen and examined, chart reviewed, case discussed with Laurie Drummond PA-C and I agree with the assessment and plan as above except as otherwise noted Labs and images reviewed Jazmyn is a 74-year-old female with past medical history of CKD, statin intolerance, endocarditis presented with acute onset of aphasia this morning. Was evaluated by telestroke and was recommended TNKase, on shared decision making patient declined this. She had acute onset of her symptoms at 9 AM. At time of bedside assessment she was reevaluated and she feels her speech is 80% better. Per telestroke recommendations patient was loaded with aspirin/Plavix and should be continued on aspirin and Plavix daily. Allow for permissive hypertension x 24 hours. She is nondistressed and speech is mostly fluent with some slurring at bedside. She is pending a bubble study. Denies chest pain or chest pressure. Pleasant, nontoxic at bedside. Moves upper and lower extremities equally, entry driver operator strength ankle dorsiflexion/plantarflexion are intact and symmetrical and sensation in hands and feet is intact to soft touch at bedside. No facial asymmetry. Tongue protrudes midline. Agree with above. PG Care Time/CCT Total # of Minutes Spent Total Time Spent with Patient: Total time spent is greater than 50% in coordination of care (as documented) at patient's floor/unit and/or counseling patient: Coding Level of Care Code 21936 INT INP/OBS CARE 3/75MIN Diagnoses Aphasia R47.01 Chronic kidney disease, stage 3b N18.32 Prolonged PTT R79.1 Presence of urostomy Z93.6
[2024-08-25 13:36] LABS: Partial Thromboplastin Time 27 Seconds (21-31); Prothrombin Time 11.2 Seconds (9.0-12.0)
[2024-08-25] MEDS: VENLAFAXINE HCL XR 150 MG CAPXR PO ONE (13:51)
[2024-08-25] MEDS: predniSONE 10 MG TABLET PO ONE (13:51)
--- NOTE | 2024-08-25 14:24 | XCELERA ---
[id number]
[2024-08-25] MEDS ORDERED: PHARMACIST DISCHARGE MED REC CONSULT PRN (15:33)
--- NOTE | 2024-08-25 16:49 | Electrocardiogram Report ---
Test Reason : Blood Pressure : */* mmHG Vent. Rate : 78 BPM Atrial Rate : 78 BPM P-R Int : 146 ms QRS Dur : 94 ms QT Int : 380 ms P-R-T Axes : 43 4 42 degrees QTcB Int : 433 ms Normal sinus rhythm Increased R/S ratio in V1, consider early transition or posterior infarct Abnormal ECG When compared with ECG of 24-Mar-2024 16:42, No significant change was found Confirmed by Enoch Shankar ([id number]) on 08/25/2024 4:49:34 PM Referred By: REFERRED SELF Confirmed By: Enoch Shankar
--- NOTE | 2024-08-25 23:00 | Magnetic Resonance Report ---
Exam(s): MRI HEAD Without Contrast EXAM: MR Head Without Intravenous Contrast CLINICAL HISTORY: Reason for exam: r/o stroke. TECHNIQUE: Magnetic resonance images of the head/brain without intravenous contrast in multiple planes. COMPARISON: Prior brain MRI from the February 01, 2024. FINDINGS: Brain: There are 2 tiny acute ischemic injury in the left frontal lobe cortex without evidence of hemorrhagic transformation.. Moderate nonspecific white matter changes. The flow voids at the base of the brain are intact. No mass. No hemorrhage. Ventricles: Unremarkable. No ventriculomegaly. Bones/joints: Unremarkable. No acute fracture. Sinuses: Unremarkable as visualized. No acute sinusitis. Mastoid air cells: Unremarkable as visualized. No mastoid effusion. Orbits: Bilateral lens replacements. IMPRESSION: There are 2 tiny acute ischemic injuries in the left frontal lobe cortex. Communications: Verify Receipt Electronically signed by: Kandy De Jesus MD 08/25/24 22:59 PM
[2024-08-26] MEDS ORDERED: HEPARIN 100 UNIT/ML 5ML FLUSH FLUSH PRN (04:06)
[2024-08-26 04:54] LABS: Basophils # (auto) 0.05 K/uL (0.00-0.20); Basophils % (auto) 0.6 %; Eosinophils # (auto) 0.26 K/uL (0.00-0.50); Hematocrit (blood only) 36.1 % (37.0-47.0); Hemoglobin 11.5 g/dl (12.0-16.0); Immature Granulocytes # (auto) 0.03 K/uL (0.01-0.20); Immature Granulocytes % (auto) 0.3 %; Lymphocytes # (auto) 3.22 K/uL (1.20-3.40); Lymphocytes % (auto) 36.7 %; Mean Corpuscular Hgb Conc 31.9 g/dL (32.0-36.0); Mean Corpuscular Volume 97.3 fL (80.0-100.0); Mean Platelet Volume 10.5 fL (9.4-12.4); Monocytes # (auto) 0.82 K/uL (0.11-0.59); Monocytes % (auto) 9.4 %; Neutrophils # (auto) 4.39 K/uL (1.40-6.50); Platelet Count 214 K/uL (130-400); RDW Coefficient of Variation 14.5 % (11.5-14.5); RDW Standard Deviation 51.8 fL (36.4-46.3); Red Blood Count 3.71 M/uL (4.20-5.40); White Blood Count 8.77 K/ul (4.8-10.8)
[2024-08-26 05:02] LABS: BUN Creatinine Ratio 30.7 (10-20); Calcium 8.9 mg/dl (8.6-10.3); Chol HDL Ratio 3.2 (0-5); Creatinine Clr Calc Pharmacy 36.4 ml/min; Est GFR (African American) 42.2 ml/min; Est GFR (Non-African American) 36.4 ml/min; Potassium 4.1 mmol/L (3.5-5.1)
[2024-08-26] MEDS: LEVOTHYROXINE SODIUM 100 MCG TABLET PO SCH (06:17)
[2024-08-26 07:01] LABS: Estimated Average Glucose 128 mg/dl; Hemoglobin A1C 6.1 % (4.5-5.6)
[2024-08-26] MEDS: VENLAFAXINE HCL XR 150 MG CAPXR PO SCH (07:47)
[2024-08-26] MEDS: CHOLECALCIFEROL 125 MCG (5,000 UNITS) TAB PO SCH (07:47)
[2024-08-26] MEDS: ASPIRIN 81 MG ECTAB PO SCH (07:48)
[2024-08-26] MEDS: predniSONE 10 MG TABLET PO SCH (07:48)
[2024-08-26] MEDS: CLOPIDOGREL BISULFATE 75 MG TAB PO SCH (07:49)
[2024-08-26 08:17] VITALS: RESP 16
--- NOTE | 2024-08-26 10:19 | Pharmacy Report ---
- Date of Service August 26, 2024 - Pharmacy CVA/TIA Medication Review Medications to Prevent Stroke handout has been added to the patients discharge packet. Antiplatelet(s) * aspirin 81 mg PO daily + clopidogrel 75 mg PO daily, to be discharged on clopidogrel monotherapy Cholesterol * High intensity statin deferred due to tolerability concern (adverse drug reaction to atorvastatin) DVT Prophylaxis * SCD knee Therapeutic Anticoagulation * No history of Afib/Aflutter noted Type 2 Diabetes * Patient does not have T2DM
[2024-08-26] MEDS ORDERED: STROKE PATIENT DISCHARGE STA (11:58)
[2024-08-26 13:08] VITALS: BP 144/84; PULSE 89; TEMP 98.8; O2SAT 95
--- NOTE | 2024-08-26 13:22 | Discharge Summary ---
Discharge Summary Date of Service August 26, 2024 Principal Dx & Hospital Course #1 = Principal Diagnosis (1) Aphasia: Acute left cerebral infarctions with resultant aphasia Head CT/Head & Neck CTA: no acute intracranial abnormalities, patent carotids Brain MRI: 2 tiny acute ischemic injuries in left frontal lobe cortex. Echo w/ bubble study: left ventricular systolic function normal. moderate concentric LVH. No significant valvular disease no intra-arterial shunt. Was noted to have a mildly dilated aorta Neurology consulted, recommended to cancel consult and follow up in the neurology office outpatient. 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 She was agreeable to using Plavix products at this time. Patient has had persistent recurrent bright red blood per vagina and has previously had a vaginal resection when she had a pelvic exoneration surgery for bladder cancer she has seen gynecology and is also reluctant to use long-term aspirin products due to the risk of bleeding from this area. She will follow-up with primary care regarding this. Other risk reduction includes reasonable Hemoglobin A1c 08/26: 6.1% Cholesterol panel - Total cholesterol 192, LDL 112 Patient refusing statin therapy due to side effects from previous trials. PT/OT recommended return home w/o services. Speech therapy cleared patient for regular diet. (2) Chronic kidney disease, stage 3b: Cr. 1.34 on admission, baseline ~1.4 Upon discharge, creatinine within baseline at 1.40 on 08/26 (3) Prolonged PTT: from labs in the ER. PT/INR WNL. No signs of bleeding acutely. (4) Presence of urostomy: Previous bladder cancer and pelvic Zon ration surgery. Plan Chronic stable medications: * hypothyroid - continue Synthroid * mental health - continue venlafaxine Notes For Next Care Provider Patient is many reluctance is to institute long-term therapy that will worsen her bleeding. She also has complaints of having some persistent urinary output of mucus like material Compromise using Plavix daily. With further discussion outpatient follow-up Admission HPI Per Admitting Provider Jazmyn is a 74F with a PMH of breast cancer x2 with tamoxifen, endocarditis, HTN, HLD, hypothyroid who presents to the hospital for aphasia and stroke like symptoms. Patient was in her normal state of health this morning until she went to breakfast and was unable to talk to any of the employees. Was seen At the time of admission, was evaluated by tele-stroke and was offered TNK but she declined this and confirms this decision during my eval. Patient states she is very sensitive to medications, takes chronic prednisone as a result of side effects from Opdivo infusion. patient is able to speak in full sentences but speech is slow. Did not take her medications, but did take her Synthroid. ER course: Aspirin 81mg Plavix 300 mg Discharge Exam Awake and appropriate fluent speech nonfocal neurological exam Discharge Plan Discharge Items Patient Disposition: Transfer [facility] Reason For Visit: aphasia, stroke workup Discharge Diagnosis: left cerebral stroke with transietn aphasia Activity: Resume your previous activity Non-emergency contact: Primary Care Provider Call non-emergency contact if: your symptoms worsen Follow-up/Referrals: Enoch Aguilar MD [Primary Care Provider] - 09/03/24 2:00 pm Diet: Heart Healthy Addtl Attending Provider Instructions: Risk Factors for Stroke: You can reduce your chances of stroke by working with your medical provider to adopt a healthy lifestyle. Some specific ways to lower your chance of stroke are: * Avoid excessive amounts of alcohol * Control high blood pressure * Lose weight if you are overweight * Be sure to lead an active lifestyle * Eat a healthy diet low in salt, cholesterol and fat You should know about other risk factors for stroke that you are unable to control. These include: * Age 55 years or older * Male gender * Certain racial groups: , or / * Family History of Stroke, Mini stroke or Heart Attack * Sickle Cell Disease Follow Up: It is important for you to keep your follow up appointments with your medical provider. Who to Call and When: Medical Emergencies: Call 911 immediately if you experience any of the following warning signs and symptoms of Stroke: * Sudden numbness or weakness of the face, arm or leg, especially on one side of the body * Sudden confusion, trouble speaking or understanding * Sudden trouble seeing in one or both eyes * Sudden trouble walking, dizziness, loss of balance or coordination * Sudden severe headache with no cause Do not delay calling 911 if you experience any warning signs or symptoms of a stroke. Delay in seeking medical attention may affect what treatments can be given to you. . Addtl [employer] Provider Instructions: you should take plavix once a day and discuss further ways to reduce your vascular risk with Dr Ricketts office consider revisit to gyne for vaginal bleeding consider revisit to urology for bladder discharge Pending Studies at Discharge: No Stand-Alone Forms: My [facility], Smoking Cessation, Medications to Prevent Stroke Medications and DC Order Prescriptions: New clopidogrel 75 mg Tablet 75 mg PO QAM Qty: 30 3RF Continued acetaminophen 500 mg capsule 500 mg PO Q6H PRN (Reason: Pain) Rx Instructions: otc, not able to verify with pharmacy 02/07/24 venlafaxine [Effexor XR] 150 mg capsule,extended release 24hr 150 mg PO QAM Qty: 90 3RF candesartan [Atacand] 16 mg tablet 16 mg PO QAM 90 Days Qty: 90 3RF ondansetron HCl 8 mg tablet 8 mg PO Q8 PRN (Reason: nausea/vomiting) Qty: 30 0RF levothyroxine 75 mcg tablet 100 mcg PO DAILY diphenhydramine HCl [Benadryl] 25 mg capsule 25 mg PO DIRECTED PRN (Reason: Allergy Symptoms) Rx Instructions: otc, not able to verify with pharmacy 02/07/24 famotidine [Pepcid] 20 mg tablet 20 mg PO DAILY PRN (Reason: gerd) prednisone 10 mg PO DAILY cyanocobalamin (vitamin B-12) 1,000 mcg/mL Kit 1,000 mcg IM MONTHLY Rx Instructions: not on file with pharmacy loperamide 2 mg Tablet 2 mg PO DIRECTED PRN (Reason: Diarrhea) Rx Instructions: not able to verify cholecalciferol (vitamin D3) [Vitamin D3] 125 mcg (5,000 unit) Tablet 125 mcg PO QAM Rx Instructions: otc, not able to verify with pharmacy 02/07/24 Discharge Orders: Discharge Order (Routine); Ordered 08/26/24 Ordered By: Ruben Mahoney Admission Data Admit Date/Time: 08/25/24 12:53 Attending Provider: Ruben Mahoney Admit Provider: Diogenes Cameron Primary Care Provider: Enoch Aguilar Other Providers: Diogenes Cameron Other Interventions: Discharge Summary Assessment (RN) Last Done: 08/26/24 12:25 Hospital Stay Data Consultations 08/25/24 11:39 ED Decision to Admit Stat Diagnostic Imagining Performed 08/25/24 10:14 CT head/brain wo con Stat 08/25/24 10:21 CTA head w con [CT angio head w con] Stat CTA neck with con [CT angio neck with con] Stat 08/25/24 15:33 MR brain wo con Routine Pending Results Patient Have Any Pending Studies at Discharge: No Discharge Instructions Given to Patient (Per Discharging Provider) Risk Factors for Stroke: You can reduce your chances of stroke by working with your medical provider to adopt a healthy lifestyle. Some specific ways to lower your chance of stroke are: * Avoid excessive amounts of alcohol * Control high blood pressure * Lose weight if you are overweight * Be sure to lead an active lifestyle * Eat a healthy diet low in salt, cholesterol and fat You should know about other risk factors for stroke that you are unable to control. These include: * Age 55 years or older * Male gender * Certain racial groups: , or / * Family History of Stroke, Mini stroke or Heart Attack * Sickle Cell Disease Follow Up: It is important for you to keep your follow up appointments with your medical provider. Who to Call and When: Medical Emergencies: Call 911 immediately if you experience any of the following warning signs and symptoms of Stroke: * Sudden numbness or weakness of the face, arm or leg, especially on one side of the body * Sudden confusion, trouble speaking or understanding * Sudden trouble seeing in one or both eyes * Sudden trouble walking, dizziness, loss of balance or coordination * Sudden severe headache with no cause Do not delay calling 911 if you experience any warning signs or symptoms of a stroke. Delay in seeking medical attention may affect what treatments can be given to you. . Total Time Total Time Spent Total Time Spent (In Minutes): It required greater than 30 minutes to prepare this patient for discharge. Total Time Includes: Examination of the Patient, Discharge Planning, Medication Reconciliation and Communication With Other Providers Coding Level of Care Code 91289 INP/OBS DISCH >30 MIN Diagnoses Aphasia R47.01 Chronic kidney disease, stage 3b N18.32 Prolonged PTT R79.1 Presence of urostomy Z93.6
== END 2024-08-26 14:07 | DRG 65 ==
LOC: ED 10:00 → INTOOBSV 12:53 → EDINP 12:53 → SUATTDRO 12:53 → 2W 15:33